=== PATIENT | female | born 1945 | race Caucasian/White ===

== ENCOUNTER → 2017-01-29 | Day surgery (SDC) | payer OTHER ==
[~2017-01-29] MED LIST: ANCEF VIAL 1 GM ONE; FENTANYL INJ 100 mcg ONE; LR 1000 ML IV 1,000 ML IV ONE; NAROPIN 0.75% ONE; NS 50 ML IV + SPIKE MINIBAG* 50 ML IV ONE; XYLOCAINE-MPF 1% ONE
[2017-01-29 07:57] VITALS: BP 120/75
== END ==
LOC: SURG1 07:35
PROVIDERS: ATTEND Student in an Organized Health Care Education/Training Program
DX: I87.2 Venous insufficiency (chronic) (peripheral) (principal); Z53.8 Procedure and treatment not carried out for other reasons
CPT/HCPCS: A4222; J0690; J3010; J7120

== ENCOUNTER → 2017-02-02 | Day surgery (SDC) | payer OTHER ==
[~2017-02-02] MED LIST changes: +DIPRIVAN VIAL ONE; -FENTANYL INJ 100 mcg ONE; -LR 1000 ML IV 1,000 ML IV ONE; -NAROPIN 0.75% ONE; +NS 1000 ML 1,000 ML ONE; +NS IRRIGATION 1000 ML 500 ML IR ONE; +VERSED ONE
--- NOTE | 2017-02-02 13:53 | RAD ---
Chest, one view Indication: For placement Comparison: 01/23/2017 Findings: There has been interval placement of a right jugular Port-A-Cath, the tip of which overlie s the SVC. Cardiac silhouette enlargement is unchanged. There is hyperinflation of the lungs with ch ronic interstitial changes. No dense infiltrate, large effusion, or pneumothorax identified. Chronic right hemidiaphragm elevation is stable. Impression: Satisfactory Port-A-Cath placement without acute chest process. Reported By:
[2017-02-02 14:31] VITALS: BP 130/65
== END | disposition home or self-care (01) | DRG 301 ==
LOC: SURG1 11:42
PROVIDERS: ATTEND Student in an Organized Health Care Education/Training Program
PROC: 02HV33Z Insertion of Infusion Device into Superior Vena Cava, Percutaneous Approach (ICD-10-PCS; principal; 2017-02-02 08:30)
PROC: 0JH63XZ Insertion of Tunneled Vascular Access Device into Chest Subcutaneous Tissue and Fascia, Percutaneous Approach (ICD-10-PCS; principal; 2017-02-02 08:30)
PROC: B548ZZA Ultrasonography of Superior Vena Cava, Guidance (ICD-10-PCS; principal; 2017-02-02 08:30)
DX: I87.2 Venous insufficiency (chronic) (peripheral) (principal)
CPT/HCPCS: 71010; 76000; 99100; A4222; J0690; J2250; J3490

== ENCOUNTER 2017-03-19 12:43 | Emergency (ER) | payer OTHER ==
[2017-03-19 12:57] VITALS: BP 111/62; BMI 34.3
[2017-03-19] MEDS ORDERED: ADACEL TDaP IM ONE ×2 (13:06→13:37)
--- NOTE | 2017-03-19 14:07 | RAD ---
HISTORY: Injury, fall, back pain Study: Lumbar spine five view Comparison: None Findings: The alignment is normal. The vertebral bodies are of average height. Disc space narrowing is present at L1-2 and L2-3. The remainder the disc spaces are preserved. No spondylolysis or spondylolisthesi s is identified. The SI joints are normal. The pedicles are intact. IMPRESSION: Mild disc space narrowing L1-2 Reported By:
--- NOTE | 2017-03-19 14:25 | DR.GENAD ---
HPI - PCP Primary Care Physician: cecilio - HPI Comment HPI Comment: HISTORY BELOW. - Complaint/Symptoms Chief Complaint Doctors Comments: PATIENT FELL IN HER KITCHEN BEFORE COMING TO ED. SKIN TEAR LEFT ARM. HAVING LOWER BACK PAIN. TD NOT UTD. Chief Complaint:: fell in kitchen while cleaning fridge, skin tear to left upper arm - Nurses notes reviewed Nurses Notes Review: Yes - Source History Provided: Patient - Mode of Arrival Mode of Arrival: Ambulatory - Timing Onset of Chief Complaint: 03/19/17 Came on: Suddenly - Duration Duration: Constant Duration: Minutes - Severity Severity: Moderate PMH - PMH Past Medical History: Yes Past Medical History: Anemia, Arthritis, Asthma, CHF, COPD, Coronary Artery Disease, Depression, Dyslipidemia, Hypertension, Hypothyroidism, [place], Renal Disease Past Surgical History: Yes Surgical History: Abdominal Surgery, Angioplasty/Stents, CABG/Valve Surgery, Cholecystectomy, [employer] Surgery - Family History History of Family Medical Conditions: Yes Family Medical History: Diabetes Mellitus, Cancer, [place], Coronary Artery Disease, Heart Failure, Sudden Cardiac , Hypertension - Social History Does patient currently use any type of tobacco product: No Have you used tobacco products in the last 12 months: No Type of Tobacco Use: None Does any household member use tobacco: No Alcohol Use: None Do you use any recreational Drugs:: No Lives With: Family Lives Where: Home - infectious screening In the last 2 months have you had wt loss of >10#?: NO Have you had fever, night sweats or hemotysis?: No Have you traveled outside the country in the last 6 months?: No Isolation: Standard ROS - Review of Systems Constitutional: No Symptoms Reported Eyes: No Symptoms Reported. negative: Eye Pain, Discharge ENTM: No Symptoms Reported. negative: Ear Pain, Nose Discharge, Nose Congestion , Throat Pain Respiratoy: No Symptoms Reported Cardiovascular: No Symptoms Reported Gastrointestinal/Abdominal: No Symptoms Reported Genitourinary: No Symptoms Reported Neurological: No Symptoms Reported Musculoskeletal: Back Pain, Joint Pain, Joint Swelling Integumentary: Wound (SKIN TEAR) Hematologic/Lymphatic: No Symptoms Reported Endocrine: No Symptoms Reported All Other Systems: Reviewed and Negative PE - Vital Signs Vitals: Temperature 98.1 F Pulse Rate 80 Respiratory Rate 16 Blood Pressure [Left Arm] 123/58 Blood Pressure [Right Arm] 131/58 Blood Pressure 111/62 O2 Sat by Pulse Oximetry 94 - General Limitations: No Limitations General Appearance: Alert - Head Head Exam: Normal Inspection - Eyes Eye exam: Normal Appearance - ENT ENT Exam: Normal External Ear Exam External Ear Exam: Normal External Inspection TM/Canal Exam: Bilateral Normal Nose Exam: Laceration (SKIN TEAR LEFT ARM, LARGE SURFACE AREA.) Mouth Exam: Normal Inspection Throat Exam: Normal Inspection - Neck Neck Exam: Trachea Midline - Chest Chest Inspection: Symmetric Chest Wall Rise - Respiratory Respiratory Exam: negative: Respiratory Distress Respiratory Exam: Bilateral Rhonchi, Lower Rhonchi - Cardiovascular Cardiovascular Exam: Regular Rate, Normal Rhythm, Normal Heart Sounds - Abdominal Exam Abdominal Exam: Normal Bowel Sounds, Soft, Dimnished Bowel Sounds - Extremities Extremities Exam: Tenderness (LEFT ARM. SKIN TEAR LARGE SURFACE AREA. SOME SKIN MISSING.) - Back Back Exam: Vertebral Tenderness (LOWER BACK) - Neurologic Neurological Exam: Alert, Oriented X3 - Psychiatric Psychiatric Exam: Normal Affect, Normal Mood - Skin Skin Exam: Erythema MDM - Additional Information Additional Information Obtained From: Family - Differential Diagnosis Differential Diagnosis: SKIN TEAR LT ARM, LOWER BACK PAIN, FALL Course - Treatment Treatment: SKIN TEAR CLEAN AND DRESSING APPLIED IN ED BY NURSE. - Education/Counseling Education/Counseling: Patient, Family, Education Educated On: Diagnosis, Needs for Follow Up ROR - XRAY XRAY Interpreted by: Radiologist XRAY Findings: REPORT DISCUSS WITH PATIENT AND HER FAAAAMILY. - Diagnosis Discharge Problem: Skin tear of left upper extremity, Lumbosacral strain, Low back pain - Discharge Plan Disposition: 01 HOME, SELF-CARE Condition: Stable - Follow ups/Referrals Follow ups/Referrals: NFD,None [Primary Care Provider] - 3 days - Instructions Instructions: Skin Tear Care, Lumbosacral Strain Additional Instructions: RETURN TO ED IF WORSE. CONTINUE WITH MED AT HOME FOR PAIN
[2017-03-19] MEDS ORDERED: NEOSPORIN OINT ONE (14:44)
== END 2017-03-19 14:55 | disposition home or self-care (01) ==
LOC: ER 12:51
DX: S83.289A Other tear of lateral meniscus, current injury, unspecified knee, initial encounter (principal); S39.012A Strain of muscle, fascia and tendon of lower back, initial encounter; M54.5 Low back pain; W19.XXXA Unspecified fall, initial encounter; Y92.89 Other specified places as the place of occurrence of the external cause
CPT/HCPCS: 72110; 90471; 99282

== ENCOUNTER 2017-10-14 01:11 | Emergency (ER) | payer OTHER ==
[2017-10-14 01:27] VITALS: BMI 27.4
[2017-10-14 01:30] VITALS: BP 120/66
[2017-10-14] MEDS ORDERED: TORADOL 60 MG VIAL IM ONE (01:44)
[2017-10-14] MEDS ORDERED: TORADOL 60 MG VIAL ONE (01:45)
--- NOTE | 2017-10-14 03:14 | RAD ---
Three views of the left ankle Indication: Left ankle pain without injury Findings: No acute fracture dislocation of the left ankle. Ankle mortise is symmetric. No osteochondr al abnormality within talar dome. No localizing soft tissue swelling. The tibiotalar joint effusion. Calcified atherosclerotic disease of the dorsalis pedis and posterior tibial arteries is noted. Mild dependent change of the plantar fascia. Impression: No acute radiographic abnormality within the left ankle. Reported By:
--- NOTE | 2017-10-14 03:20 | DR.GENAD ---
HPI - PCP Primary Care Physician: SERGIO - Complaint/Symptoms Chief Complaint Doctors Comments: Patient reports that her left ankle started to hurt today. Denies injury. Chief Complaint:: LEFT LATERAL ANKLE HURTING; NO KNOWN INJURY Self Treatment fo Chief Complaint: NO TREATMENT - Source History Provided: Patient - Mode of Arrival Mode of Arrival: Wheelchair - Timing Onset of Chief Complaint: 10/13/17 PMH - PMH Past Medical History: Yes Past Medical History: COPD Past Medical History Comment: CABG X 5; STENTS X 18; HOME O2; SLIM-CATH Past Surgical History: No Surgical History: Hysterectomy Past Surgical History Comment: HERNIA REPAIR - Family History History of Family Medical Conditions: No Family Medical History: Diabetes Mellitus, Cancer, [place], Coronary Artery Disease, Heart Failure, Sudden Cardiac , Hypertension - Social History Type of Tobacco Use: None Alcohol Use: None Do you use any recreational Drugs:: No Lives With: Family Lives Where: Home - infectious screening In the last 2 months have you had wt loss of >10#?: NO Have you had fever, night sweats or hemotysis?: No Have you traveled outside the country in the last 6 months?: No Isolation: Standard ROS - Review of Systems Eyes: No Symptoms Reported ENTM: No Symptoms Reported Respiratoy: No Symptoms Reported Cardiovascular: No Symptoms Reported Gastrointestinal/Abdominal: No Symptoms Reported Genitourinary: No Symptoms Reported Neurological: No Symptoms Reported Musculoskeletal: No Symptoms Reported Integumentary: No Symptoms Reported Hematologic/Lymphatic: No Symptoms Reported Endocrine: No Symptoms Reported Psychiatric: No Symptoms Reported All Other Systems: Reviewed and Negative PE - Vital Signs Vitals: Temperature 97.4 F Pulse Rate 112 Respiratory Rate 18 Blood Pressure [Left Arm] 123/58 Blood Pressure [Right Arm] 131/58 Blood Pressure 120/66 O2 Sat by Pulse Oximetry 99 - General Limitations: No Limitations General Appearance: Alert, In No Apparent Distress - Head Head Exam: Normal Inspection, Atraumatic - Eyes Eye exam: Normal Appearance, PERRL, EOMI - ENT ENT Exam: Normal Exam External Ear Exam: Normal External Inspection TM/Canal Exam: Bilateral Normal Nose Exam: Normal Nose Exam Mouth Exam: Normal Inspection Throat Exam: Normal Inspection - Neck Neck Exam: Normal Inspection - Chest Chest Inspection: Normal Inspection, Symmetric Chest Wall Rise - Respiratory Respiratory Exam: Normal Lung Sounds Bilat Respiratory Exam: Bilateral Clear to Auscultation - Cardiovascular Cardiovascular Exam: Regular Rate - Abdominal Exam Abdominal Exam: Normal Inspection, Normal Bowel Sounds Abdominal Tenderness: negative: RUQ, RLQ, LUQ, LLQ, Epigastrium, Suprapubic, Diffuse, Mild, Moderate, Severe, Other - Extremities Extremities Exam: Joint Swelling (left ankle) - Back Back Exam: Normal Inspection - Neurologic Neurological Exam: Alert, Oriented X3, CN II-XII Intact - Psychiatric Psychiatric Exam: Normal Affect - Skin Skin Exam: Warm, Dry, Intact ROR - Labs Reviewed Laboratory Results Reviewed?: Yes (Uric Acid 6.9) Laboratory: Uric Acid 6.9 mg/dL (2.6-6.0) H 10/14/17 01:55 - XRAY XRAY Interpreted by: Radiologist (ankle: No acute radiographiac abnormality within the left ankle) - Diagnosis Discharge Problem: Gout attack Qualifiers: Gout site: ankle Gout etiology: other secondary cause Laterality: left Qualified Code(s): 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
== END 2017-10-14 03:38 | disposition home or self-care (01) ==
LOC: ER 01:11
DX: M10.472 Other secondary gout, left ankle and foot (principal)
CPT/HCPCS: 36415; 73610; 84550; 96372; 99282; 99283; J1885

== ENCOUNTER 2017-11-01 23:01 | Emergency (ER) | payer OTHER ==
[2017-11-01 23:15] VITALS: BP 111/61; BMI 28.1
[2017-11-02] MEDS ORDERED: DECADRON INJ IM ONE (00:33)
[2017-11-02] MEDS ORDERED: DECADRON INJ ONE (00:35)
--- NOTE | 2017-11-02 00:38 | DR.GENAD ---
HPI - Complaint/Symptoms Chief Complaint Doctors Comments: Patient admits to being out of her nerve medication and has been scratching most of the day. She moved into a new appartment and the place has been treated for bed bugs. Chief Complaint:: scratching all over, itching, depression, nerve problems for about 2 to 3 weeks. scratch moya over arms and legs - Source History Provided: Patient - Mode of Arrival Mode of Arrival: Ambulatory - Timing Onset of Chief Complaint: 10/11/17 PMH - PMH Past Medical History: Yes Past Medical History: Angina, Anxiety, Arthritis, CHF, COPD, Depression, Dyslipidemia, Hypertension Past Surgical History: Yes Surgical History: Angioplasty/Stents, CABG/Valve Surgery, Cholecystectomy, Hysterectomy Past Surgical History Comment: nodules removed from lungs - Family History History of Family Medical Conditions: Yes Family Medical History: Diabetes Mellitus, Cancer, [place], Coronary Artery Disease, Heart Failure, Sudden Cardiac , Hypertension - Social History Does patient currently use any type of tobacco product: No Have you used tobacco products in the last 12 months: No Type of Tobacco Use: None Does any household member use tobacco: No Alcohol Use: None Do you use any recreational Drugs:: No Lives With: Family Lives Where: Home - infectious screening In the last 2 months have you had wt loss of >10#?: NO Have you had fever, night sweats or hemotysis?: No Have you traveled outside the country in the last 6 months?: No Isolation: Standard ROS - Review of Systems Eyes: No Symptoms Reported ENTM: No Symptoms Reported Respiratoy: No Symptoms Reported Cardiovascular: No Symptoms Reported Gastrointestinal/Abdominal: No Symptoms Reported Genitourinary: No Symptoms Reported Neurological: No Symptoms Reported Musculoskeletal: No Symptoms Reported Integumentary: Lesions (multiple areas of bruising/scratching on lower and upper extremities) Hematologic/Lymphatic: No Symptoms Reported Endocrine: No Symptoms Reported Psychiatric: No Symptoms Reported All Other Systems: Reviewed and Negative PE - Vital Signs Vitals: Temperature 98.6 F Pulse Rate 74 Respiratory Rate 20 Blood Pressure [Left Arm] 123/58 Blood Pressure [Right Arm] 131/58 Blood Pressure 111/61 O2 Sat by Pulse Oximetry 95 - General Limitations: No Limitations General Appearance: Alert - Head Head Exam: Normal Inspection - Eyes Eye exam: Normal Appearance, PERRL, EOMI - ENT ENT Exam: Normal Exam External Ear Exam: Normal External Inspection TM/Canal Exam: Bilateral Normal Nose Exam: Normal Nose Exam Mouth Exam: Normal Inspection Throat Exam: Normal Inspection - Neck Neck Exam: Normal Inspection - Chest Chest Inspection: Normal Inspection - Respiratory Respiratory Exam: Normal Lung Sounds Bilat Respiratory Exam: Bilateral Clear to Auscultation - Cardiovascular Cardiovascular Exam: Regular Rate, Normal Rhythm - Abdominal Exam Abdominal Exam: Normal Inspection Abdominal Tenderness: negative: RUQ, RLQ, LUQ, LLQ, Epigastrium, Suprapubic, Diffuse, Mild, Moderate, Severe, Other - Extremities Extremities Exam: Other (scratches on lower and upper extremities, ecchymosis) - Back Back Exam: Normal Inspection - Neurologic Neurological Exam: Alert, Oriented X3, CN II-XII Intact - Psychiatric Psychiatric Exam: Normal Affect, Normal Mood - Skin Skin Exam: Warm, Dry, Intact - Diagnosis Discharge Problem: Dermatitis - Discharge Plan Condition: Stable - Follow ups/Referrals Follow ups/Referrals: Alfredo Booth [Primary Care Provider] - 3 days - Instructions
== END 2017-11-02 00:43 | disposition home or self-care (01) ==
LOC: ER 23:20
DX: L30.8 Other specified dermatitis (principal)
CPT/HCPCS: 90472; 96372; 99282; J1100

== ENCOUNTER 2017-11-15 16:55 | Emergency (ER) | payer OTHER ==
[2017-11-15 17:05] VITALS: BMI 27.4
--- NOTE | 2017-11-15 17:32 | DR.GENAD ---
HPI - PCP Primary Care Physician: SERGIO - HPI Comment HPI Comment: SORES GETTING WORSE AND REDNESS AROUND SORES INCREASING AND SWELLING IS INCEASING ALSO. NO FEVER. - Complaint/Symptoms Chief Complaint Doctors Comments: GENERALIZE BODY SORE AND REDNESS FOR SEVERAL WEEKS. Chief Complaint:: PT C/O RASH, ITCHING, AND SORES ALL OVER BODY. PT STATES THESE PLACES HAS BEEN THERE FOR A WHILE - Nurses notes reviewed Nurses Notes Review: Yes - Source History Provided: Patient - Mode of Arrival Mode of Arrival: Ambulatory - Timing Onset of Chief Complaint: 11/08/17 Came on: Suddenly - Duration Duration: Constant Duration: Days PMH - PMH Past Medical History: Yes Past Medical History: Angina, Anxiety, Arthritis, CHF, COPD, Depression, Dyslipidemia, Hypertension Past Surgical History: Yes Surgical History: Angioplasty/Stents, CABG/Valve Surgery, Cholecystectomy, Hysterectomy - Family History History of Family Medical Conditions: Yes Family Medical History: Diabetes Mellitus, Cancer, [place], Coronary Artery Disease, Heart Failure, Sudden Cardiac , Hypertension - Social History Does any household member use tobacco: No Alcohol Use: None Do you use any recreational Drugs:: No Lives With: Family Lives Where: Assisted Care - infectious screening In the last 2 months have you had wt loss of >10#?: NO Have you had fever, night sweats or hemotysis?: No Have you traveled outside the country in the last 6 months?: No Isolation: Standard ROS - Review of Systems Constitutional: Weakness, Fatigue. negative: Chills, Fever Eyes: No Symptoms Reported ENTM: Nose Congestion. negative: Ear Pain, Nose Discharge, Throat Pain Respiratoy: Non-Productive Cough, Short of Breath, Wheezing. negative: Hemoptysis Cardiovascular: Edema Gastrointestinal/Abdominal: No Symptoms Reported. negative: Abdominal Pain, Diarrhea, Nausea, Vomiting Genitourinary: No Symptoms Reported Neurological: Weakness Musculoskeletal: Muscle Pain Integumentary: Change in Color, Rash, Itching Hematologic/Lymphatic: No Symptoms Reported Endocrine: No Symptoms Reported All Other Systems: Reviewed and Negative PE - Vital Signs Vitals: Temperature 98.8 F Pulse Rate [Left Radial] 80 Pulse Rate 86 Respiratory Rate 18 Blood Pressure [Left Arm] 128/72 Blood Pressure [Right Arm] 131/58 Blood Pressure 130/73 O2 Sat by Pulse Oximetry 99 - General Limitations: No Limitations General Appearance: Alert - Head Head Exam: Normal Inspection - Eyes Eye exam: Normal Appearance - ENT ENT Exam: Normal External Ear Exam External Ear Exam: Normal External Inspection TM/Canal Exam: Bilateral Normal Nose Exam: Normal Nose Exam Mouth Exam: Normal Inspection Throat Exam: Normal Inspection - Neck Neck Exam: Normal Inspection - Chest Chest Inspection: Symmetric Chest Wall Rise - Respiratory Respiratory Exam: Chest Wall Tenderness Respiratory Exam: Bilateral Clear to Auscultation - Cardiovascular Cardiovascular Exam: Regular Rate, Normal Rhythm, Normal Heart Sounds - Abdominal Exam Abdominal Exam: Normal Bowel Sounds, Soft. negative: Tenderness - Extremities Extremities Exam: Edema - Back Back Exam: Paraspinal Tenderness, Vertebral Tenderness - Neurologic Neurological Exam: Alert, Oriented X3 - Psychiatric Psychiatric Exam: Anxious - Skin Skin Exam: Rash, Erythema MDM - Additional Information Additional Information Obtained From: Family - Differential Diagnosis Differential Diagnosis: CELLULITIS, RASH, PRURITUS Course - Treatment Treatment: SEE ORSERS. - Education/Counseling Education/Counseling: Patient, Family, Education Educated On: Treatment, Diagnosis, Needs for Follow Up ROR - Labs Reviewed Laboratory Results Reviewed?: Yes Result Diagrams: 11/15/17 18:11 11/15/17 18:11 Laboratory: WBC 7.6 X10^3/uL (3.6-10.0) 11/15/17 18:11 RBC 3.65 X10^6/uL (3.5-5.4) 11/15/17 18:11 Hgb 12.2 g/dL (12.0-16.0) 11/15/17 18:11 Hct 35.8 % (36.0-47.0) L 11/15/17 18:11 MCV 98.0 fL (80.0-100.0) 11/15/17 18:11 MCH 33.4 pg (27.0-34.0) 11/15/17 18:11 MCHC 34.0 g/dL (33.0-35.0) 11/15/17 18:11 RDW 13.3 % (11.6-16.5) 11/15/17 18:11 Plt Count 217 X10^3/uL (150.0-450.0) 11/15/17 18:11 MPV 7.3 fL (7.4-11.0) L 11/15/17 18:11 Neut % 64.9 % (42.0-75.0) 11/15/17 18:11 Lymph % 18.2 % (21.0-51.0) L 11/15/17 18:11 [place] % 7.5 % (0.0-13.0) 11/15/17 18:11 Eos % 6.3 % (0.9-2.9) H 11/15/17 18:11 Baso % 3.1 % (0.2-1.0) H 11/15/17 18:11 Neut # 4.9 x10^3/uL (2.2-4.8) H 11/15/17 18:11 Lymph # 1.4 X10^3/uL (1.3-2.9) 11/15/17 18:11 [place] # 0.6 x10^3/uL (0.3-0.8) 11/15/17 18:11 Eos # 0.5 x10^3/uL (0.0-0.2) H 11/15/17 18:11 Baso # 0.2 X10^3/uL (0.0-0.1) H 11/15/17 18:11 Absolute Nucleated RBC 0.0 /100WBC 11/15/17 18:11 Sodium 140 mmol/L (136-145) 11/15/17 18:11 Corrected Sodium TNP 11/15/17 18:11 Potassium 4.7 mmol/L (3.5-5.1) 11/15/17 18:11 Chloride 106 mmol/L (98-107) 11/15/17 18:11 Carbon Dioxide 26.3 mmol/L (21-32) 11/15/17 18:11 BUN 29 mg/dL (7-18) H 11/15/17 18:11 Creatinine 1.56 mg/dL (0.55-1.02) H 11/15/17 18:11 Est GFR (MDRD) Af Amer 42 (>60) L 11/15/17 18:11 Est GFR (MDRD) Non-Af 34 (>60) L 11/15/17 18:11 Glucose 95 mg/dL (65-99) 11/15/17 18:11 Calcium 8.5 mg/dL (8.5-10.1) 11/15/17 18:11 Corrected Calcium 9.1 mg/dL (8.5-10.1) 11/15/17 18:11 Total Bilirubin 0.30 mg/dL (0.2-1.0) 11/15/17 18:11 AST 34 Units/L (15-37) 11/15/17 18:11 ALT 35 Units/L (12-78) 11/15/17 18:11 Alkaline Phosphatase 124 Units/L (46-116) H 11/15/17 18:11 C-Reactive Protein 8.00 mg/L (0-3.0) H 11/15/17 18:11 Total Protein 7.1 g/dL (6.4-8.2) 11/15/17 18:11 Albumin 3.2 g/dL (3.4-5.0) L 11/15/17 18:11 Globulin 3.9 g/dL (2.5-4.5) 11/15/17 18:11 Albumin/Globulin Ratio 0.8 Ratio (1.1-2.1) L 11/15/17 18:11 - Diagnosis Discharge Problem: Rash Cellulitis Qualifiers: Site of cellulitis: other site Qualified Code(s): L03.818 - Cellulitis of other sites - Discharge Plan Disposition: 01 HOME, SELF-CARE Condition: Stable Prescriptions: Hydroxyzine Pamoate [Vistaril] 25 mg PO BID PRN #14 cap PRN Reason: Prednisone [PREDNISONE TAB 10 MG *] 10 mg PO QAM #7 tab Sulfamethoxazole-Trimethoprim [BACTRIM DS TAB 800/160 MG *] 1 tab PO BID #20 tab - Follow ups/Referrals Follow ups/Referrals: Alfredo Booth [Primary Care Provider] - 3 days - Instructions Instructions: Pruritus, Cellulitis, Adult, [id number], Rash, [id number] Additional Instructions: RETURN TO ED IF WORSE.
[2017-11-15 18:30] LABS: BASOPHILS # (AUTO) 0.2 X10^3/uL (0.0-0.1); BASOPHILS % (AUTO) 3.1 % (0.2-1.0); EOSINOPHILS # (AUTO) 0.5 x10^3/uL (0.0-0.2); EOSINOPHILS % (AUTO) 6.3 % (0.9-2.9); HEMATOCRIT 35.8 % (36.0-47.0); HEMOGLOBIN 12.2 g/dL (12.0-16.0); LYMPHOCYTES # (AUTO) 1.4 X10^3/uL (1.3-2.9); LYMPHOCYTES % (AUTO) 18.2 % (21.0-51.0); MEAN CORPUSCULAR HEMOGLOBIN 33.4 pg (27.0-34.0); MEAN PLATELET VOLUME 7.3 fL (7.4-11.0); MONOCYTES # (AUTO) 0.6 x10^3/uL (0.3-0.8); MONOCYTES % (AUTO) 7.5 % (0.0-13.0); NEUTROPHILS # (AUTO) 4.9 x10^3/uL (2.2-4.8); NEUTROPHILS % (AUTO) 64.9 % (42.0-75.0); PLATELET COUNT 217 X10^3/uL (150.0-450.0); RED BLOOD COUNT 3.65 X10^6/uL (3.5-5.4); RED CELL DISTRIBUTION WIDTH 13.3 % (11.6-16.5); WHITE BLOOD COUNT 7.6 X10^3/uL (3.6-10.0)
[2017-11-15] MEDS ORDERED: ZOSYN VIAL 3.375 GM 3.375 GM in NS 100 ML IV + SPIKE MINIBAG* 100 ML IV ONE (18:30)
[2017-11-15] MEDS ORDERED: MORPHINE SULFATE INJ 4 MG IVP ONE (18:32)
[2017-11-15] MEDS ORDERED: ZOFRAN INJ 4 MG VIAL IVP ONE (18:32)
[2017-11-15] MEDS ORDERED: ZOSYN VIAL 3.375 GM IV ONE (18:35)
[2017-11-15] MEDS ORDERED: NS 100 ML IV 100 ML IV ONE (18:35)
[2017-11-15] MEDS ORDERED: MORPHINE SULFATE INJ 2 MG INJ ONE (18:35)
[2017-11-15 18:38] LABS: ALANINE AMINOTRANSFERASE 35 Units/L (12-78); ALBUMIN 3.2 g/dL (3.4-5.0); ALKALINE PHOSPHATASE 124 Units/L (46-116); ASPARTATE AMINO TRANSFERASE 34 Units/L (15-37); BLOOD UREA NITROGEN 29 mg/dL (7-18); CALCIUM 8.5 mg/dL (8.5-10.1); CARBON DIOXIDE 26.3 mmol/L (21-32); CHLORIDE 106 mmol/L (98-107); COR CA(FOR HYPOALB) 9.1 mg/dL (8.5-10.1); CREATININE 1.56 mg/dL (0.55-1.02); SODIUM 140 mmol/L (136-145); TOTAL PROTEIN 7.1 g/dL (6.4-8.2); eGFR BLACK RACES 42 (>60); eGFR NON BLACK RACES 34 (>60)
[2017-11-15] MEDS ORDERED: VISTARIL PO ONE ×2 (20:15→20:18)
[2017-11-15] MEDS ORDERED: ZANTAC INJ 50 MG in NS 50 ML IV 50 ML IV ONE (20:15)
[2017-11-15] MEDS ORDERED: NS 25 ML IV 25 ML IV ONE (20:24)
[2017-11-15 21:29] VITALS: BP 128/72
== END 2017-11-15 21:30 | disposition home or self-care (01) ==
LOC: ER 16:59
DX: L03.818 Cellulitis of other sites (principal); R21 Rash and other nonspecific skin eruption
CPT/HCPCS: 36415; 36591; 80053; 85025; 86140; 87040; 96365; 96367; 96374; 96375; 99283; Q0177; J2270; J2543; J2780

== ENCOUNTER 2017-12-20 07:36 | Emergency (ER) | payer OTHER ==
[2017-12-20 07:59] VITALS: BP 193/86; BMI 28.3
--- NOTE | 2017-12-20 08:21 | DR.SOBA ---
HPI - Primary Care Physician Primary Care Physician: ang - HPI Comment HPI Comment: No c/o SOB to me, 96% RA sats, no resp distress. Mentions itching to me, has tried a number of different things from PCP and derm for this without improvement. Concerned re:staph infection - Complaints Chief Complaint:: pt stated her legs are draining and her neighbor said it was staff, left eye pain that she was told it was shingles and has been feeling sick on her stomack. and she stated she feels short of breath. - Reviewed Nurses Notes Reviewed: Yes - Source History Provided: Patient, Family Member - Mode of Arrival Mode of Arrival: Ambulatory - Timing Onset of Chief Complaint: 12/17/17 - Duration Duration: Months (chronic condition, has seen PCP a number of times for this and 2 different dermatologists) - Modifying Factors Worsens:: Nothing Improves:: Nothing - Associated Signs and Symptoms Associated Signs and Symptoms: denies: Fever - If Chest Pain Quality: Sharp - If Cough Cough: None PMH - PMH Past Medical History: Yes Past Medical History: Angina, Anxiety, Arthritis, CHF, COPD, Depression, Dyslipidemia, Hypertension Past Surgical History: Yes Surgical History: Angioplasty/Stents, CABG/Valve Surgery, Cholecystectomy, Hysterectomy - Family History History of Family Medical Conditions: Yes Family Medical History: Diabetes Mellitus, Cancer, [place], Coronary Artery Disease, Heart Failure, Sudden Cardiac , Hypertension - Social History Does patient currently use any type of tobacco product: No Have you used tobacco products in the last 12 months: No Type of Tobacco Use: None Does any household member use tobacco: No Alcohol Use: None Do you use any recreational Drugs:: No Lives With: Family Lives Where: Home - infectious screening In the last 2 months have you had wt loss of >10#?: NO Have you had fever, night sweats or hemotysis?: No Have you traveled outside the country in the last 6 months?: No Isolation: Standard ROS - Review of Systems Constitutional: See HPI. 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, has tried lyrica and neurontin without relief) ENTM: No Symptoms Reported Respiratoy: No Symptoms Reported Cardiovascular: No Symptoms Reported Gastrointestinal/Abdominal: No Symptoms Reported Genitourinary: No Symptoms Reported Neurological: Paresthesia Musculoskeletal: Back Pain Integumentary: Rash, Itching Hematologic/Lymphatic: No Symptoms Reported Endocrine: No Symptoms Reported Psychiatric: No Symptoms Reported All Other Systems: Reviewed and Negative PE - Vital Signs Vitals: Temperature 98.7 F Pulse Rate 64 Respiratory Rate 16 Blood Pressure [Left Arm] 128/72 Blood Pressure [Right Arm] 131/58 Blood Pressure 193/86 O2 Sat by Pulse Oximetry 97 - General Limitations: No Limitations General Appearance: Alert, In No Apparent Distress. negative: Anxious, Lethargic, Obtunded, In Distress - Head Head Exam: Normal Inspection, Normocephalic - Eyes Eye exam: Normal Appearance - ENT ENT Exam: Normal Exam - Neck Neck Exam: Normal Inspection - Chest Chest Inspection: Normal Inspection - Respiratory Respiratory Exam: Normal Lung Sounds Bilat. negative: Accessory Muscle Use, Chest Wall Tenderness, Prolonged Expiratory Phase, Respiratory Distress, Stridor Respiratory Exam: Bilateral Clear to Auscultation - Cardiovascular Cardiovascular Exam: Regular Rate, Normal Rhythm - Abdominal Exam Abdominal Exam: Normal Bowel Sounds, Soft - Extremities Extremities Exam: Other (excoriated lesions both arms and both legs from pt scratching. These do not appear infected. Similar lesions are on her back as well) - Neurologic Neurological Exam: Alert - Psychiatric Psychiatric Exam: Normal Affect, Normal Mood - Skin Skin Exam: Rash (see above, multiple areas of excoriation) MDM - Additional Information Obtained Additional Information Obtained From: Family Course - Treatment Treatment: Asked pt if she had tried Atarax, she said this was the only thing that had helped previously. I told her I'd write a Rx for her to have some. 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
[2017-12-20] MEDS ORDERED: ATARAX TAB 10 MG PO PRN (08:27)
[2017-12-20] MEDS ORDERED: ATARAX TAB 10 MG PO ONE (08:30)
== END 2017-12-20 09:13 | disposition home or self-care (01) ==
LOC: ER 07:49
DX: L29.8 Other pruritus (principal)
CPT/HCPCS: 99282

== ENCOUNTER 2017-12-23 03:19 | Emergency (ER) | payer OTHER ==
[2017-12-23 03:28] VITALS: BP 120/70; BMI 28.3
[2017-12-23] MEDS ORDERED: BENADRYL INJ 50 MG VIAL IM ONE (04:01)
[2017-12-23] MEDS ORDERED: ROCEPHIN VIAL 1 GM IM ONE (04:01)
[2017-12-23] MEDS ORDERED: BACTRIM DS TAB PO ONE ×2 (04:02→04:06)
[2017-12-23] MEDS ORDERED: PREDNISONE TAB 20 MG PO ONE ×2 (04:02→04:05)
[2017-12-23] MEDS ORDERED: XYLOCAINE 1 % (PLAIN) ONE (04:05)
[2017-12-23] MEDS ORDERED: BENADRYL INJ 50 MG VIAL ONE (04:05)
[2017-12-23] MEDS ORDERED: ROCEPHIN VIAL 1 GM ONE (04:06)
--- NOTE | 2017-12-23 04:07 | DR.GENAD ---
HPI - PCP Primary Care Physician: ang - Complaint/Symptoms Chief Complaint Doctors Comments: Patient states she has had a rash for a long time on her back arms and legs that is getting worst. States she went to a family practice medical doctor and she told her she had a staph infection and gave her some cream and medicines but it did not help. States she has not been able to sleep due to the itching. she came to the emergency room and states they told her she had "old people's rash". State she is a patient of Dr. Booth and when the rash starts itching feels like she can scratch down to the bones. She denies fever, chills, nausea or vomiting. States her tetanus is up to date. Chief Complaint:: c/o staph infection to back, arms, legs. Patient reports symptoms started 3 weeks [address] Patient [address] Dr[address] Booth and he sent her to a dermalogist, who gave her antibiotics. Patient reports was compliant with medication and saw no improvement with rash. Patient reports areas are itching severly. - Nurses notes reviewed Nurses Notes Review: Yes - Source History Provided: Patient - Mode of Arrival Mode of Arrival: Ambulatory - Timing Onset of Chief Complaint: 12/02/17 Came on: Gradually - Duration Duration: Constant How lon Duration: Weeks - Location Location: back, arms, buttock and legs - Severity Severity: Moderate - Modifying Factors Worsens:: nothing Improves:: nothing PMH - PMH Past Medical History: Yes Past Medical History: Angina, Anxiety, Arthritis, CHF, COPD, Depression, Dyslipidemia, Hypertension Past Surgical History: Yes Surgical History: Angioplasty/Stents, CABG/Valve Surgery, Cholecystectomy, Hysterectomy - Family History History of Family Medical Conditions: Yes Family Medical History: Diabetes Mellitus, Cancer, [place], Coronary Artery Disease, Heart Failure, Sudden Cardiac , Hypertension - Social History Type of Tobacco Use: None Alcohol Use: None Do you use any recreational Drugs:: No Lives With: Family Lives Where: Home - infectious screening In the last 2 months have you had wt loss of >10#?: NO Have you had fever, night sweats or hemotysis?: No Have you traveled outside the country in the last 6 months?: No Isolation: Standard ROS - Review of Systems Constitutional: No Symptoms Reported. negative: See HPI, Chills, Diaphoresis, Fever, Malaise, Weakness, Irritable, Fatigue, Loss of Appetite, Other Eyes: No Symptoms Reported. negative: See HPI, Eye Pain, Blurred Vision, Tearing, Discharge, Photophobia, Diplopia, Other ENTM: No Symptoms Reported Respiratoy: No Symptoms Reported. negative: See HPI, Productive Cough, Non- Productive Cough, Moist Cough, Dry Cough, Hacking Cough, Barking Cough, Brassy Cough, Orthopnea, Short of Breath, Stridor, Wheezing, Hemoptysis, Other Cardiovascular: No Symptoms Reported Gastrointestinal/Abdominal: No Symptoms Reported. negative: See HPI, Abdominal Pain, Constipation, Diarrhea, Nausea, Vomiting, Food Intolerance, Other Genitourinary: No Symptoms Reported. negative: See HPI, Discharge, Dysuria, Frequency, Hematuria, Pain, Bleeding, Other Neurological: No Symptoms Reported, Anxiety, Emotional Problems Musculoskeletal: No Symptoms Reported, Back, Arm, Leg Integumentary: No Symptoms Reported, Lesions (macular lesions on arm and back with honey cone crusting), Rash, Itching, Wound Hematologic/Lymphatic: No Symptoms Reported. negative: See HPI, Anemia, Blood Clots, Easy Bleeding, Easy Bruising, Swollen Glands, Lymphadenopathy, Other Endocrine: No Symptoms Reported Psychiatric: No Symptoms Reported, Anxiety, Depression. negative: See HPI, Hallucinations, Excessive crying, Suicidal, Other PE - Vital Signs Vitals: Temperature 97.9 F Pulse Rate 104 Respiratory Rate 26 Blood Pressure [Left Arm] 128/72 Blood Pressure [Right Arm] 131/58 Blood Pressure 120/70 O2 Sat by Pulse Oximetry 96 - General Limitations: No Limitations General Appearance: Alert, In No Apparent Distress, Obese. negative: Appears Intoxicated, Anxious, Lethargic, Obtunded, In Distress, Cachectic, Other - Head Head Exam: Normal Inspection, Atraumatic, Normocephalic - Eyes Eye exam: Normal Appearance, PERRL, EOMI. negative: Scleral Icterus, Conjunctival Injection, Nystagmus, Miosis, Mydrasis, Periorbital Swelling, Periorbital Tenderness, Other - ENT ENT Exam: Normal Exam, Normal Oropharynx, Normal External Ear Exam, Mucous Membranes Moist, TM's Normal Bilaterally External Ear Exam: Normal External Inspection TM/Canal Exam: Bilateral Normal Nose Exam: Normal Nose Exam Mouth Exam: Normal Inspection. negative: Drooling, Trismus, Lip Swelling, Tongue Elevation, Tongue Swelling, Laceration, Other Throat Exam: Normal Inspection. negative: Tonsillar Erythema, Tonsillomegaly, Tonsillar Exudate, R Peritonsillar Mass, L Peritonsillar Mass, Muffled Voice, Other - Neck Neck Exam: Normal Inspection, Full ROM, Trachea Midline - Chest Chest Inspection: Normal Inspection, Symmetric Chest Wall Rise. negative: Tenderness, Rash, Abscess, Other - Respiratory Respiratory Exam: Normal Lung Sounds Bilat. negative: Accessory Muscle Use, Chest Wall Tenderness, Prolonged Expiratory Phase, Respiratory Distress, Stridor , Other Respiratory Exam: Bilateral Clear to Auscultation - Cardiovascular Cardiovascular Exam: Regular Rate, Normal Rhythm, Normal Heart Sounds - Abdominal Exam Abdominal Exam: Normal Inspection, Normal Bowel Sounds, Soft. negative: Distention, Tenderness, Guarding, Rebound, Rigidity, Dimnished Bowel Sounds, Hyperactive Bowel Sounds, Hypoactive Bowel Sounds, Organomegaly, Trauma, Incision, Ascites, Mass, Bruit, Pulsatile Mass, Hernia, Other Abdominal Tenderness: negative: RUQ, RLQ, LUQ, LLQ, Epigastrium, Suprapubic, Diffuse, Mild, Moderate, Severe, Other - Extremities Extremities Exam: Normal Inspection, Full ROM, Normal Capillary Refill (rash on arms with honey cone crusting). negative: Tenderness - Back Back Exam: Normal Inspection, Full ROM, Rashes (large patches of erythemaous macular rash with crusting; papules, excoriatio). negative: Tenderness, Muscle Spasm, Paraspinal Tenderness - Neurologic Neurological Exam: Alert, Oriented X3, CN II-XII Intact, Normal Gait, Reflexes Normal - Psychiatric Psychiatric Exam: Normal Affect, Normal Mood, Depressed, Anxious. negative: Agitated, Flat Affect, Manic, Homicidal Ideation, Suicidal Ideation, Other - Skin Skin Exam: Warm, Dry, Intact, Normal Color, Rash (back with multiple macular lesions with erythema, denuded skin with honeycone crusting.) - Diagnosis Discharge Problem: Impetigo follicularis, Cellulitis, Xerosis of skin, Folliculitis - Discharge Plan Disposition: 01 HOME, SELF-CARE Condition: Stable Prescriptions: Cephalexin [KEFLEX CAP 500 MG *] 500 mg PO TID #30 cap Hydroxyzine HCl 25 mg Tab [ATARAX *] 25 mg PO Q8H PRN #60 tab PRN Reason: Allergy/Itching Mupirocin Oint [BACTROBAN OINT 2%] 1 applic EXT BID #44 gm Sulfamethoxazole-Trimethoprim [BACTRIM DS TAB 800/160 MG *] 1 tab PO BID #20 tab - Follow ups/Referrals Follow ups/Referrals: Alfredo Booth [Primary Care Provider] - 3 days - Instructions Instructions: Impetigo, Adult, Contact Precautions, [id number], Cellulitis, Adult, [id number], Eczema
== END 2017-12-23 04:36 | disposition home or self-care (01) ==
LOC: ER 03:19
DX: L01.02 Bockhart's impetigo (principal); L03.90 Cellulitis, unspecified; L85.3 Xerosis cutis; L73.9 Follicular disorder, unspecified
CPT/HCPCS: 96372; 99282; J0696; J1200; J2001; J7506

== ENCOUNTER 2018-01-06 15:21 | Emergency (ER) | payer OTHER ==
[2018-01-06 15:30] VITALS: BP 169/117; BMI 27.6
--- NOTE | 2018-01-06 16:55 | DR.GENAD ---
HPI - PCP Primary Care Physician: Leobardo - Complaint/Symptoms Chief Complaint Doctors Comments: Patient has been followed by two different case picker for the treatment of the dry skin. She states that she has to itch frequently for comfort. She has been followed for years by different case picker. Chief Complaint:: "For about 2 months now I have been having a rash come up and I can't stop itching. It's all over my body." - Source History Provided: Patient - Mode of Arrival Mode of Arrival: Ambulatory - Timing Onset of Chief Complaint: 11/04/17 PMH - PMH Past Medical History: Yes Past Medical History: Angina, Anxiety, Arthritis, CHF, COPD, Depression, Dyslipidemia, Hypertension Past Surgical History: Yes Surgical History: Angioplasty/Stents, CABG/Valve Surgery, Cholecystectomy, Hysterectomy - Family History History of Family Medical Conditions: Yes Family Medical History: Diabetes Mellitus, Cancer, [place], Coronary Artery Disease, Heart Failure, Sudden Cardiac , Hypertension - Social History Does patient currently use any type of tobacco product: No Have you used tobacco products in the last 12 months: No Type of Tobacco Use: None Does any household member use tobacco: No Alcohol Use: None Do you use any recreational Drugs:: No Lives With: Family Lives Where: Home - infectious screening In the last 2 months have you had wt loss of >10#?: NO Have you had fever, night sweats or hemotysis?: No Have you traveled outside the country in the last 6 months?: No Isolation: Standard ROS - Review of Systems Eyes: No Symptoms Reported ENTM: No Symptoms Reported Respiratoy: No Symptoms Reported Cardiovascular: No Symptoms Reported Genitourinary: No Symptoms Reported Neurological: No Symptoms Reported Musculoskeletal: No Symptoms Reported Integumentary: No Symptoms Reported Hematologic/Lymphatic: See HPI Endocrine: No Symptoms Reported Psychiatric: No Symptoms Reported All Other Systems: Reviewed and Negative PE - Vital Signs Vitals: Temperature 98.4 F Pulse Rate 70 Respiratory Rate 20 Blood Pressure [Left Arm] 128/72 Blood Pressure [Right Arm] 131/58 Blood Pressure 169/117 O2 Sat by Pulse Oximetry 98 - General General Appearance: Alert, In No Apparent Distress - Head Head Exam: Normal Inspection, Atraumatic - Eyes Eye exam: Normal Appearance, PERRL, EOMI - ENT ENT Exam: Normal Exam External Ear Exam: Normal External Inspection TM/Canal Exam: Bilateral Normal Nose Exam: Normal Nose Exam Mouth Exam: Normal Inspection Throat Exam: Normal Inspection - Neck Neck Exam: Normal Inspection - Chest Chest Inspection: Normal Inspection - Respiratory Respiratory Exam: Normal Lung Sounds Bilat Respiratory Exam: Bilateral Clear to Auscultation - Cardiovascular Cardiovascular Exam: Regular Rate, Normal Rhythm - Abdominal Exam Abdominal Exam: Normal Inspection, Normal Bowel Sounds Abdominal Tenderness: negative: RUQ, RLQ, LUQ, LLQ, Epigastrium, Suprapubic, Diffuse, Mild, Moderate, Severe, Other - Extremities Extremities Exam: Normal Inspection, Full ROM - Back Back Exam: Normal Inspection, Full ROM - Neurologic Neurological Exam: Alert, Oriented X3, CN II-XII Intact - Psychiatric Psychiatric Exam: Normal Affect, Normal Mood - Skin Skin Exam: Warm, Dry (cracked, excoriated) - Diagnosis Discharge Problem: Chronic pruritic rash in adult - Discharge Plan Condition: Stable - Follow ups/Referrals Follow ups/Referrals: Alfredo Booth [Primary Care Provider] - 3 days - Instructions
[2018-01-06] MEDS ORDERED: DECADRON INJ IM ONE (17:25)
[2018-01-06] MEDS ORDERED: DECADRON INJ ONE (17:26)
== END 2018-01-06 17:41 | disposition home or self-care (01) ==
LOC: ER 15:34
DX: L29.8 Other pruritus (principal)
CPT/HCPCS: 96372; 99282; J1100

== ENCOUNTER → 2018-01-11 | Outpatient (CLI) | payer OTHER ==
[2018-01-06 15:30] VITALS: BP 169/117
[2018-01-11 09:19] LABS: BILIRUBIN,URINE NEGATIVE (NEGATIVE); BLOOD/HEMOGLOBIN,URINE NEGATIVE (NEGATIVE); GLUCOSE, URINE NEGATIVE (NEGATIVE); KETONES,URINE NEGATIVE (NEGATIVE); LEUKOCYTE ESTERASE ,URINE 2+ (NEGATIVE); NITRITES,URINE NEGATIVE (NEGATIVE); PROTEIN,URINE 2+ (NEGATIVE); UROBILINOGEN,URINE NORMAL (NORMAL)
[2018-01-11 09:20] LABS: BASOPHILS # (AUTO) 0.1 X10^3/uL (0.0-0.1); BASOPHILS % (AUTO) 0.7 % (0.2-1.0); HEMATOCRIT 40.5 % (36.0-47.0); HEMOGLOBIN 14.1 g/dL (12.0-16.0); LYMPHOCYTES % (AUTO) 10.1 % (21.0-51.0); MEAN CORPUSCULAR HEMOGLOBIN 32.5 pg (27.0-34.0); MEAN CORPUSCULAR HGB CONC 34.8 g/dL (33.0-35.0); MEAN CORPUSCULAR VOLUME 93.6 fL (80.0-100.0); MEAN PLATELET VOLUME 7.4 fL (7.4-11.0); MONOCYTES # (AUTO) 0.1 x10^3/uL (0.3-0.8); MONOCYTES % (AUTO) 1.2 % (0.0-13.0); NEUTROPHILS # (AUTO) 8.7 x10^3/uL (2.2-4.8); PLATELET COUNT 271 X10^3/uL (150.0-450.0); RED BLOOD COUNT 4.33 X10^6/uL (3.5-5.4); WHITE BLOOD COUNT 9.9 X10^3/uL (3.6-10.0)
[2018-01-11 09:30] LABS: APPEARANCE,URINE CLEAR (CLEAR); BACTERIA,URINE TRACE /HPF (NEGATIVE); COLOR,URINE YELLOW (YELLOW); MUCUS,URINE FEW /HPF (NEGATIVE); RBC,URINE 0-5 /HPF (NONE SEEN); SQUAMOUS EPITHELIAL CELL,UR MODERATE /HPF (NEGATIVE)
[2018-01-11 09:40] LABS: ALANINE AMINOTRANSFERASE 25 Units/L (12-78); ALBUMIN 3.6 g/dL (3.4-5.0); ALKALINE PHOSPHATASE 127 Units/L (46-116); ASPARTATE AMINO TRANSFERASE 22 Units/L (15-37); BLOOD UREA NITROGEN 34 mg/dL (7-18); CALCIUM 9.1 mg/dL (8.5-10.1); CARBON DIOXIDE 23.7 mmol/L (21-32); CHLORIDE 104 mmol/L (98-107); COR NA(FOR HYPERGLY) 141 mmol/L (136-145); CREATININE 1.71 mg/dL (0.55-1.02); FREE T4 (FREE THYROXINE) 0.69 ng/dL (0.76-1.46); SODIUM 140 mmol/L (136-145); TOTAL PROTEIN 7.7 g/dL (6.4-8.2); TSH (3RD GENERATION) 4.025 uIU/mL (0.358-3.74); eGFR BLACK RACES 38 (>60); eGFR NON BLACK RACES 31 (>60)
[2018-01-11 09:46] LABS: IRON 86 ug/dL (50-175); TOTAL IRON BINDING CAPACITY 290 ug/dL (250-450)
--- NOTE | 2018-01-11 10:53 | RAD ---
Examination: Chest, PA and lateral views History: Cough and chest pain Comparison 02/02/2017 Findings: Continued normal heart size with sternal wires. The right IJ catheter has been withdrawn sl ightly but the tip is probably still within the SVC. The lungs are clear of active appearing disease. There is no significant pleural fluid. Coronary artery calcification is observed. Impression: No acute process identified. Interval change in position of injection port. Post surgical findings and coronary ASHD. Reported By:
[2018-01-15 21:54] LABS: HEPATITIS A ANTIBODY IGM Negative (Negative)
[2018-01-16 05:58] LABS: ALBUMIN (SPEP) 4.52 g/dL (3.75-5.01); ALPHA-1 (SPEP) 0.37 g/dL (0.19-0.46); ALPHA-2 (SPEP) 0.83 g/dL (0.48-1.05); GAMMA (SPEP) 0.98 g/dL (0.62-1.51)
[2018-01-16 07:42] LABS: HEPATITIS B CORE IGM Negative (Negative); HEPATITIS B SURFACE ANTIGEN Negative (Negative)
[2018-01-16 07:44] LABS: ANTI-NUCLEAR ANTIBODY TEST None Detected (None Detected); IMMUNOGLOBULIN M 86 mg/dL (35-263); ZINC PLASMA 74 ug/dL (60-120)
== END | disposition home or self-care (01) ==
LOC: LAB 08:02
PROVIDERS: ATTEND Nurse Practitioner Family
DX: L28.0 Lichen simplex chronicus (principal); L29.8 Other pruritus; Z79.899 Other long term (current) drug therapy; I25.10 Atherosclerotic heart disease of native coronary artery without angina pectoris; Z95.828 Presence of other vascular implants and grafts; Z01.89 Encounter for other specified special examinations; K90.9 Intestinal malabsorption, unspecified
CPT/HCPCS: 36415; 71046; 80053; 80074; 81001; 82728; 82746; 82784; 83516; 83540; 83550; 84165; 84439; 84443; 84630; 85025; 86160; 86308; 86334; 86800

== ENCOUNTER → 2018-01-30 | Outpatient (CLI) | payer OTHER ==
[2018-01-06 15:30] VITALS: BP 169/117
--- NOTE | 2018-01-31 09:55 | CT ---
HISTORY: Generalized abdominal pain Study: Computed tomography of the abdomen: Multiple axial images were obtained throughout the abdom en. Oral contrast was not administered. Intravascular contrast was not administered. Radiation dos e reduction techniques utilized. Comparison: 04/12/2013 Findings: Visualized lung parenchyma shows a tiny nodule in the left upper lobe measuring 2-3 mm in maximum dim ension, unchanged. Minimal linear scarring is noted in the left upper lobe, unchanged. A few tiny p leural-based densities are present, unchanged. Severe coronary arterial calcification is present. P atient appears be status post median sternotomy. There may have been a prior graft from an KOFI that is densely calcified. Mitral valve and aortic valve calcification is noted. Moderately severe ather osclerotic changes present in the descending thoracic aorta as visualized. The liver as visualized demonstrates no focal lesions. The patient is status post cholecystectomy. There is no significant dilatation of the common bile duct. The pancreas is mildly fatty infiltrated . The spleen is normal in its appearance. Moderately severe atherosclerotic changes present in the abdominal aorta and its major branches including the celiac axis, SMA and both renal artery is. Ther e may be renal artery stents present. Clinical correlation is recommended. The adrenal glands are n ormal. Both kidneys show focal areas of cortical atrophy. There is a nonobstructing calculus in the midpole of the right kidney measuring approximately 4.5 mm in maximum dimension. There is a 1-2 mm calcification in the midpole of the left kidney, felt to be a nonobstructing calculus. There appears to be at least 2 in the upper pole of the left kidney. There is an exophytic mass extending from th e lower pole of the left kidney measuring 4.9 x 5.2 by 4.9 cm consistent with cysts, not felt to be s ignificantly changed from the prior examination. This has Hounsfield units of fluid. There is a par tially exophytic soft tissue density in the the upper pole of the right kidney, most likely prominent renal parenchyma due to adjacent scarring, unchanged. Moderately severe to severe atherosclerotic ch anges noted in the proximal iliac arteries. The stomach is nondistended. The duodenum is nondistended. The small bowel is nondistended. No daija dence of mesenteric adenopathy is identified. The visualized colon demonstrates a fatty ileocecal va lve. There is a right-sided lateral abdominal wall hernia, more pronounced on the current examinatio n. This contains colon and small bowel. This measures approximately 13.2 by at least 11 cm. The karen wel within is nondistended. I see no definite evidence of strangulation. There is a ventral hernia present containing fat, measuring approximately 4 cm in width with a thickness of approximately 2.3 c m and a cephalocaudal dimension of approximately 4.4 cm. This has an internal ostia measuring approx imately 1.6 cm in maximum dimension. Marked atrophy of the right rectus muscle is noted. Mild diast asis recti is noted. Examination of the bone windows demonstrates findings suggesting ankylosing spondylitis. Moderate sp ondylosis is noted. IMPRESSION: 1. Stable appearance of the nodule and scarring in the lung parenchyma. 2. Severe coronary arterial calcification with severe atherosclerotic change of the aorta in the visu alized chest and abdomen. 3. Focal areas of scarring in both kidneys with nonobstructing calculi in both kidneys. Stable appea kalie of the cyst extending from the lower pole of the left kidney. 4. Right lateral abdominal wall hernia and ventral hernia as described above. Reported By:
== END ==
LOC: RAD 13:21
PROVIDERS: ATTEND Internal Medicine
DX: R10.84 Generalized abdominal pain (principal); R91.8 Other nonspecific abnormal finding of lung field; K46.9 Unspecified abdominal hernia without obstruction or gangrene; K43.9 Ventral hernia without obstruction or gangrene
CPT/HCPCS: 74150

== ENCOUNTER → 2018-02-05 | Outpatient (CLI) | payer OTHER ==
[2018-01-06 15:30] VITALS: BP 169/117
--- NOTE | 2018-02-05 13:30 | MG ---
HISTORY: SCREENING Comparison: 12/28/2016 FINDINGS: Bilateral CC and MLO projections of the right and left breast were obtained. Scattered fibroglandula r tissue is seen to be present. There is a small developing asymmetry within the lower inner quadrant of the left breast anteriorly. Further evaluation with spot compression views and targeted sonograph y is recommended. No significant architectural distortion, mass or clustered microcalcifications can be observed to suggest malignancy. No skin thickening or nipple retraction is appreciated. No path ological lymphadenopathy can be identified. Benign-appearing calcifications scattered throughout the right and left breasts are observed. IMPRESSION: 1. Small developing asymmetry within the left breast as above for which spot compression views and ta rgeted sonography recommended. ACR CATEGORY 0 - assessment incomplete; additional imaging needed Spot compression views and targeted sonography of the left breast recommended Diagnostic CAD was utilized and reviewed. * 0 (ZERO) - ASSESSMENT INCOMPLETE; ADDITIONAL IMAGING IS NEEDED. * / (ONE) - NEGATIVE. * 2/II (TWO) - BENIGN FINDINGS. * 3/III (THREE) - PROBABLY BENIGN FINDING; SHORT INTERVAL FOLLOW-UP SUGGESTED. * 4/IV (FOUR) - SUSPICIOUS ABNORMALITY; BIOPSY SHOULD BE CONSIDERED. * 5/V - HIGHLY SUSPICIOUS OF MALIGNANCY; BIOPSY SHOULD BE PERFORMED. A NEGATIVE X-RAY REPORT SHOULD NOT DELAY BIOPSY IF A DOMINANT OR CLINICALLY SUSPICIOUS MASS IS PRESENT; 4 TO 8 PERCENT OF CANCERS ARE NOT IDENTIFIED BY X-RAY. A NEGA TIVE REPORT MAY REINFORCE THE CLINICAL IMPRESSION. ADENOSIS AND DENSE BREASTS MAY OBSCURE AN UNDERLY ING NEOPLASM. Reported By:
== END ==
LOC: RAD 09:46
PROVIDERS: ATTEND Specialist
DX: Z12.31 Encounter for screening mammogram for malignant neoplasm of breast (principal)
CPT/HCPCS: 77067

== ENCOUNTER → 2018-02-12 | Outpatient (CLI) | payer OTHER ==
--- NOTE | 2018-02-12 14:07 | MG ---
HISTORY: Abnormal screening mammogram, left breast asymmetry Comparison: 02/05/2018, 06/01/2016 FINDINGS: Spot compression CC and MLO views of the left breast are obtained. The previous asymmetry is no longe r visualized this exam. The technologist infectious disease notes that the patient has a hematoma in the are a of interest therefore the findings could be posttraumatic in nature. Stable benign calcifications a re present. No mass, architectural distortion or skin thickening is. No nipple retraction IMPRESSION: NO RADIOGRAPHIC EVIDENCE OF MALIGNANCY. ACR CATEGORY 2: Benign findings. FOLLOW-UP EXAM 1 YEAR. Diagnostic CAD was utilized and reviewed. * 0 (ZERO) - ASSESSMENT INCOMPLETE; ADDITIONAL IMAGING IS NEEDED. * 1/1 (ONE) - NEGATIVE. * 2/II (TWO) - BENIGN FINDINGS. * 3/III (THREE) - PROBABLY BENIGN FINDING; SHORT INTERVAL FOLLOW-UP SUGGESTED. * 4/IV (FOUR) - SUSPICIOUS ABNORMALITY; BIOPSY SHOULD BE CONSIDERED. * 5/V - HIGHLY SUSPICIOUS OF MALIGNANCY; BIOPSY SHOULD BE PERFORMED. A NEGATIVE X-RAY REPORT SHOULD NOT DELAY BIOPSY IF A DOMINANT OR CLINICALLY SUSPICIOUS MASS IS PRESENT; 4 TO 8 PERCENT OF CANCERS ARE NOT IDENTIFIED BY X-RAY. A NEGA TIVE REPORT MAY REINFORCE THE CLINICAL IMPRESSION. ADENOSIS AND DENSE BREASTS MAY OBSCURE AN UNDERLY ING NEOPLASM. Reported By:
== END ==
LOC: RAD 13:07
PROVIDERS: ATTEND Specialist
DX: R92.8 Other abnormal and inconclusive findings on diagnostic imaging of breast (principal)
CPT/HCPCS: 77065

== ENCOUNTER 2018-03-10 21:20 | Emergency (ER) | payer OTHER ==
[2018-03-10 21:28] VITALS: BP 113/60; BMI 29.7
--- NOTE | 2018-03-10 21:46 | DR.GENAD ---
HPI - PCP Primary Care Physician: ang - Complaint/Symptoms Chief Complaint Doctors Comments: generalised itching for past few months. She has been to a hall manager and whatever they are doing is not helping. She also states that she has sob. THis is knid of chronic. She justice a hx. of COPD and uses inhalers { home oxygen. She denies c/p. Chief Complaint:: short of breath, itching - Nurses notes reviewed Nurses Notes Review: Yes - Source History Provided: Patient - Mode of Arrival Mode of Arrival: Ambulatory - Timing Onset of Chief Complaint: 03/10/18 PMH - PMH Past Medical History: Yes Past Medical History: Angina, Anxiety, Arthritis, CHF, COPD, Depression, Dyslipidemia, Hypertension Past Surgical History: Yes Surgical History: Angioplasty/Stents, CABG/Valve Surgery, Cholecystectomy, Hysterectomy - Family History History of Family Medical Conditions: Yes Family Medical History: Diabetes Mellitus, Cancer, [place], Coronary Artery Disease, Heart Failure, Sudden Cardiac , Hypertension - Social History Does any household member use tobacco: No Alcohol Use: None Do you use any recreational Drugs:: No Lives With: Family Lives Where: Home - infectious screening In the last 2 months have you had wt loss of >10#?: NO Have you had fever, night sweats or hemotysis?: No Have you traveled outside the country in the last 6 months?: No Isolation: Standard ROS - Review of Systems Constitutional: No Symptoms Reported Eyes: No Symptoms Reported ENTM: No Symptoms Reported Respiratoy: Short of Breath Cardiovascular: No Symptoms Reported Gastrointestinal/Abdominal: No Symptoms Reported Genitourinary: No Symptoms Reported Neurological: No Symptoms Reported Musculoskeletal: No Symptoms Reported Integumentary: Itching Hematologic/Lymphatic: No Symptoms Reported Endocrine: No Symptoms Reported Psychiatric: No Symptoms Reported All Other Systems: Reviewed and Negative PE - Vital Signs Vitals: Temperature 97.5 F Pulse Rate 75 Respiratory Rate 16 Blood Pressure [Left Arm] 128/72 Blood Pressure [Right Arm] 131/58 Blood Pressure 113/60 O2 Sat by Pulse Oximetry 96 - General General Appearance: Alert, In No Apparent Distress - Head Head Exam: Normal Inspection - Eyes Eye exam: Normal Appearance, PERRL, EOMI - ENT ENT Exam: Normal Exam, Normal Oropharynx, Normal External Ear Exam, Mucous Membranes Moist, TM's Normal Bilaterally - Neck Neck Exam: Normal Inspection, Full ROM, Trachea Midline - Chest Chest Inspection: Normal Inspection, Symmetric Chest Wall Rise - Respiratory Respiratory Exam: Normal Lung Sounds Bilat - Cardiovascular Cardiovascular Exam: Regular Rate, Normal Rhythm, +S1, +S2 - Abdominal Exam Abdominal Exam: Normal Inspection, Normal Bowel Sounds, Soft - Extremities Extremities Exam: Normal Inspection - Back Back Exam: Normal Inspection - Neurologic Neurological Exam: Alert, Oriented X3 - Psychiatric Psychiatric Exam: Normal Affect, Normal Mood - Skin Skin Exam: Dry, Other (numerous linear scratch moya noted on her limbs, some with fresh blood streaks. blood noted underneath her finger nails from scratching. there are irregular shaped and rough surfaced rash on her feet and legs.) ROR - Labs Reviewed Result Diagrams: 03/10/18 22: Laboratory: Sodium 139 mmol/L (136-145) 03/10/18: Corrected Sodium 140 mmol/L (136-145) 03/10/18 22: Potassium 3.8 mmol/L (3.5-5.1) 03/10/18 22: Chloride 107 mmol/L (98-107) 03/10/18: Carbon Dioxide 21.6 mmol/L (21-32) 03/10/18 22: BUN 24 mg/dL (7-18) H 03/10/18 22: Creatinine 1.86 mg/dL (0.55-1.02) H 03/10/18 22:27 Est GFR (MDRD) Af Amer 34 (>60) L 03/10/18 22:27 Est GFR (MDRD) Non-Af 28 (>60) L 03/10/18: Glucose 152 mg/dL (65-99) H 03/10/18: Calcium 8.4 mg/dL (8.5-10.1) L 03/10/18 22: Corrected Calcium TNP 03/10/18: Total Bilirubin 0.60 mg/dL (0.2-1.0) 03/10/18 22: AST 36 Units/L (15-37) 03/10/18 22: ALT 20 Units/L (12-78) 03/10/18 22: Alkaline Phosphatase 106 Units/L (46-116) 03/10/18 22: Total Protein 6.9 g/dL (6.4-8.2) 03/10/18 22:27 Albumin 3.4 g/dL (3.4-5.0) 03/10/18 22:27 Globulin 3.5 g/dL (2.5-4.5) 03/10/18 22: Albumin/Globulin Ratio 1.0 Ratio (1.1-2.1) L 03/10/18 22:27 - Diagnosis Discharge Problem: Rash and nonspecific skin eruption, COPD (chronic obstructive pulmonary disease ), Generalized pruritus - Discharge Plan Disposition: HOME, SELF-CARE Condition: Stable - Follow ups/Referrals Follow ups/Referrals: Alfredo Booth [Primary Care Provider] - 3 days - Instructions Instructions: Rash, [id number]
[2018-03-10] MEDS ORDERED: SOLU-Medrol 40 MG VIAL IVP ONE (21:47)
[2018-03-10] MEDS ORDERED: ATARAX TAB 25 MG PO ONE ×2 (21:48→22:01)
[2018-03-10] MEDS ORDERED: ATIVAN INJ 2 MG VIAL IVP ONE (21:50)
[2018-03-10] MEDS ORDERED: SOLU-Medrol 125 MG VIAL ONE (22:01)
[2018-03-10] MEDS ORDERED: ATIVAN INJ 2 MG VIAL ONE (22:02)
--- NOTE | 2018-03-10 22:22 | RAD ---
HISTORY: 72-year-old female with shortness of breath. Study: Frontal view of the chest. Comparison: Chest radiographs 01/11/2018 Findings: Surgical and support devices are stable. The trachea is midline. The cardiac silhouette is stably enlarged with chronic elevation of the righ t hemidiaphragm. The lungs are clear without focal consolidation, effusion or pneumothorax. Soft tis sues are unremarkable. Osseous structures are unremarkable. IMPRESSION: 1. No acute cardiopulmonary disease. Reported By:
[2018-03-10] MEDS ORDERED: SOLU-Medrol 125 MG VIAL IVP ONE (22:47)
[2018-03-10 22:52] LABS: ALANINE AMINOTRANSFERASE 20 Units/L (12-78); ALBUMIN 3.4 g/dL (3.4-5.0); ALKALINE PHOSPHATASE 106 Units/L (46-116); ASPARTATE AMINO TRANSFERASE 36 Units/L (15-37); BLOOD UREA NITROGEN 24 mg/dL (7-18); CALCIUM 8.4 mg/dL (8.5-10.1); CARBON DIOXIDE 21.6 mmol/L (21-32); CHLORIDE 107 mmol/L (98-107); COR NA(FOR HYPERGLY) 140 mmol/L (136-145); CREATININE 1.86 mg/dL (0.55-1.02); SODIUM 139 mmol/L (136-145); TOTAL PROTEIN 6.9 g/dL (6.4-8.2); eGFR BLACK RACES 34 (>60); eGFR NON BLACK RACES 28 (>60)
== END 2018-03-10 23:28 | disposition home or self-care (01) ==
LOC: ER 21:20
DX: J44.9 Chronic obstructive pulmonary disease, unspecified (principal); R21 Rash and other nonspecific skin eruption; L29.9 Pruritus, unspecified
CPT/HCPCS: 36415; 71045; 80053; 96365; 96374; 96375; 99282; 99283; A4222; J2060; J2930

== ENCOUNTER 2018-04-16 13:18 | Inpatient (IN) ==
--- NOTE | 2018-04-16 14:00 | DR.FBACK ---
HPI - Time Seen Time seen: 14:35 - PCP Primary Care Physician: SERGIO ALVAREZ - HPI Comment HPI Comment: PATIENT HAVE GENERALIZE SKIN RASH THAT IS ITCHING AND IS INFECTED. PAST FEW DAYS HOME HEALTH NURSE WANTED HER TO COME TO ED FOR EVALUATION. SHE CONTNUE TO FEEL BAD AND TODAY SHE DECIDED TO COME. NO FEVER, BP SLIGHTLY LOW. NO DYSURIA, NO N/V. - Complaint Chief Complaint Doctor Comments: GENERALIZE WEAKNESS, LOWER BACK PAIN AND CHEST PAIN. Chief Complaint:: EMS OUT TO PT WITH C/O BACK PAIN , UPON ARRIVAL TO ER PT C/O THAT I HAVE BEEN SICK FOR MONTHS AND NO ONE KNOWS WHAT'S WRONG AND HOPEFULLY U CAN FIND OUT,,, PT DENIES ANY INJURY AND PT STATES " SERGIO ALVAREZ IS DOING A BONE DESITY AND I HAVE NOT GOT THE RESULTS" Self Treatment fo Chief Complaint: PT HAS BRUISES TO ARMS AND A LEFT UPPER ARM , HEMATOMA,,,BR - Reviewed Nurses Notes Review: Yes - Source History Provided: Patient, EMS - Mode of Arrival Mode of Arrival: EMS - Timing Onset of Chief Complaint: 04/16/18 - Duration Duration: Constant Duration: Weeks - Location Back Pain Location: Lower, BACK, Lumbar Radiation To: None - Severity Severity: Moderate - Quality Quality: Sharp - Context Onset: Spontaneous Circumstance: Spontaneous History of: Chronic Back Pain - Modifying Factors Worsened By: Twisting - Associated Signs and Symptoms Back Pain Symptoms: OTHER (GENERALIZE WEAKNESS.) Numbness: None Weakness: None PMH - PMH Past Medical History: Yes Past Medical History: Angina, Anxiety, Arthritis, CHF, COPD, Depression, Dyslipidemia, Hypertension Past Surgical History: Yes Surgical History: Angioplasty/Stents, CABG/Valve Surgery, Cholecystectomy, Hysterectomy - Family History History of Family Medical Conditions: Yes Family Medical History: Diabetes Mellitus, Cancer, [place], Coronary Artery Disease, Heart Failure, Sudden Cardiac , Hypertension - Social History Does patient currently use any type of tobacco product: No Have you used tobacco products in the last 12 months: No Type of Tobacco Use: None Does any household member use tobacco: No Alcohol Use: None Do you use any recreational Drugs:: No Lives With: Family Lives Where: Home - infectious screening In the last 2 months have you had wt loss of >10#?: NO Have you had fever, night sweats or hemotysis?: No Have you traveled outside the country in the last 6 months?: No Isolation: Standard ROS - Review of Systems Constitutional: Weakness, Fatigue, Loss of Appetite. negative: Chills, Fever Eyes: negative: Eye Pain, Discharge ENTM: Throat Pain. negative: Ear Pain, Nose Discharge, Nose Congestion Respiratoy: Short of Breath (ON EXERSION.). negative: Productive Cough, Non- Productive Cough, Wheezing, Hemoptysis Cardiovascular: Chest Pain Gastrointestinal/Abdominal: No Symptoms Reported. negative: Abdominal Pain, Nausea Genitourinary: negative: Dysuria, Hematuria Neurological: Headache, Weakness, Dizziness Musculoskeletal: Muscle Pain Integumentary: Change in Color, Rash (GENERALIZE RASH WITH INFECTED LESION LOWER EXTREMITIES.) Hematologic/Lymphatic: No Symptoms Reported Endocrine: No Symptoms Reported All Other Systems: Reviewed and Negative PE - Vitals Vital Signs: Temp Pulse Resp BP BP BP Pulse Ox 04/16/18 13:20 97.4 F L 72 18 100/57 94 L 03/10/18 21:24 113/60 11/15/17 21:28 128/72 01/23/17 16:00 131/58 - General Limitations: No Limitations General Appearance: Alert - Head Head Exam: Normal Inspection - ENT ENT Exam: negative: Normal External Ear Exam - Chest Chest Inspection: Symmetric Chest Wall Rise - Respiratory Respiratory Exam: Normal Lung Sounds Bilat Respiratory Exam: Bilateral Rhonchi, Lower Crackles - Cardiovascular Cardiovascular Exam: Regular Rate, Normal Rhythm, Normal Heart Sounds - Abdominal Exam Abdominal Exam: Normal Bowel Sounds, Soft. negative: Tenderness - Genitourinary External Exam: Female: Deferred : Speculum Exam (Female): Deferred : Bimanual Exam (female): Deferred - Extremities Extremities Exam: Other (GENERALIZE RASH.) - Back Back Exam: Normal Inspection - Neurological Neurological Exam: Alert, Oriented X3 - Psychiatric Psychiatric Exam: Anxious - Skin Skin Exam: Rash (GENERALIZE.) MDM - Additional Information Additional Information Obtained From: Family - Differential Diagnosis Differential Diagnosis: DJD, Musculoskeletal Pain, Pyelonephritis (DEHYDRATION) , Strain, Urolithiasis Course - Treatment Treatment: SEE ORDERS. - Education/Counseling Education/Counseling: Patient, Education Educated On: Treatment, Diagnosis, Needs for Follow Up ROR - Labs Reviewed Laboratory Results Reviewed?: Yes Result Diagrams: 04/17/18 05:33 04/17/18 05:33 Laboratory: WBC 6.9 X10^3/uL (3.6-10.0) 04/17/18 05:33 RBC 3.31 X10^6/uL (3.5-5.4) L 04/17/18 05:33 Hgb 10.8 g/dL (12.0-16.0) L 04/17/18 05:33 Hct 30.8 % (36.0-47.0) L 04/17/18 05:33 MCV 92.8 fL (80.0-100.0) 04/17/18 05:33 MCH 32.5 pg (27.0-34.0) 04/17/18 05:33 MCHC 35.0 g/dL (33.0-35.0) 04/17/18 05:33 RDW 12.7 % (11.6-16.5) 04/17/18 05:33 Plt Count 110 X10^3/uL (150.0-450.0) L 04/17/18 05:33 MPV 9.0 fL (7.4-11.0) 04/17/18 05:33 Neut % (Auto) 78.3 % (42.0-75.0) H 04/17/18 05:33 Lymph % (Auto) 9.6 % (21.0-51.0) L 04/17/18 05:33 [place] % (Auto) 6.2 % (0.0-13.0) 04/17/18 05:33 Eos % (Auto) 5.5 % (0.9-2.9) H 04/17/18 05:33 Baso % (Auto) 0.4 % (0.2-1.0) 04/17/18 05:33 Neut # (Auto) 5.4 x10^3/uL (2.2-4.8) H 04/17/18 05:33 Lymph # (Auto) 0.7 X10^3/uL (1.3-2.9) L 04/17/18 05:33 [place] # (Auto) 0.4 x10^3/uL (0.3-0.8) 04/17/18 05:33 Eos # (Auto) 0.4 x10^3/uL (0.0-0.2) H 04/17/18 05:33 Baso # (Auto) 0.0 X10^3/uL (0.0-0.1) 04/17/18 05:33 Absolute Nucleated RBC 0.0 /100WBC 04/17/18 05:33 Sodium 139 mmol/L (136-145) 04/17/18 05:33 Corrected Sodium TNP 04/17/18 05:33 Potassium 3.4 mmol/L (3.5-5.1) L 04/17/18 05:33 Chloride 105 mmol/L (98-107) 04/17/18 05:33 Carbon Dioxide 21.6 mmol/L (21-32) 04/17/18 05:33 BUN 45 mg/dL (7-18) H 04/17/18 05:33 Creatinine 2.49 mg/dL (0.55-1.02) H 04/17/18 05:33 Est GFR (MDRD) Af Amer 24 (>60) L 04/17/18 05:33 Est GFR (MDRD) Non-Af 20 (>60) L 04/17/18 05:33 Glucose 103 mg/dL (65-99) H 04/17/18 05:33 Calcium 7.5 mg/dL (8.5-10.1) L 04/17/18 05:33 Corrected Calcium 8.7 mg/dL (8.5-10.1) 04/17/18 05:33 Total Bilirubin 0.30 mg/dL (0.2-1.0) 04/17/18 05:33 AST 17 Units/L (15-37) 04/17/18 05:33 ALT 13 Units/L (12-78) 04/17/18 05:33 Alkaline Phosphatase 80 Units/L (46-116) 04/17/18 05:33 Creatine Kinase 54 Units/L (26-192) 04/17/18 05:33 CK-MB (CK-2) 2.0 ng/mL (0-4.0) 04/17/18 05:33 CK/CKMB % Calc 3.7 % (<4) 04/17/18 05:33 Troponin I < 0.02 ng/mL (0-1.5) 04/17/18 05:33 Total Protein 6.2 g/dL (6.4-8.2) L 04/17/18 05:33 Albumin 2.5 g/dL (3.4-5.0) L 04/17/18 05:33 Globulin 3.7 g/dL (2.5-4.5) 04/17/18 05:33 Albumin/Globulin Ratio 0.7 Ratio (1.1-2.1) L 04/17/18 05:33 Specimen Type Random urine 04/16/18 14:54 Urine Color Yellow (YELLOW) 04/16/18 14:54 Urine Appearance Hazy (CLEAR) 04/16/18 14:54 Urine pH 5.0 (5.0 - 8.0) 04/16/18 14:54 Ur Specific [place] 1.015 (1.000-1.030) 04/16/18 14:54 Urine Protein Negative (NEGATIVE) 04/16/18 14:54 Urine Glucose (UA) Negative (NEGATIVE) 04/16/18 14:54 Urine Ketones Negative (NEGATIVE) 04/16/18 14:54 Urine Occult Blood Negative (NEGATIVE) 04/16/18 14:54 Urine Nitrite Negative (NEGATIVE) 04/16/18 14:54 Urine Bilirubin Negative (NEGATIVE) 04/16/18 14:54 Urine Urobilinogen Normal (NORMAL) 04/16/18 14:54 Ur Leukocyte Esterase 2+ (NEGATIVE) 04/16/18 14:54 Urine RBC 0-2 /HPF (NONE SEEN) 04/16/18 14:54 Urine WBC 5-10 /HPF (NONE SEEN) 04/16/18 14:54 Ur Squamous Epith Cells Moderate /HPF (NEGATIVE) 04/16/18 14:54 Urine Bacteria 1+ /HPF (NEGATIVE) 04/16/18 14:54 Hyaline Casts Moderate /LPF (NEGATIVE) 04/16/18 14:54 Ur Culture Indicated? No/not indicated 04/16/18 14:54 - XRAY XRAY Interpreted by: Radiologist XRAY Findings: REPORT DISCUSS WITH PATIENT. - EKG Rhythm: NSR (EKG NOTED.) - Diagnosis Discharge Problem: Dehydration, Generalized weakness Infected ulcer of skin Qualifiers: Non-pressure ulcer stage: unspecified non-pressure ulcer stage Qualified Code(s ): L98.499 - Non-pressure chronic ulcer of skin of other sites with unspecified severity; L08.9 - Local infection of the skin and subcutaneous tissue, unspecified; L08.9 - Local infection of the skin and subcutaneous tissue, unspecified - Discharge Plan Disposition: ADMITTED INPATIENT Condition: Stable - Follow ups/Referrals - Instructions
--- NOTE | 2018-04-16 14:24 | RAD ---
Indication: Pain Exam: Portable chest Comparison: 03/10/2018 Findings: The left ventricle is mildly enlarged but unchanged. The pulmonary vessels are normal. Post op changes are seen along the mediastinum and sternum. There is a right Port-A-Cath in place which is unchanged. There are mild linear densities along the lung bases which are more prominent. Impression: Mild discoid atelectasis or scarring along the lung bases which is more prominent. Stable mild left ventricular enlargement and no change in the right Port-A-Cath. Reported By:
[2018-04-16 14:45] LABS: BASOPHILS % (AUTO) 0.4 % (0.2-1.0); EOSINOPHILS # (AUTO) 0.6 x10^3/uL (0.0-0.2); EOSINOPHILS % (AUTO) 7.5 % (0.9-2.9); HEMATOCRIT 36.4 % (36.0-47.0); HEMOGLOBIN 12.7 g/dL (12.0-16.0); LYMPHOCYTES % (AUTO) 12.6 % (21.0-51.0); MEAN CORPUSCULAR HEMOGLOBIN 32.4 pg (27.0-34.0); MEAN CORPUSCULAR HGB CONC 34.9 g/dL (33.0-35.0); MEAN CORPUSCULAR VOLUME 92.8 fL (80.0-100.0); MEAN PLATELET VOLUME 8.4 fL (7.4-11.0); MONOCYTES # (AUTO) 0.5 x10^3/uL (0.3-0.8); MONOCYTES % (AUTO) 6.8 % (0.0-13.0); NEUTROPHILS # (AUTO) 5.9 x10^3/uL (2.2-4.8); NEUTROPHILS % (AUTO) 72.7 % (42.0-75.0); PLATELET COUNT 133 X10^3/uL (150.0-450.0); RED BLOOD COUNT 3.92 X10^6/uL (3.5-5.4); RED CELL DISTRIBUTION WIDTH 12.8 % (11.6-16.5); WHITE BLOOD COUNT 8.1 X10^3/uL (3.6-10.0)
[2018-04-16 15:11] LABS: BILIRUBIN,URINE NEGATIVE (NEGATIVE); BLOOD/HEMOGLOBIN,URINE NEGATIVE (NEGATIVE); GLUCOSE, URINE NEGATIVE (NEGATIVE); KETONES,URINE NEGATIVE (NEGATIVE); LEUKOCYTE ESTERASE ,URINE 2+ (NEGATIVE); NITRITES,URINE NEGATIVE (NEGATIVE); PROTEIN,URINE NEGATIVE (NEGATIVE); UROBILINOGEN,URINE NORMAL (NORMAL)
[2018-04-16 15:17] LABS: BLOOD UREA NITROGEN 45 mg/dL (7-18); CALCIUM 8.5 mg/dL (8.5-10.1); CARBON DIOXIDE 24.8 mmol/L (21-32); CHLORIDE 102 mmol/L (98-107); CREATININE 2.71 mg/dL (0.55-1.02); SODIUM 139 mmol/L (136-145); TROPONIN I < 0.02 ng/mL (0-1.5); eGFR NON BLACK RACES 18 (>60)
[2018-04-16 15:21] LABS: APPEARANCE,URINE HAZY (CLEAR); COLOR,URINE YELLOW (YELLOW); RBC,URINE 0-2 /HPF (NONE SEEN); SQUAMOUS EPITHELIAL CELL,UR MODERATE /HPF (NEGATIVE)
[2018-04-16 15:22] LABS: BACTERIA,URINE 1+ /HPF (NEGATIVE); HYALINE CASTS, URINE MODERATE /LPF (NEGATIVE)
[2018-04-16 15:23] LABS: ALANINE AMINOTRANSFERASE 16 Units/L (12-78); ALBUMIN 3.1 g/dL (3.4-5.0); ALKALINE PHOSPHATASE 94 Units/L (46-116); ASPARTATE AMINO TRANSFERASE 22 Units/L (15-37); CKMB % 3.4 % (<4); COR CA(FOR HYPOALB) 9.2 mg/dL (8.5-10.1); CREATINE KINASE 59 Units/L (26-192); TOTAL PROTEIN 7.4 g/dL (6.4-8.2)
[2018-04-16] MEDS ORDERED: TORADOL 60 MG VIAL IM ONE (15:23)
[2018-04-16] MEDS ORDERED: TORADOL 60 MG VIAL ONE (15:26)
[2018-04-16] MEDS ORDERED: NS 1000 ML 1,000 ML ONE (15:49)
[2018-04-16] MEDS: NS 1000 ML 1,000 ML IV SCH (16:20)
[2018-04-16] MEDS ORDERED: LEVAQUIN PREMIX IV 500 MG 500 MG/100 ML BAG IV SCH ×2 (17:00)
[2018-04-16] MEDS ORDERED: CONSULT PHARMACY - ANTIBIOTIC XX SCH (17:00)
[2018-04-16 17:28] VITALS: BMI 25.0
[2018-04-16 23:44] LABS: CKMB % 4.1 % (<4); CREATINE KINASE 54 Units/L (26-192); CREATINE KINASE MB 2.2 ng/mL (0-4.0); TROPONIN I < 0.02 ng/mL (0-1.5)
[2018-04-17] MEDS: NS 1000 ML 1,000 ML IV SCH ×4 (03:08→20:07)
[2018-04-17 05:48] LABS: BASOPHILS % (AUTO) 0.4 % (0.2-1.0); EOSINOPHILS # (AUTO) 0.4 x10^3/uL (0.0-0.2); EOSINOPHILS % (AUTO) 5.5 % (0.9-2.9); HEMATOCRIT 30.8 % (36.0-47.0); HEMOGLOBIN 10.8 g/dL (12.0-16.0); LYMPHOCYTES # (AUTO) 0.7 X10^3/uL (1.3-2.9); LYMPHOCYTES % (AUTO) 9.6 % (21.0-51.0); MEAN CORPUSCULAR HEMOGLOBIN 32.5 pg (27.0-34.0); MEAN CORPUSCULAR VOLUME 92.8 fL (80.0-100.0); MONOCYTES # (AUTO) 0.4 x10^3/uL (0.3-0.8); MONOCYTES % (AUTO) 6.2 % (0.0-13.0); NEUTROPHILS # (AUTO) 5.4 x10^3/uL (2.2-4.8); NEUTROPHILS % (AUTO) 78.3 % (42.0-75.0); PLATELET COUNT 110 X10^3/uL (150.0-450.0); RED BLOOD COUNT 3.31 X10^6/uL (3.5-5.4); RED CELL DISTRIBUTION WIDTH 12.7 % (11.6-16.5); WHITE BLOOD COUNT 6.9 X10^3/uL (3.6-10.0)
[2018-04-17 06:20] LABS: ALANINE AMINOTRANSFERASE 13 Units/L (12-78); ALBUMIN 2.5 g/dL (3.4-5.0); ALKALINE PHOSPHATASE 80 Units/L (46-116); ASPARTATE AMINO TRANSFERASE 17 Units/L (15-37); BLOOD UREA NITROGEN 45 mg/dL (7-18); CALCIUM 7.5 mg/dL (8.5-10.1); CARBON DIOXIDE 21.6 mmol/L (21-32); CHLORIDE 105 mmol/L (98-107); COR CA(FOR HYPOALB) 8.7 mg/dL (8.5-10.1); CREATININE 2.49 mg/dL (0.55-1.02); SODIUM 139 mmol/L (136-145); TOTAL PROTEIN 6.2 g/dL (6.4-8.2); eGFR NON BLACK RACES 20 (>60)
[2018-04-17 06:31] LABS: CKMB % 3.7 % (<4); CREATINE KINASE 54 Units/L (26-192); TROPONIN I < 0.02 ng/mL (0-1.5)
[2018-04-17] MEDS ORDERED: POTASSIUM CHL 60 MEQ/NS 0.45% 500 ML IV PRN (08:12)
[2018-04-17] MEDS ORDERED: POTASSIUM CHL 40 MEQ/NS 0.45% 500 ML IV PRN (08:12)
[2018-04-17] MEDS ORDERED: POTASSIUM CHLORIDE LIQ 20 MEQ UDC PO PRN ×2 (08:12→17:49)
--- NOTE | 2018-04-17 08:18 | DR.H&P ---
H&P - History & Physical for Day of: H&P Date: 04/16/18 - Chief Complaint Chief Complaint: generalized weakness, lower back pain, chest pain, rash - Allergies Allergies/Adverse Reactions: Allergies Allergy/AdvReac Type Severity Reaction Status Date / Time No Known Drug Allergies Allergy Verified 04/16/18 13:29 - History of Present Illness History of Present Illness: is a 72 year old patient of ours who presented to the emergency room via EMS with complaints of generalized weakness , lower back pain, and chest pain. Patient reports that symptoms have been present for months, but has progressively gotten worse. Patient reports today she began feeling worse and reports a decreased blood pressure. Reported symptoms include weakness, fatigue, loss of appetite, throat pain, shortness of breath, chest pain and headache. Upon arrival to the ER, patient was noted with a generalized skin rash to arms. Patient reports that rash itches. Site appears to be infected. On auscultation of lung zhang patient noted with rhonchi throughout with crackles to bilateral lower lobes. On arrival, vitals were 97.4 , 72, 18, 94% RA, 100/57. Labs were obtained. Abnormal lab values include the following: Plt Count 133, BUN 45, Creatinine 2.71, GFR af 22, GFR non 18, Glucose 109, Albumin 3.1, A/G Ratio 0.7. Urinalysis revealed: Hazy, Leuk Est 2+ , RBC 0-2, WBC 5-10, Bacteria 1+, Hyaline Casts Moderate. EKG revealed: Sinus Rhythm. Rate=64. Chest X-Ray revealed: Mild discoid atelectasis or scarring along the lung bases which is more prominent. Stable mild left ventricular enlargement and no change in the right Port-A-Cath. She was given Levaquin 500mg IV x1 and Toradol 60mg IM x1 in the ER. Patient admitted to the hospital as observation for further evaluation and treatment. We plan to follow up with AM labs and continue to monitor patient. - Past Medical History Past Medical History: Angina, Anxiety, Arthritis, CHF, COPD, Depression, Dyslipidemia, Hypertension Additional Medical History: Cataracts, Bronchitis, Pneumonia, Hiatal Hernia, Urinary Tract Infections, Back Pain, Previous Blood Transfusion, Skin Cancer, Vaginal Cancer - Past Surgical History Surgical History: Angioplasty/Stents, CABG/Valve Surgery, Cholecystectomy, Hysterectomy Additional Surgical History: Renal Stents, Lung Surgery, Vaginal Cancer Removed - Family History Family Medical History: Diabetes Mellitus, Cancer, [place], Coronary Artery Disease, Heart Failure, Sudden Cardiac , Hypertension - Social History Does patient currently use any type of tobacco product: No Have you used tobacco products in the last 12 months: No Type of Tobacco Use: None Does any household member use tobacco: No Alcohol Use: None Drug Use: None - Medications Home Medications: Cetirizine HCl [Zyrtec] 10 mg PO HS 04/16/18 [History Confirmed 04/16/18] Ferrous Sulfate [Ferosul] 325 mg PO BID 04/16/18 [History Confirmed 04/16/18] Fluoxetine HCl [FLUOXETINE 20 MG *] 20 mg PO DAILY 04/16/18 [History Confirmed 04/16/18] Furosemide [LASIX TAB 20 MG *] 20 mg PO DAILY 04/16/18 [History Confirmed ] Hydroxyzine HCl 25 mg Tab [ATARAX *] 25 mg PO QID PRN 04/16/18 [History Confirmed 04/16/18] Losartan Potassium 25 mg PO DAILY 04/16/18 [History Confirmed 04/16/18] Ticagrelor [Brilinta] 90 mg PO BID 04/16/18 [History Confirmed 04/16/18] - Review of Systems Constitutional: Weakness, Malaise, Other (decreased appetitie). denies: Fever, Chills Eyes: No Symptoms Reported ENT: Throat Pain Respiratory: Shortness of Breath Cardiovascular: Chest Pain Gastrointestinal: No Symptoms Reported Genitourinary: No Symptoms Reported Musculoskeletal: No Symptoms Reported Skin: Rash (bilateral arms), Wound Neurological: Weakness - Physical Exam Vital Signs: Temperature 98.2 F Pulse Rate [Apical] 73 Pulse Rate [Right Brachial] 69 Pulse Rate 72 Respiratory Rate 28 Blood Pressure [Left Arm] 128/72 Blood Pressure [Right Arm] 103/59 Blood Pressure 100/57 O2 Sat by Pulse Oximetry 100 Oriented: Normal Eyes: Normal Ear: Normal Nose: Normal Throat: Normal Respiratory: Rhonchi Throughout Cardiovascular: Normal. negative: S3, S4, Murmur : Normal Auscultation: Bowel Sounds: Normal Palpation: Normal Tenderness: Normal Skin: Rash (bilateral arms ), Red, Wound Musculoskeletal: Back:Lumbar Psychiatric: Normal Mood Description: Calm Affect: Normal Speech Pattern: Clear - Assessment/Plan (1) Dehydration Status: Acute Plan: normal saline at 80ml/hr, potassium replacement, magnesium replacement (2) Generalized weakness Status: Acute (3) Infected ulcer of skin Qualifiers: Non-pressure ulcer stage: unspecified non-pressure ulcer stage Qualified Code(s): L98.499 - Non-pressure chronic ulcer of skin of other sites with unspecified severity; L08.9 - Local infection of the skin and subcutaneous tissue, unspecified; L08.9 - Local infection of the skin and subcutaneous tissue , unspecified Status: Acute Plan: levaquin 250mg iv q48h, continue to monitor
[2018-04-17] MEDS: ULTRAM PO PRN ×2 (08:59→13:37)
[2018-04-17] MEDS ORDERED: FERROUS SULFATE 325 MG PO SCH (09:45)
[2018-04-17] MEDS ORDERED: PHARMACY CONSULT - DOSE _____ XX SCH (10:00)
[2018-04-17] MEDS ORDERED: NS 250 ML IV 250 ML IV ONE (10:19)
[2018-04-17] MEDS: MAGIC MOUTHWASH MT SCH ×4 (10:25→20:09)
[2018-04-17] MEDS: PROzac PO SCH (10:26)
[2018-04-17] MEDS: ZOSYN VIAL 2.25 GRAMS 2.25 G in NS 100 ML IV + SPIKE MINIBAG* 100 ML IV SCH ×3 (10:27→23:00)
[2018-04-17] MEDS: BRILINTA PO SCH ×2 (11:13→20:07)
--- NOTE | 2018-04-17 15:26 | PCM.PROG ---
Progress Note - Progress Note for Day of Date: 04/17/18 - Subjective Subjective: WAS ADMITTED FOR DEHYDRATION, GENERALIZED WEAKNESS, UTI , AND A RASH TO BILATERAL ARMS. TODAY, SHE IS ALERT AND ORIENTED, LYING IN BED ON MORNING ROUNDS. SHE CONTINUES WITH GENERALIZED WEAKNESS. SHE ALSO REPORTS CONTINUED ITCHING TO BILATERAL ARMS. HER VITALS THIS MORNING ARE 98.2-73-28-100% -103/59. LABS WERE OBTAINED. ABNORMAL LAB VALUES INCLUDE THE FOLLOWING: RBC 3.31 , HGB 10.8, HCT 30.8, PLT COUNT 110, POTASSIUM 3.4, BUN 45, CREATININE 2.49, GLUCOSE 103, CALCIUM 7.5, TOTAL PROTEIN 6.2, ALBUMIN 2.5. CARDIAC ENZYMES AND EKGS HAVE BEEN WITHIN NORMAL LIMITS. TODAYL, WE WILL OBTAIN A FUNGAL CULTURE WELL WOUND CULTURES TO AREAS ON THE ARMS. WE WILL ALSO DISCONTINUE THE LEVAQUIN AND START ZOSYN. OTHERWISE, WE PLAN TO FOLLOW UP WITH AM LABS AND CONTINUE TO MONITOR PATIENT. - Past Medical Family Social History Past Med/Fam/Surg Hx: No changes since H&P Allergies: Allergies No Known Drug Allergies Allergy (Verified 04/16/18 13:29) - Review of Systems ROS: No change since H&P - Vital Signs and I&O's Vital Signs: Temperature 99.2 F Pulse Rate [Apical] 102 Pulse Rate [Right Brachial] 69 Pulse Rate 72 Respiratory Rate 19 Blood Pressure [Left Arm] 128/72 Blood Pressure [Right Arm] 111/55 Blood Pressure 100/57 O2 Sat by Pulse Oximetry 97 Intake and Output: Intake & Output 04/15/18 04/16/18 04/17/18 04/18/18 11:59 11:59 11:59 11:59 Intake Total 1634 Balance 1634 - Physical Exam Oriented: Normal Eyes: Normal Ear: Normal Nose: Normal Throat: Normal Respiratory: Generalized, Diminished Cardiovascular: Normal. negative: S3, S4, Murmur : Normal Auscultation: Bowel Sounds: Normal Palpation: Normal Tenderness: Normal Skin: Rash (bilateral arms ), Red, Wound Musculoskeletal: Back:Lumbar Psychiatric: Normal Mood Description: Calm Affect: Normal Speech Pattern: Clear - Laboratory and Diagnostics Result Diagrams: 04/17/18 05:33 04/17/18 05:33 Labs: Laboratory WBC 6.9 X10^3/uL (3.6-10.0) 04/17/18 05:33 RBC 3.31 X10^6/uL (3.5-5.4) L 04/17/18 05:33 Hgb 10.8 g/dL (12.0-16.0) L 04/17/18 05:33 Hct 30.8 % (36.0-47.0) L 04/17/18 05:33 MCV 92.8 fL (80.0-100.0) 04/17/18 05:33 MCH 32.5 pg (27.0-34.0) 04/17/18 05:33 MCHC 35.0 g/dL (33.0-35.0) 04/17/18 05:33 RDW 12.7 % (11.6-16.5) 04/17/18 05:33 Plt Count 110 X10^3/uL (150.0-450.0) L 04/17/18 05:33 MPV 9.0 fL (7.4-11.0) 04/17/18 05:33 Neut % (Auto) 78.3 % (42.0-75.0) H 04/17/18 05:33 Lymph % (Auto) 9.6 % (21.0-51.0) L 04/17/18 05:33 [place] % (Auto) 6.2 % (0.0-13.0) 04/17/18 05:33 Eos % (Auto) 5.5 % (0.9-2.9) H 04/17/18 05:33 Baso % (Auto) 0.4 % (0.2-1.0) 04/17/18 05:33 Neut # (Auto) 5.4 x10^3/uL (2.2-4.8) H 04/17/18 05:33 Lymph # (Auto) 0.7 X10^3/uL (1.3-2.9) L 04/17/18 05:33 [place] # (Auto) 0.4 x10^3/uL (0.3-0.8) 04/17/18 05:33 Eos # (Auto) 0.4 x10^3/uL (0.0-0.2) H 04/17/18 05:33 Baso # (Auto) 0.0 X10^3/uL (0.0-0.1) 04/17/18 05:33 Absolute Nucleated RBC 0.0 /100WBC 04/17/18 05:33 Sodium 139 mmol/L (136-145) 04/17/18 05:33 Corrected Sodium TNP 04/17/18 05:33 Potassium 3.4 mmol/L (3.5-5.1) L 04/17/18 05:33 Chloride 105 mmol/L (98-107) 04/17/18 05:33 Carbon Dioxide 21.6 mmol/L (21-32) 04/17/18 05:33 BUN 45 mg/dL (7-18) H 04/17/18 05:33 Creatinine 2.49 mg/dL (0.55-1.02) H 04/17/18 05:33 Est GFR (MDRD) Af Amer 24 (>60) L 04/17/18 05:33 Est GFR (MDRD) Non-Af 20 (>60) L 04/17/18 05:33 Glucose 103 mg/dL (65-99) H 04/17/18 05:33 Calcium 7.5 mg/dL (8.5-10.1) L 04/17/18 05:33 Corrected Calcium 8.7 mg/dL (8.5-10.1) 04/17/18 05:33 Magnesium 1.8 mg/dL (1.7-2.9) 04/17/18 05:33 Total Bilirubin 0.30 mg/dL (0.2-1.0) 04/17/18 05:33 AST 17 Units/L (15-37) 04/17/18 05:33 ALT 13 Units/L (12-78) 04/17/18 05:33 Alkaline Phosphatase 80 Units/L (46-116) 04/17/18 05:33 Creatine Kinase 54 Units/L (26-192) 04/17/18 05:33 CK-MB (CK-2) 2.0 ng/mL (0-4.0) 04/17/18 05:33 CK/CKMB % Calc 3.7 % (<4) 04/17/18 05:33 Troponin I < 0.02 ng/mL (0-1.5) 04/17/18 05:33 Total Protein 6.2 g/dL (6.4-8.2) L 04/17/18 05:33 Albumin 2.5 g/dL (3.4-5.0) L 04/17/18 05:33 Globulin 3.7 g/dL (2.5-4.5) 04/17/18 05:33 Albumin/Globulin Ratio 0.7 Ratio (1.1-2.1) L 04/17/18 05:33 Specimen Type Random urine 04/16/18 14:54 Urine Color Yellow (YELLOW) 04/16/18 14:54 Urine Appearance Hazy (CLEAR) 04/16/18 14:54 Urine pH 5.0 (5.0 - 8.0) 04/16/18 14:54 Ur Specific [place] 1.015 (1.000-1.030) 04/16/18 14:54 Urine Protein Negative (NEGATIVE) 04/16/18 14:54 Urine Glucose (UA) Negative (NEGATIVE) 04/16/18 14:54 Urine Ketones Negative (NEGATIVE) 04/16/18 14:54 Urine Occult Blood Negative (NEGATIVE) 04/16/18 14:54 Urine Nitrite Negative (NEGATIVE) 04/16/18 14:54 Urine Bilirubin Negative (NEGATIVE) 04/16/18 14:54 Urine Urobilinogen Normal (NORMAL) 04/16/18 14:54 Ur Leukocyte Esterase 2+ (NEGATIVE) 04/16/18 14:54 Urine RBC 0-2 /HPF (NONE SEEN) 04/16/18 14:54 Urine WBC 5-10 /HPF (NONE SEEN) 04/16/18 14:54 Ur Squamous Epith Cells Moderate /HPF (NEGATIVE) 04/16/18 14:54 Urine Bacteria 1+ /HPF (NEGATIVE) 04/16/18 14:54 Hyaline Casts Moderate /LPF (NEGATIVE) 04/16/18 14:54 Ur Culture Indicated? No/not indicated 04/16/18 14:54 - Plan (1) Dehydration Status: Acute Plan: normal saline at 80ml/hr, potassium replacement, magnesium replacement (2) Generalized weakness Status: Acute (3) Infected ulcer of skin Status: Acute Qualifiers: Non-pressure ulcer stage: unspecified non-pressure ulcer stage Qualified Code(s): L98.499 - Non-pressure chronic ulcer of skin of other sites with unspecified severity; L08.9 - Local infection of the skin and subcutaneous tissue, unspecified; L08.9 - Local infection of the skin and subcutaneous tissue , unspecified Plan: DISCONTINU LEVAQUIN, START ZOSYN, OBTAIN FUNGAL AND WOUND CULTURES, continue to monitor
[2018-04-17] MEDS: ATARAX TAB 25 MG PO PRN (15:46)
[2018-04-17] MEDS: K-LYTE EFFERVESCENT PO PRN (18:02)
[2018-04-17] MEDS: TYLENOL 325 MG TAB PO PRN (18:22)
[2018-04-17] MEDS: ZyrTEC SYRUP 1 MG/ML 5ml unit dose PO SCH (20:07)
[2018-04-17] MEDS: HEMOCYTE-PLUS PO SCH (20:07)
[2018-04-17] MEDS ORDERED: PATIENT'S HOME MEDICATION (Cetirizine Hcl [Zyrtec] 10 MG) PO SCH (21:00)
[2018-04-17] MEDS: K-RIDER 10 MEQ/NS 100 ML 10 MEQ/100 ML BAG IV PRN ×3 (21:53→23:28)
[2018-04-18] MEDS: K-RIDER 10 MEQ/NS 100 ML 10 MEQ/100 ML BAG IV PRN (00:26)
[2018-04-18] MEDS: NS 1000 ML 1,000 ML IV SCH ×5 (04:06→23:47)
[2018-04-18] MEDS: ZOSYN VIAL 2.25 GRAMS 2.25 G in NS 100 ML IV + SPIKE MINIBAG* 100 ML IV SCH ×3 (05:34→21:51)
[2018-04-18 05:42] LABS: BASOPHILS % (AUTO) 0.6 % (0.2-1.0); EOSINOPHILS # (AUTO) 0.3 x10^3/uL (0.0-0.2); HEMATOCRIT 31.9 % (36.0-47.0); LYMPHOCYTES # (AUTO) 0.8 X10^3/uL (1.3-2.9); LYMPHOCYTES % (AUTO) 16.4 % (21.0-51.0); MEAN CORPUSCULAR HEMOGLOBIN 32.5 pg (27.0-34.0); MEAN CORPUSCULAR HGB CONC 34.6 g/dL (33.0-35.0); MEAN CORPUSCULAR VOLUME 93.9 fL (80.0-100.0); MEAN PLATELET VOLUME 8.7 fL (7.4-11.0); MONOCYTES # (AUTO) 0.4 x10^3/uL (0.3-0.8); MONOCYTES % (AUTO) 8.1 % (0.0-13.0); NEUTROPHILS # (AUTO) 3.3 x10^3/uL (2.2-4.8); NEUTROPHILS % (AUTO) 68.9 % (42.0-75.0); PLATELET COUNT 117 X10^3/uL (150.0-450.0); RED BLOOD COUNT 3.39 X10^6/uL (3.5-5.4); RED CELL DISTRIBUTION WIDTH 12.9 % (11.6-16.5); WHITE BLOOD COUNT 4.7 X10^3/uL (3.6-10.0)
[2018-04-18 05:51] LABS: ALBUMIN 2.3 g/dL (3.4-5.0); CALCIUM 7.7 mg/dL (8.5-10.1); CARBON DIOXIDE 21.7 mmol/L (21-32); COR CA(FOR HYPOALB) 9.1 mg/dL (8.5-10.1); CREATININE 1.8 mg/dL (0.55-1.02); TOTAL PROTEIN 5.9 g/dL (6.4-8.2)
[2018-04-18] MEDS: MAGIC MOUTHWASH MT SCH ×4 (08:59→21:51)
[2018-04-18] MEDS: PROzac PO SCH (08:59)
[2018-04-18] MEDS: HEMOCYTE-PLUS PO SCH ×2 (08:59→21:51)
[2018-04-18] MEDS: BRILINTA PO SCH ×2 (08:59→21:50)
[2018-04-18] MEDS ORDERED: NALOXONE PO PRN (09:50)
[2018-04-18] MEDS ORDERED: PENTAZOCINE PO PRN (09:50)
[2018-04-18] MEDS ORDERED: ELIMITE TOPICAL CREAM TOP NR (10:00)
[2018-04-18] MEDS ORDERED: NIZORAL SHAMPOO EXT SCH (10:00)
[2018-04-18] MEDS: ASPIRIN EC 81 MG PO SCH (10:13)
[2018-04-18] MEDS: TYLENOL 325 MG TAB PO PRN ×2 (13:51→23:48)
[2018-04-18] MEDS ORDERED: LEVAQUIN PREMIX IV 250 MG 250 MG/50 ML BAG IV SCH (17:00)
--- NOTE | 2018-04-18 20:27 | PCM.PROG ---
Progress Note - Progress Note for Day of Date: 04/18/18 - Subjective Subjective: WAS ADMITTED FOR DEHYDRATION, GENERALIZED WEAKNESS, UTI , AND A RASH TO BILATERAL ARMS. TODAY, SHE IS ALERT AND ORIENTED, LYING IN BED ON MORNING ROUNDS. SHE CONTINUES WITH GENERALIZED WEAKNESS. RASH/LESIONS CONTINUE TO BILATERAL ARMS. HER VITALS THIS MORNING ARE 98.2-62-17-100%-110/57. LABS WERE OBTAINED. ABNORMAL LAB VALUES INCLUDE THE FOLLOWING: RBC 3.39, HGB 11.0, HCT 31.9, PLT COUNT 117, CHLORIDE 108, BUN 27, CREATININE 1.80, GLUCOSE 112, CALCIUM 7.7, TOTAL PROTEIN 5.9, ALBUMIN 2.3. WE OBTAINED FUNGAL CULTURES YESTERDAY OF THE LESIONS ON ARM. CULTURE IS PENDING. TODAY, WE WILL OBTAIN SKIN SCRAPING FOR MICROSCOPIC REVIEW AND ORDER FOR PERMETHRIN CREAM TO BE APPLIED. OTHERWISE, WE PLAN TO FOLLOW UP WITH AM LABS AND CONTINUE TO MONITOR PATIENT. - Past Medical Family Social History Past Med/Fam/Surg Hx: No changes since H&P Allergies: Allergies No Known Drug Allergies Allergy (Verified 04/16/18 13:29) - Review of Systems ROS: No change since H&P - Vital Signs and I&O's Vital Signs: Temperature 98.1 F Pulse Rate [Apical] 100 Pulse Rate [Right Brachial] 69 Pulse Rate 72 Respiratory Rate 18 Blood Pressure [Left Arm] 112/56 Blood Pressure [Right Arm] 124/64 Blood Pressure 100/57 O2 Sat by Pulse Oximetry 98 Intake and Output: Intake & Output 04/16/18 04/17/18 04/18/18 04/19/18 11:59 11:59 11:59 11:59 Intake Total 1634 3836 1001 Balance 1634 3836 1001 - Physical Exam Oriented: Normal Eyes: Normal Ear: Normal Nose: Normal Throat: Normal Respiratory: Generalized, Diminished Cardiovascular: Normal. negative: S3, S4, Murmur : Normal Auscultation: Bowel Sounds: Normal Palpation: Normal Tenderness: Normal Skin: Rash (bilateral arms ), Red, Wound Musculoskeletal: Back:Lumbar Psychiatric: Normal Mood Description: Calm Affect: Normal Speech Pattern: Clear - Laboratory and Diagnostics Result Diagrams: 04/18/18 05:15 04/18/18 05:15 Labs: Laboratory WBC 4.7 X10^3/uL (3.6-10.0) 04/18/18 05:15 RBC 3.39 X10^6/uL (3.5-5.4) L 04/18/18 05:15 Hgb 11.0 g/dL (12.0-16.0) L 04/18/18 05:15 Hct 31.9 % (36.0-47.0) L 04/18/18 05:15 MCV 93.9 fL (80.0-100.0) 04/18/18 05:15 MCH 32.5 pg (27.0-34.0) 04/18/18 05:15 MCHC 34.6 g/dL (33.0-35.0) 04/18/18 05:15 RDW 12.9 % (11.6-16.5) 04/18/18 05:15 Plt Count 117 X10^3/uL (150.0-450.0) L 04/18/18 05:15 MPV 8.7 fL (7.4-11.0) 04/18/18 05:15 Neut % (Auto) 68.9 % (42.0-75.0) 04/18/18 05:15 Lymph % (Auto) 16.4 % (21.0-51.0) L 04/18/18 05:15 [place] % (Auto) 8.1 % (0.0-13.0) 04/18/18 05:15 Eos % (Auto) 6.0 % (0.9-2.9) H 04/18/18 05:15 Baso % (Auto) 0.6 % (0.2-1.0) 04/18/18 05:15 Neut # (Auto) 3.3 x10^3/uL (2.2-4.8) 04/18/18 05:15 Lymph # (Auto) 0.8 X10^3/uL (1.3-2.9) L 04/18/18 05:15 [place] # (Auto) 0.4 x10^3/uL (0.3-0.8) 04/18/18 05:15 Eos # (Auto) 0.3 x10^3/uL (0.0-0.2) H 04/18/18 05:15 Baso # (Auto) 0.0 X10^3/uL (0.0-0.1) 04/18/18 05:15 Absolute Nucleated RBC 0.1 /100WBC 04/18/18 05:15 Sodium 140 mmol/L (136-145) 04/18/18 05:15 Corrected Sodium 140 mmol/L (136-145) 04/18/18 05:15 Potassium 4.1 mmol/L (3.5-5.1) 04/18/18 05:15 Chloride 108 mmol/L (98-107) H 04/18/18 05:15 Carbon Dioxide 21.7 mmol/L (21-32) 04/18/18 05:15 BUN 27 mg/dL (7-18) H 04/18/18 05:15 Creatinine 1.80 mg/dL (0.55-1.02) H 04/18/18 05:15 Est GFR (MDRD) Af Amer 35 (>60) L 04/18/18 05:15 Est GFR (MDRD) Non-Af 29 (>60) L 04/18/18 05:15 Glucose 112 mg/dL (65-99) H 04/18/18 05:15 Calcium 7.7 mg/dL (8.5-10.1) L 04/18/18 05:15 Corrected Calcium 9.1 mg/dL (8.5-10.1) 04/18/18 05:15 Magnesium 1.8 mg/dL (1.7-2.9) 04/17/18 05:33 Total Bilirubin 0.40 mg/dL (0.2-1.0) 04/18/18 05:15 AST 16 Units/L (15-37) 04/18/18 05:15 ALT 12 Units/L (12-78) 04/18/18 05:15 Alkaline Phosphatase 77 Units/L (46-116) 04/18/18 05:15 Creatine Kinase 54 Units/L (26-192) 04/17/18 05:33 CK-MB (CK-2) 2.0 ng/mL (0-4.0) 04/17/18 05:33 CK/CKMB % Calc 3.7 % (<4) 04/17/18 05:33 Troponin I < 0.02 ng/mL (0-1.5) 04/17/18 05:33 Total Protein 5.9 g/dL (6.4-8.2) L 04/18/18 05:15 Albumin 2.3 g/dL (3.4-5.0) L 04/18/18 05:15 Globulin 3.6 g/dL (2.5-4.5) 04/18/18 05:15 Albumin/Globulin Ratio 0.6 Ratio (1.1-2.1) L 04/18/18 05:15 Specimen Type Random urine 04/16/18 14:54 Urine Color Yellow (YELLOW) 04/16/18 14:54 Urine Appearance Hazy (CLEAR) 04/16/18 14:54 Urine pH 5.0 (5.0 - 8.0) 04/16/18 14:54 Ur Specific [place] 1.015 (1.000-1.030) 04/16/18 14:54 Urine Protein Negative (NEGATIVE) 04/16/18 14:54 Urine Glucose (UA) Negative (NEGATIVE) 04/16/18 14:54 Urine Ketones Negative (NEGATIVE) 04/16/18 14:54 Urine Occult Blood Negative (NEGATIVE) 04/16/18 14:54 Urine Nitrite Negative (NEGATIVE) 04/16/18 14:54 Urine Bilirubin Negative (NEGATIVE) 04/16/18 14:54 Urine Urobilinogen Normal (NORMAL) 04/16/18 14:54 Ur Leukocyte Esterase 2+ (NEGATIVE) 04/16/18 14:54 Urine RBC 0-2 /HPF (NONE SEEN) 04/16/18 14:54 Urine WBC 5-10 /HPF (NONE SEEN) 04/16/18 14:54 Ur Squamous Epith Cells Moderate /HPF (NEGATIVE) 04/16/18 14:54 Urine Bacteria 1+ /HPF (NEGATIVE) 04/16/18 14:54 Hyaline Casts Moderate /LPF (NEGATIVE) 04/16/18 14:54 Ur Culture Indicated? No/not indicated 04/16/18 14:54 Miscellaneous Test No scabies seen 04/18/18 09:46 - Plan (1) Dehydration Status: Acute Plan: normal saline at 80ml/hr, potassium replacement, magnesium replacement (2) Generalized weakness Status: Acute (3) Infected ulcer of skin Status: Acute Qualifiers: Non-pressure ulcer stage: unspecified non-pressure ulcer stage Qualified Code(s): L98.499 - Non-pressure chronic ulcer of skin of other sites with unspecified severity; L08.9 - Local infection of the skin and subcutaneous tissue, unspecified; L08.9 - Local infection of the skin and subcutaneous tissue , unspecified Plan: ZOSYN, OBTAIN SCRAPING FOR MICROSCOPIC REVIEW, PERMETHRIN CREAM X 1 APPLICATION, continue to monitor
[2018-04-18] MEDS: ZyrTEC SYRUP 1 MG/ML 5ml unit dose PO SCH (21:51)
[2018-04-19] MEDS ORDERED: PHARMACY CONSULT - TPN XX SCH (09:45)
[2018-04-19] MEDS ORDERED: ALBUMIN HUMAN 25%- 100 ML 100 ML IV ONE (10:05)
[2018-04-19] MEDS: ZOSYN VIAL 2.25 GRAMS 2.25 G in NS 100 ML IV + SPIKE MINIBAG* 100 ML IV SCH ×2 (14:00→22:35)
[2018-04-19 14:09] LABS: ALANINE AMINOTRANSFERASE 9 Units/L (12-78); ALKALINE PHOSPHATASE 66 Units/L (46-116); ASPARTATE AMINO TRANSFERASE 13 Units/L (15-37); BLOOD UREA NITROGEN 14 mg/dL (7-18); CALCIUM 7.5 mg/dL (8.5-10.1); CARBON DIOXIDE 21.1 mmol/L (21-32); CHLORIDE 110 mmol/L (98-107); COR CA(FOR HYPOALB) 9.1 mg/dL (8.5-10.1); CREATININE 1.48 mg/dL (0.55-1.02); SODIUM 141 mmol/L (136-145); TOTAL PROTEIN 5.3 g/dL (6.4-8.2); eGFR NON BLACK RACES 37 (>60)
[2018-04-19 14:10] LABS: BASOPHILS % (AUTO) 0.7 % (0.2-1.0); EOSINOPHILS # (AUTO) 0.3 x10^3/uL (0.0-0.2); HEMATOCRIT 27.7 % (36.0-47.0); HEMOGLOBIN 9.5 g/dL (12.0-16.0); LYMPHOCYTES # (AUTO) 0.6 X10^3/uL (1.3-2.9); LYMPHOCYTES % (AUTO) 14.9 % (21.0-51.0); MEAN CORPUSCULAR HEMOGLOBIN 32.4 pg (27.0-34.0); MEAN CORPUSCULAR HGB CONC 34.3 g/dL (33.0-35.0); MEAN CORPUSCULAR VOLUME 94.6 fL (80.0-100.0); MEAN PLATELET VOLUME 8.4 fL (7.4-11.0); MONOCYTES # (AUTO) 0.5 x10^3/uL (0.3-0.8); NEUTROPHILS # (AUTO) 2.7 x10^3/uL (2.2-4.8); NEUTROPHILS % (AUTO) 66.4 % (42.0-75.0); PLATELET COUNT 149 X10^3/uL (150.0-450.0); RED BLOOD COUNT 2.93 X10^6/uL (3.5-5.4); RED CELL DISTRIBUTION WIDTH 12.8 % (11.6-16.5); WHITE BLOOD COUNT 4.1 X10^3/uL (3.6-10.0)
[2018-04-19] MEDS: PROCALAMINE 3 % 1,000 ML with MVI INJ (ADULT) 10 ML IV SCH ×2 (16:29)
[2018-04-19] MEDS: MAGIC MOUTHWASH MT SCH ×2 (16:32→22:35)
[2018-04-19] MEDS ORDERED: PROCALAMINE 3 % 1,000 ML IV ONE (16:34)
[2018-04-19] MEDS ORDERED: MVI INJ (ADULT) IV ONE (16:35)
[2018-04-19] MEDS: MORPHINE SULFATE INJ 2 MG INJ IVP PRN (17:09)
[2018-04-19] MEDS ORDERED: LASIX IVP ONE (17:45)
[2018-04-19 17:47] LABS: CREATINE KINASE 61 Units/L (26-192); CREATINE KINASE MB 1.8 ng/mL (0-4.0); TROPONIN I < 0.02 ng/mL (0-1.5)
[2018-04-19 18:26] LABS: BILIRUBIN,URINE NEGATIVE (NEGATIVE); BLOOD/HEMOGLOBIN,URINE NEGATIVE (NEGATIVE); GLUCOSE, URINE NEGATIVE (NEGATIVE); KETONES,URINE NEGATIVE (NEGATIVE); LEUKOCYTE ESTERASE ,URINE NEGATIVE (NEGATIVE); NITRITES,URINE NEGATIVE (NEGATIVE); PROTEIN,URINE 2+ (NEGATIVE); UROBILINOGEN,URINE NORMAL (NORMAL)
[2018-04-19 18:53] LABS: APPEARANCE,URINE CLEAR (CLEAR); COLOR,URINE YELLOW (YELLOW)
[2018-04-19 18:54] LABS: BACTERIA,URINE NEGATIVE /HPF (NEGATIVE); RBC,URINE NONE SEEN /HPF (NONE SEEN); SQUAMOUS EPITHELIAL CELL,UR RARE /HPF (NEGATIVE)
[2018-04-19 18:55] LABS: AMORPHOUS SEDIMENT,UR TRACE /HPF (NEGATIVE); HYALINE CASTS, URINE RARE /LPF (NEGATIVE)
[2018-04-19 22:09] LABS: CKMB % 2.4 % (<4); CREATINE KINASE MB 1.5 ng/mL (0-4.0); TROPONIN I 0.14 ng/mL (0-1.5)
[2018-04-19] MEDS: TYLENOL 325 MG TAB PO PRN (22:36)
[2018-04-19] MEDS: HEMOCYTE-PLUS PO SCH (22:37)
[2018-04-19] MEDS: ATARAX TAB 25 MG PO PRN (22:37)
[2018-04-19] MEDS: BRILINTA PO SCH (22:38)
[2018-04-19] MEDS: ZyrTEC SYRUP 1 MG/ML 5ml unit dose PO SCH (22:39)
[2018-04-20 02:42] LABS: CKMB % 2.7 % (<4); CREATINE KINASE MB 1.5 ng/mL (0-4.0); TROPONIN I 0.46 ng/mL (0-1.5)
[2018-04-20] MEDS: ZOSYN VIAL 2.25 GRAMS 2.25 G in NS 100 ML IV + SPIKE MINIBAG* 100 ML IV SCH ×3 (06:12→22:37)
[2018-04-20 06:13] LABS: ALANINE AMINOTRANSFERASE 11 Units/L (12-78); ALBUMIN 2.9 g/dL (3.4-5.0); ALKALINE PHOSPHATASE 81 Units/L (46-116); ASPARTATE AMINO TRANSFERASE 16 Units/L (15-37); BLOOD UREA NITROGEN 12 mg/dL (7-18); CALCIUM 7.7 mg/dL (8.5-10.1); CARBON DIOXIDE 28.7 mmol/L (21-32); CHLORIDE 104 mmol/L (98-107); COR CA(FOR HYPOALB) 8.6 mg/dL (8.5-10.1); CREATININE 1.57 mg/dL (0.55-1.02); SODIUM 140 mmol/L (136-145); TOTAL PROTEIN 6.8 g/dL (6.4-8.2); eGFR NON BLACK RACES 34 (>60)
[2018-04-20 06:21] LABS: TROPONIN I 0.35 ng/mL (0-1.5)
[2018-04-20 06:46] LABS: CKMB % 2.7 % (<4)
[2018-04-20 07:38] LABS: BASOPHILS # (AUTO) 0.1 X10^3/uL (0.0-0.1); BASOPHILS % (AUTO) 1.2 % (0.2-1.0); EOSINOPHILS # (AUTO) 0.3 x10^3/uL (0.0-0.2); LYMPHOCYTES # (AUTO) 0.9 X10^3/uL (1.3-2.9); LYMPHOCYTES % (AUTO) 17.9 % (21.0-51.0); MEAN CORPUSCULAR HEMOGLOBIN 32.4 pg (27.0-34.0); MEAN CORPUSCULAR HGB CONC 34.6 g/dL (33.0-35.0); MEAN CORPUSCULAR VOLUME 93.4 fL (80.0-100.0); MEAN PLATELET VOLUME 8.4 fL (7.4-11.0); MONOCYTES # (AUTO) 0.6 x10^3/uL (0.3-0.8); MONOCYTES % (AUTO) 11.9 % (0.0-13.0); NEUTROPHILS # (AUTO) 3.4 x10^3/uL (2.2-4.8); PLATELET COUNT 217 X10^3/uL (150.0-450.0); RED BLOOD COUNT 3.64 X10^6/uL (3.5-5.4); RED CELL DISTRIBUTION WIDTH 13.2 % (11.6-16.5); WHITE BLOOD COUNT 5.3 X10^3/uL (3.6-10.0)
[2018-04-20] MEDS: ALBUMIN HUMAN 25%- 100 ML 100 ML IV SCH (08:38)
[2018-04-20] MEDS: PROzac PO SCH (08:39)
[2018-04-20] MEDS: BRILINTA PO SCH ×2 (08:39→20:44)
[2018-04-20] MEDS: HEMOCYTE-PLUS PO SCH ×2 (08:39→20:45)
[2018-04-20] MEDS: ASPIRIN EC 81 MG PO SCH (08:39)
[2018-04-20 08:40] LABS: HEMOGLOBIN 11.8 g/dL (12.0-16.0)
[2018-04-20] MEDS: MAGIC MOUTHWASH MT SCH ×4 (08:41→20:45)
--- NOTE | 2018-04-20 08:46 | RAD ---
HISTORY: 72-year-old female with shortness of breath. History of CHF and COPD. Study: Frontal view of the chest. Comparison: Chest radiograph 04/16/2018 Findings: Surgical and support devices are stable. The trachea is midline. The cardiac silhouette is stably enlarged with low lung volumes and chronic elevation the right hemidiaphragm. Chronic prominence of the perihilar lung markings and interstitium . Bibasilar atelectasis without pneumothorax. Likely trace left effusion. Soft tissues are unremarka ble. Osseous structures are unremarkable. IMPRESSION: 1. Bibasilar atelectasis with likely trace left effusion, correlate clinically for underlying infecti on and with serology for fluid overload. Reported By:
[2018-04-20] MEDS ORDERED: LEVAQUIN PREMIX IV 500 MG 500 MG/100 ML BAG IV ONE (10:06)
[2018-04-20] MEDS ORDERED: LASIX IVP ONE ×2 (10:06→20:09)
[2018-04-20] MEDS ORDERED: LOVENOX INJ 30 MG SYR SC ONE (10:06)
[2018-04-20] MEDS ORDERED: DUONEB 0.5 MG/3 MG ONE ×3 (10:17→15:48)
[2018-04-20] MEDS: DUONEB 0.5 MG/3 MG NEB SCH ×4 (10:19→21:03)
[2018-04-20] MEDS: LOVENOX INJ 30 MG SYR SC SCH (10:19)
[2018-04-20] MEDS: LASIX IVP SCH ×2 (10:20→20:34)
[2018-04-20] MEDS: LEVAQUIN PREMIX IV 500 MG 500 MG/100 ML BAG IV SCH (10:21)
[2018-04-20] MEDS: TYLENOL 325 MG TAB PO PRN ×2 (13:48→21:06)
[2018-04-20] MEDS ORDERED: TYLENOL 325 MG TAB PO ONE (13:49)
--- NOTE | 2018-04-20 17:15 | PCM.PROG ---
Progress Note - Progress Note for Day of Date: 04/19/18 - Subjective Subjective: WAS ADMITTED FOR DEHYDRATION, GENERALIZED WEAKNESS, UTI , AND A RASH TO BILATERAL ARMS. TODAY, SHE IS ALERT AND ORIENTED, LYING IN BED ON MORNING ROUNDS. SHE CONTINUES WITH GENERALIZED WEAKNESS. RASH/LESIONS CONTINUE TO BILATERAL ARMS WELL TO HER LEGS. HER VITALS THIS MORNING ARE 98.1-100-16-99%-120/69. LABS WERE OBTAINED. ABNORMAL LAB VALUES INCLUDE THE FOLLOWING: RBC 2.93, HGB 9.5, HCT 27.7, PLT COUNT 149, CHLORIDE 110, CREATININE 1.48, GLUCOSE 101, CALCIUM 7.5 AST 13, ALT 9, TOTAL PROTEIN 5.3, ALBUMIN 2.0. FUNGAL CULTURES OF THE LESIONS ON ARM ARE PENDING. SCRAPINGS WERE ALSO OBTAINED TO RULE OUT SCABIES. NO SCABIES WERE SEEN. TODAY, WE WILL START TPN AND ALBUMIN. OTHERWISE, WE PLAN TO FOLLOW UP WITH AM LABS AND CONTINUE TO MONITOR PATIENT. - Past Medical Family Social History Past Med/Fam/Surg Hx: No changes since H&P Allergies: Allergies No Known Drug Allergies Allergy (Verified 04/16/18 13:29) - Review of Systems ROS: No change since H&P - Vital Signs and I&O's Vital Signs: Temperature 99.6 F Pulse Rate [Apical] 96 Pulse Rate [Right Brachial] 69 Pulse Rate 84 Respiratory Rate 16 Blood Pressure [Left Arm] 97/53 Blood Pressure [Right Arm] 124/64 Blood Pressure 100/57 O2 Sat by Pulse Oximetry 98 Intake and Output: Intake & Output 04/18/18 04/19/18 04/20/18 04/21/18 11:59 11:59 11:59 11:59 Intake Total 3836 / 3836 1721 / 1721 1851 / 1851 932 / 932 Output Total 3400 / 3400 1925 / 1925 Balance 3836 / 3836 1721 / 1721 -1549 / -1549 -993 / -993 - Physical Exam Oriented: Normal Eyes: Normal Ear: Normal Nose: Normal Throat: Normal Respiratory: Generalized, Diminished Cardiovascular: Normal. negative: S3, S4, Murmur : Normal Auscultation: Bowel Sounds: Normal Palpation: Normal Tenderness: Normal Skin: Rash (bilateral arms ), Red, Wound Musculoskeletal: Back:Lumbar Psychiatric: Normal Mood Description: Calm Affect: Normal Speech Pattern: Clear - Laboratory and Diagnostics Result Diagrams: 04/20/18 05:35 04/20/18 05:35 Labs: 04/17/18 17:08 Blood Blood Culture - Preliminary 04/17/18 17:00 Blood Blood Culture - Preliminary Laboratory WBC 5.3 X10^3/uL (3.6-10.0) 04/20/18 05:35 RBC 3.64 X10^6/uL (3.5-5.4) 04/20/18 05:35 Hgb 11.8 g/dL (12.0-16.0) L D 04/20/18 05:35 Hct 34.0 % (36.0-47.0) L 04/20/18 05:35 MCV 93.4 fL (80.0-100.0) 04/20/18 05:35 MCH 32.4 pg (27.0-34.0) 04/20/18 05:35 MCHC 34.6 g/dL (33.0-35.0) 04/20/18 05:35 RDW 13.2 % (11.6-16.5) 04/20/18 05:35 Plt Count 217 X10^3/uL (150.0-450.0) 04/20/18 05:35 MPV 8.4 fL (7.4-11.0) 04/20/18 05:35 Neut % (Auto) 64.0 % (42.0-75.0) 04/20/18 05:35 Lymph % (Auto) 17.9 % (21.0-51.0) L 04/20/18 05:35 [place] % (Auto) 11.9 % (0.0-13.0) 04/20/18 05:35 Eos % (Auto) 5.0 % (0.9-2.9) H 04/20/18 05:35 Baso % (Auto) 1.2 % (0.2-1.0) H 04/20/18 05:35 Neut # (Auto) 3.4 x10^3/uL (2.2-4.8) 04/20/18 05:35 Lymph # (Auto) 0.9 X10^3/uL (1.3-2.9) L 04/20/18 05:35 [place] # (Auto) 0.6 x10^3/uL (0.3-0.8) 04/20/18 05:35 Eos # (Auto) 0.3 x10^3/uL (0.0-0.2) H 04/20/18 05:35 Baso # (Auto) 0.1 X10^3/uL (0.0-0.1) 04/20/18 05:35 Absolute Nucleated RBC 0.2 /100WBC 04/20/18 05:35 Sodium 140 mmol/L (136-145) 04/20/18 05:35 Corrected Sodium TNP 04/20/18 05:35 Potassium 3.7 mmol/L (3.5-5.1) 04/20/18 05:35 Chloride 104 mmol/L (98-107) 04/20/18 05:35 Carbon Dioxide 28.7 mmol/L (21-32) 04/20/18 05:35 BUN 12 mg/dL (7-18) 04/20/18 05:35 Creatinine 1.57 mg/dL (0.55-1.02) H 04/20/18 05:35 Est GFR (MDRD) Af Amer 41 (>60) L 04/20/18 05:35 Est GFR (MDRD) Non-Af 34 (>60) L 04/20/18 05:35 Glucose 104 mg/dL (65-99) H 04/20/18 05:35 Calcium 7.7 mg/dL (8.5-10.1) L 04/20/18 05:35 Corrected Calcium 8.6 mg/dL (8.5-10.1) 04/20/18 05:35 Magnesium 1.8 mg/dL (1.7-2.9) 04/17/18 05:33 Total Bilirubin 0.60 mg/dL (0.2-1.0) 04/20/18 05:35 AST 16 Units/L (15-37) 04/20/18 05:35 ALT 11 Units/L (12-78) L 04/20/18 05:35 Alkaline Phosphatase 81 Units/L (46-116) 04/20/18 05:35 Creatine Kinase 74 Units/L (26-192) 04/20/18 05:35 CK-MB (CK-2) 2.0 ng/mL (0-4.0) 04/20/18 05:35 CK/CKMB % Calc 2.7 % (<4) 04/20/18 05:35 Troponin I 0.35 ng/mL (0-1.5) 04/20/18 05:35 Total Protein 6.8 g/dL (6.4-8.2) 04/20/18 05:35 Albumin 2.9 g/dL (3.4-5.0) L 04/20/18 05:35 Globulin 3.9 g/dL (2.5-4.5) 04/20/18 05:35 Albumin/Globulin Ratio 0.7 Ratio (1.1-2.1) L 04/20/18 05:35 Specimen Type Catherized urine 04/19/18 18:00 Urine Color Yellow (YELLOW) 04/19/18 18:00 Urine Appearance Clear (CLEAR) 04/19/18 18:00 Urine pH 5.0 (5.0 - 8.0) 04/19/18 18:00 Ur Specific [place] 1.010 (1.000-1.030) 04/19/18 18:00 Urine Protein 2+ (NEGATIVE) 04/19/18 18:00 Urine Glucose (UA) Negative (NEGATIVE) 04/19/18 18:00 Urine Ketones Negative (NEGATIVE) 04/19/18 18:00 Urine Occult Blood Negative (NEGATIVE) 04/19/18 18:00 Urine Nitrite Negative (NEGATIVE) 04/19/18 18:00 Urine Bilirubin Negative (NEGATIVE) 04/19/18 18:00 Urine Urobilinogen Normal (NORMAL) 04/19/18 18:00 Ur Leukocyte Esterase Negative (NEGATIVE) 04/19/18 18:00 Urine RBC None seen /HPF (NONE SEEN) 04/19/18 18:00 Urine WBC 0-2 /HPF (NONE SEEN) 04/19/18 18:00 Ur Squamous Epith Cells Rare /HPF (NEGATIVE) 04/19/18 18:00 Amorphous Sediment Trace /HPF (NEGATIVE) 04/19/18 18:00 Urine Bacteria Negative /HPF (NEGATIVE) 04/19/18 18:00 Hyaline Casts Rare /LPF (NEGATIVE) 04/19/18 18:00 Ur Culture Indicated? No/not indicated 04/19/18 18:00 Miscellaneous Test No scabies seen 04/18/18 09:46 - Plan (1) Dehydration Status: Acute Plan: normal saline at 80ml/hr, potassium replacement, magnesium replacement (2) Generalized weakness Status: Acute (3) Infected ulcer of skin Status: Acute Qualifiers: Non-pressure ulcer stage: unspecified non-pressure ulcer stage Qualified Code(s): L98.499 - Non-pressure chronic ulcer of skin of other sites with unspecified severity; L08.9 - Local infection of the skin and subcutaneous tissue, unspecified; L08.9 - Local infection of the skin and subcutaneous tissue , unspecified Plan: ZOSYN, OBTAIN SCRAPING FOR MICROSCOPIC REVIEW, PERMETHRIN CREAM X 1 APPLICATION, continue to monitor (4) Hypoproteinemia Status: Acute Plan: TPN, ALBUMIN 25% IV DAILY, CONTINUE TO MONITOR
--- NOTE | 2018-04-20 17:18 | PCM.PROG ---
Progress Note - Progress Note for Day of Date: 04/20/18 - Subjective Subjective: WAS ADMITTED FOR DEHYDRATION, GENERALIZED WEAKNESS, UTI , AND A RASH TO BILATERAL ARMS AND LEGS. TODAY, SHE IS ALERT AND ORIENTED, LYING IN BED ON MORNING ROUNDS. SHE CONTINUES WITH GENERALIZED WEAKNESS WELL ITCHING TO ARMS AND LEGS. YESTERDAY AFTERNOON, PATIENT BEGAN WITH CHEST DISCOMFORT AND SHORTNESS OF BREATH. SHE CONTINUES WITH SHORTNESS OF BREATH TODAY. SHE WAS NOTED WITH AN ELEVATED TEMPERATURE OF 102.7 LAST NIGHT. BLOOD CULTURES WERE OBTAINED AT THAT TIME. HER VITALS THIS MORNING ARE 98.3-89-20-97%- 103/65. LABS WERE OBTAINED. ABNORMAL LAB VALUES INCLUDE THE FOLLOWING: HGB 11.8 , HCT 34.0, CREATININE 1.57, GLUCOSE 104, CALCIUM 7.7, ALT 11, ALUBMIN 2.9. CARDIAC ENZYMES AND EKGS NEGATIVE. A CHEST XRAY WAS OBTAINED TODAY AND REVEALED BIBASILAR ATELECTASIS WITH LIKELY TRACE LEFT EFFUSION. CORRELATE CLINICALLY FOR UNDERLYING INFECTION AND WITH SEROLOGY FOR FLUID OVERLOAD. FUNGAL CULTURES OF THE LESIONS ON ARM ARE PENDING. TODAY, WE WILL OBTAIN URINE CULTURES AND ADD LEVAQUIN 500MG IV DAILY WELL LASIX 40MG IV BID X 2 DOSES. WE WILL ALSO START HER ON LOVENOX 30MG SC DAILY FOR DVT PROPHYLAXIS. OTHERWISE, WE PLAN TO FOLLOW UP WITH AM LABS AND CONTINUE TO MONITOR PATIENT. - Past Medical Family Social History Past Med/Fam/Surg Hx: No changes since H&P Allergies: Allergies No Known Drug Allergies Allergy (Verified 04/16/18 13:29) - Review of Systems ROS: No change since H&P - Vital Signs and I&O's Vital Signs: Temperature 99.6 F Pulse Rate [Apical] 96 Pulse Rate [Right Brachial] 69 Pulse Rate 84 Respiratory Rate 16 Blood Pressure [Left Arm] 97/53 Blood Pressure [Right Arm] 124/64 Blood Pressure 100/57 O2 Sat by Pulse Oximetry 98 Intake and Output: Intake & Output 04/18/18 04/19/18 04/20/18 04/21/18 11:59 11:59 11:59 11:59 Intake Total 3836 / 3836 1721 / 1721 1851 / 1851 932 / 932 Output Total 3400 / 3400 1925 / 1925 Balance 3836 / 3836 1721 / 1721 -1549 / -1549 -993 / -993 - Physical Exam Oriented: Normal Eyes: Normal Ear: Normal Nose: Normal Throat: Normal Respiratory: Generalized, Diminished Cardiovascular: Normal. negative: S3, S4, Murmur : Normal Auscultation: Bowel Sounds: Normal Palpation: Normal Tenderness: Normal Skin: Rash (bilateral arms ), Red, Wound Musculoskeletal: Back:Lumbar Psychiatric: Normal Mood Description: Calm Affect: Normal Speech Pattern: Clear - Laboratory and Diagnostics Result Diagrams: 04/20/18 05:35 04/20/18 05:35 Labs: 04/17/18 17:08 Blood Blood Culture - Preliminary 04/17/18 17:00 Blood Blood Culture - Preliminary Laboratory WBC 5.3 X10^3/uL (3.6-10.0) 04/20/18 05:35 RBC 3.64 X10^6/uL (3.5-5.4) 04/20/18 05:35 Hgb 11.8 g/dL (12.0-16.0) L D 04/20/18 05:35 Hct 34.0 % (36.0-47.0) L 04/20/18 05:35 MCV 93.4 fL (80.0-100.0) 04/20/18 05:35 MCH 32.4 pg (27.0-34.0) 04/20/18 05:35 MCHC 34.6 g/dL (33.0-35.0) 04/20/18 05:35 RDW 13.2 % (11.6-16.5) 04/20/18 05:35 Plt Count 217 X10^3/uL (150.0-450.0) 04/20/18 05:35 MPV 8.4 fL (7.4-11.0) 04/20/18 05:35 Neut % (Auto) 64.0 % (42.0-75.0) 04/20/18 05:35 Lymph % (Auto) 17.9 % (21.0-51.0) L 04/20/18 05:35 [place] % (Auto) 11.9 % (0.0-13.0) 04/20/18 05:35 Eos % (Auto) 5.0 % (0.9-2.9) H 04/20/18 05:35 Baso % (Auto) 1.2 % (0.2-1.0) H 04/20/18 05:35 Neut # (Auto) 3.4 x10^3/uL (2.2-4.8) 04/20/18 05:35 Lymph # (Auto) 0.9 X10^3/uL (1.3-2.9) L 04/20/18 05:35 [place] # (Auto) 0.6 x10^3/uL (0.3-0.8) 04/20/18 05:35 Eos # (Auto) 0.3 x10^3/uL (0.0-0.2) H 04/20/18 05:35 Baso # (Auto) 0.1 X10^3/uL (0.0-0.1) 04/20/18 05:35 Absolute Nucleated RBC 0.2 /100WBC 04/20/18 05:35 Sodium 140 mmol/L (136-145) 04/20/18 05:35 Corrected Sodium TNP 04/20/18 05:35 Potassium 3.7 mmol/L (3.5-5.1) 04/20/18 05:35 Chloride 104 mmol/L (98-107) 04/20/18 05:35 Carbon Dioxide 28.7 mmol/L (21-32) 04/20/18 05:35 BUN 12 mg/dL (7-18) 04/20/18 05:35 Creatinine 1.57 mg/dL (0.55-1.02) H 04/20/18 05:35 Est GFR (MDRD) Af Amer 41 (>60) L 04/20/18 05:35 Est GFR (MDRD) Non-Af 34 (>60) L 04/20/18 05:35 Glucose 104 mg/dL (65-99) H 04/20/18 05:35 Calcium 7.7 mg/dL (8.5-10.1) L 04/20/18 05:35 Corrected Calcium 8.6 mg/dL (8.5-10.1) 04/20/18 05:35 Magnesium 1.8 mg/dL (1.7-2.9) 04/17/18 05:33 Total Bilirubin 0.60 mg/dL (0.2-1.0) 04/20/18 05:35 AST 16 Units/L (15-37) 04/20/18 05:35 ALT 11 Units/L (12-78) L 04/20/18 05:35 Alkaline Phosphatase 81 Units/L (46-116) 04/20/18 05:35 Creatine Kinase 74 Units/L (26-192) 04/20/18 05:35 CK-MB (CK-2) 2.0 ng/mL (0-4.0) 04/20/18 05:35 CK/CKMB % Calc 2.7 % (<4) 04/20/18 05:35 Troponin I 0.35 ng/mL (0-1.5) 04/20/18 05:35 Total Protein 6.8 g/dL (6.4-8.2) 04/20/18 05:35 Albumin 2.9 g/dL (3.4-5.0) L 04/20/18 05:35 Globulin 3.9 g/dL (2.5-4.5) 04/20/18 05:35 Albumin/Globulin Ratio 0.7 Ratio (1.1-2.1) L 04/20/18 05:35 Specimen Type Catherized urine 04/19/18 18:00 Urine Color Yellow (YELLOW) 04/19/18 18:00 Urine Appearance Clear (CLEAR) 04/19/18 18:00 Urine pH 5.0 (5.0 - 8.0) 04/19/18 18:00 Ur Specific [place] 1.010 (1.000-1.030) 04/19/18 18:00 Urine Protein 2+ (NEGATIVE) 04/19/18 18:00 Urine Glucose (UA) Negative (NEGATIVE) 04/19/18 18:00 Urine Ketones Negative (NEGATIVE) 04/19/18 18:00 Urine Occult Blood Negative (NEGATIVE) 04/19/18 18:00 Urine Nitrite Negative (NEGATIVE) 04/19/18 18:00 Urine Bilirubin Negative (NEGATIVE) 04/19/18 18:00 Urine Urobilinogen Normal (NORMAL) 04/19/18 18:00 Ur Leukocyte Esterase Negative (NEGATIVE) 04/19/18 18:00 Urine RBC None seen /HPF (NONE SEEN) 04/19/18 18:00 Urine WBC 0-2 /HPF (NONE SEEN) 04/19/18 18:00 Ur Squamous Epith Cells Rare /HPF (NEGATIVE) 04/19/18 18:00 Amorphous Sediment Trace /HPF (NEGATIVE) 04/19/18 18:00 Urine Bacteria Negative /HPF (NEGATIVE) 04/19/18 18:00 Hyaline Casts Rare /LPF (NEGATIVE) 04/19/18 18:00 Ur Culture Indicated? No/not indicated 04/19/18 18:00 Miscellaneous Test No scabies seen 04/18/18 09:46 - Plan (1) Urinary tract infection Status: Acute Qualifiers: Urinary tract infection type: acute cystitis Hematuria presence: without hematuria Qualified Code(s): N30.00 - Acute cystitis without hematuria (2) Generalized weakness Status: Acute (3) CHF (congestive heart failure) Status: Chronic Qualifiers: Qualified Code(s): I50.42 - Chronic combined systolic (congestive) and diastolic (congestive) heart failure Plan: LASIX 40MG IV BID, CONTINUE TO MONITOR (4) Pneumonia Status: Acute Qualifiers: Pneumonia type: due to unspecified organism Laterality: bilateral Lung location: lower lobe of lung Qualified Code(s): J18.1 - Lobar pneumonia, unspecified organism Plan: LEVAQUIN 500MG IV DAILY, ZOSYN 2.25GM IV TID, RESPIRATORY TREATMENTS, SUPPLEMENTAL OXYGEN, CONTINUE TO MONITOR (5) Infected ulcer of skin Status: Acute Qualifiers: Non-pressure ulcer stage: unspecified non-pressure ulcer stage Qualified Code(s): L98.499 - Non-pressure chronic ulcer of skin of other sites with unspecified severity; L08.9 - Local infection of the skin and subcutaneous tissue, unspecified; L08.9 - Local infection of the skin and subcutaneous tissue , unspecified Plan: ZOSYN, OBTAIN SCRAPING FOR MICROSCOPIC REVIEW, PERMETHRIN CREAM X 1 APPLICATION, continue to monitor (6) Hypoproteinemia Status: Acute Plan: TPN, ALBUMIN 25% IV DAILY, CONTINUE TO MONITOR (7) COPD (chronic obstructive pulmonary disease) Status: Chronic Qualifiers: COPD type: chronic bronchitis Chronic bronchitis type: unspecified Qualified Code(s): J42 - Unspecified chronic bronchitis
[2018-04-20] MEDS ORDERED: MORPHINE SULFATE INJ 2 MG INJ ONE (20:10)
[2018-04-20] MEDS ORDERED: HEMOCYTE-PLUS PO ONE (20:10)
[2018-04-20] MEDS ORDERED: PROCALAMINE 3 % 1,000 ML IV ONE (20:11)
[2018-04-20] MEDS ORDERED: MVI INJ (ADULT) IV ONE (20:12)
[2018-04-20] MEDS: MORPHINE SULFATE INJ 2 MG INJ IVP PRN (20:30)
[2018-04-20] MEDS: PROCALAMINE 3 % 1,000 ML with MVI INJ (ADULT) 10 ML IV SCH ×2 (20:37)
[2018-04-20] MEDS: ATARAX TAB 25 MG PO PRN (20:44)
[2018-04-20] MEDS: ZyrTEC SYRUP 1 MG/ML 5ml unit dose PO SCH (20:45)
[2018-04-21] MEDS: MORPHINE SULFATE INJ 2 MG INJ IVP PRN ×3 (03:51→21:40)
[2018-04-21] MEDS: ZOSYN VIAL 2.25 GRAMS 2.25 G in NS 100 ML IV + SPIKE MINIBAG* 100 ML IV SCH ×3 (05:41→21:38)
[2018-04-21 06:12] LABS: BASOPHILS % (AUTO) 0.5 % (0.2-1.0); EOSINOPHILS # (AUTO) 0.2 x10^3/uL (0.0-0.2); EOSINOPHILS % (AUTO) 4.5 % (0.9-2.9); HEMATOCRIT 29.7 % (36.0-47.0); HEMOGLOBIN 10.3 g/dL (12.0-16.0); LYMPHOCYTES # (AUTO) 0.5 X10^3/uL (1.3-2.9); LYMPHOCYTES % (AUTO) 10.4 % (21.0-51.0); MEAN CORPUSCULAR HEMOGLOBIN 32.1 pg (27.0-34.0); MEAN CORPUSCULAR HGB CONC 34.7 g/dL (33.0-35.0); MEAN CORPUSCULAR VOLUME 92.6 fL (80.0-100.0); MEAN PLATELET VOLUME 8.4 fL (7.4-11.0); MONOCYTES # (AUTO) 0.5 x10^3/uL (0.3-0.8); MONOCYTES % (AUTO) 10.4 % (0.0-13.0); NEUTROPHILS # (AUTO) 3.4 x10^3/uL (2.2-4.8); NEUTROPHILS % (AUTO) 74.2 % (42.0-75.0); PLATELET COUNT 265 X10^3/uL (150.0-450.0); RED BLOOD COUNT 3.21 X10^6/uL (3.5-5.4); RED CELL DISTRIBUTION WIDTH 12.5 % (11.6-16.5); WHITE BLOOD COUNT 4.6 X10^3/uL (3.6-10.0)
--- NOTE | 2018-04-21 06:25 | RAD ---
Examination: Portable AP chest History: SOB Comparison 04/20/2018 Findings: Stable heart size with sternal wires; several of the wires are fractured. The right lung re abbie grossly clear although underinflated. There is a diffuse area of infiltrate or atelectasis in t he left lower lung. Stable position of right IJ injection port. Impression: No significant change in appearance of the chest since 1 day prior. Reported By:
[2018-04-21 06:33] LABS: ALBUMIN 2.9 g/dL (3.4-5.0); TOTAL PROTEIN 6.6 g/dL (6.4-8.2)
[2018-04-21 06:46] LABS: CALCIUM 7.8 mg/dL (8.5-10.1); CARBON DIOXIDE 29.6 mmol/L (21-32); COR CA(FOR HYPOALB) 8.7 mg/dL (8.5-10.1); CREATININE 1.52 mg/dL (0.55-1.02)
[2018-04-21] MEDS: ALBUMIN HUMAN 25%- 100 ML 100 ML IV SCH (08:45)
[2018-04-21] MEDS: HEMOCYTE-PLUS PO SCH ×2 (08:47→21:39)
[2018-04-21] MEDS ORDERED: DUONEB 0.5 MG/3 MG ONE ×3 (08:47→16:35)
[2018-04-21] MEDS: ASPIRIN EC 81 MG PO SCH (08:47)
[2018-04-21] MEDS: BRILINTA PO SCH ×2 (08:47→21:39)
[2018-04-21] MEDS: PROzac PO SCH (08:47)
[2018-04-21] MEDS: MAGIC MOUTHWASH MT SCH ×4 (08:48→21:41)
[2018-04-21] MEDS: LOVENOX INJ 30 MG SYR SC SCH (08:49)
[2018-04-21] MEDS: DUONEB 0.5 MG/3 MG NEB SCH ×4 (09:05→21:46)
[2018-04-21] MEDS: LEVAQUIN PREMIX IV 500 MG 500 MG/100 ML BAG IV SCH (09:17)
[2018-04-21] MEDS ORDERED: NS 500 ML IV 500 ML IV ONE (09:20)
[2018-04-21] MEDS: NS 500 ML IV 500 ML IV SCH (09:24)
[2018-04-21] MEDS: MAGNESIUM SULFATE 1 GRAM/100 mL PREMIX 1 GM/100 ML BAG IV PRN ×2 (09:24→10:25)
[2018-04-21] MEDS ORDERED: ZOSYN VIAL 2.25 GRAMS IV ONE (12:12)
[2018-04-21] MEDS ORDERED: TYLENOL 325 MG TAB PO ONE (12:12)
[2018-04-21] MEDS ORDERED: NS 100 ML IV + SPIKE MINIBAG* 100 ML IV ONE (12:12)
[2018-04-21] MEDS: TYLENOL 325 MG TAB PO PRN ×2 (12:14→21:45)
[2018-04-21] MEDS ORDERED: MVI INJ (ADULT) IV ONE (21:34)
[2018-04-21] MEDS: PROCALAMINE 3 % 1,000 ML with MVI INJ (ADULT) 10 ML IV SCH ×2 (21:41)
[2018-04-21] MEDS: ZyrTEC SYRUP 1 MG/ML 5ml unit dose PO SCH (22:28)
--- NOTE | 2018-04-21 23:12 | PCM.PROG ---
Progress Note - Progress Note for Day of Date: 04/21/18 - Subjective Subjective: IS BEING TREATED FOR DEHYDRATION, GENERALIZED WEAKNESS, UTI, INFECTED LESIONS TO BILATERAL ARMS AND LEGS. SHE WAS NEWLY DIAGNOSED WITH PNEUMONI AND EXACERBATION OF CHF. TODAY, SHE IS ALERT AND ORIENTED, LYING IN BED ON MORNING ROUNDS. SHE CONTINUES WITH GENERALIZED WEAKNESS AND SHORTNESS OF BREATH. HER VITALS THIS MORNING ARE 99.2-93-20-99%-117/55. LABS WERE OBTAINED. ABNORMAL LAB VALUES INCLUDE THE FOLLOWING: RBC 3.21, HGB 10.3, HCT 29.7, POTASSIUM 2.9, BUN 19, CREATININE 1.52, GLUCOSE 124, CALCIUM 7.8, MAGNESIUM 1.6 , ALT 11, ALBUMIN 2.9. SPUTUM, URINE, AND BLOOD CULTURES ARE PENDING. A CHEST XRAY WAS OBTAINED TODAY AND REVEALED NO SIGNIFICANT CHANGE SINCE YESTERDAY. FUNGAL CULTURES OF THE LESIONS ON ARM ARE PENDING. TODAY, WE WILL CONTINUE WITH IV ANTIBIOTICS AND CURRENT PLAN OF CARE. OTHERWISE, WE PLAN TO FOLLOW UP WITH AM LABS AND CONTINUE TO MONITOR PATIENT. - Past Medical Family Social History Past Med/Fam/Surg Hx: No changes since H&P Allergies: Allergies No Known Drug Allergies Allergy (Verified 04/16/18 13:29) - Review of Systems ROS: No change since H&P - Vital Signs and I&O's Vital Signs: Temperature 99.5 F Pulse Rate [Apical] 93 Pulse Rate [Right Brachial] 94 Pulse Rate 90 Respiratory Rate 24 Blood Pressure [Left Arm] 153/66 Blood Pressure [Right Arm] 124/64 Blood Pressure 100/57 O2 Sat by Pulse Oximetry 99 Intake and Output: Intake & Output 04/19/18 04/20/18 04/21/18 04/22/18 11:59 11:59 11:59 11:59 Intake Total 1721 / 1721 1851 / 1851 1690 / 1690 1394 / 1394 Output Total 3400 / 3400 2925 / 2925 275 / 275 Balance 1721 / 1721 -1549 / -1549 -1235 / -1235 1119 / 1119 - Physical Exam Oriented: Normal Eyes: Normal Ear: Normal Nose: Normal Throat: Normal Respiratory: Generalized, Diminished Cardiovascular: Normal. negative: S3, S4, Murmur : Normal Auscultation: Bowel Sounds: Normal Palpation: Normal Tenderness: Normal Skin: Rash (bilateral arms ), Red, Wound Musculoskeletal: Back:Lumbar Psychiatric: Normal Mood Description: Calm Affect: Normal Speech Pattern: Clear - Laboratory and Diagnostics Result Diagrams: 04/21/18 05:07 04/21/18 05:07 Labs: 04/19/18 21:21 Blood Blood Culture - Preliminary 04/19/18 20:40 Blood Blood Culture - Preliminary 04/20/18 10:33 Urine,[place] Urine Culture - Preliminary 04/21/18 07:54 Sputum - Expectorated Sputum Sputum Culture - Final 04/21/18 07:54 Sputum - Expectorated Sputum - Final 04/17/18 17:08 Blood Blood Culture - Preliminary 04/17/18 17:00 Blood Blood Culture - Preliminary Laboratory WBC 4.6 X10^3/uL (3.6-10.0) 04/21/18 05:07 RBC 3.21 X10^6/uL (3.5-5.4) L 04/21/18 05:07 Hgb 10.3 g/dL (12.0-16.0) L 04/21/18 05:07 Hct 29.7 % (36.0-47.0) L 04/21/18 05:07 MCV 92.6 fL (80.0-100.0) 04/21/18 05:07 MCH 32.1 pg (27.0-34.0) 04/21/18 05:07 MCHC 34.7 g/dL (33.0-35.0) 04/21/18 05:07 RDW 12.5 % (11.6-16.5) 04/21/18 05:07 Plt Count 265 X10^3/uL (150.0-450.0) 04/21/18 05:07 MPV 8.4 fL (7.4-11.0) 04/21/18 05:07 Neut % (Auto) 74.2 % (42.0-75.0) 04/21/18 05:07 Lymph % (Auto) 10.4 % (21.0-51.0) L 04/21/18 05:07 [place] % (Auto) 10.4 % (0.0-13.0) 04/21/18 05:07 Eos % (Auto) 4.5 % (0.9-2.9) H 04/21/18 05:07 Baso % (Auto) 0.5 % (0.2-1.0) 04/21/18 05:07 Neut # (Auto) 3.4 x10^3/uL (2.2-4.8) 04/21/18 05:07 Lymph # (Auto) 0.5 X10^3/uL (1.3-2.9) L 04/21/18 05:07 [place] # (Auto) 0.5 x10^3/uL (0.3-0.8) 04/21/18 05:07 Eos # (Auto) 0.2 x10^3/uL (0.0-0.2) 04/21/18 05:07 Baso # (Auto) 0.0 X10^3/uL (0.0-0.1) 04/21/18 05:07 Absolute Nucleated RBC 0.0 /100WBC 04/21/18 05:07 Sodium 139 mmol/L (136-145) 04/21/18 05:07 Corrected Sodium 140 mmol/L (136-145) 04/21/18 05:07 Potassium 2.9 mmol/L (3.5-5.1) L* 04/21/18 05:07 Chloride 100 mmol/L (98-107) 04/21/18 05:07 Carbon Dioxide 29.6 mmol/L (21-32) 04/21/18 05:07 BUN 19 mg/dL (7-18) H 04/21/18 05:07 Creatinine 1.52 mg/dL (0.55-1.02) H 04/21/18 05:07 Est GFR (MDRD) Af Amer 43 (>60) L 04/21/18 05:07 Est GFR (MDRD) Non-Af 36 (>60) L 04/21/18 05:07 Glucose 124 mg/dL (65-99) H 04/21/18 05:07 Calcium 7.8 mg/dL (8.5-10.1) L 04/21/18 05:07 Corrected Calcium 8.7 mg/dL (8.5-10.1) 04/21/18 05:07 Magnesium 1.6 mg/dL (1.7-2.9) L 04/21/18 05:07 Total Bilirubin 0.40 mg/dL (0.2-1.0) 04/21/18 05:07 AST 16 Units/L (15-37) 04/21/18 05:07 ALT 11 Units/L (12-78) L 04/21/18 05:07 Alkaline Phosphatase 72 Units/L (46-116) 04/21/18 05:07 Creatine Kinase 74 Units/L (26-192) 04/20/18 05:35 CK-MB (CK-2) 2.0 ng/mL (0-4.0) 04/20/18 05:35 CK/CKMB % Calc 2.7 % (<4) 04/20/18 05:35 Troponin I 0.35 ng/mL (0-1.5) 04/20/18 05:35 B-Natriuretic Peptide 665 pg/mL (0-79) H* 04/20/18 17:24 Total Protein 6.6 g/dL (6.4-8.2) 04/21/18 05:07 Albumin 2.9 g/dL (3.4-5.0) L 04/21/18 05:07 Globulin 3.7 g/dL (2.5-4.5) 04/21/18 05:07 Albumin/Globulin Ratio 0.8 Ratio (1.1-2.1) L 04/21/18 05:07 Specimen Type Catherized urine 04/19/18 18:00 Urine Color Yellow (YELLOW) 04/19/18 18:00 Urine Appearance Clear (CLEAR) 04/19/18 18:00 Urine pH 5.0 (5.0 - 8.0) 04/19/18 18:00 Ur Specific [place] 1.010 (1.000-1.030) 04/19/18 18:00 Urine Protein 2+ (NEGATIVE) 04/19/18 18:00 Urine Glucose (UA) Negative (NEGATIVE) 04/19/18 18:00 Urine Ketones Negative (NEGATIVE) 04/19/18 18:00 Urine Occult Blood Negative (NEGATIVE) 04/19/18 18:00 Urine Nitrite Negative (NEGATIVE) 04/19/18 18:00 Urine Bilirubin Negative (NEGATIVE) 04/19/18 18:00 Urine Urobilinogen Normal (NORMAL) 04/19/18 18:00 Ur Leukocyte Esterase Negative (NEGATIVE) 04/19/18 18:00 Urine RBC None seen /HPF (NONE SEEN) 04/19/18 18:00 Urine WBC 0-2 /HPF (NONE SEEN) 04/19/18 18:00 Ur Squamous Epith Cells Rare /HPF (NEGATIVE) 04/19/18 18:00 Amorphous Sediment Trace /HPF (NEGATIVE) 04/19/18 18:00 Urine Bacteria Negative /HPF (NEGATIVE) 04/19/18 18:00 Hyaline Casts Rare /LPF (NEGATIVE) 04/19/18 18:00 Ur Culture Indicated? No/not indicated 04/19/18 18:00 Miscellaneous Test No scabies seen 04/18/18 09:46 - Plan (1) Urinary tract infection Status: Acute Qualifiers: Urinary tract infection type: acute cystitis Hematuria presence: without hematuria Qualified Code(s): N30.00 - Acute cystitis without hematuria (2) Generalized weakness Status: Acute (3) CHF (congestive heart failure) Status: Chronic Qualifiers: Qualified Code(s): I50.42 - Chronic combined systolic (congestive) and diastolic (congestive) heart failure Plan: LASIX 40MG IV BID, CONTINUE TO MONITOR (4) Pneumonia Status: Acute Qualifiers: Pneumonia type: due to unspecified organism Laterality: bilateral Lung location: lower lobe of lung Qualified Code(s): J18.1 - Lobar pneumonia, unspecified organism Plan: LEVAQUIN 500MG IV DAILY, ZOSYN 2.25GM IV TID, RESPIRATORY TREATMENTS, SUPPLEMENTAL OXYGEN, CONTINUE TO MONITOR (5) Infected ulcer of skin Status: Acute Qualifiers: Non-pressure ulcer stage: unspecified non-pressure ulcer stage Qualified Code(s): L98.499 - Non-pressure chronic ulcer of skin of other sites with unspecified severity; L08.9 - Local infection of the skin and subcutaneous tissue, unspecified; L08.9 - Local infection of the skin and subcutaneous tissue , unspecified Plan: ZOSYN, OBTAIN SCRAPING FOR MICROSCOPIC REVIEW, PERMETHRIN CREAM X 1 APPLICATION, continue to monitor (6) Hypoproteinemia Status: Acute Plan: TPN, ALBUMIN 25% IV DAILY, CONTINUE TO MONITOR (7) COPD (chronic obstructive pulmonary disease) Status: Chronic Qualifiers: COPD type: chronic bronchitis Chronic bronchitis type: unspecified Qualified Code(s): J42 - Unspecified chronic bronchitis
[2018-04-21] MEDS: ATARAX TAB 25 MG PO PRN (23:13)
[2018-04-22] MEDS: ZOSYN VIAL 2.25 GRAMS 2.25 G in NS 100 ML IV + SPIKE MINIBAG* 100 ML IV SCH ×2 (05:04→16:07)
--- NOTE | 2018-04-22 06:07 | RAD ---
HISTORY: Shortness of breath Study: Chest AP portable Comparison: 04/21/2018, 04/20/2018 Findings: The patient is rotated to the right. The patient is status post median sternotomy and CABG. The heart is mildly enlarged. No congestive heart failure is noted. The lungs are hypo inflated but free of ac deering infiltrates. No pleural effusions are identified. The bony thorax is unremarkable. There is a rig ht-sided port present. IMPRESSION: Cardiomegaly without congestive heart failure Lungs hypo inflated but clear Reported By:
[2018-04-22 06:41] LABS: BASOPHILS # (AUTO) 0.1 X10^3/uL (0.0-0.1); BASOPHILS % (AUTO) 0.8 % (0.2-1.0); EOSINOPHILS # (AUTO) 0.3 x10^3/uL (0.0-0.2); EOSINOPHILS % (AUTO) 3.8 % (0.9-2.9); HEMATOCRIT 30.5 % (36.0-47.0); HEMOGLOBIN 10.5 g/dL (12.0-16.0); LYMPHOCYTES # (AUTO) 0.7 X10^3/uL (1.3-2.9); LYMPHOCYTES % (AUTO) 9.4 % (21.0-51.0); MEAN CORPUSCULAR HGB CONC 34.4 g/dL (33.0-35.0); MEAN PLATELET VOLUME 8.5 fL (7.4-11.0); MONOCYTES % (AUTO) 13.1 % (0.0-13.0); NEUTROPHILS # (AUTO) 5.7 x10^3/uL (2.2-4.8); NEUTROPHILS % (AUTO) 72.9 % (42.0-75.0); PLATELET COUNT 308 X10^3/uL (150.0-450.0); RED BLOOD COUNT 3.28 X10^6/uL (3.5-5.4); RED CELL DISTRIBUTION WIDTH 12.8 % (11.6-16.5); WHITE BLOOD COUNT 7.8 X10^3/uL (3.6-10.0)
[2018-04-22 06:49] LABS: CALCIUM 8.3 mg/dL (8.5-10.1); CARBON DIOXIDE 26.1 mmol/L (21-32); COR CA(FOR HYPOALB) 9.1 mg/dL (8.5-10.1); CREATININE 1.44 mg/dL (0.55-1.02); MAGNESIUM 2.4 mg/dL (1.7-2.9); TOTAL PROTEIN 6.6 g/dL (6.4-8.2)
[2018-04-22 07:23] LABS: PLATELET MORPHOLOGY COMMENT NORMAL (NORMAL)
[2018-04-22] MEDS: PROCALAMINE 3 % 1,000 ML with MVI INJ (ADULT) 10 ML IV SCH ×4 (07:41→16:07)
[2018-04-22] MEDS: LOVENOX INJ 30 MG SYR SC SCH (08:22)
[2018-04-22] MEDS: ALBUMIN HUMAN 25%- 100 ML 100 ML IV SCH (08:23)
[2018-04-22] MEDS: HEMOCYTE-PLUS PO SCH (08:24)
[2018-04-22] MEDS: LEVAQUIN PREMIX IV 500 MG 500 MG/100 ML BAG IV SCH (08:24)
[2018-04-22] MEDS: ASPIRIN EC 81 MG PO SCH (08:24)
[2018-04-22] MEDS: K-LYTE EFFERVESCENT PO PRN (08:24)
[2018-04-22] MEDS: BRILINTA PO SCH (08:24)
[2018-04-22] MEDS: PROzac PO SCH (08:24)
[2018-04-22] MEDS: MAGIC MOUTHWASH MT SCH ×3 (08:27→16:08)
[2018-04-22] MEDS ORDERED: DUONEB 0.5 MG/3 MG ONE (08:41)
[2018-04-22] MEDS: DUONEB 0.5 MG/3 MG NEB SCH ×2 (08:56→12:19)
[2018-04-22] MEDS: NS 500 ML IV 500 ML IV SCH (16:08)
[2018-04-22 16:37] VITALS: BP 91/56
--- NOTE | 2018-05-10 00:29 | DR.CARTERD ---
- Discharge Summary for: Discharge Summary for Date of:: 04/22/18 - Admission Date Date of Admission: 04/16/18 - Admission Diagnoses Admission Diagnosis: (1) Dehydration (2) Generalized weakness (3) Infected ulcer of skin - Discharge Date Discharge Date: 04/22/18 - Discharge Diagnoses Discharge Diagnosis: (1) Exacerbation of CHF (2) Pneumonia (3) Hypoproteinemia (4) Infected ulcer of skin (5) COPD (chronic obstructive pulmonary disease) (6) Urinary tract infection (7) Generalized weakness - Hospital Course Hospital Course: Ms. Wong is a 72 year old patient of ours who presented to the emergency room via EMS with complaints of generalized weakness, lower back pain, and chest pain. Patient reported that symptoms had been present for months, but had progressively worsened. Patient reported she began feeling worse and reported a decreased blood pressure. Reported symptoms included weakness, fatigue, loss of appetite, throat pain, shortness of breath, chest pain and headache. Upon arrival to the ER, patient was noted with a generalized skin rash to arms. Patient reported that rash itches. Site appeared to be infected. On auscultation of lung zhang patient noted with rhonchi throughout with crackles to bilateral lower lobes. On arrival, vitals were 97.4, 72, 18, 94% RA, 100/57. Labs were obtained. Abnormal lab values included the following: Plt Count 133, BUN 45, Creatinine 2.71, GFR af 22, GFR non 18, Glucose 109, Albumin 3.1, A/G Ratio 0.7. Urinalysis revealed: Hazy, Leuk Est 2+, RBC 0-2, WBC 5-10, Bacteria 1 +, Hyaline Casts Moderate. EKG revealed: Sinus Rhythm. Rate=64. Chest X-Ray revealed: Mild discoid atelectasis or scarring along the lung bases which is more prominent. Stable mild left ventricular enlargement and no change in the right Port-A-Cath. She was given Levaquin 500mg IV x1 and Toradol 60mg IM x1 in the ER. Patient admitted to the hospital as observation for further evaluation and treatment. We collected a wound culture of arms. We discontinued Levaquin and started Zosyn IV and Permethrin Cream to arms. We obtained skin scrapings to rule out scabies. No scabies were seen. On day four, patient began with chest discomfort and shortness of breath. She had elevated temperature of 102.7 and blood cultures were obtained. On day five, she continued with generalized weakness as well as itching to arms and legs. We added Levaquin 500mg IV daily and Lasix 40mg IV bid for two doses. We also started Lovenox 30mg sc daily for prophylaxis. We continued treatment and monitored. On day seven, patient reported she felt better. She reported significant improvement in symptoms. No acute distress was noted. She denied shortness of breath. She reported itching to arms and legs had improved. On auscultation, lungs were noted with scattered rhonchi. Non-productive cough was noted. Sputum, urine, blood, and arm cultures were all negative. We planned for discharge with oral antibiotics. Instructions for medications and follow up were discussed with patient and family, both voiced understanding. Patient discharged home in stable condition with family. - Discharge Medications Discharge Medications: Home Medication List cetirizine [Zyrtec] 10 mg PO HS 04/16/18 [History] ferrous sulfate [FeroSul] 325 mg PO BID 04/16/18 [History] fluoxetine 20 mg PO DAILY 04/16/18 [History] furosemide 20 mg PO DAILY 04/16/18 [History] hydroxyzine HCl 25 mg PO QID PRN 04/16/18 [History] losartan 25 mg PO DAILY 04/16/18 [History] ticagrelor [Brilinta] 90 mg PO BID 04/16/18 [History] amoxicillin-pot clavulanate [Augmentin] 1 tab PO BID #28 tab 04/22/18 [Rx] ipratropium-albuterol 3 ml INHALATION TID #90 ml 04/22/18 [Rx] Prescriptions: amoxicillin-pot clavulanate [Augmentin] Alfredo Booth ipratropium-albuterol Alrfedo Booth - Discharge Disposition Discharge Disposition: Patient is to follow up in our office in one week.
== END 2018-04-22 17:15 | disposition home health service (06) | DRG 194 ==
LOC: ER 13:22 → MED/SURG 16:09 → ICU 16:42
PROVIDERS: ADMIT Internal Medicine; ATTEND Internal Medicine
DX: J18.8 Other pneumonia, unspecified organism; L98.499 Non-pressure chronic ulcer of skin of other sites with unspecified severity; M54.5 Low back pain; R26.89 Other abnormalities of gait and mobility; L08.89 Other specified local infections of the skin and subcutaneous tissue; F41.8 Other specified anxiety disorders; R07.89 Other chest pain; N30.00 Acute cystitis without hematuria; R53.1 Weakness; R94.31 Abnormal electrocardiogram [ECG] [EKG]; E78.2 Mixed hyperlipidemia; R06.02 Shortness of breath; E86.0 Dehydration; I50.42 Chronic combined systolic (congestive) and diastolic (congestive) heart failure; J42 Unspecified chronic bronchitis; I10 Essential (primary) hypertension
CPT/HCPCS: 36415; 71010; 71045; 80053; 81001; 82550; 82553; 83735; 83880; 84132; 84484; 85025; 87040; 87086; 87101; 87205; 93005; 94640; 96365; 96372; 96374; 97110; 97112; 97163; 97167; 97530; 97535; 99284; A4222; B5200; G8978; G8979; G8987; G8988; P9047; G0378; J1650; J1885; J1940; J1956; J2270; J2543; J3475; J3480; J3490; J7030; J7040; J7050; J7620; J8499

== ENCOUNTER 2018-06-25 19:00 | Observation (INO) ==
[2018-06-25] MEDS ORDERED: NS 1000 ML 1,000 ML ONE (19:18)
[2018-06-25] MEDS: NS 1000 ML 1,000 ML IV SCH (19:19)
[2018-06-25 19:41] LABS: BASOPHILS # (AUTO) 0.1 X10^3/uL (0.0-0.1); BASOPHILS % (AUTO) 1.2 % (0.2-1.0); EOSINOPHILS # (AUTO) 0.5 x10^3/uL (0.0-0.2); EOSINOPHILS % (AUTO) 7.6 % (0.9-2.9); HEMATOCRIT 34.1 % (36.0-47.0); HEMOGLOBIN 11.5 g/dL (12.0-16.0); LYMPHOCYTES # (AUTO) 1.6 X10^3/uL (1.3-2.9); LYMPHOCYTES % (AUTO) 24.2 % (21.0-51.0); MEAN CORPUSCULAR HEMOGLOBIN 32.2 pg (27.0-34.0); MEAN CORPUSCULAR HGB CONC 33.8 g/dL (33.0-35.0); MEAN CORPUSCULAR VOLUME 95.2 fL (80.0-100.0); MEAN PLATELET VOLUME 8.1 fL (7.4-11.0); MONOCYTES # (AUTO) 0.5 x10^3/uL (0.3-0.8); MONOCYTES % (AUTO) 7.6 % (0.0-13.0); NEUTROPHILS % (AUTO) 59.4 % (42.0-75.0); PLATELET COUNT 195 X10^3/uL (150.0-450.0); RED BLOOD COUNT 3.58 X10^6/uL (3.5-5.4); RED CELL DISTRIBUTION WIDTH 14.6 % (11.6-16.5); WHITE BLOOD COUNT 6.8 X10^3/uL (3.6-10.0)
[2018-06-25 19:54] LABS: BLOOD UREA NITROGEN 21 mg/dL (7-18); CALCIUM 8.5 mg/dL (8.5-10.1); CARBON DIOXIDE 25.7 mmol/L (21-32); CHLORIDE 108 mmol/L (98-107); CREATININE 1.52 mg/dL (0.55-1.02); SODIUM 140 mmol/L (136-145); TROPONIN I < 0.02 ng/mL (0-1.5); eGFR NON BLACK RACES 35 (>60)
[2018-06-25 20:16] LABS: ALANINE AMINOTRANSFERASE 24 Units/L (12-78); ALBUMIN 2.7 g/dL (3.4-5.0); ALKALINE PHOSPHATASE 145 Units/L (46-116); ASPARTATE AMINO TRANSFERASE 31 Units/L (15-37); CKMB % 5.7 % (<4); COR CA(FOR HYPOALB) 9.5 mg/dL (8.5-10.1); CREATINE KINASE 110 Units/L (26-192)
[2018-06-25 20:18] LABS: CREATINE KINASE MB 6.3 ng/mL (0-4.0)
--- NOTE | 2018-06-25 20:25 | CT ---
CT HEAD WITHOUT CONTRAST CLINICAL HISTORY: 73-year-old female status post syncopal episode. COMPARISON: CT head 01/16/2017, MR brain 01/17/2017. TECHNIQUE: Multiple, non-contrasted axial CT images were obtained from the skull base to the cranial vertex. Coronal and sagittal reformats were performed. FINDINGS: There are no abnormal intra- or extra-axial fluid collections, midline shift, or mass effec t. Ramirez-white differentiation is normal. Partially empty sella. Global cortical involutional changes are present that are advanced for the patient's stated age. The ventricular system is enlarged but co mmensurate with the degree of sulcal prominence. Chronic ischemic insult with small volume encephalom alacia left cerebellar hemisphere. Severe periventricular and supraventricular white matter hypodensi ty is present that is nonspecific in appearance, but most likely to represent microvascular ischemic changes. Atherosclerotic vascular calcification is present within the carotid siphons and distal vert ebral arteries. The imaged paranasal sinuses, mastoid air cells, and tympanic spaces are clear. IMPRESSION: 1. No definite evidence of an acute intracranial process. If clinical concern persists for acute stro ke and it would alter patient management, consider MRI/MRA brain. 2. Moderate microvascular white matter ischemic changes, with associated volume loss. Reported By:
--- NOTE | 2018-06-25 21:46 | DR.DIZZY ---
HPI Time seen Time seen: 19:40 PCP Primary Care Physician: SERGIO Complaint Chief Complaint Doctor Comments: Patient states that [place] and when getting out of the car she had a syncopal episode. She does not know how long she was on the ground. She thinks that she just jot too hot. She has a history of cardiac disease with 18 stents and uses NTG frequently during the day. She denies dyspnea. She admits to frequent chest pain. Chief Complaint:: EMS STATES, "PATIENT WAS AT STATION, HAD A SYNCOPE EPISODE. BELEIVE SHE JUST GOT TOO HOT. ALL V/S , HOT KETTLE TENDER WNL." PATIENT STATES, "I WAS AT THE INTERMEDIATE VISITING MY GRANDSON. 2 LADIES PICKED ME UP , CARRIED ME ON THE INSIDE AND ASKED IF I WAS OKAY. I TOLD THEM YES. ONCE I GOT ON THE INSIDE, IT STARTED AGAIN. I PASSED OUT, JUST GOT HOT." Source History Provided: Patient and EMS Mode of Arrival Mode of Arrival: EMS Timing Onset of Chief Complaint: 06/25/18 Symptom Onset: Known Onset of Symptoms Start Date: 06/25/18 Onset of Symptoms Start Time: 18:30 Location of Weakness Weakness Location: Generalized Context Stroke Symptoms: None Associated signs and symptoms Associated Signs and Symptoms: Syncope and Weak PMH PMH Past Medical History: Yes Past Medical History: Angina, Anxiety, Arthritis, CHF, COPD, Depression, Dyslipidemia and Hypertension Past Surgical History: Yes Surgical History: Angioplasty/Stents, CABG/Valve Surgery, Cholecystectomy and Hysterectomy Family History History of Family Medical Conditions: Yes Family Medical History: Diabetes Mellitus, Cancer, [place], Coronary Artery Disease, Heart Failure, Sudden Cardiac and Hypertension Social History Does patient currently use any type of tobacco product: No Have you used tobacco products in the last 12 months: No Type of Tobacco Use: None Does any household member use tobacco: No Alcohol Use: None Do you use any recreational Drugs:: No Lives With: Family Lives Where: Home infectious screening Have you traveled outside the country in the last 6 months?: No Isolation: Standard PE Vital Signs Vitals: Temperature 98.7 F Pulse Rate [Apical] 54 Pulse Rate 78 Respiratory Rate 16 Blood Pressure [Left Arm] 169/78 Blood Pressure [Right Arm] 124/64 Blood Pressure 108/66 O2 Sat by Pulse Oximetry 98 General Limitations: negative No Limitations and Language Barrier General Appearance: Alert and In No Apparent Distress; negative In Distress Head Head Exam: Normal Inspection and Other (left jaw with an area of ecchymosis) Eyes Eye exam: Normal Appearance and EOMI; negative Scleral Icterus and Conjunctival Injection Pupils: Regular, Round: Bilateral Sclera/Conjunctival: Normal Inspection: Bilateral Anterior Chamber: Normal Inspection: Bilateral Posterior Chamber: Deferred: Bilateral ENT ENT Exam: Normal Exam Neck Neck Exam: Normal Inspection and Full ROM Chest Chest Inspection: negative Normal Inspection and Symmetric Chest Wall Rise Respiratory Respiratory Exam: Normal Lung Sounds Bilat; negative Accessory Muscle Use, Chest Wall Tenderness and Respiratory Distress Respiratory Exam: Bilateral: Clear to Auscultation Cardiovascular Cardiovascular Exam: Regular Rate and Systolic Murmur (GIII/) Abdominal Exam Abdominal Exam: Normal Inspection and Normal Bowel Sounds Abdominal Tenderness: negative RUQ, RLQ, LUQ, LLQ, Epigastrium and Suprapubic Rectal Rectal Exam: Deferred Extremeties Extremities Exam: Normal Inspection, Full ROM and Normal Capillary Refill; negative Tenderness Back Back Exam: Normal Inspection; negative Tenderness, (R) CVA Tenderness, (L) CVA Tenderness and Muscle Spasm Neurologic Neurological Exam: Alert, Oriented X3 and CN II-XII Intact; negative Motor Sensory Deficit Patient Oriented To: Person, Place and Time Speech: Fluid Speech Cranial Nerve Exam: EOM Function (II, III, IV, ): Normal and Facial Sensation (V): Normal Cerebellar Function: Finger to Nose: Normal and Left Abnormal Cerebellar Function: Normal Gait Sensory Exam Upper Extremity: Light Touch: Normal Sensory Exam Lower Extremity: Light Touch: Normal COURSE Reevaluation 3rd: Improved Consultation Called: 21:14 Consultation Comments: Dr. Booth agreed to admit patient for observation ROR Labs Reviewed Result Diagrams: 06/27/18 05:59 06/27/18 05:59 Laboratory: 06/25/18 23:33 Urine,Catheterized Urine Culture - Final Klebsiella Pneumoniae WBC 4.4 X10^3/uL (3.6-10.0) 06/27/18 05:59 RBC 3.29 X10^6/uL (3.5-5.4) L 06/27/18 05:59 Hgb 10.7 g/dL (12.0-16.0) L 06/27/18 05:59 Hct 31.2 % (36.0-47.0) L 06/27/18 05:59 MCV 95.0 fL (80.0-100.0) 06/27/18 05:59 MCH 32.6 pg (27.0-34.0) 06/27/18 05:59 MCHC 34.3 g/dL (33.0-35.0) 06/27/18 05:59 RDW 14.7 % (11.6-16.5) 06/27/18 05:59 Plt Count 139 X10^3/uL (150.0-450.0) L 06/27/18 05:59 MPV 8.0 fL (7.4-11.0) 06/27/18 05:59 Neut % (Auto) 58.2 % (42.0-75.0) 06/27/18 05:59 Lymph % (Auto) 26.3 % (21.0-51.0) 06/27/18 05:59 [place] % (Auto) 6.5 % (0.0-13.0) 06/27/18 05:59 Eos % (Auto) 7.8 % (0.9-2.9) H 06/27/18 05:59 Baso % (Auto) 1.2 % (0.2-1.0) H 06/27/18 05:59 Neut # (Auto) 2.5 x10^3/uL (2.2-4.8) 06/27/18 05:59 Lymph # (Auto) 1.1 X10^3/uL (1.3-2.9) L 06/27/18 05:59 [place] # (Auto) 0.3 x10^3/uL (0.3-0.8) 06/27/18 05:59 Eos # (Auto) 0.3 x10^3/uL (0.0-0.2) H 06/27/18 05:59 Baso # (Auto) 0.1 X10^3/uL (0.0-0.1) 06/27/18 05:59 Absolute Nucleated RBC 0.1 /100WBC 06/27/18 05:59 Sodium 142 mmol/L (136-145) 06/27/18 05:59 Corrected Sodium TNP 06/27/18 05:59 Potassium 3.7 mmol/L (3.5-5.1) 06/27/18 05:59 Chloride 111 mmol/L (98-107) H 06/27/18 05:59 Carbon Dioxide 23.0 mmol/L (21-32) 06/27/18 05:59 BUN 13 mg/dL (7-18) 06/27/18 05:59 Creatinine 1.13 mg/dL (0.55-1.02) H 06/27/18 05:59 Est GFR (MDRD) Af Amer > 60 (>60) 06/27/18 05:59 Est GFR (MDRD) Non-Af 50 (>60) L 06/27/18 05:59 Glucose 96 mg/dL (65-99) 06/27/18 05:59 Calcium 7.9 mg/dL (8.5-10.1) L 06/27/18 05:59 Corrected Calcium 9.3 mg/dL (8.5-10.1) 06/27/18 05:59 Magnesium 1.9 mg/dL (1.7-2.9) 06/25/18 00:56 Total Bilirubin 0.30 mg/dL (0.2-1.0) 06/27/18 05:59 AST 26 Units/L (15-37) 06/27/18 05:59 ALT 20 Units/L (12-78) 06/27/18 05:59 Alkaline Phosphatase 123 Units/L (46-116) H 06/27/18 05:59 Creatine Kinase 99 Units/L (26-192) 06/26/18 07:50 CK-MB (CK-2) 5.0 ng/mL (0-4.0) H* 06/26/18 07:50 CK/CKMB % Calc 5.1 % (<4) 06/26/18 07:50 Troponin I < 0.02 ng/mL (0-1.5) 06/26/18 07:50 Total Protein 5.1 g/dL (6.4-8.2) L 06/27/18 05:59 Albumin 2.2 g/dL (3.4-5.0) L 06/27/18 05:59 Globulin 2.9 g/dL (2.5-4.5) 06/27/18 05:59 Albumin/Globulin Ratio 0.8 Ratio (1.1-2.1) L 06/27/18 05:59 Specimen Type Catherized urine 06/25/18 23:33 Urine Color Yellow (YELLOW) 06/25/18 23:33 Urine Appearance Cloudy (CLEAR) 06/25/18 23:33 Urine pH 5.0 (5.0 - 8.0) 06/25/18 23:33 Ur Specific [place] 1.020 (1.000-1.030) 06/25/18 23:33 Urine Protein 2+ (NEGATIVE) 06/25/18 23:33 Urine Glucose (UA) Negative (NEGATIVE) 06/25/18 23:33 Urine Ketones Negative (NEGATIVE) 06/25/18 23:33 Urine Occult Blood 1+ (NEGATIVE) 06/25/18 23:33 Urine Nitrite Negative (NEGATIVE) 06/25/18 23:33 Urine Bilirubin 1+ (NEGATIVE) 06/25/18 23:33 Urine Urobilinogen Normal (NORMAL) 06/25/18 23:33 Ur Leukocyte Esterase 3+ (NEGATIVE) 06/25/18 23:33 Urine RBC 3-5 /HPF (NONE SEEN) 06/25/18 23:33 Urine WBC 5-10 /HPF (NONE SEEN) 06/25/18 23:33 Ur Squamous Epith Cells Numerous /HPF (NEGATIVE) 06/25/18 23:33 Urine Bacteria 1+ /HPF (NEGATIVE) 06/25/18 23:33 Ur Culture Indicated? Yes/culture set up 06/25/18 23:33 Diagnosis Discharge Problem: Chest pain due to CAD, Chest pain, rule out acute myocardial infarction Instructions Instructions: Fall Prevention in the Home, [id number] Chronic Obstructive Pulmonary Disease, Bkal-[id number] Near-Syncope, [id number]-[id number] Hypertension, Owct-[id number] Heart Failure, Iilc-kp-[id number] Syncope, [id number] Forms: Patient Portal
[2018-06-25] MEDS ORDERED: ZOLOFT PO ONE (23:13)
[2018-06-25] MEDS: ZOLOFT PO SCH (23:30)
[2018-06-25] MEDS: BRILINTA PO SCH (23:30)
[2018-06-25] MEDS: KLONOPIN TAB 0.5 MG PO SCH (23:30)
[2018-06-25 23:45] LABS: BILIRUBIN,URINE 1+ (NEGATIVE); BLOOD/HEMOGLOBIN,URINE 1+ (NEGATIVE); GLUCOSE, URINE NEGATIVE (NEGATIVE); KETONES,URINE NEGATIVE (NEGATIVE); LEUKOCYTE ESTERASE ,URINE 3+ (NEGATIVE); NITRITES,URINE NEGATIVE (NEGATIVE); PROTEIN,URINE 2+ (NEGATIVE); UROBILINOGEN,URINE NORMAL (NORMAL)
[2018-06-25 23:50] LABS: APPEARANCE,URINE CLOUDY (CLEAR); COLOR,URINE YELLOW (YELLOW); SQUAMOUS EPITHELIAL CELL,UR NUMEROUS /HPF (NEGATIVE)
[2018-06-25 23:51] LABS: BACTERIA,URINE 1+ /HPF (NEGATIVE)
[2018-06-26 00:01] VITALS: BMI 25.8
[2018-06-26] MEDS: ATARAX TAB 25 MG PO PRN ×2 (00:18→20:22)
[2018-06-26] MEDS ORDERED: POTASSIUM CHL 40 MEQ/NS 0.45% 500 ML IV PRN (00:32)
[2018-06-26] MEDS ORDERED: POTASSIUM CHL 60 MEQ/NS 0.45% 500 ML IV PRN (00:32)
[2018-06-26] MEDS ORDERED: MAGNESIUM SULFATE 1 GRAM/100 mL PREMIX 1 GM/100 ML BAG IV PRN (00:32)
[2018-06-26] MEDS ORDERED: K-RIDER 10 MEQ/NS 100 ML 10 MEQ/100 ML BAG IV PRN (00:32)
[2018-06-26] MEDS ORDERED: POTASSIUM CHLORIDE LIQ 20 MEQ UDC PO PRN (00:32)
[2018-06-26] MEDS ORDERED: K-LYTE EFFERVESCENT PO PRN (00:32)
[2018-06-26 02:25] LABS: CKMB % 6.1 % (<4); CREATINE KINASE 97 Units/L (26-192); TROPONIN I < 0.02 ng/mL (0-1.5)
[2018-06-26 02:36] LABS: CREATINE KINASE MB 5.9 ng/mL (0-4.0)
[2018-06-26] MEDS: NS 1000 ML 1,000 ML IV SCH ×3 (03:00→19:49)
[2018-06-26] MEDS ORDERED: ROCEPHIN VIAL 1 GRAM 1 G in NS 100 ML IV + SPIKE MINIBAG* 100 ML IV SCH (03:00)
[2018-06-26] MEDS ORDERED: ROCEPHIN VIAL 1 GRAM ONE (03:07)
[2018-06-26] MEDS ORDERED: NS 100 ML IV + SPIKE MINIBAG* 100 ML IV ONE (03:07)
[2018-06-26] MEDS: INDOCIN CAP 25 MG PO SCH ×3 (05:20→21:09)
[2018-06-26 06:07] LABS: BASOPHILS # (AUTO) 0.1 X10^3/uL (0.0-0.1); BASOPHILS % (AUTO) 1.2 % (0.2-1.0); EOSINOPHILS # (AUTO) 0.4 x10^3/uL (0.0-0.2); EOSINOPHILS % (AUTO) 8.4 % (0.9-2.9); HEMATOCRIT 31.3 % (36.0-47.0); HEMOGLOBIN 10.8 g/dL (12.0-16.0); LYMPHOCYTES # (AUTO) 1.3 X10^3/uL (1.3-2.9); LYMPHOCYTES % (AUTO) 27.8 % (21.0-51.0); MEAN CORPUSCULAR HEMOGLOBIN 32.7 pg (27.0-34.0); MEAN CORPUSCULAR HGB CONC 34.4 g/dL (33.0-35.0); MEAN CORPUSCULAR VOLUME 95.1 fL (80.0-100.0); MEAN PLATELET VOLUME 7.9 fL (7.4-11.0); MONOCYTES # (AUTO) 0.3 x10^3/uL (0.3-0.8); MONOCYTES % (AUTO) 6.7 % (0.0-13.0); NEUTROPHILS # (AUTO) 2.7 x10^3/uL (2.2-4.8); NEUTROPHILS % (AUTO) 55.9 % (42.0-75.0); PLATELET COUNT 148 X10^3/uL (150.0-450.0); RED BLOOD COUNT 3.29 X10^6/uL (3.5-5.4); RED CELL DISTRIBUTION WIDTH 14.5 % (11.6-16.5); WHITE BLOOD COUNT 4.8 X10^3/uL (3.6-10.0)
[2018-06-26 06:28] LABS: ALANINE AMINOTRANSFERASE 20 Units/L (12-78); ALBUMIN 2.3 g/dL (3.4-5.0); ALKALINE PHOSPHATASE 126 Units/L (46-116); ASPARTATE AMINO TRANSFERASE 27 Units/L (15-37); BLOOD UREA NITROGEN 18 mg/dL (7-18); CALCIUM 7.9 mg/dL (8.5-10.1); CHLORIDE 112 mmol/L (98-107); COR CA(FOR HYPOALB) 9.3 mg/dL (8.5-10.1); CREATININE 1.25 mg/dL (0.55-1.02); SODIUM 143 mmol/L (136-145); TOTAL PROTEIN 5.2 g/dL (6.4-8.2); eGFR NON BLACK RACES 44 (>60)
[2018-06-26] MEDS: EXELON PO SCH ×2 (08:30→20:23)
[2018-06-26] MEDS: FERROUS GLUCONATE PO SCH (08:30)
[2018-06-26] MEDS: PROzac PO SCH (08:30)
[2018-06-26] MEDS: LASIX PO SCH (08:30)
[2018-06-26] MEDS: COLCRYS TAB 0.6 MG PO SCH (08:30)
[2018-06-26] MEDS: BRILINTA PO SCH ×2 (08:30→20:22)
[2018-06-26 08:42] LABS: CKMB % 5.1 % (<4); CREATINE KINASE 99 Units/L (26-192); TROPONIN I < 0.02 ng/mL (0-1.5)
[2018-06-26] MEDS ORDERED: FERROUS SULFATE 325 MG PO SCH (09:00)
[2018-06-26] MEDS ORDERED: PROzac PO SCH (09:00)
[2018-06-26] MEDS ORDERED: ZOLOFT PO ONE (20:01)
--- NOTE | 2018-06-26 20:14 | DR.H&P ---
H&P - History & Physical for Day of: H&P Date: 06/25/18 - Chief Complaint Chief Complaint: syncopal episode, weakness - History of Present Illness History of Present Illness: is a 73 year old patient of ours who presented to the emergency room via EMS with reports of a syncopal episode. Patient reports she was getting out of the car and next thing she knew she woke up on the ground. Patient reports she doesnt know how long she was there. Patient states she thinks she got too hot. Patient noted with weakness on arrival to the hospital. She denied shortness of breath or chest pain. On arrival, vitals were 97.8, 78, 21, 98% 2L NC, 108/66. Labs were obtained. Abnormal lab values include the following: Hgb 11.5, Hct 34.1, Eos% 7.6, Baso% 1.2, Eos# 0.5, Potassium 3.4, Chloride 108, BUN 21, Creatinine 1.52, GFR af 43, GFR non 35, Glucose 104, Alk Phos 145, CKMB 6.3, Total Protein 6.0, Albumin 2.7 , A/G Ratio 0.8. Urinalysis revealed: Cloudy, Protein 2+, Occult Blood 1+, Leuk Est 3+, RBC 3-5, WBC 5-10, Bacteria 1+, Culture Pending. EKG revealed: Sinus Rhythm. Rate=78. Brain CT obtained and revealed: No definite evidence of an acute intracranial process. If clinical concern persists for acute stroke and it would alter patient management, consider MRI/MRA brain. Moderate microvascular white matter ischemic changes, with associated volume loss. Patient admitted to the hospital as observation for further evaluation and treatment. Patient placed on continuous teletypesetter monitor and NIBP. She was started on normal saline at 125ml/hr. Will follow up with am labs and continue to monitor. - Past Medical History Past Medical History: Angina, Hypertension, Dyslipidemia, Depression, Anxiety, COPD, Arthritis, CHF Additional Medical History: Cataracts, Bronchitis, Pneumonia, Hiatal Hernia, Urinary Tract Infections, Back Pain, Previous Blood Transfusion, Skin Cancer, Vaginal Cancer - Past Surgical History Surgical History: Angioplasty/Stents, CABG/Valve Surgery, Cholecystectomy, Hysterectomy Additional Surgical History: Renal Stents, Lung Surgery, Vaginal Cancer Removed - Family History Family Medical History: Diabetes Mellitus, Cancer, [place], Coronary Artery Disease, Heart Failure, Sudden Cardiac , Hypertension - Social History Does patient currently use any type of tobacco product: No Have you used tobacco products in the last 12 months: No Type of Tobacco Use: None Does any household member use tobacco: No Alcohol Use: None Drug Use: None - Medications Home Medications: No Known Drug Allergies Allergy (Verified 06/25/18 19:16) CONTINUE taking the following medications clonazepam 1 tab PO HS 06/25/18 [History] colchicine 1 tab PO DAILY 06/25/18 [History] fluoxetine 1 cap PO DAILY 06/25/18 [History] indomethacin 1 cap PO TID 06/25/18 [History] oxycodone-acetaminophen 1 cap PO QID PRN 06/25/18 [History] rivastigmine tartrate 3 cap PO BID 06/25/18 [History] sertraline 1 tab PO HS 06/25/18 [History] - Review of Systems Constitutional: Weakness Eyes: No Symptoms Reported ENT: No Symptoms Reported Respiratory: No Symptoms Reported Cardiovascular: Light Headedness Gastrointestinal: No Symptoms Reported Genitourinary: No Symptoms Reported Musculoskeletal: No Symptoms Reported Skin: No Symptoms Reported Neurological: Weakness - Physical Exam Vital Signs: Temperature 98.6 F Pulse Rate [Apical] 55 Pulse Rate 78 Respiratory Rate 20 Blood Pressure [Left Arm] 157/89 Blood Pressure [Right Arm] 124/64 Blood Pressure 108/66 O2 Sat by Pulse Oximetry 98 Oriented: Normal Eyes: Normal Ear: Normal Nose: Normal Throat: Normal Respiratory: Diminished Throughout Cardiovascular: Normal. negative: S3, S4, Murmur : Normal Auscultation: Bowel Sounds: Normal Palpation: Normal Tenderness: Suprapubic, Mild. 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
[2018-06-26] MEDS: KLONOPIN TAB 0.5 MG PO SCH (20:22)
[2018-06-26] MEDS: ZOLOFT PO SCH (20:24)
[2018-06-26] MEDS ORDERED: ZyrTEC TAB 10 MG PO SCH (21:00)
--- NOTE | 2018-06-26 22:34 | PCM.PROG ---
Progress Note - Progress Note for Day of Date of Exam: 06/26/18 - Subjective Subjective: WAS ADMITTED FOR A SYNCOPAL EPISODE, MILD DEHYDRATION, AND A URINARY TRACT INFECTION. TODAY, SHE IS ALERT AND ORIENTED, LYING IN BED ON MORNING ROUNDS. SHE IS NOTED WITH COMPLAINTS OF GENERALIZED WEAKNESS AND MILD SUPRAPUBIC PAIN. ON EXAMINATION, HEART IS REGULAR IN RATE AND RHYTHM. BILATERAL LUNGS ARE NOTED WITH DIMINISHED LUNG SOUNDS THROUGHOUT. ABDOMEN IS ROUND, SOFT, AND NOTED WITH MILD, SUPRAPUBIC TENDERNESS ON PALPATION. HER VITALS TODAY ARE 97.5-69-18-98%-157/70. LABS WERE OBTAINED. ABNORMAL LAB VALUES INCLUDE THE FOLLOWING: RBC 3.29, HGB 10.8, HCT 31.3, CHLORIDE 112, CREATININE 1.25, CALCIUM 7.9, ALK PHOS 126, TOTAL PROTEIN 5.2, ALBUMIN 2.3, CK-MB 5.9, 5.0. EKGs HAVE BEEN WITHIN NORMAL LIMITS. SHE IS CURRENTLY RECEIVING IV FLUIDS AND IV ANTIBIOTICS. WE WILL CONTINUE WITH CURRENT PLAN OF CARE TODAY. OTHERWISE , WE WILL FOLLOW UP WITH AM LABS AND CONTINUE TO MONITOR. - Past Medical Family Social History Past Med/Fam/Surg Hx: No changes since H&P Allergies: Allergies No Known Drug Allergies Allergy (Verified 06/25/18 19:16) - Review of Systems ROS: No change since H&P - Vital Signs and I&O's Vital Signs: Temperature 97.5 F Pulse Rate [Apical] 60 Pulse Rate 78 Respiratory Rate 18 Blood Pressure [Left Arm] 143/65 Blood Pressure [Right Arm] 124/64 Blood Pressure 108/66 O2 Sat by Pulse Oximetry 97 Intake and Output: Intake & Output 06/24/18 06/25/18 06/26/18 06/27/18 11:59 11:59 11:59 11:59 Intake Total 676 / 676 680 / 680 Output Total 940 / 940 Balance 676 / 676 -260 / -260 - Physical Exam Oriented: Normal Eyes: Normal Ear: Normal Nose: Normal Throat: Normal Respiratory: Generalized, Diminished Cardiovascular: Normal. negative: S3, S4, Murmur : Normal Auscultation: Bowel Sounds: Normal Palpation: Normal Tenderness: Suprapubic, Mild. negative: Rebound, Guarding, Rigidity Skin: Decreased [place]ur Musculoskeletal: Normal Psychiatric: Normal Mood Description: Calm Affect: Normal Speech Pattern: Clear - Laboratory and Diagnostics Result Diagrams: 06/26/18 05:33 06/26/18 05:33 Labs: Laboratory WBC 4.8 X10^3/uL (3.6-10.0) 06/26/18 05:33 RBC 3.29 X10^6/uL (3.5-5.4) L 06/26/18 05:33 Hgb 10.8 g/dL (12.0-16.0) L 06/26/18 05:33 Hct 31.3 % (36.0-47.0) L 06/26/18 05:33 MCV 95.1 fL (80.0-100.0) 06/26/18 05:33 MCH 32.7 pg (27.0-34.0) 06/26/18 05:33 MCHC 34.4 g/dL (33.0-35.0) 06/26/18 05:33 RDW 14.5 % (11.6-16.5) 06/26/18 05:33 Plt Count 148 X10^3/uL (150.0-450.0) L 06/26/18 05:33 MPV 7.9 fL (7.4-11.0) 06/26/18 05:33 Neut % (Auto) 55.9 % (42.0-75.0) 06/26/18 05:33 Lymph % (Auto) 27.8 % (21.0-51.0) 06/26/18 05:33 [place] % (Auto) 6.7 % (0.0-13.0) 06/26/18 05:33 Eos % (Auto) 8.4 % (0.9-2.9) H 06/26/18 05:33 Baso % (Auto) 1.2 % (0.2-1.0) H 06/26/18 05:33 Neut # (Auto) 2.7 x10^3/uL (2.2-4.8) 06/26/18 05:33 Lymph # (Auto) 1.3 X10^3/uL (1.3-2.9) 06/26/18 05:33 [place] # (Auto) 0.3 x10^3/uL (0.3-0.8) 06/26/18 05:33 Eos # (Auto) 0.4 x10^3/uL (0.0-0.2) H 06/26/18 05:33 Baso # (Auto) 0.1 X10^3/uL (0.0-0.1) 06/26/18 05:33 Absolute Nucleated RBC 0.0 /100WBC 06/26/18 05:33 Sodium 143 mmol/L (136-145) 06/26/18 05:33 Corrected Sodium TNP 06/26/18 05:33 Potassium 3.6 mmol/L (3.5-5.1) 06/26/18 05:33 Chloride 112 mmol/L (98-107) H 06/26/18 05:33 Carbon Dioxide 22.0 mmol/L (21-32) 06/26/18 05:33 BUN 18 mg/dL (7-18) 06/26/18 05:33 Creatinine 1.25 mg/dL (0.55-1.02) H 06/26/18 05:33 Est GFR (MDRD) Af Amer 54 (>60) L 06/26/18 05:33 Est GFR (MDRD) Non-Af 44 (>60) L 06/26/18 05:33 Glucose 82 mg/dL (65-99) 06/26/18 05:33 Calcium 7.9 mg/dL (8.5-10.1) L 06/26/18 05:33 Corrected Calcium 9.3 mg/dL (8.5-10.1) 06/26/18 05:33 Magnesium 1.9 mg/dL (1.7-2.9) 06/25/18 00:56 Total Bilirubin 0.30 mg/dL (0.2-1.0) 06/26/18 05:33 AST 27 Units/L (15-37) 06/26/18 05:33 ALT 20 Units/L (12-78) 06/26/18 05:33 Alkaline Phosphatase 126 Units/L (46-116) H 06/26/18 05:33 Creatine Kinase 99 Units/L (26-192) 06/26/18 07:50 CK-MB (CK-2) 5.0 ng/mL (0-4.0) H* 06/26/18 07:50 CK/CKMB % Calc 5.1 % (<4) 06/26/18 07:50 Troponin I < 0.02 ng/mL (0-1.5) 06/26/18 07:50 Total Protein 5.2 g/dL (6.4-8.2) L 06/26/18 05:33 Albumin 2.3 g/dL (3.4-5.0) L 06/26/18 05:33 Globulin 2.9 g/dL (2.5-4.5) 06/26/18 05:33 Albumin/Globulin Ratio 0.8 Ratio (1.1-2.1) L 06/26/18 05:33 Specimen Type Catherized urine 06/25/18 23:33 Urine Color Yellow (YELLOW) 06/25/18 23:33 Urine Appearance Cloudy (CLEAR) 06/25/18 23:33 Urine pH 5.0 (5.0 - 8.0) 06/25/18 23:33 Ur Specific [place] 1.020 (1.000-1.030) 06/25/18 23:33 Urine Protein 2+ (NEGATIVE) 06/25/18 23:33 Urine Glucose (UA) Negative (NEGATIVE) 06/25/18 23:33 Urine Ketones Negative (NEGATIVE) 06/25/18 23:33 Urine Occult Blood 1+ (NEGATIVE) 06/25/18 23:33 Urine Nitrite Negative (NEGATIVE) 06/25/18 23:33 Urine Bilirubin 1+ (NEGATIVE) 06/25/18 23:33 Urine Urobilinogen Normal (NORMAL) 06/25/18 23:33 Ur Leukocyte Esterase 3+ (NEGATIVE) 06/25/18 23:33 Urine RBC 3-5 /HPF (NONE SEEN) 06/25/18 23:33 Urine WBC 5-10 /HPF (NONE SEEN) 06/25/18 23:33 Ur Squamous Epith Cells Numerous /HPF (NEGATIVE) 06/25/18 23:33 Urine Bacteria 1+ /HPF (NEGATIVE) 06/25/18 23:33 Ur Culture Indicated? 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
[2018-06-27] MEDS: PERCOCET TAB 5/325 MG PO PRN ×2 (00:49→09:51)
[2018-06-27] MEDS: NS 1000 ML 1,000 ML IV SCH (03:05)
[2018-06-27] MEDS: ATARAX TAB 25 MG PO PRN ×2 (04:20→09:51)
[2018-06-27] MEDS: INDOCIN CAP 25 MG PO SCH (05:12)
[2018-06-27 06:45] LABS: BASOPHILS # (AUTO) 0.1 X10^3/uL (0.0-0.1); BASOPHILS % (AUTO) 1.2 % (0.2-1.0); EOSINOPHILS # (AUTO) 0.3 x10^3/uL (0.0-0.2); EOSINOPHILS % (AUTO) 7.8 % (0.9-2.9); HEMATOCRIT 31.2 % (36.0-47.0); HEMOGLOBIN 10.7 g/dL (12.0-16.0); LYMPHOCYTES # (AUTO) 1.1 X10^3/uL (1.3-2.9); LYMPHOCYTES % (AUTO) 26.3 % (21.0-51.0); MEAN CORPUSCULAR HEMOGLOBIN 32.6 pg (27.0-34.0); MEAN CORPUSCULAR HGB CONC 34.3 g/dL (33.0-35.0); MONOCYTES # (AUTO) 0.3 x10^3/uL (0.3-0.8); MONOCYTES % (AUTO) 6.5 % (0.0-13.0); NEUTROPHILS # (AUTO) 2.5 x10^3/uL (2.2-4.8); NEUTROPHILS % (AUTO) 58.2 % (42.0-75.0); PLATELET COUNT 139 X10^3/uL (150.0-450.0); RED BLOOD COUNT 3.29 X10^6/uL (3.5-5.4); RED CELL DISTRIBUTION WIDTH 14.7 % (11.6-16.5); WHITE BLOOD COUNT 4.4 X10^3/uL (3.6-10.0)
[2018-06-27 07:13] LABS: ALANINE AMINOTRANSFERASE 20 Units/L (12-78); ALBUMIN 2.2 g/dL (3.4-5.0); ALKALINE PHOSPHATASE 123 Units/L (46-116); ASPARTATE AMINO TRANSFERASE 26 Units/L (15-37); BLOOD UREA NITROGEN 13 mg/dL (7-18); CALCIUM 7.9 mg/dL (8.5-10.1); CHLORIDE 111 mmol/L (98-107); COR CA(FOR HYPOALB) 9.3 mg/dL (8.5-10.1); CREATININE 1.13 mg/dL (0.55-1.02); SODIUM 142 mmol/L (136-145); TOTAL PROTEIN 5.1 g/dL (6.4-8.2); eGFR NON BLACK RACES 50 (>60)
[2018-06-27] MEDS ORDERED: ROCEPHIN VIAL 1 GRAM 1 G in NS 100 ML IV + SPIKE MINIBAG* 100 ML IV SCH (09:00)
[2018-06-27 09:42] VITALS: BP 169/78
[2018-06-27] MEDS: COLCRYS TAB 0.6 MG PO SCH (09:48)
[2018-06-27] MEDS: BRILINTA PO SCH (09:48)
[2018-06-27] MEDS: EXELON PO SCH (09:49)
[2018-06-27] MEDS: LASIX PO SCH (09:50)
[2018-06-27] MEDS: PROzac PO SCH (09:50)
[2018-06-27] MEDS: FERROUS GLUCONATE PO SCH (09:50)
--- NOTE | 2018-08-06 23:05 | DR.CARTERD ---
- Discharge Summary for: Discharge Summary for Date of:: 06/27/18 - Admission Date Date of Admission: 06/25/18 - Admission Diagnoses Admission Diagnosis: (1) Syncopal episodes (2) Dehydration (3) Urinary tract infection - Discharge Date Discharge Date: 06/27/18 - Discharge Diagnoses Discharge Diagnosis: (1) Syncopal episodes (2) Dehydration (3) Klebsiella Pneumoniae Urinary tract infection - Hospital Course Hospital Course: Day one, Ms. Wong is a 73 year old patient of ours who presented to the emergency room via EMS with reports of a syncopal episode. Patient reported she was getting out of the car and next thing she knew she woke up on the ground. Patient reported she didnt know how long she was there. Patient stated she thought she got too hot. Patient noted with weakness on arrival to the hospital. She denied shortness of breath or chest pain. On arrival, vitals were 97.8, 78, 21, 98% 2L NC, 108/66. Labs were obtained. Abnormal lab values included the following: Hgb 11.5, Hct 34.1, Eos% 7.6, Baso% 1.2, Eos# 0.5, Potassium 3.4, Chloride 108, BUN 21, Creatinine 1.52, GFR af 43, GFR non 35, Glucose 104, Alk Phos 145, CKMB 6.3, Total Protein 6.0, Albumin 2.7, A/G Ratio 0.8. Urinalysis revealed: Cloudy, Protein 2+, Occult Blood 1+, Leuk Est 3+, RBC 3-5, WBC 5-10, Bacteria 1+, Culture Pending. EKG revealed: Sinus Rhythm. Rate= 78. Brain CT obtained and revealed: No definite evidence of an acute intracranial process. If clinical concern persists for acute stroke and it would alter patient management, consider MRI/MRA brain. Moderate microvascular white matter ischemic changes, with associated volume loss. Patient admitted to the hospital as observation for further evaluation and treatment. Patient placed on continuous case monitor and NIBP. She was started on normal saline at 125ml/hr. Day two, she was alert and oriented. She was noted with complaints of generalized weakness and mild suprapubic pain. Vitals were: 97.5-69-18-98%-157/ 70. Abnormal labs: RBC 3.29, HGB 10.8, HCT 31.3, CHLORIDE 112, CREATININE 1.25, CALCIUM 7.9, ALK PHOS 126, TOTAL PROTEIN 5.2, ALBUMIN 2.3, CK-MB 5.9, 5.0. Ekg' s wnl. We continued IV fluids and IV antibiotics. Day three, Urine culture revealed Klebsiella Pneumoniae. Patient reported she was feeling better and denied dizziness or near syncope. Patient denied shortness of breath or chest pain. Vital signs stable. Labs wnl. We planned for discharge. Instructions for medications and follow up were discussed with patient and family, both voiced understanding. Patient discharged home in stable condition with family. Labs: Microbiology 06/25/18 23:33 Urine,Catheterized Urine Culture - Final Klebsiella Pneumoniae - Discharge Medications Discharge Medications: Prescriptions: - Discharge Disposition Discharge Disposition: Patient is to follow up in our office in one week.
== END 2018-06-27 11:52 | disposition home health service (06) ==
LOC: ER 19:03 → ICU 19:03
PROVIDERS: ADMIT Internal Medicine; ATTEND Internal Medicine
DX: I25.10 Atherosclerotic heart disease of native coronary artery without angina pectoris; I10 Essential (primary) hypertension; R26.89 Other abnormalities of gait and mobility; R94.4 Abnormal results of kidney function studies; F41.8 Other specified anxiety disorders; N30.00 Acute cystitis without hematuria; J44.9 Chronic obstructive pulmonary disease, unspecified; R53.1 Weakness; B96.1 Klebsiella pneumoniae [K. pneumoniae] as the cause of diseases classified elsewhere; R94.31 Abnormal electrocardiogram [ECG] [EKG]; E86.0 Dehydration; R55 Syncope and collapse; E78.2 Mixed hyperlipidemia
CPT/HCPCS: 36415; 36591; 70450; 80053; 81001; 82550; 82553; 83735; 84484; 85025; 87086; 87088; 87186; 93005; 96365; 96367; 97112; 97162; 97167; 97535; 99284; A4222; G0378; J0696; J7030; J7050; J8499

== ENCOUNTER 2019-06-07 00:47 | Observation (INO) ==
--- NOTE | 2019-06-07 01:39 | DR.SOBA ---
HPI - Time Seen Time seen: 01:39 - Primary Care Physician Primary Care Physician: SERGIO? UNK - Complaints Chief Complaint Doctors Comments: Patient is complaining of SOB and xiphoid chest pain for the past 24 hours getting progressively worst. States she has been having a fullness in the center of her chest yesterday and today with problems breathing and wheezing. state she has had five by-pass and 18 stents over the last ten years. States she do not have a local doctor and Dr. Booth was the last doctor she went to months ago. She denies tobacco or alcohol usage. States she has been out her inhalers for a while but she is using her home oxygen but she still was having problems catching her breath. States she is suppose to be taking medicines for her heart but she ran out and has been trying to make it. States her feet and legs has been swelling and she has been having sores on her feet. States some of her problems is that she worry about her grand son that is in the hospital in [place] and they tell him he has to take care of himself or he is not going to be here long and he will not take care of himself. Chief Complaint:: PATIENT STATES SOB ALL NIGHT WITHOUT RELIEF. Self Treatment fo Chief Complaint: N/A - Reviewed Nurses Notes Reviewed: Yes - Source History Provided: Patient - Mode of Arrival Mode of Arrival: Ambulatory - Timing Onset of Chief Complaint: 06/06/19 - Duration Duration: Days - Context Onset:: At Rest PE Risk Factors:: None History of:: None Currently on:: Neither Prehospital Care:: O2 - Modifying Factors Worsens:: Exertion Improves:: Nothing - Associated Signs and Symptoms Associated Signs and Symptoms: Wheeze, Cough, Chest Pain, Leg Swelling. denies: None, Fever, Nasal Congestion, Sore Throat, Hemoptysis, Calf Pain, Anxiety, Numbness, Perioral Numbness, Hands Numbness, Feet Numbness - If Chest Pain Quality: Pressure like, Heavy Location: Substernal - If Cough Cough: None PMH - PMH Past Medical History: Yes Past Medical History: Angina, Hypertension, Dyslipidemia, Depression, Anxiety, COPD, Arthritis, CHF Past Surgical History: Yes Surgical History: Angioplasty/Stents, CABG/Valve Surgery, Cholecystectomy, Hysterectomy - Family History History of Family Medical Conditions: Yes Family Medical History: Diabetes Mellitus, Cancer, [place], Coronary Artery Disease, Heart Failure, Sudden Cardiac , Hypertension - Social History Does patient currently use any type of tobacco product: No Have you used tobacco products in the last 12 months: No Type of Tobacco Use: None Does any household member use tobacco: No Alcohol Use: None Do you use any recreational Drugs:: No Lives With: Family Lives Where: Home - infectious screening In the last 2 months have you had wt loss of >10#?: NO Have you had fever, night sweats or hemotysis?: No Have you traveled outside the country in the last 6 months?: No Isolation: Standard ROS - Review of Systems Constitutional: No Symptoms Reported Eyes: No Symptoms Reported ENTM: No Symptoms Reported Respiratoy: No Symptoms Reported, Non-Productive Cough, Short of Breath, Wheezing Cardiovascular: No Symptoms Reported, Chest Pain, Edema. negative: See HPI, Palpitations, Syncope, Cyanosis, Skin Mottling, Other Gastrointestinal/Abdominal: No Symptoms Reported. negative: See HPI, Abdominal Pain, Constipation, Diarrhea, Nausea, Vomiting, Food Intolerance, Other Genitourinary: No Symptoms Reported. negative: See HPI, Discharge, Dysuria, Frequency, Hematuria, Pain, Bleeding, Other Neurological: No Symptoms Reported, Anxiety, Emotional Problems, Weakness, Problems Walking Musculoskeletal: No Symptoms Reported Integumentary: No Symptoms Reported, Lesions, Wound (feet with ulderation dorsal foot) Hematologic/Lymphatic: No Symptoms Reported. negative: See HPI, Anemia, Blood Clots, Easy Bleeding, Easy Bruising, Swollen Glands, Lymphadenopathy, Other Endocrine: No Symptoms Reported Psychiatric: No Symptoms Reported. negative: See HPI, Anxiety, Depression, Hallucinations, Excessive crying, Suicidal, Other PE - General Limitations: No Limitations General Appearance: Alert, In Distress (slight) - Head Head Exam: Normal Inspection, Atraumatic, Normocephalic - Eyes Eye exam: Normal Appearance, PERRL, EOMI. negative: Scleral Icterus, Conjunctival Injection, Nystagmus, Miosis, Mydrasis, Periorbital Swelling, Periorbital Tenderness, Other - ENT ENT Exam: Normal Exam, Normal Oropharynx, Normal External Ear Exam, Mucous Membranes Moist, TM's Normal Bilaterally - Neck Neck Exam: Normal Inspection, Full ROM, Trachea Midline. negative: Tenderness, Meningismus, Lymphadenopathy, Thyromegaly, Other - Chest Chest Inspection: Normal Inspection, Symmetric Chest Wall Rise. negative: Tenderness, Rash, Abscess, Other - Respiratory Respiratory Exam: Normal Lung Sounds Bilat, Prolonged Expiratory Phase Respiratory Exam: Bilateral Wheezing, Bilateral Decreased Breath Sounds, Right Rales, Lower Rales - Cardiovascular Cardiovascular Exam: Regular Rate, Normal Rhythm, Normal Heart Sounds - Abdominal Exam Abdominal Exam: Normal Inspection, Normal Bowel Sounds, Soft. negative: Distention, Tenderness, Guarding, Rebound, Rigidity, Dimnished Bowel Sounds, Hyperactive Bowel Sounds, Hypoactive Bowel Sounds, Organomegaly, Trauma, Incision, Ascites, Mass, Bruit, Pulsatile Mass, Hernia, Other Abdominal Tenderness: negative: RUQ, RLQ, LUQ, LLQ, Epigastrium, Suprapubic, Diffuse, Mild, Moderate, Severe, Other - Extremities Extremities Exam: Normal Inspection, Full ROM, Normal Capillary Refill, Edema. negative: Tenderness, Joint Swelling, Calf Tenderness, Other - Back Back Exam: Normal Inspection, Full ROM, Tenderness. negative: (R) CVA Tenderness, (L) CVA Tenderness, Muscle Spasm, Paraspinal Tenderness, Vertebral Tenderness, Rashes, (R) Sciatic Notch Tenderness, (L) Sciatic Notch Tendern, (R) Straight Leg Raise, (L) Straight Leg Raise, Other - Neurologic Neurological Exam: Alert, Oriented X3, CN II-XII Intact, Normal Gait, Reflexes Normal - Psychiatric Psychiatric Exam: Normal Affect, Normal Mood. negative: Depressed, Agitated, An xious, Flat Affect, Manic, Homicidal Ideation, Suicidal Ideation, Other - Skin Skin Exam: Warm, Dry, Intact, Normal Color. negative: Rash (right foot with ulceration dorsal foot) - Vital Signs Vitals: Temperature 96.0 F Pulse Rate 91 Respiratory Rate 20 Blood Pressure [Left Arm] 168/74 Blood Pressure [Right Arm] 124/64 Blood Pressure 136/91 O2 Sat by Pulse Oximetry 98 Course - Reevaluation 1st: Improved - Consultation Called: 04:44 Call Returned: 04:44 (Dr. Coleman to admit) - Education/Counseling Education/Counseling: Patient, Family, Education Educated On: Treatment, Diagnosis, Needs for Follow Up ROR - Labs Reviewed Laboratory Results Reviewed?: Yes (All labs and x-ray results reviewed and discussed with patient) Result Diagrams: 06/07/19 02:15 06/07/19 02:15 - XRAY XRAY Interpreted by: Self (CXR: bilateral hilar densities; cardiomegaly; increa sed marking left lower lung) - EKG Rate: 92 [place]: Normal Rhythm: NSR Block: None Hypertrophy: None ST: Lat, Ischemia (possible old lateral infarct), Nonsp - Labs Reviewed Laboratory: WBC 9.5 X10^3/uL (3.6-10.0) 06/07/19 02:15 RBC 3.50 X10^6/uL (3.5-5.4) 06/07/19 02:15 Hgb 11.3 g/dL (12.0-16.0) L 06/07/19 02:15 Hct 33.9 % (36.0-47.0) L 06/07/19 02:15 MCV 97.0 fL (80.0-100.0) 06/07/19 02:15 MCH 32.2 pg (27.0-34.0) 06/07/19 02:15 MCHC 33.2 g/dL (33.0-35.0) 06/07/19 02:15 RDW 14.8 % (11.6-16.5) 06/07/19 02:15 Plt Count 199 X10^3/uL (150.0-450.0) 06/07/19 02:15 MPV 7.9 fL (7.4-11.0) 06/07/19 02:15 Neut % (Auto) 72.7 % (42.0-75.0) 06/07/19 02:15 Lymph % (Auto) 17.7 % (21.0-51.0) L 06/07/19 02:15 [place] % (Auto) 4.5 % (0.0-13.0) 06/07/19 02:15 Eos % (Auto) 4.1 % (0.9-2.9) H 06/07/19 02:15 Baso % (Auto) 1.0 % (0.2-1.0) 06/07/19 02:15 Neut # (Auto) 6.9 x10^3/uL (2.2-4.8) H 06/07/19 02:15 Lymph # (Auto) 1.7 X10^3/uL (1.3-2.9) 06/07/19 02:15 [place] # (Auto) 0.4 x10^3/uL (0.3-0.8) 06/07/19 02:15 Eos # (Auto) 0.4 x10^3/uL (0.0-0.2) H 06/07/19 02:15 Baso # (Auto) 0.1 X10^3/uL (0.0-0.1) 06/07/19 02:15 Absolute Nucleated RBC 0.0 /100WBC 06/07/19 02:15 INR Target Range - 06/07/19 02:15 INR 1.05 (0.8-1.3) 06/07/19 02:15 APTT 44.1 SECONDS (22.9-36.5) H 06/07/19 02:15 PTT Comment - 06/07/19 02:15 D-Dimer 592 ng/mL (0-400) H* 06/07/19 02:15 Sodium 141 mmol/L (136-145) 06/07/19 02:15 Corrected Sodium TNP 06/07/19 02:15 Potassium 3.9 mmol/L (3.5-5.1) 06/07/19 02:15 Chloride 107 mmol/L (98-107) 06/07/19 02:15 Carbon Dioxide 24.2 mmol/L (21-32) 06/07/19 02:15 BUN 35 mg/dL (7-18) H 06/07/19 02:15 Creatinine 1.41 mg/dL (0.55-1.02) H 06/07/19 02:15 Est GFR (MDRD) Af Amer 47 (>60) L 06/07/19 02:15 Est GFR (MDRD) Non-Af 39 (>60) L 06/07/19 02:15 Glucose 105 mg/dL (65-99) H 06/07/19 02:15 Calcium 8.0 mg/dL (8.5-10.1) L 06/07/19 02:15 Corrected Calcium 8.7 mg/dL (8.5-10.1) 06/07/19 02:15 Magnesium 2.1 mg/dL (1.7-2.9) 06/07/19 02:15 Total Bilirubin 0.20 mg/dL (0.2-1.0) 06/07/19 02:15 AST 20 Units/L (15-37) 06/07/19 02:15 ALT 20 Units/L (12-78) 06/07/19 02:15 Alkaline Phosphatase 92 Units/L (46-116) 06/07/19 02:15 Creatine Kinase 99 Units/L (26-192) 06/07/19 02:15 CK-MB (CK-2) 7.4 ng/mL (0-4.0) H* 06/07/19 02:15 CK/CKMB % Calc 7.5 % (<4) 06/07/19 02:15 Troponin I 0.04 ng/mL (0-1.5) 06/07/19 02:15 B-Natriuretic Peptide 969 pg/mL (0-79) H* 06/07/19 02:15 Total Protein 7.1 g/dL (6.4-8.2) 06/07/19 02:15 Albumin 3.1 g/dL (3.4-5.0) L 06/07/19 02:15 Globulin 4.0 g/dL (2.5-4.5) 06/07/19 02:15 Albumin/Globulin Ratio 0.8 Ratio (1.1-2.1) L 06/07/19 02:15 Opioid - Opioid Risk Tool Total: 0 Total Score Risk Category: Low Risk - Diagnosis Discharge Problem: COPD exacerbation, Chest pain, rule out acute myocardial infarction Dyspnea Qualifiers: Dyspnea type: shortness of breath Qualified Code(s): R06.02 - Shortness of breath; R06.00 - Dyspnea, unspecified; R06.01 - Orthopnea Chronic kidney disease (CKD) Qualifiers: Chronic kidney disease stage: stage 3 (moderate) Qualified Code(s): N18.3 - Chronic kidney disease, stage 3 (moderate) CHF (congestive heart failure) Qualifiers: Heart failure type: unspecified - Discharge Plan Disposition: ADMITTED INPATIENT Condition: Stable - Follow ups/Referrals Follow ups/Referrals: JULISSA COLEMAN [Primary Care Provider] - 3 days - Instructions
[2019-06-07] MEDS ORDERED: ASPIRIN PO ONE (01:49)
[2019-06-07] MEDS ORDERED: DUONEB 0.5 MG/3 MG NEB ONE (01:50)
[2019-06-07] MEDS ORDERED: SOLU-Medrol 125 MG VIAL IVP ONE (01:50)
[2019-06-07] MEDS ORDERED: ASPIRIN ONE (01:57)
[2019-06-07] MEDS ORDERED: SOLU-Medrol 125 MG VIAL ONE (01:57)
[2019-06-07] MEDS ORDERED: DUONEB 0.5 MG/3 MG ONE (02:06)
[2019-06-07] MEDS: NS 1000 ML 1,000 ML IV SCH ×2 (02:24→15:38)
[2019-06-07 02:27] LABS: BASOPHILS # (AUTO) 0.1 X10^3/uL (0.0-0.1); EOSINOPHILS # (AUTO) 0.4 x10^3/uL (0.0-0.2); EOSINOPHILS % (AUTO) 4.1 % (0.9-2.9); HEMATOCRIT 33.9 % (36.0-47.0); HEMOGLOBIN 11.3 g/dL (12.0-16.0); LYMPHOCYTES # (AUTO) 1.7 X10^3/uL (1.3-2.9); LYMPHOCYTES % (AUTO) 17.7 % (21.0-51.0); MEAN CORPUSCULAR HEMOGLOBIN 32.2 pg (27.0-34.0); MEAN CORPUSCULAR HGB CONC 33.2 g/dL (33.0-35.0); MEAN PLATELET VOLUME 7.9 fL (7.4-11.0); MONOCYTES # (AUTO) 0.4 x10^3/uL (0.3-0.8); MONOCYTES % (AUTO) 4.5 % (0.0-13.0); NEUTROPHILS # (AUTO) 6.9 x10^3/uL (2.2-4.8); NEUTROPHILS % (AUTO) 72.7 % (42.0-75.0); PLATELET COUNT 199 X10^3/uL (150.0-450.0); RED CELL DISTRIBUTION WIDTH 14.8 % (11.6-16.5); WHITE BLOOD COUNT 9.5 X10^3/uL (3.6-10.0)
[2019-06-07 02:43] LABS: BLOOD UREA NITROGEN 35 mg/dL (7-18); CARBON DIOXIDE 24.2 mmol/L (21-32); CHLORIDE 107 mmol/L (98-107); CREATININE 1.41 mg/dL (0.55-1.02); SODIUM 141 mmol/L (136-145); TROPONIN I 0.04 ng/mL (0-1.5); eGFR NON BLACK RACES 39 (>60)
[2019-06-07 03:06] LABS: ALANINE AMINOTRANSFERASE 20 Units/L (12-78); ALBUMIN 3.1 g/dL (3.4-5.0); ALKALINE PHOSPHATASE 92 Units/L (46-116); ASPARTATE AMINO TRANSFERASE 20 Units/L (15-37); CKMB % 7.5 % (<4); COR CA(FOR HYPOALB) 8.7 mg/dL (8.5-10.1); CREATINE KINASE 99 Units/L (26-192); MAGNESIUM 2.1 mg/dL (1.7-2.9); TOTAL PROTEIN 7.1 g/dL (6.4-8.2)
[2019-06-07 03:19] LABS: CREATINE KINASE MB 7.4 ng/mL (0-4.0)
[2019-06-07] MEDS ORDERED: ROCEPHIN VIAL 1 GRAM IVP ONE (04:10)
[2019-06-07] MEDS ORDERED: LASIX IVP ONE ×2 (04:11→04:15)
[2019-06-07] MEDS ORDERED: ROCEPHIN VIAL 1 GRAM ONE (04:15)
[2019-06-07] MEDS ORDERED: MOTRIN TAB 600 MG PO PRN (04:52)
[2019-06-07] MEDS ORDERED: ZOFRAN TAB 4 MG PO PRN (04:52)
--- NOTE | 2019-06-07 05:27 | RAD ---
Examination: Portable AP chest History: Chest pain SOB Comparison 04/22/2018 Findings: Mild stable cardiomegaly with sternal wires. The manubrial surgical wires are fractured but not displaced. There is a diffuse interstitial pulmonary prominence which is unchanged. A right IJ injection port is present. Impression: No interval change or acute findings. Reported By:
[2019-06-07 05:47] LABS: CHOL/HDL RATIO 3.1 (0.0-5.0)
[2019-06-07] MEDS ORDERED: ZOSYN VIAL 3.375 GRAMS 3.375 G in NS 100 ML IV + SPIKE MINIBAG* 100 ML IV SCH (06:00)
[2019-06-07 06:06] LABS: CKMB % 8.9 % (<4); CREATINE KINASE MB 9.3 ng/mL (0-4.0); TROPONIN I 0.06 ng/mL (0-1.5)
[2019-06-07] MEDS: DUONEB 0.5 MG/3 MG NEB SCH ×4 (08:39→20:30)
[2019-06-07] MEDS: LOVENOX INJ 80 MG SYR SC SCH ×2 (10:01→20:49)
[2019-06-07] MEDS: ROCEPHIN VIAL 1 GRAM IVP SCH (10:02)
--- NOTE | 2019-06-07 11:27 | DR.H&P ---
H&P - History & Physical for Day of: H&P Date: 06/07/19 - Chief Complaint Chief Complaint: SOB, CHEST PRESSURE - History of Present Illness History of Present Illness: 74 WF ER ADMISSION WITH CO SOB and xiphoid chest pain for the past 24 hours getting progressively worst. States she has been having a fullness in the center of her chest yesterday and today with problems breathing and wheezing. PT HAS PMH OF CAD, COPD, CHF, HTN, OA. PT NON COMPLIANT WITH MEDICATION REGIMEN. PT IS BOOY A PT OF DR RASHAWN FORD, HOWEVER HAS NOT RTO IN >3MOS. PT HAD CXR IN ER, EKGS. PT ADMITTED FOR EVALUATION AND TREATMENT OF ACUTE ILLNESS - Past Medical History Past Medical History: Angina, Anxiety, Arthritis, CHF, COPD, Coronary Artery Disease, Depression, Dyslipidemia, Hypertension Additional Medical History: Cataracts, Bronchitis, Pneumonia, Hiatal Hernia, Urinary Tract Infections, Back Pain, Previous Blood Transfusion, Skin Cancer, Vaginal Cancer - Past Surgical History Surgical History: Angioplasty/Stents, CABG/Valve Surgery, Cholecystectomy, Hysterectomy Additional Surgical History: Renal Stents, Lung Surgery, Vaginal Cancer Removed - Family History Family Medical History: Diabetes Mellitus, Cancer, [place], Coronary Artery Disease, Heart Failure, Sudden Cardiac , Hypertension - Social History Does patient currently use any type of tobacco product: No Have you used tobacco products in the last 12 months: No Type of Tobacco Use: None Does any household member use tobacco: No Alcohol Use: None - Medications Home Medications: No Known Drug Allergies Allergy (Verified 06/07/19 01:10) CONTINUE taking the following medications meloxicam [Mobic] 15 mg PO QDAY 06/07/19 [History] - Review of Systems Constitutional: Weakness Eyes: No Symptoms Reported ENT: No Symptoms Reported Respiratory: Shortness of Breath, SOB with Excertion, Wheezing Cardiovascular: Chest Pain Gastrointestinal: No Symptoms Reported Genitourinary: No Symptoms Reported Musculoskeletal: Back Pain, Leg Pain Skin: Rash Neurological: Weakness - Physical Exam Vital Signs: Temperature 98.1 F Pulse Rate [Left] 88 Pulse Rate 97 Respiratory Rate 20 Blood Pressure [Left Arm] 160/85 Blood Pressure [Right Arm] 164/89 Blood Pressure 136/91 O2 Sat by Pulse Oximetry 97 Oriented: Normal Eyes: Normal Ear: Normal Nose: Normal Throat: Normal Respiratory: Wheezes Throughout, RLL Diminished, LLL Diminished Cardiovascular: Normal, Edema : Normal Auscultation: Bowel Sounds: Normal Palpation: Normal Tenderness: Normal Skin: Decreased Turg[place], Rash Musculoskeletal: Right, Left, Knee, Back:Lumbar, Tender Psychiatric: Anxiety Affect: Anxious Speech Pattern: Clear, Appropriate - Assessment/Plan (1) Chest pain, rule out acute myocardial infarction Status: Acute Plan: ADMIT, SERIAL CE AND EKG. CHEST XRAY ON ADMISSION, VERIFY HOME MEDICATION. RESP CONSULT, DUO NEBS, SUPPLEMENTAL O2. BP AND LIPID CONTROL, CONTINUOUS CARDIAC MONITORING, STRICT I & OS. OBTAIN LAST CATH REPORT FROM [facility] (2) COPD exacerbation Status: Acute (3) Dermatitis Status: Acute (4) Hyperlipidemia Status: Chronic (5) Rheumatoid arthritis Status: Chronic (6) CHF (congestive heart failure) Qualifiers: Heart failure type: unspecified Status: Chronic - Allergies Allergies/Adverse Reactions: Allergies Allergy/AdvReac Type Severity Reaction Status Date / Time No Known Drug Allergies Allergy Verified 06/07/19 01:10
[2019-06-07 11:40] LABS: CKMB % 7.1 % (<4); TROPONIN I 0.03 ng/mL (0-1.5)
[2019-06-07 11:46] LABS: CREATINE KINASE MB 6.8 ng/mL (0-4.0)
[2019-06-07 12:10] VITALS: BMI 26.7
[2019-06-07] MEDS: ASPIRIN EC 81 MG PO SCH (13:56)
[2019-06-07] MEDS: NORCO 5/325 MG TAB PO PRN ×2 (13:56→21:33)
[2019-06-07] MEDS: PLAVIX PO SCH (13:56)
[2019-06-07] MEDS: PROTONIX INJ 40 MG VIAL IVP SCH (13:57)
[2019-06-07 15:13] LABS: FREE T4 (FREE THYROXINE) 0.66 ng/dL (0.76-1.46); TSH (3RD GENERATION) 4.16 uIU/mL (0.358-3.74); URIC ACID 9.4 mg/dL (2.6-6.0)
[2019-06-07 17:57] LABS: TROPONIN I 0.04 ng/mL (0-1.5)
[2019-06-07 18:03] LABS: CREATINE KINASE MB 4.8 ng/mL (0-4.0)
[2019-06-07] MEDS ORDERED: CRESTOR TAB 10 MG PO SCH (21:00)
[2019-06-07 23:58] LABS: CKMB % 7.3 % (<4); TROPONIN I 0.09 ng/mL (0-1.5)
[2019-06-08 00:04] LABS: CREATINE KINASE MB 4.6 ng/mL (0-4.0)
[2019-06-08] MEDS: DUONEB 0.5 MG/3 MG NEB SCH ×5 (00:38→16:44)
[2019-06-08] MEDS: NS 1000 ML 1,000 ML IV SCH (05:05)
[2019-06-08 06:15] LABS: BASOPHILS # (AUTO) 0.1 X10^3/uL (0.0-0.1); BASOPHILS % (AUTO) 1.1 % (0.2-1.0); EOSINOPHILS % (AUTO) 0.4 % (0.9-2.9); HEMATOCRIT 30.8 % (36.0-47.0); HEMOGLOBIN 10.4 g/dL (12.0-16.0); LYMPHOCYTES # (AUTO) 1.2 X10^3/uL (1.3-2.9); LYMPHOCYTES % (AUTO) 14.7 % (21.0-51.0); MEAN CORPUSCULAR HEMOGLOBIN 32.8 pg (27.0-34.0); MEAN CORPUSCULAR HGB CONC 33.6 g/dL (33.0-35.0); MEAN CORPUSCULAR VOLUME 97.7 fL (80.0-100.0); MEAN PLATELET VOLUME 8.1 fL (7.4-11.0); MONOCYTES # (AUTO) 0.4 x10^3/uL (0.3-0.8); MONOCYTES % (AUTO) 4.6 % (0.0-13.0); NEUTROPHILS # (AUTO) 6.6 x10^3/uL (2.2-4.8); NEUTROPHILS % (AUTO) 79.2 % (42.0-75.0); PLATELET COUNT 148 X10^3/uL (150.0-450.0); RED BLOOD COUNT 3.16 X10^6/uL (3.5-5.4); RED CELL DISTRIBUTION WIDTH 14.9 % (11.6-16.5); WHITE BLOOD COUNT 8.3 X10^3/uL (3.6-10.0)
--- NOTE | 2019-06-08 06:52 | RAD ---
Two-view chest Clinical indication: Chest pain Comparison: 06/07/2019 Findings: Low lung volumes are observed. The heart is enlarged. Postoperative changes of coronary bypass surgery and right chest port placement are evident. Trace bilateral pleural effusions are suspected. Minimal dependent atelectasis also suspected within the lower lobe associated with the pleural effusion. Interstitial edema pattern has improved in the interim. Impression: Cardiomegaly with improving pulmonary edema pattern. Trace residual bilateral pleural effusions with associated atelectasis left lung base. Reported By:
[2019-06-08 07:01] LABS: BLOOD UREA NITROGEN 40 mg/dL (7-18); CALCIUM 7.8 mg/dL (8.5-10.1); CARBON DIOXIDE 24.7 mmol/L (21-32); CHLORIDE 107 mmol/L (98-107); CKMB % 7.1 % (<4); CREATINE KINASE 61 Units/L (26-192); CREATININE 1.69 mg/dL (0.55-1.02); SODIUM 142 mmol/L (136-145); eGFR NON BLACK RACES 31 (>60)
[2019-06-08 07:17] LABS: CREATINE KINASE MB 4.3 ng/mL (0-4.0)
[2019-06-08] MEDS ORDERED: LASIX IVP SCH (09:00)
[2019-06-08] MEDS: ASPIRIN EC 81 MG PO SCH (09:41)
[2019-06-08] MEDS: PLAVIX PO SCH (09:42)
[2019-06-08] MEDS: ROCEPHIN VIAL 1 GRAM IVP SCH (09:42)
[2019-06-08] MEDS: LOVENOX INJ 80 MG SYR SC SCH (09:42)
[2019-06-08] MEDS: PROTONIX INJ 40 MG VIAL IVP SCH (09:42)
[2019-06-08] MEDS: SOLU-Medrol 40 MG VIAL IVP SCH ×2 (09:52→17:09)
[2019-06-08 11:39] LABS: CKMB % 7.4 % (<4); TROPONIN I 0.08 ng/mL (0-1.5)
[2019-06-08 11:47] LABS: CREATINE KINASE MB 4.6 ng/mL (0-4.0)
[2019-06-08 15:55] LABS: BILIRUBIN,URINE NEGATIVE (NEGATIVE); BLOOD/HEMOGLOBIN,URINE 1+ (NEGATIVE); GLUCOSE, URINE NEGATIVE (NEGATIVE); KETONES,URINE NEGATIVE (NEGATIVE); LEUKOCYTE ESTERASE ,URINE 1+ (NEGATIVE); NITRITES,URINE NEGATIVE (NEGATIVE); PROTEIN,URINE NEGATIVE (NEGATIVE); UROBILINOGEN,URINE NORMAL (NORMAL)
[2019-06-08 15:57] LABS: APPEARANCE,URINE CLEAR (CLEAR); COLOR,URINE YELLOW (YELLOW)
[2019-06-08 16:02] LABS: BACTERIA,URINE NEGATIVE /HPF (NEGATIVE); RBC,URINE NONE SEEN /HPF (NONE SEEN); SQUAMOUS EPITHELIAL CELL,UR FEW /HPF (NEGATIVE)
[2019-06-08 16:03] LABS: AMORPHOUS SEDIMENT,UR TRACE /HPF (NEGATIVE)
[2019-06-08 16:23] VITALS: BP 115/54
[2019-06-08] MEDS: NORCO 5/325 MG TAB PO PRN (17:14)
[2019-06-08] MEDS ORDERED: LOVENOX INJ 80 MG SYR ONE (21:00)
[2019-06-08] MEDS ORDERED: CRESTOR TAB 10 MG PO ONE (21:00)
[2019-06-08] MEDS ORDERED: MOTRIN TAB 600 MG PO ONE (21:00)
[2019-06-08] MEDS ORDERED: NORCO 5/325 MG TAB ONE (21:00)
[2019-06-09] MEDS ORDERED: SOLU-Medrol 40 MG VIAL IVP ONE ×2 (02:00→09:00)
[2019-06-09] MEDS ORDERED: DUONEB 0.5 MG/3 MG NEB ONE ×3 (05:00→12:06)
[2019-06-09] MEDS ORDERED: NS 1000 ML IV ONE (06:00)
[2019-06-09] MEDS ORDERED: MOTRIN TAB 600 MG PO ONE (06:00)
[2019-06-09] MEDS ORDERED: ROCEPHIN VIAL 1 GRAM IVP ONE (09:00)
[2019-06-09] MEDS ORDERED: LASIX IVP ONE (09:00)
[2019-06-09] MEDS ORDERED: ASPIRIN EC 81 MG PO ONE (09:00)
[2019-06-09] MEDS ORDERED: PLAVIX PO ONE (09:00)
[2019-06-09] MEDS ORDERED: NYSTATIN POWDER TOP ONE (09:00)
[2019-06-09] MEDS ORDERED: PROTONIX INJ 40 MG VIAL IVP ONE (09:00)
[2019-06-09] MEDS ORDERED: LOVENOX INJ 60 MG SYR SC ONE (09:00)
[2019-06-09] MEDS ORDERED: NORCO 5/325 MG TAB PO ONE (09:00)
[2019-06-16 09:04] LABS: CREATINE KINASE MB 4.6 ng/mL (0-4.0); TROPONIN I 0.06 ng/mL (0-1.5)
[2019-06-16 10:35] LABS: CALCIUM 7.8 mg/dL (8.5-10.1); COR CA(FOR HYPOALB) 8.6 mg/dL (8.5-10.1); CREATININE 1.46 mg/dL (0.55-1.02); TOTAL PROTEIN 6.9 g/dL (6.4-8.2)
[2019-06-16 10:36] LABS: CKMB % 6.5 % (<4); TROPONIN I 0.08 ng/mL (0-1.5)
[2019-06-16 10:37] LABS: HEMOGLOBIN 10.7 g/dL (12.0-16.0); RED BLOOD COUNT 3.21 X10^6/uL (3.5-5.4); WHITE BLOOD COUNT 9.7 X10^3/uL (3.6-10.0)
[2019-06-16 10:38] LABS: BASOPHILS % (AUTO) 0 % (0.2-1.0); HEMATOCRIT 31.7 % (36.0-47.0); LYMPHOCYTES # (AUTO) 0.4 X10^3/uL (1.3-2.9); LYMPHOCYTES % (AUTO) 4.5 % (21.0-51.0); MEAN CORPUSCULAR HEMOGLOBIN 33.2 pg (27.0-34.0); MEAN CORPUSCULAR HGB CONC 33.6 g/dL (33.0-35.0); MEAN CORPUSCULAR VOLUME 98.6 fL (80.0-100.0); MEAN PLATELET VOLUME 8.2 fL (7.4-11.0); MONOCYTES # (AUTO) 0.1 x10^3/uL (0.3-0.8); MONOCYTES % (AUTO) 0.8 % (0.0-13.0); NEUTROPHILS # (AUTO) 9.2 x10^3/uL (2.2-4.8); NEUTROPHILS % (AUTO) 94.7 % (42.0-75.0); PLATELET COUNT 158 X10^3/uL (150.0-450.0); RED CELL DISTRIBUTION WIDTH 15.1 % (11.6-16.5)
[2019-06-16 10:39] LABS: PLATELET MORPHOLOGY COMMENT NORMAL (NORMAL)
== END 2019-06-09 14:50 | disposition home or self-care (01) ==
LOC: ER 00:49 → MED/SURG 00:49
PROVIDERS: ADMIT Internal Medicine; ATTEND Internal Medicine
DX: J44.1 Chronic obstructive pulmonary disease with (acute) exacerbation; Z79.01 Long term (current) use of anticoagulants; I11.0 Hypertensive heart disease with heart failure; R06.02 Shortness of breath; R94.31 Abnormal electrocardiogram [ECG] [EKG]; I25.10 Atherosclerotic heart disease of native coronary artery without angina pectoris; I50.9 Heart failure, unspecified; L20.89 Other atopic dermatitis; F32.89 Other specified depressive episodes; R07.89 Other chest pain; E78.2 Mixed hyperlipidemia
CPT/HCPCS: 36415; 36591; 71010; 71020; 71045; 71046; 80048; 80053; 80061; 81001; 82550; 82553; 83735; 83880; 84439; 84443; 84484; 84550; 85025; 85378; 85610; 85730; 93005; 94640; 94760; 96365; 96367; 96374; 96375; 99218; 99284; A4216; A4222; C9113; G0378; J0696; J1650; J1940; J2920; J2930; J7030; J7620

== ENCOUNTER 2019-12-21 02:23 | Inpatient (IN) ==
[2019-12-21 02:43] VITALS: BMI 24.3
[2019-12-21] MEDS ORDERED: DUONEB 0.5 MG/3 MG (3 mL) NEB ONE ×4 (02:54→03:36)
[2019-12-21] MEDS ORDERED: SOLU-Medrol 125 MG VIAL IVP ONE (02:55)
[2019-12-21] MEDS ORDERED: SOLU-Medrol 125 MG VIAL ONE (03:01)
--- NOTE | 2019-12-21 03:03 | DR.SOBA ---
HPI Time Seen Time Seen by Provider: 12/21/19 02:48 Primary Care Physician Primary Care Physician: SERGIO HPI Comment HPI Comment: Pt. states wheezing /sob started this evening. Denies CP or fever Complaints Chief Complaint:: PATIENT STATES SHE HAS BEEN SOB FOR THE LAST LITTLE WHILE AND "JUST COULDNT GET IT BACK" ALSO COMPLAINTS OF RASH TO FEET LEGS AND BACK BUT IT HAS BEEN THERE FOR A WHILE, PT NOTED TO HAVE A BLACK EYE TO LEFT EYE BUT DOESNT RECALL HOW IT GOT THERE , PT NOTED TO HAVE SOB JUST TALKING IN TRIAGE WITH AUDIBLE WHEEZING,. Self Treatment fo Chief Complaint: N/A Reviewed Nurses Notes Reviewed: Yes Source History Provided: Patient Mode of Arrival Mode of Arrival: Ambulatory Timing Onset of Chief Complaint: 12/21/19 Context Onset:: At Rest PE Risk Factors:: None Prehospital Care:: None Modifying Factors Worsens:: Exertion Improves:: Nothing Associated Signs and Symptoms Associated Signs and Symptoms: Wheeze and Cough; denies Nasal Congestion, Sore Throat, Hemoptysis, Chest Pain, Leg Swelling, Calf Pain, Anxiety, Numbness and Feet Numbness If Cough Cough: Nonproductive PMH PMH Past Medical History: Yes Past Medical History: Angina, Anxiety, Arthritis, CHF, COPD, Coronary Artery Disease, Depression, Dyslipidemia and Hypertension Past Surgical History: Yes Surgical History: Angioplasty/Stents, CABG/Valve Surgery, Cholecystectomy and Hysterectomy Past Surgical History Comment: 6 BYPASS Family History History of Family Medical Conditions: Yes Family Medical History: Diabetes Mellitus, Cancer, [place], Coronary Artery Disease, Heart Failure, Sudden Cardiac and Hypertension Social History Does patient currently use any type of tobacco product: No Have you used tobacco products in the last 12 months: No Type of Tobacco Use: None Does any household member use tobacco: No Alcohol Use: None Do you use any recreational Drugs:: No Lives With: Family Lives Where: Home infectious screening In the last 2 months have you had wt loss of >10#?: NO Have you had fever, night sweats or hemotysis?: No Have you traveled outside the country in the last 6 months?: No Isolation: Standard ROS Review of Systems Constitutional: No Symptoms Reported Eyes: No Symptoms Reported ENTM: No Symptoms Reported Respiratoy: Non-Productive Cough and Wheezing Cardiovascular: See HPI (orthopnea and dyspnea on excertion) Gastrointestinal/Abdominal: No Symptoms Reported Genitourinary: No Symptoms Reported Neurological: No Symptoms Reported Musculoskeletal: No Symptoms Reported Integumentary: Rash (puritic) Hematologic/Lymphatic: No Symptoms Reported Endocrine: No Symptoms Reported Psychiatric: No Symptoms Reported PE Vital Signs Vitals: Temperature 96.0 F Pulse Rate 86 Respiratory Rate 24 Blood Pressure [Left Arm] 161/83 Blood Pressure 184/111 O2 Sat by Pulse Oximetry 96 General Limitations: No Limitations General Appearance: Alert and In Distress; negative Appears Intoxicated and Lethargic Head Head Exam: Normal Inspection Eyes Eye exam: Normal Appearance ENT ENT Exam: Normal Exam Neck Neck Exam: Normal Inspection Chest Chest Inspection: Normal Inspection; negative Tenderness Respiratory Respiratory Exam: Prolonged Expiratory Phase; negative Accessory Muscle Use Respiratory Exam: Bilateral: Wheezing (exp and insp) Cardiovascular Cardiovascular Exam: Tachycardia Abdominal Exam Abdominal Exam: Normal Inspection and Soft; negative Normal Bowel Sounds and Di stention Extremities Extremities Exam: negative Full ROM, Tenderness, Normal Capillary Refill, Edema and Joint Swelling Back Back Exam: Normal Inspection Neurologic Neurological Exam: Alert, Oriented X3, CN II-XII Intact and Motor Sensory Deficit Psychiatric Psychiatric Exam: Normal Affect Skin Skin Exam: Warm, Dry and Rash (scaboid rash to trunk and lower extremities) ROR Labs Reviewed Laboratory Results Reviewed?: Yes Result Diagrams: 12/21/19 03:30 12/21/19 03:30 Laboratory: WBC 11.0 X10^3/uL (3.6-10.0) H 12/21/19 03:30 RBC 4.02 X10^6/uL (3.5-5.4) 12/21/19 03:30 Hgb 12.4 g/dL (12.0-16.0) 12/21/19 03:30 Hct 38.2 % (36.0-47.0) 12/21/19 03:30 MCV 95.0 fL (80.0-100.0) 12/21/19 03:30 MCH 30.7 pg (27.0-34.0) 12/21/19 03:30 MCHC 32.3 g/dL (33.0-35.0) L 12/21/19 03:30 RDW 15.7 % (11.6-16.5) 12/21/19 03:30 Plt Count 246 X10^3/uL (150.0-450.0) 12/21/19 03:30 MPV 7.8 fL (7.4-11.0) 12/21/19 03:30 Neut % (Auto) 89.2 % (42.0-75.0) H 12/21/19 03:30 Lymph % (Auto) 9.6 % (21.0-51.0) L 12/21/19 03:30 [place] % (Auto) 1.0 % (0.0-13.0) 12/21/19 03:30 Eos % (Auto) 0.0 % (0.9-2.9) L 12/21/19 03:30 Baso % (Auto) 0.2 % (0.2-1.0) 12/21/19 03:30 Neut # (Auto) 9.8 x10^3/uL (2.2-4.8) H 12/21/19 03:30 Lymph # (Auto) 1.1 X10^3/uL (1.3-2.9) L 12/21/19 03:30 [place] # (Auto) 0.1 x10^3/uL (0.3-0.8) L 12/21/19 03:30 Eos # (Auto) 0.0 x10^3/uL (0.0-0.2) 12/21/19 03:30 Baso # (Auto) 0.0 X10^3/uL (0.0-0.1) 12/21/19 03:30 Absolute Nucleated RBC 0.0 /100WBC 12/21/19 03:30 PT 13.1 SECONDS (11.8-14.3) 12/21/19 03:30 INR Target Range - 12/21/19 03:30 INR 1.03 (0.8-1.3) 12/21/19 03:30 APTT 27.5 SECONDS (22.9-36.5) 12/21/19 03:30 PTT Comment - 12/21/19 03:30 D-Dimer 925 ng/mL (0-400) H* 12/21/19 03:30 Sodium 139 mmol/L (136-145) 12/21/19 03:30 Corrected Sodium 141 mmol/L (136-145) 12/21/19 03:30 Potassium 4.9 mmol/L (3.5-5.1) 12/21/19 03:30 Chloride 105 mmol/L (98-107) 12/21/19 03:30 Carbon Dioxide 24.9 mmol/L (21-32) 12/21/19 03:30 BUN 30 mg/dL (7-18) H 12/21/19 03:30 Creatinine 1.60 mg/dL (0.55-1.02) H 12/21/19 03:30 Est GFR (MDRD) Af Amer 40 (>60) L 12/21/19 03:30 Est GFR (MDRD) Non-Af 33 (>60) L 12/21/19 03:30 Glucose 168 mg/dL (65-99) H 12/21/19 03:30 Calcium 8.6 mg/dL (8.5-10.1) 12/21/19 03:30 Corrected Calcium TNP 12/21/19 03:30 Total Bilirubin 0.20 mg/dL (0.2-1.0) 12/21/19 03:30 AST 36 Units/L (15-37) 12/21/19 03:30 ALT 24 Units/L (12-78) 12/21/19 03:30 Alkaline Phosphatase 111 Units/L (46-116) 12/21/19 03:30 Creatine Kinase 97 Units/L (26-192) 12/21/19 03:30 CK-MB (CK-2) 5.4 ng/mL (0-4.0) H* 12/21/19 03:30 CK/CKMB % Calc 5.6 % (<4) 12/21/19 03:30 Troponin I < 0.02 ng/mL (0-1.5) 12/21/19 03:30 Total Protein 7.8 g/dL (6.4-8.2) 12/21/19 03:30 Albumin 3.5 g/dL (3.4-5.0) 12/21/19 03:30 Globulin 4.3 g/dL (2.5-4.5) 12/21/19 03:30 Albumin/Globulin Ratio 0.8 Ratio (1.1-2.1) L 12/21/19 03:30 Other Results Comments: STUDY: FRONTAL AND LATERAL VIEW CHEST COMPARISON: None HISTORY: sob FINDINGS: No focal consolidation is seen. Right IJ chemotherapy port is noted with tip projecting over the proximal SVC. Midline sternotomy wires are noted. Elevation the right hemidiaphragm is present. The heart size is enlarged The mediastinum is unremarkable. There is no evidence of pleural effusion or gross pneumothorax. Trachea is midline. On the lateral view, the retrosternal and retrocardiac spaces are clear. IMPRESSION: Cardiomegaly is noted with findings suggesting mild degree of pulmonary edema. Electronically signed by: Dale Corley (Dec 21, 2019 05:04:31) EKG Rate: 101 [place]: Normal Rhythm: ST Block: None Hypertrophy: LAE ST: Old and Lat Opioid Opioid Risk Tool Age (Kieran box if 16-45): No Total: 0 Total Score Risk Category: Low Risk Copyright: Carlos PEARSON predicting aberrant behaviors Procedures Procedure Comments Procedures: Critical care time 62 min Diagnosis Discharge Problem: Pulmonary edema, CHF (congestive heart failure), COPD (chronic obstructive pulmonary disease), Chronic kidney disease (CKD), Cardiac asthma, Scabies inf estation
[2019-12-21 03:43] LABS: BASOPHILS % (AUTO) 0.2 % (0.2-1.0); HEMATOCRIT 38.2 % (36.0-47.0); HEMOGLOBIN 12.4 g/dL (12.0-16.0); LYMPHOCYTES # (AUTO) 1.1 X10^3/uL (1.3-2.9); LYMPHOCYTES % (AUTO) 9.6 % (21.0-51.0); MEAN CORPUSCULAR HEMOGLOBIN 30.7 pg (27.0-34.0); MEAN CORPUSCULAR HGB CONC 32.3 g/dL (33.0-35.0); MEAN PLATELET VOLUME 7.8 fL (7.4-11.0); MONOCYTES # (AUTO) 0.1 x10^3/uL (0.3-0.8); NEUTROPHILS # (AUTO) 9.8 x10^3/uL (2.2-4.8); NEUTROPHILS % (AUTO) 89.2 % (42.0-75.0); PLATELET COUNT 246 X10^3/uL (150.0-450.0); RED BLOOD COUNT 4.02 X10^6/uL (3.5-5.4); RED CELL DISTRIBUTION WIDTH 15.7 % (11.6-16.5)
[2019-12-21 03:57] LABS: BLOOD UREA NITROGEN 30 mg/dL (7-18); CALCIUM 8.6 mg/dL (8.5-10.1); CARBON DIOXIDE 24.9 mmol/L (21-32); CHLORIDE 105 mmol/L (98-107); COR NA(FOR HYPERGLY) 141 mmol/L (136-145); SODIUM 139 mmol/L (136-145); TROPONIN I < 0.02 ng/mL (0-1.5); eGFR NON BLACK RACES 33 (>60)
[2019-12-21 04:20] LABS: ALANINE AMINOTRANSFERASE 24 Units/L (12-78); ALBUMIN 3.5 g/dL (3.4-5.0); ALKALINE PHOSPHATASE 111 Units/L (46-116); ASPARTATE AMINO TRANSFERASE 36 Units/L (15-37); CKMB % 5.6 % (<4); CREATINE KINASE 97 Units/L (26-192); TOTAL PROTEIN 7.8 g/dL (6.4-8.2)
[2019-12-21 04:26] LABS: CREATINE KINASE MB 5.4 ng/mL (0-4.0)
[2019-12-21] MEDS ORDERED: LASIX IVP ONE ×2 (04:53→05:00)
[2019-12-21] MEDS ORDERED: NITROSTAT SL ONE (04:54)
[2019-12-21] MEDS ORDERED: NITROSTAT ONE ×5 (05:00→19:48)
--- NOTE | 2019-12-21 05:05 | RAD ---
STUDY: FRONTAL AND LATERAL VIEW CHESTCOMPARISON: NoneHISTORY: sobFINDINGS:No focal consolidation is seen. Right IJ chemotherapy port is noted with tip projecting over the proximal SVC. Midline sternotomy wires are noted. Elevation the right hemidiaphragm is present.The heart size is enlargedThe mediastinum is unremarkable.There is no evidence of pleural effusion or gross pneumothorax.Trachea is midline.On the lateral view, the retrosternal and retrocardiac spaces are clear.IMPRESSION:Cardiomegaly is noted with findings suggesting mild degree of pulmonary edema.Electronically signed by: Dale Corley (Dec 21, 2019 05:04:31)
[2019-12-21] MEDS: HEPARIN SODIUM IN D5W 25,000 UNITS/500 ML BAG IV PRN (05:25)
[2019-12-21] MEDS ORDERED: HEPARIN SODIUM INJ 5000 UNITS ONE ×2 (05:33→17:50)
[2019-12-21] MEDS ORDERED: HEPARIN SODIUM INJ 5000 UNITS IVP ONE ×2 (05:49→18:03)
[2019-12-21] MEDS ORDERED: ELIMITE TOPICAL CREAM TOP SCH (07:00)
[2019-12-21] MEDS ORDERED: CYMBALTA PO SCH (09:00)
[2019-12-21] MEDS ORDERED: LEXAPRO PO SCH (09:00)
[2019-12-21] MEDS ORDERED: LASIX IVP SCH ×2 (09:00→17:00)
[2019-12-21] MEDS: SOLU-Medrol 125 MG VIAL IVP SCH ×3 (11:15→21:48)
[2019-12-21] MEDS: VISTARIL PO PRN ×2 (11:16→21:30)
[2019-12-21] MEDS: HumuLIN R SC PRN ×2 (11:31→17:45)
--- NOTE | 2019-12-21 12:30 | DR.H&P ---
H&P History & Physical for Day of: H&P Date: 12/21/19 Chief Complaint Chief Complaint: SOB, leg edema Allergies Allergies Allergy/AdvReac Type Severity Reaction Status Date / Time No Known Drug Allergies Allergy Verified 12/21/19 02:43 History of Present Illness History of Present Illness: Ms. Wong is a 74y/o female with a hx of CABG, CHF presented with worsening SOB. Patient reports her breathing has been worsening for the last few days and yesterday it got really bad so she decided to come to the ED. She denies any recent changes in her medications. She does not take Lasix regularly, just as needed but it's been a while. ED work-up: CXR: suggestive of pulmonary edema D-dimer elevated: 925 Patient received IV Lasix and was started on IV heparin drip. Past Medical History Past Medical History: Angina, Anxiety, Arthritis, CHF, COPD, Coronary Artery Disease, Depression, Dyslipidemia and Hypertension Additional Medical History: Cataracts, Bronchitis, Pneumonia, Hiatal Hernia, Urinary Tract Infections, Back Pain, Previous Blood Transfusion, Skin Cancer, Vaginal Cancer Past Surgical History Surgical History: Angioplasty/Stents, CABG/Valve Surgery, Cholecystectomy and Hysterectomy Additional Surgical History: Renal Stents, Lung Surgery, Vaginal Cancer Removed Family History Family Medical History: Diabetes Mellitus, Cancer, [place], Coronary Artery Disease, Heart Failure, Sudden Cardiac and Hypertension Social History Does patient currently use any type of tobacco product: No Have you used tobacco products in the last 12 months: No Type of Tobacco Use: None Does any household member use tobacco: No Alcohol Use: None Medications Home Medications: No Known Drug Allergies Allergy (Verified 12/21/19 02:43) CONTINUE taking the following medications duloxetine 30 mg PO DAILY 12/21/19 [History] escitalopram oxalate 10 mg PO DAILY 12/21/19 [History] gabapentin 100 mg PO TID 12/21/19 [History] hydroxyzine pamoate 25 mg PO PRN PRN 12/21/19 [History] prednisone 20 mg PO BID 12/21/19 [History] prednisone 20 mg PO BID 12/21/19 [History] triamcinolone acetonide 1 applic TOPICAL PRN PRN 12/21/19 [History] Labs Result Diagrams: 12/21/19 03:30 12/21/19 03:30 Labs: Laboratory WBC 11.0 X10^3/uL (3.6-10.0) H 12/21/19 03:30 RBC 4.02 X10^6/uL (3.5-5.4) 12/21/19 03:30 Hgb 12.4 g/dL (12.0-16.0) 12/21/19 03:30 Hct 38.2 % (36.0-47.0) 12/21/19 03:30 MCV 95.0 fL (80.0-100.0) 12/21/19 03:30 MCH 30.7 pg (27.0-34.0) 12/21/19 03:30 MCHC 32.3 g/dL (33.0-35.0) L 12/21/19 03:30 RDW 15.7 % (11.6-16.5) 12/21/19 03:30 Plt Count 246 X10^3/uL (150.0-450.0) 12/21/19 03:30 MPV 7.8 fL (7.4-11.0) 12/21/19 03:30 Neut % (Auto) 89.2 % (42.0-75.0) H 12/21/19 03:30 Lymph % (Auto) 9.6 % (21.0-51.0) L 12/21/19 03:30 [place] % (Auto) 1.0 % (0.0-13.0) 12/21/19 03:30 Eos % (Auto) 0.0 % (0.9-2.9) L 12/21/19 03:30 Baso % (Auto) 0.2 % (0.2-1.0) 12/21/19 03:30 Neut # (Auto) 9.8 x10^3/uL (2.2-4.8) H 12/21/19 03:30 Lymph # (Auto) 1.1 X10^3/uL (1.3-2.9) L 12/21/19 03:30 [place] # (Auto) 0.1 x10^3/uL (0.3-0.8) L 12/21/19 03:30 Eos # (Auto) 0.0 x10^3/uL (0.0-0.2) 12/21/19 03:30 Baso # (Auto) 0.0 X10^3/uL (0.0-0.1) 12/21/19 03:30 Absolute Nucleated RBC 0.0 /100WBC 12/21/19 03:30 PT 13.1 SECONDS (11.8-14.3) 12/21/19 03:30 INR Target Range - 12/21/19 03:30 INR 1.03 (0.8-1.3) 12/21/19 03:30 APTT 64.3 SECONDS (22.9-36.5) H 12/21/19 09:34 PTT Comment - 12/21/19 09:34 D-Dimer 925 ng/mL (0-400) H* 12/21/19 03:30 Sodium 139 mmol/L (136-145) 12/21/19 03:30 Corrected Sodium 141 mmol/L (136-145) 12/21/19 03:30 Potassium 4.9 mmol/L (3.5-5.1) 12/21/19 03:30 Chloride 105 mmol/L (98-107) 12/21/19 03:30 Carbon Dioxide 24.9 mmol/L (21-32) 12/21/19 03:30 BUN 30 mg/dL (7-18) H 12/21/19 03:30 Creatinine 1.60 mg/dL (0.55-1.02) H 12/21/19 03:30 Est GFR (MDRD) Af Amer 40 (>60) L 12/21/19 03:30 Est GFR (MDRD) Non-Af 33 (>60) L 12/21/19 03:30 Glucose 168 mg/dL (65-99) H 12/21/19 03:30 POC Glucose (mg/dL) 187 mg/dL (65-99) H 12/21/19 11:25 Calcium 8.6 mg/dL (8.5-10.1) 12/21/19 03:30 Corrected Calcium TNP 12/21/19 03:30 Total Bilirubin 0.20 mg/dL (0.2-1.0) 12/21/19 03:30 AST 36 Units/L (15-37) 12/21/19 03:30 ALT 24 Units/L (12-78) 12/21/19 03:30 Alkaline Phosphatase 111 Units/L (46-116) 12/21/19 03:30 Creatine Kinase 97 Units/L (26-192) 12/21/19 03:30 CK-MB (CK-2) 5.4 ng/mL (0-4.0) H* 12/21/19 03:30 CK/CKMB % Calc 5.6 % (<4) 12/21/19 03:30 Troponin I < 0.02 ng/mL (0-1.5) 12/21/19 03:30 Total Protein 7.8 g/dL (6.4-8.2) 12/21/19 03:30 Albumin 3.5 g/dL (3.4-5.0) 12/21/19 03:30 Globulin 4.3 g/dL (2.5-4.5) 12/21/19 03:30 Albumin/Globulin Ratio 0.8 Ratio (1.1-2.1) L 12/21/19 03:30 Review of Systems Constitutional: Chills and Weakness Eyes: No Symptoms Reported ENT: No Symptoms Reported Respiratory: Shortness of Breath, SOB with Excertion and Wheezing Cardiovascular: Orthopnea and Edema Gastrointestinal: No Symptoms Reported Genitourinary: No Symptoms Reported Musculoskeletal: No Symptoms Reported Skin: No Symptoms Reported Neurological: No Symptoms Reported Physical Exam Vital Signs: Temperature 98.3 F Pulse Rate [Left Brachial] 82 Pulse Rate 86 Respiratory Rate 18 Blood Pressure [Left Arm] 160/75 Blood Pressure 184/111 O2 Sat by Pulse Oximetry 100 Oriented: Normal Throat: Normal Respiratory: Rales Throughout Cardiovascular: Normal and Edema Auscultation: Bowel Sounds: Normal Palpation: Normal Tenderness: Normal Skin: Maculopapular (diffuse rash all over the body, has been chronic , multiple sizes and scabs ) Musculoskeletal: Normal Mood Description: Calm Affect: Normal Speech Pattern: Clear and Appropriate Assessment/Plan (1) Elevated d-dimer: Status: Acute Plan: D-dimer elevated 925, could be 2/2 to CKD or PE Unable to do CTA due to CKD, will follow labs in the AM, if Cr remains above 1.3 then will order VQ scan to rule out PE. Continue heparin drip (2) Pulmonary edema: Qualifiers: Chronicity: acute Qualified Code(s): J81.0 - Acute pulmonary edema Status: Acute Plan: Fluid overload state, continue strict I/Os Continue IV Lasix Echo tomorrow (3) COPD (chronic obstructive pulmonary disease): Status: Chronic Plan: Continue oxygen as needed, duonebs prn (4) Chronic kidney disease (CKD): Status: Acute Plan: Cr: 1.6, baseline around 1.4-1.5 Monitor AM labs (5) Essential hypertension: Status: Chronic (6) Hyperlipidemia: Status: Chronic (7) Dermatitis: Status: Acute Plan: continue triamcinolone and hydroxyzine (8) CAD (coronary artery disease): Status: Acute Plan: hx of CABG and multiple stents not on asa, statin, acei or bb - will start asa and statin, hold acei due to acute on chronic CKD and hold BB due to acute CHF exacberation Review H&P Reviewed: Yes Patient was examined?: Yes
[2019-12-21] MEDS ORDERED: ATIVAN INJ 2 MG VIAL IVP PRN (13:19)
[2019-12-21] MEDS: LIPITOR TAB 20 MG PO SCH (14:32)
[2019-12-21] MEDS: NEURONTIN CAP 100 MG PO SCH ×2 (14:34→21:48)
[2019-12-21] MEDS: DUONEB 0.5 MG/3 MG (3 mL) NEB SCH ×2 (18:08)
[2019-12-21] MEDS ORDERED: ELIMITE TOPICAL CREAM TOP NR (21:00)
[2019-12-22] MEDS: DUONEB 0.5 MG/3 MG (3 mL) NEB SCH ×4 (00:19→17:24)
[2019-12-22] MEDS ORDERED: HEPARIN SODIUM INJ 5000 UNITS IVP ONE ×2 (01:27→20:53)
[2019-12-22] MEDS ORDERED: HEPARIN SODIUM INJ 5000 UNITS ONE ×2 (01:29→20:57)
[2019-12-22] MEDS ORDERED: ELIMITE TOPICAL CREAM TOP SCH (04:00)
[2019-12-22] MEDS: SOLU-Medrol 125 MG VIAL IVP SCH ×3 (05:32→21:10)
[2019-12-22] MEDS: NEURONTIN CAP 100 MG PO SCH ×3 (05:32→21:10)
[2019-12-22] MEDS: NITROSTAT SL PRN ×2 (06:20→13:35)
[2019-12-22 08:23] LABS: BASOPHILS % (AUTO) 0 % (0.2-1.0); HEMOGLOBIN 11.4 g/dL (12.0-16.0); LYMPHOCYTES # (AUTO) 0.5 X10^3/uL (1.3-2.9); LYMPHOCYTES % (AUTO) 5.1 % (21.0-51.0); MEAN CORPUSCULAR HEMOGLOBIN 30.8 pg (27.0-34.0); MEAN CORPUSCULAR HGB CONC 32.4 g/dL (33.0-35.0); MEAN PLATELET VOLUME 7.9 fL (7.4-11.0); MONOCYTES # (AUTO) 0.1 x10^3/uL (0.3-0.8); MONOCYTES % (AUTO) 1.3 % (0.0-13.0); NEUTROPHILS # (AUTO) 9.5 x10^3/uL (2.2-4.8); NEUTROPHILS % (AUTO) 93.6 % (42.0-75.0); PLATELET COUNT 178 X10^3/uL (150.0-450.0); RED BLOOD COUNT 3.69 X10^6/uL (3.5-5.4); RED CELL DISTRIBUTION WIDTH 15.6 % (11.6-16.5); WHITE BLOOD COUNT 10.1 X10^3/uL (3.6-10.0)
[2019-12-22 08:37] LABS: CALCIUM 8.3 mg/dL (8.5-10.1); CARBON DIOXIDE 26.5 mmol/L (21-32); CREATININE 1.77 mg/dL (0.55-1.02); TROPONIN I 0.19 ng/mL (0-1.5)
[2019-12-22 08:40] LABS: PLATELET MORPHOLOGY COMMENT NORMAL (NORMAL)
[2019-12-22 09:12] LABS: ALBUMIN 3.1 g/dL (3.4-5.0); TOTAL PROTEIN 6.8 g/dL (6.4-8.2)
[2019-12-22 09:13] LABS: CREATINE KINASE MB 4.1 ng/mL (0-4.0)
[2019-12-22] MEDS: LIPITOR TAB 20 MG PO SCH (10:11)
[2019-12-22] MEDS: LASIX IVP SCH ×2 (10:11→20:26)
[2019-12-22] MEDS: ASPIRIN 81 MG CHEWTAB PO SCH (10:11)
[2019-12-22] MEDS: HumuLIN R SC PRN ×2 (11:48→20:29)
[2019-12-22] MEDS: HEPARIN SODIUM IN D5W 25,000 UNITS/500 ML BAG IV PRN (15:28)
[2019-12-22 19:10] LABS: CKMB % 6.2 % (<4); CREATINE KINASE MB 2.6 ng/mL (0-4.0); TROPONIN I 0.14 ng/mL (0-1.5)
[2019-12-22] MEDS: VISTARIL PO SCH (21:09)
[2019-12-22] MEDS ORDERED: TYLENOL 325 MG TAB PO PRN (21:39)
[2019-12-23] MEDS: DUONEB 0.5 MG/3 MG (3 mL) NEB SCH ×4 (00:40→18:00)
[2019-12-23 01:48] LABS: CKMB % 6.6 % (<4); CREATINE KINASE MB 2.7 ng/mL (0-4.0); TROPONIN I 0.19 ng/mL (0-1.5)
[2019-12-23] MEDS: SOLU-Medrol 125 MG VIAL IVP SCH ×2 (05:00→13:18)
[2019-12-23] MEDS: NEURONTIN CAP 100 MG PO SCH ×2 (05:00→13:18)
[2019-12-23] MEDS: VISTARIL PO SCH ×2 (05:00→13:18)
[2019-12-23 06:57] LABS: BASOPHILS % (AUTO) 0.2 % (0.2-1.0); HEMOGLOBIN 10.7 g/dL (12.0-16.0); LYMPHOCYTES # (AUTO) 0.5 X10^3/uL (1.3-2.9); LYMPHOCYTES % (AUTO) 5.4 % (21.0-51.0); MEAN CORPUSCULAR HEMOGLOBIN 31.6 pg (27.0-34.0); MEAN CORPUSCULAR HGB CONC 33.3 g/dL (33.0-35.0); MEAN CORPUSCULAR VOLUME 94.9 fL (80.0-100.0); MEAN PLATELET VOLUME 7.9 fL (7.4-11.0); MONOCYTES # (AUTO) 0.2 x10^3/uL (0.3-0.8); MONOCYTES % (AUTO) 1.9 % (0.0-13.0); NEUTROPHILS # (AUTO) 8.7 x10^3/uL (2.2-4.8); NEUTROPHILS % (AUTO) 92.5 % (42.0-75.0); PLATELET COUNT 142 X10^3/uL (150.0-450.0); RED BLOOD COUNT 3.38 X10^6/uL (3.5-5.4); RED CELL DISTRIBUTION WIDTH 15.6 % (11.6-16.5); WHITE BLOOD COUNT 9.4 X10^3/uL (3.6-10.0)
[2019-12-23 07:13] LABS: CKMB % 7.6 % (<4); CREATINE KINASE MB 2.9 ng/mL (0-4.0); TROPONIN I 0.2 ng/mL (0-1.5)
[2019-12-23 07:22] LABS: PLATELET MORPHOLOGY COMMENT NORMAL (NORMAL)
[2019-12-23] MEDS: LIPITOR TAB 20 MG PO SCH (09:04)
[2019-12-23] MEDS: LASIX IVP SCH (09:04)
[2019-12-23] MEDS: ASPIRIN 81 MG CHEWTAB PO SCH (09:04)
[2019-12-23 10:12] LABS: CKMB % 7.1 % (<4); TROPONIN I 0.17 ng/mL (0-1.5)
[2019-12-23] MEDS: HumuLIN R SC PRN ×2 (11:05→16:13)
[2019-12-23 16:16] LABS: CKMB % 6.4 % (<4); CREATINE KINASE MB 2.8 ng/mL (0-4.0); TROPONIN I 0.17 ng/mL (0-1.5)
[2019-12-23 17:09] VITALS: BP 144/66
== END 2019-12-23 18:40 | disposition home or self-care (01) | DRG 189 ==
LOC: ER 02:23 → ICU 05:26
PROVIDERS: ADMIT Internal Medicine; ATTEND Internal Medicine
DX: E78.49 Other hyperlipidemia; N18.9 Chronic kidney disease, unspecified; R06.02 Shortness of breath; J81.0 Acute pulmonary edema; I13.0 Hypertensive heart and chronic kidney disease with heart failure and stage 1 through stage 4 chronic kidney disease, or unspecified chronic kidney disease; L30.9 Dermatitis, unspecified; I25.118 Atherosclerotic heart disease of native coronary artery with other forms of angina pectoris; R26.89 Other abnormalities of gait and mobility; J44.9 Chronic obstructive pulmonary disease, unspecified; R94.31 Abnormal electrocardiogram [ECG] [EKG]; B86 Scabies
CPT/HCPCS: 36415; 71020; 71046; 80053; 82550; 82553; 84484; 85025; 85378; 85610; 85730; 93005; 93306; 94640; 96365; 96374; 96375; 97163; 97165; 99284; A4216; A4222; J1644; J1815; J1940; J2060; J2930; J3490; J7620; Q0177

== ENCOUNTER 2020-03-07 05:13 | Observation (INO) ==
--- NOTE | 2020-03-07 05:41 | DR.GENAD ---
HPI - HPI Comment HPI Comment: patient with left foot cellulitis x 1week. Had a history of same years ago. Denies fever or trauma. - COVID-19 Coronavirus risk:travel/contact w/high risk person: No Has patient experienced Coronavirus symptoms: No - Source History Provided: Patient, EMS - Mode of Arrival Mode of Arrival: Ambulatory - Timing Came on: Gradually - Duration Duration: Constant How lon Duration: Days - Severity Severity: Moderate - Modifying Factors Worsens:: unknown - Associated Signs and Symptoms Associated Signs and Symptoms: pain PMH - PMH Past Medical History: Angina, Coronary Artery Disease, Hypertension, Dyslipidemia, Depression, Anxiety, COPD, Arthritis, CHF Past Surgical History: Yes Surgical History: Angioplasty/Stents, CABG/Valve Surgery, Cholecystectomy, Hysterectomy - Family History Family Medical History: Diabetes Mellitus, Cancer, [place], Coronary Artery Disease, Heart Failure, Sudden Cardiac , Hypertension - Social History Do you use any recreational Drugs:: No - Travel Risk Coronavirus risk:travel/contact w/high risk person: No Has patient experienced Coronavirus symptoms: No ROS - Review of Systems Constitutional: No Symptoms Reported Eyes: No Symptoms Reported ENTM: No Symptoms Reported Respiratoy: No Symptoms Reported Cardiovascular: No Symptoms Reported Gastrointestinal/Abdominal: No Symptoms Reported Genitourinary: No Symptoms Reported Neurological: No Symptoms Reported Musculoskeletal: No Symptoms Reported Integumentary: Rash (left foot cellulitis) PE - General Limitations: No Limitations General Appearance: Alert, In No Apparent Distress - Head Head Exam: Normal Inspection - Eyes Eye exam: Normal Appearance, EOMI - ENT ENT Exam: Normal Exam, Normal Oropharynx External Ear Exam: Normal External Inspection Mouth Exam: Normal Inspection Throat Exam: Normal Inspection - Neck Neck Exam: Normal Inspection, Full ROM, Trachea Midline - Chest Chest Inspection: Normal Inspection - Respiratory Respiratory Exam: Normal Lung Sounds Bilat Respiratory Exam: Bilateral Clear to Auscultation - Cardiovascular Cardiovascular Exam: Regular Rate - Abdominal Exam Abdominal Exam: Normal Inspection, Normal Bowel Sounds, Soft - Extremities Extremities Exam: Full ROM, Tenderness (left foot) - Back Back Exam: Normal Inspection - Neurologic Neurological Exam: Alert, Oriented X3, CN II-XII Intact - Psychiatric Psychiatric Exam: Depressed - Skin Skin Exam: Intact, Erythema - Vital Signs Vitals: Temperature 99.0 F Pulse Rate [Left Brachial] 120 Pulse Rate 127 Respiratory Rate 22 Blood Pressure [Left Arm] 121/56 Blood Pressure 135/61 O2 Sat by Pulse Oximetry 95 Course - Treatment Treatment: 619: patient complaint of itching after getting keflex. benadryl 50mg IM orederd and decadron 4mg IM. ROR - Labs Reviewed Result Diagrams: 03/07/20 06:07 03/07/20 06:07 - Labs Reviewed Laboratory: WBC 8.3 X10^3/uL (3.6-10.0) 03/07/20 06:07 RBC 4.14 X10^6/uL (3.5-5.4) 03/07/20 06:07 Hgb 13.1 g/dL (12.0-16.0) 03/07/20 06:07 Hct 38.5 % (36.0-47.0) 03/07/20 06:07 MCV 92.8 fL (80.0-100.0) 03/07/20 06:07 MCH 31.7 pg (27.0-34.0) 03/07/20 06:07 MCHC 34.1 g/dL (33.0-35.0) 03/07/20 06:07 RDW 13.9 % (11.6-16.5) 03/07/20 06:07 Plt Count 189 X10^3/uL (150.0-450.0) 03/07/20 06:07 MPV 7.5 fL (7.4-11.0) 03/07/20 06:07 Neut % (Auto) 69.7 % (42.0-75.0) 03/07/20 06:07 Lymph % (Auto) 17.5 % (21.0-51.0) L 03/07/20 06:07 [place] % (Auto) 6.6 % (0.0-13.0) 03/07/20 06:07 Eos % (Auto) 5.0 % (0.9-2.9) H 03/07/20 06:07 Baso % (Auto) 1.2 % (0.2-1.0) H 03/07/20 06:07 Neut # (Auto) 5.8 x10^3/uL (2.2-4.8) H 03/07/20 06:07 Lymph # (Auto) 1.5 X10^3/uL (1.3-2.9) 03/07/20 06:07 [place] # (Auto) 0.6 x10^3/uL (0.3-0.8) 03/07/20 06:07 Eos # (Auto) 0.4 x10^3/uL (0.0-0.2) H 03/07/20 06:07 Baso # (Auto) 0.1 X10^3/uL (0.0-0.1) 03/07/20 06:07 Absolute Nucleated RBC 0.0 /100WBC 03/07/20 06:07 Sodium 142 mmol/L (136-145) 03/07/20 06:07 Corrected Sodium TNP 03/07/20 06:07 Potassium 3.6 mmol/L (3.5-5.1) 03/07/20 06:07 Chloride 106 mmol/L (98-107) 03/07/20 06:07 Carbon Dioxide 27.1 mmol/L (21-32) 03/07/20 06:07 BUN 26 mg/dL (7-18) H 03/07/20 06:07 Creatinine 1.38 mg/dL (0.55-1.02) H 03/07/20 06:07 Est GFR (MDRD) Af Amer 48 (>60) L 03/07/20 06:07 Est GFR (MDRD) Non-Af 40 (>60) L 03/07/20 06:07 Glucose 108 mg/dL (65-99) H 03/07/20 06:07 Calcium 9.0 mg/dL (8.5-10.1) 03/07/20 06:07 Opioid - Opioid Risk Tool Age (Kieran box if 16-45): No History of Preadolescent Sexual Abuse: No Total: 0 Total Score Risk Category: Low Risk - Diagnosis Discharge Problem: Hypertension Qualifiers: Hypertension type: essential hypertension Qualified Code(s): I10 - Essential (primary) hypertension Cellulitis Qualifiers: Site of cellulitis: other site Qualified Code(s): L03.818 - Cellulitis of other sites - Discharge Plan Condition: Stable Prescriptions: clindamycin HCl 300 mg PO TID 10 Days #30 cap - Follow ups/Referrals Follow ups/Referrals: JULISSA ALVARADO [Primary Care Provider] - 3 days - Instructions
[2020-03-07 05:48] VITALS: BMI 27.8
[2020-03-07] MEDS ORDERED: KEFLEX CAP 500 MG PO ONE ×2 (05:56→06:00)
[2020-03-07] MEDS ORDERED: CATAPRES TAB 0.2 MG PO ONE (05:57)
[2020-03-07] MEDS ORDERED: CATAPRES TAB 0.1 MG ONE (06:00)
[2020-03-07 06:25] LABS: BLOOD UREA NITROGEN 26 mg/dL (7-18); CARBON DIOXIDE 27.1 mmol/L (21-32); CHLORIDE 106 mmol/L (98-107); CREATININE 1.38 mg/dL (0.55-1.02); SODIUM 142 mmol/L (136-145); eGFR NON BLACK RACES 40 (>60)
[2020-03-07 06:27] LABS: BASOPHILS # (AUTO) 0.1 X10^3/uL (0.0-0.1); BASOPHILS % (AUTO) 1.2 % (0.2-1.0); EOSINOPHILS # (AUTO) 0.4 x10^3/uL (0.0-0.2); HEMATOCRIT 38.5 % (36.0-47.0); HEMOGLOBIN 13.1 g/dL (12.0-16.0); LYMPHOCYTES # (AUTO) 1.5 X10^3/uL (1.3-2.9); LYMPHOCYTES % (AUTO) 17.5 % (21.0-51.0); MEAN CORPUSCULAR HEMOGLOBIN 31.7 pg (27.0-34.0); MEAN CORPUSCULAR HGB CONC 34.1 g/dL (33.0-35.0); MEAN CORPUSCULAR VOLUME 92.8 fL (80.0-100.0); MEAN PLATELET VOLUME 7.5 fL (7.4-11.0); MONOCYTES # (AUTO) 0.6 x10^3/uL (0.3-0.8); MONOCYTES % (AUTO) 6.6 % (0.0-13.0); NEUTROPHILS # (AUTO) 5.8 x10^3/uL (2.2-4.8); NEUTROPHILS % (AUTO) 69.7 % (42.0-75.0); PLATELET COUNT 189 X10^3/uL (150.0-450.0); RED BLOOD COUNT 4.14 X10^6/uL (3.5-5.4); RED CELL DISTRIBUTION WIDTH 13.9 % (11.6-16.5); WHITE BLOOD COUNT 8.3 X10^3/uL (3.6-10.0)
[2020-03-07] MEDS ORDERED: BENADRYL INJ 50 MG VIAL ONE (06:30)
[2020-03-07] MEDS ORDERED: BENADRYL INJ 50 MG VIAL IM ONE (06:30)
[2020-03-07] MEDS ORDERED: CATAPRES TAB 0.1 MG PO ONE (06:32)
[2020-03-07] MEDS ORDERED: DECADRON INJ IM ONE (06:40)
[2020-03-07] MEDS ORDERED: DECADRON INJ ONE (06:41)
[2020-03-07] MEDS ORDERED: ZOFRAN TAB 4 MG PO ONE (07:03)
[2020-03-07] MEDS ORDERED: ZOFRAN TAB 4 MG ONE (07:06)
--- NOTE | 2020-03-07 08:51 | CT ---
HISTORYams, edema, skin wheepingSTUDYBRAIN W/O CONCOMPARISONCT head dated June 25, 2018.TECHNIQUEMultiple axial images of the head without contrast. Dose reduction techniques including Automated Exposure Control (AEC) and adjustment of mA and kV were utilized.FINDINGSAge related cortical atrophy and chronic small vessel ischemic changes. [No acute intraparenchymal hemorrhage or mass can be identified.] [No extra-axial fluid collections are seen.] [No alteration in the attenuation of the brain parenchyma can be identified to suggest acute or subacute ischemic change.] [The ventricular system is symmetric and nondilated.] [The extracranial structures are grossly unremarkable.]IMPRESSIONNo acute intracranial pathology. If clinically concerned for acute ischemia/infarction, MRI of the brain is more sensitive.Electronically signed by: JULISSA HARO (Mar 07, 2020 08:49:40)
--- NOTE | 2020-03-07 09:04 | RAD ---
HISTORYams,leg edema, skin wheeping, no breathing complaintsSTUDYCHEST, 1 VIEWCOMPARISONChest x-ray dated December 21, 2019.FINDINGSThe trachea is midline. Stable appearance of a right chest Port-A-Cath. The cardiac silhouette is unchanged. Postsurgical changes status post median sternotomy. The lungs are clear without focal infiltrate, pneumothorax, or effusion. The bony thorax is unremarkable.IMPRESSIONNo acute cardiopulmonary disease.Electronically signed by: JULISSA HARO (Mar 07, 2020 09:03:22)
[2020-03-07 09:25] LABS: CKMB % 3.8 % (<4); TROPONIN I 0.04 ng/mL (0-1.5)
[2020-03-07 09:33] LABS: CREATINE KINASE MB 4.9 ng/mL (0-4.0)
[2020-03-07 09:35] LABS: BILIRUBIN,URINE NEGATIVE (NEGATIVE); BLOOD/HEMOGLOBIN,URINE 1+ (NEGATIVE); GLUCOSE, URINE NEGATIVE (NEGATIVE); KETONES,URINE NEGATIVE (NEGATIVE); LEUKOCYTE ESTERASE ,URINE 3+ (NEGATIVE); NITRITES,URINE NEGATIVE (NEGATIVE); PROTEIN,URINE 2+ (NEGATIVE); UROBILINOGEN,URINE NORMAL (NORMAL)
[2020-03-07] MEDS ORDERED: NEURONTIN CAP 100 MG PO ONE (09:39)
[2020-03-07 09:46] LABS: APPEARANCE,URINE CLEAR (CLEAR); COLOR,URINE YELLOW (YELLOW)
[2020-03-07 09:47] LABS: BACTERIA,URINE TRACE /HPF (NEGATIVE); RBC,URINE 0-2 /HPF (0-3); SQUAMOUS EPITHELIAL CELL,UR FEW /HPF (NEGATIVE)
[2020-03-07] MEDS ORDERED: ROCEPHIN VIAL 1 GRAM 1 G in NS 100 ML IV + SPIKE MINIBAG* 100 ML IV ONE (09:52)
--- NOTE | 2020-03-07 09:58 | DR.GENAD ---
HPI Time Seen Time Seen by Provider: 03/07/20 05:27 PCP Primary Care Physician: CHRISTIANO HPI Comment HPI Comment: H&P PER DR. BARBER. Complaint/Symptoms Chief Complaint:: EMS CALLED TO PATIENT'S HOME BY DAUGHTER (WHOM IS OUT OF TOWN) FOR AMS; PER EMS, PATIENT'S DAUGHTER CALLED HER MOM AND NOTICED SOME CONFUSION WITH CONVERSATION. ONCE EMS ARRIVED, CELLULITIS NOTED TO LEFT LOWER LEG/FOOT; PATIENT STATES HER FOOT HURTS BUT UNABLE TO GIVE A PAIN NUMBER COVID-19 Coronavirus risk:travel/contact w/high risk person: No Has patient experienced Coronavirus symptoms: No Source History Provided: Patient and EMS Mode of Arrival Mode of Arrival: Ambulatory Timing Onset of Chief Complaint: 03/07/20 Came on: Gradually Duration Duration: Constant How lon Duration: Days Severity Severity: Moderate Modifying Factors Worsens:: unknown Associated Signs and Symptoms Associated Signs and Symptoms: pain PMH PMH Past Medical History: Yes Past Medical History: Anxiety, CHF, COPD, Coronary Artery Disease, Dyslipidemia, Gout, Hypertension and Hypothyroidism Past Medical History Comment: PNA CKD PULMONARY EDEMA RLS Past Surgical History: No Surgical History: Angioplasty/Stents, CABG/Valve Surgery, Cholecystectomy and Hysterectomy Family History History of Family Medical Conditions: No Family Medical History: Diabetes Mellitus, Cancer, [place], Coronary Artery Disease, Heart Failure, Sudden Cardiac and Hypertension Social History Alcohol Use: None Do you use any recreational Drugs:: No Lives With: Family Lives Where: Home Travel Risk Coronavirus risk:travel/contact w/high risk person: No Has patient experienced Coronavirus symptoms: No Infectious screening In the last 2 months have you had wt loss of >10#?: NO Have you had fever, night sweats or hemotysis?: No Have you traveled outside the country in the last 6 months?: No Isolation: Standard PE Vital Signs Vitals: Temperature 99.0 F Pulse Rate [Left Brachial] 98 Pulse Rate 79 Respiratory Rate 17 Blood Pressure [Left Arm] 110/62 Blood Pressure 162/81 O2 Sat by Pulse Oximetry 79 COURSE Treatment Treatment: SEE ORDERS. PATIENT SIGN OUT TO DR. FINN 08:RADHA. Consultation Consultation Comments: DISCUUSSED PATIENT WITH DR. ALVARADO. HE WILL ADMIT PATIENT. Education/Counseling Education/Counseling: Patient and Family Educated On: Diagnosis ROR Labs Reviewed Laboratory Results Reviewed?: Yes Result Diagrams: 03/07/20 06:07 03/07/20 06:07 Laboratory: WBC 8.3 X10^3/uL (3.6-10.0) 03/07/20 06:07 RBC 4.14 X10^6/uL (3.5-5.4) 03/07/20 06:07 Hgb 13.1 g/dL (12.0-16.0) 03/07/20 06:07 Hct 38.5 % (36.0-47.0) 03/07/20 06:07 MCV 92.8 fL (80.0-100.0) 03/07/20 06:07 MCH 31.7 pg (27.0-34.0) 03/07/20 06:07 MCHC 34.1 g/dL (33.0-35.0) 03/07/20 06:07 RDW 13.9 % (11.6-16.5) 03/07/20 06:07 Plt Count 189 X10^3/uL (150.0-450.0) 03/07/20 06:07 MPV 7.5 fL (7.4-11.0) 03/07/20 06:07 Neut % (Auto) 69.7 % (42.0-75.0) 03/07/20 06:07 Lymph % (Auto) 17.5 % (21.0-51.0) L 03/07/20 06:07 [place] % (Auto) 6.6 % (0.0-13.0) 03/07/20 06:07 Eos % (Auto) 5.0 % (0.9-2.9) H 03/07/20 06:07 Baso % (Auto) 1.2 % (0.2-1.0) H 03/07/20 06:07 Neut # (Auto) 5.8 x10^3/uL (2.2-4.8) H 03/07/20 06:07 Lymph # (Auto) 1.5 X10^3/uL (1.3-2.9) 03/07/20 06:07 [place] # (Auto) 0.6 x10^3/uL (0.3-0.8) 03/07/20 06:07 Eos # (Auto) 0.4 x10^3/uL (0.0-0.2) H 03/07/20 06:07 Baso # (Auto) 0.1 X10^3/uL (0.0-0.1) 03/07/20 06:07 Absolute Nucleated RBC 0.0 /100WBC 03/07/20 06:07 Sodium 142 mmol/L (136-145) 03/07/20 06:07 Corrected Sodium TNP 03/07/20 06:07 Potassium 3.6 mmol/L (3.5-5.1) 03/07/20 06:07 Chloride 106 mmol/L (98-107) 03/07/20 06:07 Carbon Dioxide 27.1 mmol/L (21-32) 03/07/20 06:07 BUN 26 mg/dL (7-18) H 03/07/20 06:07 Creatinine 1.38 mg/dL (0.55-1.02) H 03/07/20 06:07 Est GFR (MDRD) Af Amer 48 (>60) L 03/07/20 06:07 Est GFR (MDRD) Non-Af 40 (>60) L 03/07/20 06:07 Glucose 108 mg/dL (65-99) H 03/07/20 06:07 Calcium 9.0 mg/dL (8.5-10.1) 03/07/20 06:07 Creatine Kinase 130 Units/L (26-192) 03/07/20 06:07 CK-MB (CK-2) 4.9 ng/mL (0-4.0) H* 03/07/20 06:07 CK/CKMB % Calc 3.8 % (<4) 03/07/20 06:07 Troponin I 0.04 ng/mL (0-1.5) 03/07/20 06:07 Specimen Type Catherized urine 03/07/20 08:58 Urine Color Yellow (YELLOW) 03/07/20 08:58 Urine Appearance Clear (CLEAR) 03/07/20 08:58 Urine pH 5.0 (5.0 - 8.0) 03/07/20 08:58 Ur Specific [place] 1.015 (1.000-1.030) 03/07/20 08:58 Urine Protein 2+ (NEGATIVE) 03/07/20 08:58 Urine Glucose (UA) Negative (NEGATIVE) 03/07/20 08:58 Urine Ketones Negative (NEGATIVE) 03/07/20 08:58 Urine Occult Blood 1+ (NEGATIVE) 03/07/20 08:58 Urine Nitrite Negative (NEGATIVE) 03/07/20 08:58 Urine Bilirubin Negative (NEGATIVE) 03/07/20 08:58 Urine Urobilinogen Normal (NORMAL) 03/07/20 08:58 Ur Leukocyte Esterase 3+ (NEGATIVE) 03/07/20 08:58 Urine RBC 0-2 /HPF (0-3) 03/07/20 08:58 Urine WBC Tntc /HPF (0-5) A 03/07/20 08:58 Ur Squamous Epith Cells Few /HPF (NEGATIVE) 03/07/20 08:58 Urine Bacteria Trace /HPF (NEGATIVE) 03/07/20 08:58 Ur Culture Indicated? Yes/culture set up 03/07/20 08:58 XRAY XRAY Interpreted by: Radiologist (REPORTS NOTED AND DISCUSSED WITH PATIENT AND FAMILY.) and Self EKG Rate: 82 [place]: Normal Rhythm: NSR Block: 1 and IVCD Hypertrophy: None ST: Normal Opioid Opioid Risk Tool Age (Kieran box if 16-45): No History of Preadolescent Sexual Abuse: No Total: 0 Total Score Risk Category: Low Risk Copyright: [facility] predicting aberrant behaviors Diagnosis Discharge Problem: Abnormal cardiac enzyme level Hypertension Qualifiers: Hypertension type: essential hypertension Qualified Code(s): I10 - Essential (primary) hypertension Cellulitis Qualifiers: Site of cellulitis: other site Qualified Code(s): L03.818 - Cellulitis of other sites AMS (altered mental status) Qualifiers: Altered mental status type: transient alteration of awareness Qualified Code(s): R40.4 - Transient alteration of awareness UTI (urinary tract infection) Qualifiers: Urinary tract infection type: site unspecified Hematuria presence: without hematuria Qualified Code(s): N39.0 - Urinary tract infection, site not specified Instructions Forms: Excuse From Work Precautions for COVID19 Patient Portal Social Distancing
[2020-03-07] MEDS ORDERED: NS 100 ML IV 100 ML IV ONE (10:21)
[2020-03-07] MEDS ORDERED: NS 250 ML IV 250 ML IV ONE (10:22)
[2020-03-07] MEDS ORDERED: ROCEPHIN VIAL 1 GRAM ONE (10:22)
--- NOTE | 2020-03-07 10:47 | DR.H&P ---
H&P - History & Physical for Day of: H&P Date: 03/07/20 - Chief Complaint Chief Complaint: CONFUSION, REDNESS AND SWELLING WITH DRAINAGE TO LEF, WEAKNESS - History of Present Illness History of Present Illness: EMS CALLED TO PATIENT'S HOME BY DAUGHTER (WHOM IS OUT OF TOWN) FOR AMS; PER EMS, PATIENT'S DAUGHTER CALLED HER MOM AND NOTICED SOME CONFUSION WITH CONVERSATION. ONCE EMS ARRIVED, CELLULITIS NOTED TO LEFT LOWER LEG/FOOT; PATIENT STATES HER FOOT HURTS BUT UNABLE TO GIVE A PAIN NUMBER - Past Medical History Past Medical History: Coronary Artery Disease, Hypertension, Dyslipidemia, Anxiety, Hypothyroidism, COPD, Gout, CHF Additional Medical History: Cataracts, Bronchitis, Pneumonia, Hiatal Hernia, Urinary Tract Infections, Back Pain, Previous Blood Transfusion, Skin Cancer, Vaginal Cancer - Past Surgical History Surgical History: Angioplasty/Stents, CABG/Valve Surgery, Cholecystectomy, Hysterectomy Additional Surgical History: Renal Stents, Lung Surgery, Vaginal Cancer Removed - Family History Family Medical History: Diabetes Mellitus, Cancer, [place], Coronary Artery Disease, Heart Failure, Sudden Cardiac , Hypertension - Social History Alcohol Use: None - Medications Home Medications: No Known Drug Allergies Allergy (Verified 12/21/19 02:43) New Prescriptions clindamycin HCl 300 mg PO TID 10 Days #30 cap 03/07/20 [Rx] - Review of Systems Constitutional: Weakness Eyes: No Symptoms Reported ENT: No Symptoms Reported Respiratory: No Symptoms Reported Cardiovascular: Chest Pain, Edema Gastrointestinal: No Symptoms Reported Genitourinary: No Symptoms Reported Musculoskeletal: Leg Pain Skin: Wound Neurological: Weakness - Physical Exam Vital Signs: Temperature 99.0 F Pulse Rate [Left Brachial] 98 Pulse Rate 79 Respiratory Rate 17 Blood Pressure [Left Arm] 110/62 Blood Pressure 159/77 O2 Sat by Pulse Oximetry 79 Oriented: Normal Eyes: Normal Ear: Normal Nose: Normal Throat: Normal Respiratory: RLL Diminished, LLL Diminished Cardiovascular: Normal, Edema : Normal Auscultation: Bowel Sounds: Normal Palpation: Normal Tenderness: Normal Skin: Decreased Turgur, Wound (LLE) Musculoskeletal: Left, Leg, Back:Lumbar, Swelling, Tender Psychiatric: Anxiety Affect: Anxious Speech Pattern: Clear, Appropriate - Assessment/Plan (1) Left leg cellulitis Status: Acute Plan: ADMIT, IV HYDRATION, CARDIAC MONITORING. ADMISSION LABS CBC CMP UA BLOOD AND WOUND CULTURES. VERIFY HOME MEDICATION, IV ATBX THERAPY. CT HEAD ON ADMISSION,C XR ON ADMISSION (2) AMS (altered mental status) Qualifiers: Altered mental status type: transient alteration of awareness Qualified Code(s): R40.4 - Transient alteration of awareness Status: Acute (3) Hypertension Qualifiers: Hypertension type: essential hypertension Qualified Code(s): I10 - Essential (primary) hypertension Status: Acute (4) CAD (coronary artery disease) Status: Acute (5) Cardiac asthma Status: Acute - Allergies Allergies/Adverse Reactions: Allergies Allergy/AdvReac Type Severity Reaction Status Date / Time No Known Drug Allergies Allergy Verified 12/21/19 02:43
[2020-03-07] MEDS ORDERED: NS 1000 ML 1,000 ML IV SCH (14:46)
[2020-03-07 17:16] LABS: CKMB % 2.7 % (<4); TROPONIN I 0.03 ng/mL (0-1.5)
[2020-03-07 17:21] LABS: CREATINE KINASE MB 4.6 ng/mL (0-4.0)
[2020-03-07] MEDS: TEFLARO 400 MG in NS 50 ML IV 50 ML IV SCH (20:24)
[2020-03-07] MEDS ORDERED: TEFLARO IV SCH (21:00)
[2020-03-07] MEDS ORDERED: NS IV SCH (21:00)
[2020-03-07 22:23] LABS: CKMB % 2.5 % (<4); CREATINE KINASE MB 3.2 ng/mL (0-4.0); TROPONIN I 0.03 ng/mL (0-1.5)
[2020-03-08 06:27] LABS: BASOPHILS % (AUTO) 0.5 % (0.2-1.0); EOSINOPHILS # (AUTO) 0.2 x10^3/uL (0.0-0.2); EOSINOPHILS % (AUTO) 2.8 % (0.9-2.9); HEMATOCRIT 32.8 % (36.0-47.0); HEMOGLOBIN 11.1 g/dL (12.0-16.0); LYMPHOCYTES # (AUTO) 1.3 X10^3/uL (1.3-2.9); LYMPHOCYTES % (AUTO) 17.1 % (21.0-51.0); MEAN CORPUSCULAR HEMOGLOBIN 31.4 pg (27.0-34.0); MEAN CORPUSCULAR VOLUME 92.6 fL (80.0-100.0); MEAN PLATELET VOLUME 7.6 fL (7.4-11.0); MONOCYTES # (AUTO) 0.5 x10^3/uL (0.3-0.8); MONOCYTES % (AUTO) 6.4 % (0.0-13.0); NEUTROPHILS # (AUTO) 5.7 x10^3/uL (2.2-4.8); NEUTROPHILS % (AUTO) 73.2 % (42.0-75.0); PLATELET COUNT 169 X10^3/uL (150.0-450.0); RED BLOOD COUNT 3.54 X10^6/uL (3.5-5.4); RED CELL DISTRIBUTION WIDTH 13.6 % (11.6-16.5); WHITE BLOOD COUNT 7.8 X10^3/uL (3.6-10.0)
[2020-03-08 06:36] LABS: ALANINE AMINOTRANSFERASE 13 Units/L (12-78); ALBUMIN 2.6 g/dL (3.4-5.0); ALKALINE PHOSPHATASE 70 Units/L (46-116); ASPARTATE AMINO TRANSFERASE 20 Units/L (15-37); BLOOD UREA NITROGEN 26 mg/dL (7-18); CALCIUM 8.1 mg/dL (8.5-10.1); CARBON DIOXIDE 26.8 mmol/L (21-32); CHLORIDE 108 mmol/L (98-107); COR CA(FOR HYPOALB) 9.2 mg/dL (8.5-10.1); CREATININE 1.43 mg/dL (0.55-1.02); MAGNESIUM 2.3 mg/dL (1.7-2.9); SODIUM 142 mmol/L (136-145); TOTAL PROTEIN 5.8 g/dL (6.4-8.2); eGFR NON BLACK RACES 38 (>60)
[2020-03-08] MEDS: TEFLARO 400 MG in NS 50 ML IV 50 ML IV SCH (09:11)
[2020-03-08] MEDS ORDERED: LOVENOX INJ 30 MG SYR SC SCH (11:00)
[2020-03-08] MEDS ORDERED: LOVENOX INJ 40 MG SYR SC SCH (11:00)
[2020-03-08 12:59] VITALS: BP 143/71
== END 2020-03-08 15:05 | disposition home health service (06) ==
LOC: OBS 05:13 → ER 05:13 → OBS 13:56
PROVIDERS: ADMIT Internal Medicine; ATTEND Internal Medicine
DX: I10 Essential (primary) hypertension; R40.4 Transient alteration of awareness; Z79.899 Other long term (current) drug therapy; I25.10 Atherosclerotic heart disease of native coronary artery without angina pectoris; N39.0 Urinary tract infection, site not specified; L03.116 Cellulitis of left lower limb; J44.9 Chronic obstructive pulmonary disease, unspecified; R94.31 Abnormal electrocardiogram [ECG] [EKG]; R23.8 Other skin changes; R60.0 Localized edema

== ENCOUNTER 2020-04-10 08:43 | Observation (INO) ==
--- NOTE | 2020-04-10 08:48 | DR.AMS ---
HPI Time Seen Time Seen by Provider: 04/10/20 08:47 HPI Comment HPI Comment: 74 yo f w/ prev hx of CAD, dementia presents w/ AMS x 1 day. Increasing agitation t/o the night last night. Wondered out of house. Had unwitnessed fall striking left face. No recent f/c, urinary sx's, cough, SOB, n/v/d. Reviewed Nurses Notes Reviewed: Yes Source History Provided: Patient and Family Member Mode of Arrival Mode of Arrival: EMS Timing Symptoms: Worsening Duration Duration: Since Onset How lon Duration: Days Quality Quality: Change in Behavior and Confusion Severity Severity: Moderate Context Recent: Trauma; denies Fever, Cough, Urinary Symptoms, Nausea, Vomiting, Rash, Medication Change and Drug Use History Of: Dementia; denies CVA, On Insulin and Immunosuppresion Associated Signs and Symptoms Associated Signs and Symptoms: Slurred Speech and Change in Behavior PMH PMH Past Medical History: Anxiety, CHF, COPD, Coronary Artery Disease, Dyslipidemia, Gout, Hypertension and Hypothyroidism Past Surgical History: No Surgical History: Angioplasty/Stents, CABG/Valve Surgery, Cholecystectomy and Hysterectomy Family History Family Medical History: Diabetes Mellitus, Cancer, [place], Coronary Artery Disease, Heart Failure, Sudden Cardiac and Hypertension Social History Does patient currently use any type of tobacco product: No Alcohol Use: None Do you use any recreational Drugs:: No Lives With: Family ROS Review of Systems Constitutional: No Symptoms Reported Eyes: No Symptoms Reported ENTM: No Symptoms Reported Respiratoy: No Symptoms Reported Cardiovascular: No Symptoms Reported Gastrointestinal/Abdominal: No Symptoms Reported Genitourinary: No Symptoms Reported Neurological: Headache Musculoskeletal: negative Joint Pain and Joint Swelling Integumentary: No Symptoms Reported Hematologic/Lymphatic: No Symptoms Reported Endocrine: No Symptoms Reported Psychiatric: No Symptoms Reported All Other Systems: Reviewed and Negative Unable to Obtain Due To: Altered mental status and Dementia PE Vitals Vital Signs: Temp Pulse Resp BP BP Pulse Ox 04/10/20 09:35 73 24 98 04/10/20 09:32 137/70 04/10/20 08:50 97.9 F 70 20 129/72 98 03/08/20 12:00 143/71 General Limitations: Altered Mental Status General Appearance: Alert and Other (a/o x 3, mildly confused, aggitated) Head Head Exam: Normal Inspection Head Exam Physical: Other (diffuse left periorbital eccymosis, remainder of scalp atraumatic ) Eyes Eye exam: Normal Appearance, PERRL and EOMI ENT ENT Exam: Normal Exam External Ear Exam: Normal External Inspection Nose Exam: Normal Nose Exam Mouth Exam: Normal Inspection Throat Exam: Normal Inspection Neck Neck Exam: Normal Inspection, Full ROM and Trachea Midline; negative Tenderness, Meningismus and Lymphadenopathy Chest Chest Inspection: Normal Inspection Respiratory Respiratory Exam: Normal Lung Sounds Bilat Cardiovascular Cardiovascular Exam: Regular Rate and Normal Rhythm Abdominal Exam Abdominal Exam: Normal Inspection, Normal Bowel Sounds and Soft Extremities Extremities Exam: Normal Inspection Back Back Exam: Normal Inspection Neurological Neurological Exam: Alert and Oriented X3; negative Motor Sensory Deficit Patient Oriented To: Person, Place and Time Speech: Fluid Speech Cranial Nerve Exam: EOM Function (II, III, IV, ): Normal and Facial Palsy (VII): Normal Motor Strength - LUE: 5/5 Motor Strength - RUE: 5/5 Motor Strength - LLE: 5/5 Motor Strength - RLE: 5/5 Psychological Psychiatric Exam: Agitated and Anxious Skin Skin Exam: Warm, Dry, Intact and Normal Color Other Exam Other Exam: extremities atraumatic, full arom of all major joints, no joint swelling, hips non tender MDM Additional Information Obtained Additional Information Obtained From: Family and Upsetter Helper Differential Diagnosis Metabolic: Delirium tr., DKA, Hypoglycemia and Hyponatremia Structural: C-spine Injury and Closed Head Injury Toxicologic: Medication Toxicity Infectious: Sepsis COURSE Treatment Treatment: CT head/ c spine negative. Plain films of elbow/ hips negative. No obvious orthopedic or intracranial injury. Patient is a/o x 3 but agitated/ demented. Mild elevation of cre but does not meet criteria for uti. CXR w/o s/o pna. UA negative for uti-. Will admit to obs. Requires placement for advancement of her dementia. UDS did demonstrate presence of benzodiazapenes which may be contributing to delirium. ROR Labs Reviewed Result Diagrams: 04/10/20 09:00 04/10/20 09:00 Laboratory: WBC 7.1 X10^3/uL (3.6-10.0) 04/10/20 09:00 RBC 3.81 X10^6/uL (3.5-5.4) 04/10/20 09:00 Hgb 12.0 g/dL (12.0-16.0) 04/10/20 09:00 Hct 35.7 % (36.0-47.0) L 04/10/20 09:00 MCV 93.8 fL (80.0-100.0) 04/10/20 09:00 MCH 31.4 pg (27.0-34.0) 04/10/20 09:00 MCHC 33.5 g/dL (33.0-35.0) 04/10/20 09:00 RDW 13.9 % (11.6-16.5) 04/10/20 09:00 Plt Count 173 X10^3/uL (150.0-450.0) 04/10/20 09:00 MPV 8.0 fL (7.4-11.0) 04/10/20 09:00 Neut % (Auto) 68.0 % (42.0-75.0) 04/10/20 09:00 Lymph % (Auto) 16.9 % (21.0-51.0) L 04/10/20 09:00 [place] % (Auto) 8.0 % (0.0-13.0) 04/10/20 09:00 Eos % (Auto) 6.0 % (0.9-2.9) H 04/10/20 09:00 Baso % (Auto) 1.1 % (0.2-1.0) H 04/10/20 09:00 Neut # (Auto) 4.8 x10^3/uL (2.2-4.8) 04/10/20 09:00 Lymph # (Auto) 1.2 X10^3/uL (1.3-2.9) L 04/10/20 09:00 [place] # (Auto) 0.6 x10^3/uL (0.3-0.8) 04/10/20 09:00 Eos # (Auto) 0.4 x10^3/uL (0.0-0.2) H 04/10/20 09:00 Baso # (Auto) 0.1 X10^3/uL (0.0-0.1) 04/10/20 09:00 Absolute Nucleated RBC 0.0 /100WBC 04/10/20 09:00 Sodium 141 mmol/L (136-145) 04/10/20 09:00 Corrected Sodium TNP 04/10/20 09:00 Potassium 3.6 mmol/L (3.5-5.1) 04/10/20 09:00 Chloride 105 mmol/L (98-107) 04/10/20 09:00 Carbon Dioxide 25.8 mmol/L (21-32) 04/10/20 09:00 BUN 21 mg/dL (7-18) H 04/10/20 09:00 Creatinine 1.72 mg/dL (0.55-1.02) H 04/10/20 09:00 Est GFR (MDRD) Af Amer 37 (>60) L 04/10/20 09:00 Est GFR (MDRD) Non-Af 31 (>60) L 04/10/20 09:00 Glucose 94 mg/dL (65-99) 04/10/20 09:00 Calcium 8.2 mg/dL (8.5-10.1) L 04/10/20 09:00 Corrected Calcium 9.0 mg/dL (8.5-10.1) 04/10/20 09:00 Total Bilirubin 0.30 mg/dL (0.2-1.0) 04/10/20 09:00 AST 20 Units/L (15-37) 04/10/20 09:00 ALT 13 Units/L (12-78) 04/10/20 09:00 Alkaline Phosphatase 98 Units/L (46-116) 04/10/20 09:00 Total Protein 6.5 g/dL (6.4-8.2) 04/10/20 09:00 Albumin 3.0 g/dL (3.4-5.0) L 04/10/20 09:00 Globulin 3.5 g/dL (2.5-4.5) 04/10/20 09:00 Albumin/Globulin Ratio 0.9 Ratio (1.1-2.1) L 04/10/20 09:00 Specimen Type Catherized urine 04/10/20: Urine Color Yellow (YELLOW) 04/10/20: Urine Appearance Clear (CLEAR) 04/10/20: Urine pH 5.0 (5.0 - 8.0) 04/10/20: Ur Specific [place] 1.015 (1.000-1.030) 04/10/20:25 Urine Protein 1+ (NEGATIVE) 04/10/20 09:25 Urine Glucose (UA) Negative (NEGATIVE) 04/10/20 09:25 Urine Ketones Negative (NEGATIVE) 04/10/20 09:25 Urine Occult Blood Negative (NEGATIVE) 04/10/20 09:25 Urine Nitrite Negative (NEGATIVE) 04/10/20 09:25 Urine Bilirubin Negative (NEGATIVE) 04/10/20 09:25 Urine Urobilinogen Normal (NORMAL) 04/10/20 09:25 Ur Leukocyte Esterase Negative (NEGATIVE) 04/10/20 09:25 Urine RBC 0-2 /HPF (0-3) 04/10/20 09:25 Urine WBC 0-2 /HPF (0-5) 04/10/20 09:25 Ur Squamous Epith Cells Moderate /HPF (NEGATIVE) 04/10/20 09:25 Urine Bacteria Trace /HPF (NEGATIVE) 04/10/20 09:25 Ur Culture Indicated? No/not indicated 04/10/20 09:25 Urine Opiates Screen Negative (NEG=<300) 04/10/20 09:25 Urine Methadone Screen Negative (NEG=<300) 04/10/20 09:25 Ur Barbiturates Screen Negative (NEG=<200) 04/10/20 09:25 Ur Phencyclidine Scrn Negative (NEG=<25) 04/10/20 09:25 Ur Amphetamines Screen Negative (NEG=<1000) 04/10/20 09:25 U Benzodiazepines Scrn Positive (NEG=<200) A 04/10/20 09:25 Urine Cocaine Screen Negative (NEG=<300) 04/10/20 09:25 U Marijuana (THC) Screen Negative (NEG=<50) 04/10/20 09:25 EKG [place]: Normal Rhythm: NSR Block: None Hypertrophy: None ST: Normal Opioid Opioid Risk Tool Age (Kieran box if 16-45): No History of Preadolescent Sexual Abuse: No Total: 0 Total Score Risk Category: Low Risk Copyright: [facility] predicting aberrant behaviors Diagnosis Discharge Problem: AMS (altered mental status) Qualifiers: Altered mental status type: delirium Qualified Code(s): R41.0 - Disorientation, unspecified Fall Qualifiers: Encounter type: initial encounter Qualified Code(s): W19.XXXA - Unspecified fall, initial encounter
[2020-04-10 09:26] LABS: BASOPHILS # (AUTO) 0.1 X10^3/uL (0.0-0.1); BASOPHILS % (AUTO) 1.1 % (0.2-1.0); EOSINOPHILS # (AUTO) 0.4 x10^3/uL (0.0-0.2); HEMATOCRIT 35.7 % (36.0-47.0); LYMPHOCYTES # (AUTO) 1.2 X10^3/uL (1.3-2.9); LYMPHOCYTES % (AUTO) 16.9 % (21.0-51.0); MEAN CORPUSCULAR HEMOGLOBIN 31.4 pg (27.0-34.0); MEAN CORPUSCULAR HGB CONC 33.5 g/dL (33.0-35.0); MEAN CORPUSCULAR VOLUME 93.8 fL (80.0-100.0); MONOCYTES # (AUTO) 0.6 x10^3/uL (0.3-0.8); NEUTROPHILS # (AUTO) 4.8 x10^3/uL (2.2-4.8); PLATELET COUNT 173 X10^3/uL (150.0-450.0); RED BLOOD COUNT 3.81 X10^6/uL (3.5-5.4); RED CELL DISTRIBUTION WIDTH 13.9 % (11.6-16.5); WHITE BLOOD COUNT 7.1 X10^3/uL (3.6-10.0)
[2020-04-10 09:31] LABS: ALANINE AMINOTRANSFERASE 13 Units/L (12-78); ALKALINE PHOSPHATASE 98 Units/L (46-116); ASPARTATE AMINO TRANSFERASE 20 Units/L (15-37); BLOOD UREA NITROGEN 21 mg/dL (7-18); CALCIUM 8.2 mg/dL (8.5-10.1); CARBON DIOXIDE 25.8 mmol/L (21-32); CHLORIDE 105 mmol/L (98-107); CREATININE 1.72 mg/dL (0.55-1.02); SODIUM 141 mmol/L (136-145); TOTAL PROTEIN 6.5 g/dL (6.4-8.2); eGFR NON BLACK RACES 31 (>60)
--- NOTE | 2020-04-10 09:37 | RAD ---
HISTORYAMSSTUDYPortable AP [id number]/19/2020FINDINGSUpper normal heart size with sternal wires. The manubrial wires are broken but not displaced. The lungs are essentially clear. Stable position of right IJ injection port terminating in the SVC.IMPRESSIONNo change or acute chest abnormality demonstrated.Electronically signed by: LUL CENTENO (April 10, 2020 09:33:03)
--- NOTE | 2020-04-10 09:38 | CT ---
HISTORYAltered mental statusSTUDYCT of the brain without contrastCOMPARISONApril 2019Noncontrast CT of the head is performed in the axial plane from the base of the skull through the vertex.FINDINGSNo acute intracranial hemorrhage or extra-axial fluid collection is identified. There is no mass effect shift or cerebral edema pattern observed. Moderate cortical volume loss is evident. There is commensurate dilation of the lateral ventricles. Patchy subcortical and periventricular white matter hypoattenuation is consistent with chronic microangiopathic ischemic change. There is a chronic lacunar infarct associated with the left cerebellum. Hypoattenuation of the central julissa is also likely related to chronic small vessel ischemia. Atherosclerotic calcifications of the cavernous ICA segments and bilateral vertebral arteries are observed. The imaged paranasal sinuses and the mastoid air cells are predominantly clear. A trace dependent right mastoid effusion is observed incidentally. The calvarium is intact.IMPRESSIONNo acute intracranial abnormalities. Chronic age related involutional changes and microangiopathic ischemic changes as discussed aboveElectronically signed by: MIGUEL MADDOX (April 10, 2020 09:37:13)
[2020-04-10 09:40] LABS: BILIRUBIN,URINE NEGATIVE (NEGATIVE); BLOOD/HEMOGLOBIN,URINE NEGATIVE (NEGATIVE); GLUCOSE, URINE NEGATIVE (NEGATIVE); KETONES,URINE NEGATIVE (NEGATIVE); LEUKOCYTE ESTERASE ,URINE NEGATIVE (NEGATIVE); NITRITES,URINE NEGATIVE (NEGATIVE); PROTEIN,URINE 1+ (NEGATIVE); UROBILINOGEN,URINE NORMAL (NORMAL)
--- NOTE | 2020-04-10 09:46 | CT ---
HISTORYFall with neck painSTUDYCT cervical spine without contrastCOMPARISONNoneNoncontrast CT cervical spine performed in the axial plane and reconstructed with multiplanar imaging techniques.Radiation dose reduction was achieved through individualized adjustment of kVP and/or mA, through adaptive statistical iterative reconstruction, and/or through automated tube current modulation.FINDINGSThe included lung apices are clear. Atherosclerotic calcifications are associated heavily with the wall of the thoracic aorta, origin of the left subclavian artery, left common carotid right brachiocephalic and subclavian artery segments. Atherosclerotic calcifications are also present within the bilateral carotid bulbs. A stent is suspected within the left subclavian artery origin. A right-sided central venous catheter is in place. Postsurgical changes of median sternotomy are observed.The cranial cervical alignment is preserved. The occipital condyles are intact. Degenerative findings consist of multilevel cervical spondylosis, facet hypertrophy and uncovertebral hypertrophy contributing to varying degrees of multilevel bilateral neural foraminal compromise. There is straightening of the normal lordotic curve. Minimal grade 1 anterolisthesis of C4 on 5 is observed. Otherwise the cervical column is anatomically aligned. There are no perched or dislocated facet joints. No acute fractures are demonstrated.Please refer to separate CT head report for complete details of the separately acquired imaging procedure.IMPRESSIONNo acute cervical spine fracture or posttraumatic subluxation.Other chronic degenerative findings as detailed above contributing to multilevel neural foraminal compromiseDiffuse atherosclerotic changes and postsurgical cardiovascular findings as described above.Electronically signed by: MIGUEL MADDOX (April 10, 2020 09:43:51)
[2020-04-10 09:49] LABS: APPEARANCE,URINE CLEAR (CLEAR); COLOR,URINE YELLOW (YELLOW)
[2020-04-10 09:50] LABS: BACTERIA,URINE TRACE /HPF (NEGATIVE); RBC,URINE 0-2 /HPF (0-3); SQUAMOUS EPITHELIAL CELL,UR MODERATE /HPF (NEGATIVE)
--- NOTE | 2020-04-10 10:26 | RAD ---
HISTORYFellSTUDYBilateral hips, three [id number]/29/2018FINDINGSNo definite fracture or dislocation. The femoral heads are in normal position. There is mild narrowing of the joint spaces. No bone destruction or periarticular calcification identified.IMPRESSIONMild bilateral hip osteoarthrosis. No acute injury identified.Electronically signed by: LUL CENTENO (April 10, 2020 10:25:23)
--- NOTE | 2020-04-10 10:27 | RAD ---
HISTORYFellSTUDYRight elbow three viewsCOMPARISONNoneFINDINGSNo definite fracture or dislocation or evidence for synovial distension. Joint spaces are normal.IMPRESSIONNo injury identified.Electronically signed by: LUL CENTENO (April 10, 2020 10:26:29)
[2020-04-10 11:38] VITALS: BMI 28.6
--- NOTE | 2020-04-10 12:16 | DR.H&P ---
H&P History & Physical for Day of: H&P Date: 04/10/20 Chief Complaint Chief Complaint: Altered mental status Allergies Allergies Allergy/AdvReac Type Severity Reaction Status Date / Time No Known Drug Allergies Allergy Verified 12/21/19 02:43 History of Present Illness History of Present Illness: Pt is a 74 yo f pmhx CAD, Dementia admitted for altered mental status after having increased agitation and confusion, found to be wandering outside the house. She also had an unwitnessed fall striking left face. Initial labs/imaging: Wbc 7.1, Hgb 12, Plt 173, Na 141, K 3.6, Cr 1.72, Gluc 94, UA now c/w infection. UDS +Benzodiazepines. Imaging did not identify any fractures. CT head and neck negative for acute findings. Will start patient on IVF NS@80ml/h. Resume home medications. Hold nephrotoxic agents. Continue other home medications. Will continue to monitor and follow up labs in the morning. Past Medical History Past Medical History: Anxiety, CHF, COPD, Coronary Artery Disease, Dementia, Dyslipidemia, Gout, Hypertension and Hypothyroidism Additional Medical History: Cataracts, Bronchitis, Pneumonia, Hiatal Hernia, Urinary Tract Infections, Back Pain, Previous Blood Transfusion, Skin Cancer, Vaginal Cancer Past Surgical History Surgical History: Angioplasty/Stents, CABG/Valve Surgery, Cholecystectomy and Hysterectomy Additional Surgical History: Renal Stents, Lung Surgery, Vaginal Cancer Removed Family History Family Medical History: Diabetes Mellitus, Cancer, [place], Coronary Artery Disease, Heart Failure, Sudden Cardiac and Hypertension Social History Does patient currently use any type of tobacco product: No Have you used tobacco products in the last 12 months: No Type of Tobacco Use: None Does any household member use tobacco: No Alcohol Use: None Drug Use: Prescription Drugs Medications Home Medications: No Known Drug Allergies Allergy (Verified 12/21/19 02:43) CONTINUE taking the following medications escitalopram oxalate [Lexapro] 10 mg PO DAILY 04/10/20 [History] Labs Result Diagrams: 04/10/20 09:00 04/10/20 09:00 Labs: Laboratory WBC 7.1 X10^3/uL (3.6-10.0) 04/10/20 09:00 RBC 3.81 X10^6/uL (3.5-5.4) 04/10/20 09:00 Hgb 12.0 g/dL (12.0-16.0) 04/10/20 09:00 Hct 35.7 % (36.0-47.0) L 04/10/20 09:00 MCV 93.8 fL (80.0-100.0) 04/10/20 09:00 MCH 31.4 pg (27.0-34.0) 04/10/20 09:00 MCHC 33.5 g/dL (33.0-35.0) 04/10/20 09:00 RDW 13.9 % (11.6-16.5) 04/10/20 09:00 Plt Count 173 X10^3/uL (150.0-450.0) 04/10/20 09:00 MPV 8.0 fL (7.4-11.0) 04/10/20 09:00 Neut % (Auto) 68.0 % (42.0-75.0) 04/10/20 09:00 Lymph % (Auto) 16.9 % (21.0-51.0) L 04/10/20 09:00 [place] % (Auto) 8.0 % (0.0-13.0) 04/10/20 09:00 Eos % (Auto) 6.0 % (0.9-2.9) H 04/10/20 09:00 Baso % (Auto) 1.1 % (0.2-1.0) H 04/10/20 09:00 Neut # (Auto) 4.8 x10^3/uL (2.2-4.8) 04/10/20 09:00 Lymph # (Auto) 1.2 X10^3/uL (1.3-2.9) L 04/10/20 09:00 [place] # (Auto) 0.6 x10^3/uL (0.3-0.8) 04/10/20 09:00 Eos # (Auto) 0.4 x10^3/uL (0.0-0.2) H 04/10/20 09:00 Baso # (Auto) 0.1 X10^3/uL (0.0-0.1) 04/10/20 09:00 Absolute Nucleated RBC 0.0 /100WBC 04/10/20 09:00 Sodium 141 mmol/L (136-145) 05/23/20 09:00 Corrected Sodium TNP 04/10/20 09:00 Potassium 3.6 mmol/L (3.5-5.1) 04/10/20 09:00 Chloride 105 mmol/L (98-107) 04/10/20 09:00 Carbon Dioxide 25.8 mmol/L (21-32) 04/10/20 09:00 BUN 21 mg/dL (7-18) H 04/10/20 09:00 Creatinine 1.72 mg/dL (0.55-1.02) H 04/10/20 09:00 Est GFR (MDRD) Af Amer 37 (>60) L 04/10/20 09:00 Est GFR (MDRD) Non-Af 31 (>60) L 04/10/20 09:00 Glucose 94 mg/dL (65-99) 04/10/20 09:00 Calcium 8.2 mg/dL (8.5-10.1) L 04/10/20 09:00 Corrected Calcium 9.0 mg/dL (8.5-10.1) 04/10/20 09:00 Total Bilirubin 0.30 mg/dL (0.2-1.0) 04/10/20 09:00 AST 20 Units/L (15-37) 04/10/20 09:00 ALT 13 Units/L (12-78) 04/10/20 09:00 Alkaline Phosphatase 98 Units/L (46-116) 04/10/20 09:00 Total Protein 6.5 g/dL (6.4-8.2) 04/10/20 09:00 Albumin 3.0 g/dL (3.4-5.0) L 04/10/20 09:00 Globulin 3.5 g/dL (2.5-4.5) 04/10/20 09:00 Albumin/Globulin Ratio 0.9 Ratio (1.1-2.1) L 04/10/20 09:00 Specimen Type Catherized urine 04/10/20:25 Urine Color Yellow (YELLOW) 04/10/20: Urine Appearance Clear (CLEAR) 04/10/20: Urine pH 5.0 (5.0 - 8.0) 04/10/20: Ur Specific [place] 1.015 (1.000-1.030) 05/23/20 09:25 Urine Protein 1+ (NEGATIVE) 04/10/20 09:25 Urine Glucose (UA) Negative (NEGATIVE) 04/10/20 09:25 Urine Ketones Negative (NEGATIVE) 04/10/20 09:25 Urine Occult Blood Negative (NEGATIVE) 04/10/20 09:25 Urine Nitrite Negative (NEGATIVE) 04/10/20 09:25 Urine Bilirubin Negative (NEGATIVE) 04/10/20 09:25 Urine Urobilinogen Normal (NORMAL) 04/10/20 09:25 Ur Leukocyte Esterase Negative (NEGATIVE) 04/10/20 09:25 Urine RBC 0-2 /HPF (0-3) 04/10/20 09:25 Urine WBC 0-2 /HPF (0-5) 04/10/20 09:25 Ur Squamous Epith Cells Moderate /HPF (NEGATIVE) 04/10/20 09:25 Urine Bacteria Trace /HPF (NEGATIVE) 04/10/20 09:25 Ur Culture Indicated? No/not indicated 04/10/20 09:25 Urine Opiates Screen Negative (NEG=<300) 04/10/20 09:25 Urine Methadone Screen Negative (NEG=<300) 04/10/20 09:25 Ur Barbiturates Screen Negative (NEG=<200) 04/10/20 09:25 Ur Phencyclidine Scrn Negative (NEG=<25) 04/10/20 09:25 Ur Amphetamines Screen Negative (NEG=<1000) 04/10/20 09:25 U Benzodiazepines Scrn Positive (NEG=<200) A 04/10/20 09:25 Urine Cocaine Screen Negative (NEG=<300) 04/10/20 09:25 U Marijuana (THC) Screen Negative (NEG=<50) 04/10/20 09:25 Review of Systems Constitutional: No Symptoms Reported Eyes: No Symptoms Reported ENT: No Symptoms Reported Respiratory: No Symptoms Reported Cardiovascular: No Symptoms Reported Genitourinary: No Symptoms Reported Musculoskeletal: No Symptoms Reported Skin: No Symptoms Reported Neurological: No Symptoms Reported Physical Exam Vital Signs: Temperature 97.6 F Pulse Rate [Right Brachial] 63 Pulse Rate 63 Respiratory Rate 18 Blood Pressure [Right Arm] 174/81 Blood Pressure [Left Arm] 143/71 Blood Pressure 180/83 O2 Sat by Pulse Oximetry 97 Oriented: Normal Eyes: Normal Ear: Normal Nose: Normal Throat: Normal Respiratory: Clear Throughout Cardiovascular: Normal : Normal Auscultation: Bowel Sounds: Normal Palpation: Normal Tenderness: Normal Skin: Ecchymosis (Left eye , R elbow ) Musculoskeletal: Normal Psychiatric: Normal Mood Description: Calm Speech Pattern: Clear Assessment/Plan (1) Acute on chronic renal failure: Status: Acute Plan: IVF, continue to monitor renal function hold nephrotoxic agents (2) AMS (altered mental status): Qualifiers: Altered mental status type: transient alteration of awareness Qualified Code(s): R40.4 - Transient alteration of awareness Status: Acute (3) Hypertension: Qualifiers: Hypertension type: essential hypertension Qualified Code(s): I10 - Essential (primary) hypertension Status: Acute Plan: resume home meds (4) Fall: Qualifiers: Encounter type: initial encounter Qualified Code(s): W19.XXXA - Unspecified fall, initial encounter Status: Acute Plan: ruled out fractures by imaging (5) Dehydration: Status: Resolved Plan: IVF (6) Hyperlipidemia: Status: Chronic Plan: continue home meds (7) Generalized anxiety disorder: Status: Chronic Plan: continue home medications trazodone and lexapro (8) Hypothyroidism: Status: Chronic Plan: continue synthroid Review H&P Reviewed: Yes Patient was examined?: Yes
[2020-04-10] MEDS ORDERED: LEXAPRO ONE (13:29)
[2020-04-10] MEDS: LEXAPRO PO SCH (13:32)
[2020-04-10] MEDS: NS 1000 ML 1,000 ML IV SCH (13:32)
[2020-04-10] MEDS: LOPRESSOR TAB 25 MG PO SCH ×2 (13:32→21:16)
[2020-04-10] MEDS ORDERED: ATARAX TAB 25 MG PO ONE (15:18)
[2020-04-10] MEDS: ATARAX TAB 25 MG PO PRN (15:29)
[2020-04-10] MEDS: CRESTOR TAB 10 MG PO SCH (21:15)
[2020-04-10] MEDS: DESYREL PO SCH (21:16)
[2020-04-11] MEDS: NS 1000 ML 1,000 ML IV SCH ×3 (01:43→15:29)
[2020-04-11 06:28] LABS: ALANINE AMINOTRANSFERASE 12 Units/L (12-78); ALBUMIN 2.8 g/dL (3.4-5.0); ALKALINE PHOSPHATASE 95 Units/L (46-116); ASPARTATE AMINO TRANSFERASE 19 Units/L (15-37); BLOOD UREA NITROGEN 18 mg/dL (7-18); CALCIUM 8.1 mg/dL (8.5-10.1); CARBON DIOXIDE 27.6 mmol/L (21-32); CHLORIDE 109 mmol/L (98-107); COR CA(FOR HYPOALB) 9.1 mg/dL (8.5-10.1); CREATININE 1.51 mg/dL (0.55-1.02); SODIUM 144 mmol/L (136-145); TOTAL PROTEIN 6.2 g/dL (6.4-8.2); eGFR NON BLACK RACES 36 (>60)
[2020-04-11] MEDS ORDERED: LEXAPRO ONE (07:48)
[2020-04-11] MEDS: ATARAX TAB 25 MG PO PRN (07:56)
[2020-04-11] MEDS: PLAVIX PO SCH (08:04)
[2020-04-11] MEDS: LOPRESSOR TAB 25 MG PO SCH ×2 (08:04→20:30)
[2020-04-11] MEDS: PROTONIX TAB 40 MG PO SCH (08:05)
[2020-04-11] MEDS: LEXAPRO PO SCH (08:05)
[2020-04-11] MEDS: SYNTHROID 50 mcg TAB PO SCH (08:05)
--- NOTE | 2020-04-11 10:38 | PCM.PROG ---
Progress Note Progress Note for Day of Date of Exam: 04/11/20 Subjective Subjective: Pt is a 74 yo f pmhx CAD, Dementia admitted for altered mental status after having increased agitation and confusion. She is alert this morning and voices no concerns. Initial labs/imaging: Wbc 7.1, Hgb 12, Plt 173, Na 144, K 3.6, Cr 1.51, Gluc 100. She is on IVF NS@80ml/h. Home medications were resumed. Hold nephrotoxic agents. Pt family requesting placement. Continue to monitor and follow up labs in the morning. Past Medical Family Social History Past Med/Fam/Surg Hx: No changes since H&P Allergies: Allergies No Known Drug Allergies Allergy (Verified 12/21/19 02:43) Review of Systems ROS: No change since H&P Vital Signs and I&O's Vital Signs: Temperature 98.3 F Pulse Rate [Right Brachial] 82 Pulse Rate 63 Respiratory Rate 18 Blood Pressure [Right Arm] 126/66 Blood Pressure [Left Arm] 120/56 Blood Pressure 180/83 O2 Sat by Pulse Oximetry 100 Intake and Output: Intake & Output 04/08/20 04/09/20 04/10/20 04/11/20 23:59 23:59 23:59 23:59 Intake Total 720 / 720 840 / 840 Output Total 600 / 600 300 / 300 Balance 120 / 120 540 / 540 Physical Exam Oriented: Normal Eyes: Normal Ear: Normal Nose: Normal Throat: Normal Respiratory: Normal Cardiovascular: Normal : Normal Auscultation: Bowel Sounds: Normal Tenderness: Normal Skin: Ecchymosis (Left eye , R elbow ) Musculoskeletal: Normal Psychiatric: Normal Mood Description: Calm Speech Pattern: Clear and Appropriate Laboratory and Diagnostics Result Diagrams: 04/10/20 09:00 04/11/20 04:15 Labs: Laboratory WBC 7.1 X10^3/uL (3.6-10.0) 04/10/20 09:00 RBC 3.81 X10^6/uL (3.5-5.4) 04/10/20 09:00 Hgb 12.0 g/dL (12.0-16.0) 04/10/20 09:00 Hct 35.7 % (36.0-47.0) L 04/10/20 09:00 MCV 93.8 fL (80.0-100.0) 04/10/20 09:00 MCH 31.4 pg (27.0-34.0) 04/10/20 09:00 MCHC 33.5 g/dL (33.0-35.0) 04/10/20 09:00 RDW 13.9 % (11.6-16.5) 04/10/20 09:00 Plt Count 173 X10^3/uL (150.0-450.0) 04/10/20 09:00 MPV 8.0 fL (7.4-11.0) 04/10/20 09:00 Neut % (Auto) 68.0 % (42.0-75.0) 04/10/20 09:00 Lymph % (Auto) 16.9 % (21.0-51.0) L 04/10/20 09:00 [place] % (Auto) 8.0 % (0.0-13.0) 04/10/20 09:00 Eos % (Auto) 6.0 % (0.9-2.9) H 04/10/20 09:00 Baso % (Auto) 1.1 % (0.2-1.0) H 04/10/20 09:00 Neut # (Auto) 4.8 x10^3/uL (2.2-4.8) 04/10/20 09:00 Lymph # (Auto) 1.2 X10^3/uL (1.3-2.9) L 04/10/20 09:00 [place] # (Auto) 0.6 x10^3/uL (0.3-0.8) 04/10/20 09:00 Eos # (Auto) 0.4 x10^3/uL (0.0-0.2) H 04/10/20 09:00 Baso # (Auto) 0.1 X10^3/uL (0.0-0.1) 04/10/20 09:00 Absolute Nucleated RBC 0.0 /100WBC 04/10/20 09:00 Sodium 144 mmol/L (136-145) 04/11/20 04:15 Corrected Sodium TNP 04/11/20 04:15 Potassium 3.6 mmol/L (3.5-5.1) 04/11/20 04:15 Chloride 109 mmol/L (98-107) H 04/11/20 04:15 Carbon Dioxide 27.6 mmol/L (21-32) 04/11/20 04:15 BUN 18 mg/dL (7-18) 04/11/20 04:15 Creatinine 1.51 mg/dL (0.55-1.02) H 04/11/20 04:15 Est GFR (MDRD) Af Amer 43 (>60) L 04/11/20 04:15 Est GFR (MDRD) Non-Af 36 (>60) L 04/11/20 04:15 Glucose 100 mg/dL (65-99) H 04/11/20 04:15 Calcium 8.1 mg/dL (8.5-10.1) L 04/11/20 04:15 Corrected Calcium 9.1 mg/dL (8.5-10.1) 04/11/20 04:15 Magnesium 2.0 mg/dL (1.7-2.9) 04/11/20 04:15 Total Bilirubin 0.30 mg/dL (0.2-1.0) 04/11/20 04:15 AST 19 Units/L (15-37) 04/11/20 04:15 ALT 12 Units/L (12-78) 04/11/20 04:15 Alkaline Phosphatase 95 Units/L (46-116) 04/11/20 04:15 Total Protein 6.2 g/dL (6.4-8.2) L 04/11/20 04:15 Albumin 2.8 g/dL (3.4-5.0) L 04/11/20 04:15 Globulin 3.4 g/dL (2.5-4.5) 04/11/20 04:15 Albumin/Globulin Ratio 0.8 Ratio (1.1-2.1) L 04/11/20 04:15 Specimen Type Catherized urine 04/10/20 09:25 Urine Color Yellow (YELLOW) 04/10/20 09:25 Urine Appearance Clear (CLEAR) 04/10/20 09:25 Urine pH 5.0 (5.0 - 8.0) 04/10/20 09:25 Ur Specific [place] 1.015 (1.000-1.030) 04/10/20 09:25 Urine Protein 1+ (NEGATIVE) 04/10/20 09:25 Urine Glucose (UA) Negative (NEGATIVE) 04/10/20 09:25 Urine Ketones Negative (NEGATIVE) 04/10/20 09:25 Urine Occult Blood Negative (NEGATIVE) 04/10/20 09:25 Urine Nitrite Negative (NEGATIVE) 04/10/20 09:25 Urine Bilirubin Negative (NEGATIVE) 04/10/20 09:25 Urine Urobilinogen Normal (NORMAL) 04/10/20 09:25 Ur Leukocyte Esterase Negative (NEGATIVE) 04/10/20 09:25 Urine RBC 0-2 /HPF (0-3) 04/10/20 09:25 Urine WBC 0-2 /HPF (0-5) 04/10/20 09:25 Ur Squamous Epith Cells Moderate /HPF (NEGATIVE) 04/10/20 09:25 Urine Bacteria Trace /HPF (NEGATIVE) 04/10/20 09:25 Ur Culture Indicated? No/not indicated 04/10/20 09:25 Urine Opiates Screen Negative (NEG=<300) 04/10/20 09:25 Urine Methadone Screen Negative (NEG=<300) 04/10/20 09:25 Ur Barbiturates Screen Negative (NEG=<200) 04/10/20 09:25 Ur Phencyclidine Scrn Negative (NEG=<25) 04/10/20 09:25 Ur Amphetamines Screen Negative (NEG=<1000) 04/10/20 09:25 U Benzodiazepines Scrn Positive (NEG=<200) A 04/10/20 09:25 Urine Cocaine Screen Negative (NEG=<300) 04/10/20 09:25 U Marijuana (THC) Screen Negative (NEG=<50) 04/10/20 09:25 Plan (1) Acute on chronic renal failure: Status: Acute Plan: IVF, continue to monitor renal function hold nephrotoxic agents (2) AMS (altered mental status): Status: Acute Qualifiers: Altered mental status type: transient alteration of awareness Qualified Code(s): R40.4 - Transient alteration of awareness (3) Hypertension: Status: Acute Qualifiers: Hypertension type: essential hypertension Qualified Code(s): I10 - Essential (primary) hypertension Plan: resume home meds (4) Fall: Status: Acute Qualifiers: Encounter type: initial encounter Qualified Code(s): W19.XXXA - Unspecified fall, initial encounter Plan: ruled out fractures by imaging (5) Dehydration: Status: Resolved Plan: IVF (6) Hyperlipidemia: Status: Chronic Plan: continue home meds (7) Generalized anxiety disorder: Status: Chronic Plan: continue home medications trazodone and lexapro (8) Hypothyroidism: Status: Chronic Plan: continue synthroid
[2020-04-11] MEDS ORDERED: VISTARIL PO ONE (13:31)
[2020-04-11] MEDS ORDERED: HALDOL INJ IM ONE (13:56)
[2020-04-11] MEDS ORDERED: DUONEB 0.5 MG/3 MG (3 mL) NEB PRN (16:54)
[2020-04-11] MEDS: CRESTOR TAB 10 MG PO SCH (20:29)
[2020-04-11] MEDS: DESYREL PO SCH (20:30)
[2020-04-11] MEDS: VISTARIL PO PRN (23:44)
[2020-04-11] MEDS: TYLENOL 500 MG TAB EXTRA STRENGTH PO PRN (23:44)
[2020-04-12] MEDS: NS 1000 ML 1,000 ML IV SCH ×4 (03:28→20:25)
[2020-04-12 05:21] LABS: BASOPHILS # (AUTO) 0.1 X10^3/uL (0.0-0.1); EOSINOPHILS # (AUTO) 0.3 x10^3/uL (0.0-0.2); EOSINOPHILS % (AUTO) 3.4 % (0.9-2.9); HEMOGLOBIN 10.9 g/dL (12.0-16.0); LYMPHOCYTES # (AUTO) 1.2 X10^3/uL (1.3-2.9); LYMPHOCYTES % (AUTO) 15.5 % (21.0-51.0); MEAN CORPUSCULAR HEMOGLOBIN 31.2 pg (27.0-34.0); MEAN CORPUSCULAR HGB CONC 33.1 g/dL (33.0-35.0); MEAN CORPUSCULAR VOLUME 94.3 fL (80.0-100.0); MEAN PLATELET VOLUME 8.5 fL (7.4-11.0); MONOCYTES # (AUTO) 0.5 x10^3/uL (0.3-0.8); NEUTROPHILS # (AUTO) 5.7 x10^3/uL (2.2-4.8); NEUTROPHILS % (AUTO) 74.1 % (42.0-75.0); PLATELET COUNT 155 X10^3/uL (150.0-450.0); RED CELL DISTRIBUTION WIDTH 13.7 % (11.6-16.5); WHITE BLOOD COUNT 7.6 X10^3/uL (3.6-10.0)
[2020-04-12 05:37] LABS: ALANINE AMINOTRANSFERASE 12 Units/L (12-78); ALBUMIN 2.6 g/dL (3.4-5.0); ALKALINE PHOSPHATASE 89 Units/L (46-116); ASPARTATE AMINO TRANSFERASE 16 Units/L (15-37); BLOOD UREA NITROGEN 16 mg/dL (7-18); CALCIUM 8.1 mg/dL (8.5-10.1); CARBON DIOXIDE 28.5 mmol/L (21-32); CHLORIDE 109 mmol/L (98-107); COR CA(FOR HYPOALB) 9.2 mg/dL (8.5-10.1); CREATININE 1.37 mg/dL (0.55-1.02); SODIUM 143 mmol/L (136-145); TOTAL PROTEIN 5.8 g/dL (6.4-8.2); eGFR NON BLACK RACES 40 (>60)
[2020-04-12] MEDS ORDERED: LEXAPRO ONE (08:26)
[2020-04-12] MEDS: LEXAPRO PO SCH (08:41)
[2020-04-12] MEDS: SYNTHROID 50 mcg TAB PO SCH (08:42)
[2020-04-12] MEDS: PROTONIX TAB 40 MG PO SCH (08:42)
[2020-04-12] MEDS: ATARAX TAB 25 MG PO PRN ×2 (08:42→20:17)
[2020-04-12] MEDS: LOPRESSOR TAB 25 MG PO SCH ×2 (08:42→20:18)
[2020-04-12] MEDS: PLAVIX PO SCH (08:42)
[2020-04-12] MEDS: VISTARIL PO PRN ×2 (08:43→20:16)
[2020-04-12] MEDS ORDERED: SEROquel TAB 25 mg PO ONE (09:24)
[2020-04-12] MEDS: SEROquel TAB 25 mg PO SCH ×2 (09:28→18:08)
--- NOTE | 2020-04-12 09:32 | PCM.PROG ---
Progress Note Progress Note for Day of Date of Exam: 04/12/20 Subjective Subjective: Pt is a 74 yo f pmhx CAD, Dementia admitted for altered mental status after having increased agitation and confusion. Pt is alert this morning, sitting up in bed about to work with physical therapy. Labs/imaging: Wbc 7.6, Hgb 10.9, Plt 155, Na 143, K 4.1, Cr 1.37, Gluc 105. She is on IVF NS@80ml/h. Home medications were resumed. Hold nephrotoxic agents. Yesterday pt became agitated, uncooperative, and having delirium/hallucinations, see nursing note, requiring Haldol x 1 dose. Will start Seroquel today. Pt family requesting placement. Continue to monitor and follow up labs in the morning. Past Medical Family Social History Past Med/Fam/Surg Hx: No changes since H&P Allergies: Allergies No Known Drug Allergies Allergy (Verified 12/21/19 02:43) Review of Systems ROS: No change since H&P Vital Signs and I&O's Vital Signs: Temperature 98.2 F Pulse Rate [Right Brachial] 71 Pulse Rate 88 Respiratory Rate 20 Blood Pressure [Right Arm] 98/55 Blood Pressure [Left Arm] 147/77 Blood Pressure 180/83 O2 Sat by Pulse Oximetry 100 Intake and Output: Intake & Output 04/09/20 04/10/20 04/11/20 04/12/20 23:59 23:59 23:59 23:59 Intake Total 720 / 720 1800 / 1800 690 / 690 Output Total 600 / 600 900 / 900 225 / 225 Balance 120 / 120 900 / 900 465 / 465 Physical Exam Oriented: Normal Eyes: Normal Ear: Normal Nose: Normal Throat: Normal Respiratory: Normal Cardiovascular: Normal : Normal Auscultation: Bowel Sounds: Normal Tenderness: Normal Skin: Ecchymosis (Left eye , R elbow ) Musculoskeletal: Normal Psychiatric: Normal Mood Description: Calm Speech Pattern: Clear and Appropriate Laboratory and Diagnostics Result Diagrams: 04/12/20 04:15 04/12/20 04:15 Labs: Laboratory WBC 7.6 X10^3/uL (3.6-10.0) 04/12/20 04:15 RBC 3.50 X10^6/uL (3.5-5.4) 04/12/20 04:15 Hgb 10.9 g/dL (12.0-16.0) L 04/12/20 04:15 Hct 33.0 % (36.0-47.0) L 04/12/20 04:15 MCV 94.3 fL (80.0-100.0) 04/12/20 04:15 MCH 31.2 pg (27.0-34.0) 04/12/20 04:15 MCHC 33.1 g/dL (33.0-35.0) 04/12/20 04:15 RDW 13.7 % (11.6-16.5) 04/12/20 04:15 Plt Count 155 X10^3/uL (150.0-450.0) 04/12/20 04:15 MPV 8.5 fL (7.4-11.0) 04/12/20 04:15 Neut % (Auto) 74.1 % (42.0-75.0) 04/12/20 04:15 Lymph % (Auto) 15.5 % (21.0-51.0) L 04/12/20 04:15 [place] % (Auto) 6.0 % (0.0-13.0) 04/12/20 04:15 Eos % (Auto) 3.4 % (0.9-2.9) H 04/12/20 04:15 Baso % (Auto) 1.0 % (0.2-1.0) 04/12/20 04:15 Neut # (Auto) 5.7 x10^3/uL (2.2-4.8) H 04/12/20 04:15 Lymph # (Auto) 1.2 X10^3/uL (1.3-2.9) L 04/12/20 04:15 [place] # (Auto) 0.5 x10^3/uL (0.3-0.8) 04/12/20 04:15 Eos # (Auto) 0.3 x10^3/uL (0.0-0.2) H 04/12/20 04:15 Baso # (Auto) 0.1 X10^3/uL (0.0-0.1) 04/12/20 04:15 Absolute Nucleated RBC 0.0 /100WBC 04/12/20 04:15 Sodium 143 mmol/L (136-145) 04/12/20 04:15 Corrected Sodium TNP 04/12/20 04:15 Potassium 4.1 mmol/L (3.5-5.1) 04/12/20 04:15 Chloride 109 mmol/L (98-107) H 04/12/20 04:15 Carbon Dioxide 28.5 mmol/L (21-32) 04/12/20 04:15 BUN 16 mg/dL (7-18) 04/12/20 04:15 Creatinine 1.37 mg/dL (0.55-1.02) H 04/12/20 04:15 Est GFR (MDRD) Af Amer 48 (>60) L 04/12/20 04:15 Est GFR (MDRD) Non-Af 40 (>60) L 04/12/20 04:15 Glucose 105 mg/dL (65-99) H 04/12/20 04:15 Calcium 8.1 mg/dL (8.5-10.1) L 04/12/20 04:15 Corrected Calcium 9.2 mg/dL (8.5-10.1) 04/12/20 04:15 Magnesium 2.0 mg/dL (1.7-2.9) 04/11/20 04:15 Total Bilirubin 0.40 mg/dL (0.2-1.0) 04/12/20 04:15 AST 16 Units/L (15-37) 04/12/20 04:15 ALT 12 Units/L (12-78) 04/12/20 04:15 Alkaline Phosphatase 89 Units/L (46-116) 04/12/20 04:15 Total Protein 5.8 g/dL (6.4-8.2) L 04/12/20 04:15 Albumin 2.6 g/dL (3.4-5.0) L 04/12/20 04:15 Globulin 3.2 g/dL (2.5-4.5) 04/12/20 04:15 Albumin/Globulin Ratio 0.8 Ratio (1.1-2.1) L 04/12/20 04:15 Specimen Type Catherized urine 04/10/20 09:25 Urine Color Yellow (YELLOW) 04/10/20 09:25 Urine Appearance Clear (CLEAR) 04/10/20 09:25 Urine pH 5.0 (5.0 - 8.0) 04/10/20 09:25 Ur Specific [place] 1.015 (1.000-1.030) 04/10/20 09:25 Urine Protein 1+ (NEGATIVE) 04/10/20 09:25 Urine Glucose (UA) Negative (NEGATIVE) 04/10/20 09:25 Urine Ketones Negative (NEGATIVE) 04/10/20 09:25 Urine Occult Blood Negative (NEGATIVE) 04/10/20 09:25 Urine Nitrite Negative (NEGATIVE) 04/10/20 09:25 Urine Bilirubin Negative (NEGATIVE) 04/10/20 09:25 Urine Urobilinogen Normal (NORMAL) 04/10/20 09:25 Ur Leukocyte Esterase Negative (NEGATIVE) 04/10/20 09:25 Urine RBC 0-2 /HPF (0-3) 04/10/20 09:25 Urine WBC 0-2 /HPF (0-5) 04/10/20 09:25 Ur Squamous Epith Cells Moderate /HPF (NEGATIVE) 04/10/20 09:25 Urine Bacteria Trace /HPF (NEGATIVE) 04/10/20 09:25 Ur Culture Indicated? No/not indicated 04/10/20 09:25 Urine Opiates Screen Negative (NEG=<300) 04/10/20 09:25 Urine Methadone Screen Negative (NEG=<300) 04/10/20 09:25 Ur Barbiturates Screen Negative (NEG=<200) 04/10/20 09:25 Ur Phencyclidine Scrn Negative (NEG=<25) 04/10/20 09:25 Ur Amphetamines Screen Negative (NEG=<1000) 04/10/20 09:25 U Benzodiazepines Scrn Positive (NEG=<200) A 04/10/20 09:25 Urine Cocaine Screen Negative (NEG=<300) 04/10/20 09:25 U Marijuana (THC) Screen Negative (NEG=<50) 04/10/20 09:25 Plan (1) Acute on chronic renal failure: Status: Acute Plan: IVF, continue to monitor renal function Hold nephrotoxic agents (2) AMS (altered mental status): Status: Acute Qualifiers: Altered mental status type: transient alteration of awareness Qualified Code(s): R40.4 - Transient alteration of awareness (3) Hypertension: Status: Acute Qualifiers: Hypertension type: essential hypertension Qualified Code(s): I10 - Essential (primary) hypertension Plan: resume home meds (4) Fall: Status: Acute Qualifiers: Encounter type: initial encounter Qualified Code(s): W19.XXXA - Unspecified fall, initial encounter Plan: ruled out fractures by imaging (5) Dehydration: Status: Resolved Plan: IVF (6) Hyperlipidemia: Status: Chronic Plan: continue home meds (7) Generalized anxiety disorder: Status: Chronic Plan: continue home medications trazodone and lexapro (8) Hypothyroidism: Status: Chronic Plan: continue synthroid
[2020-04-12] MEDS ORDERED: LOVENOX INJ 40 MG SYR SC SCH ×2 (11:00→21:00)
[2020-04-12] MEDS: DUONEB 0.5 MG/3 MG (3 mL) NEB PRN ×2 (13:12→20:50)
[2020-04-12] MEDS ORDERED: HALDOL INJ IM ONE (14:01)
[2020-04-12] MEDS ORDERED: HALDOL INJ ONE (14:02)
[2020-04-12] MEDS: DESYREL PO SCH (20:16)
[2020-04-12] MEDS: CRESTOR TAB 10 MG PO SCH (20:16)
[2020-04-12] MEDS: TYLENOL 500 MG TAB EXTRA STRENGTH PO PRN (20:54)
[2020-04-13] MEDS: VISTARIL PO PRN ×2 (03:18→16:12)
[2020-04-13 06:27] LABS: BASOPHILS % (AUTO) 0.6 % (0.2-1.0); EOSINOPHILS # (AUTO) 0.3 x10^3/uL (0.0-0.2); EOSINOPHILS % (AUTO) 4.6 % (0.9-2.9); HEMATOCRIT 29.9 % (36.0-47.0); LYMPHOCYTES # (AUTO) 0.8 X10^3/uL (1.3-2.9); LYMPHOCYTES % (AUTO) 14.5 % (21.0-51.0); MEAN CORPUSCULAR HEMOGLOBIN 31.5 pg (27.0-34.0); MEAN CORPUSCULAR HGB CONC 33.4 g/dL (33.0-35.0); MEAN CORPUSCULAR VOLUME 94.2 fL (80.0-100.0); MEAN PLATELET VOLUME 8.2 fL (7.4-11.0); MONOCYTES # (AUTO) 0.3 x10^3/uL (0.3-0.8); MONOCYTES % (AUTO) 6.1 % (0.0-13.0); NEUTROPHILS # (AUTO) 4.1 x10^3/uL (2.2-4.8); NEUTROPHILS % (AUTO) 74.2 % (42.0-75.0); PLATELET COUNT 131 X10^3/uL (150.0-450.0); RED BLOOD COUNT 3.18 X10^6/uL (3.5-5.4); RED CELL DISTRIBUTION WIDTH 14.1 % (11.6-16.5); WHITE BLOOD COUNT 5.5 X10^3/uL (3.6-10.0)
[2020-04-13] MEDS: NS 1000 ML 1,000 ML IV SCH ×2 (06:33→12:29)
[2020-04-13 06:35] LABS: ALANINE AMINOTRANSFERASE 10 Units/L (12-78); ALBUMIN 2.3 g/dL (3.4-5.0); ALKALINE PHOSPHATASE 85 Units/L (46-116); ASPARTATE AMINO TRANSFERASE 14 Units/L (15-37); BLOOD UREA NITROGEN 15 mg/dL (7-18); CALCIUM 7.8 mg/dL (8.5-10.1); CARBON DIOXIDE 26.1 mmol/L (21-32); CHLORIDE 109 mmol/L (98-107); COR CA(FOR HYPOALB) 9.2 mg/dL (8.5-10.1); CREATININE 1.22 mg/dL (0.55-1.02); SODIUM 142 mmol/L (136-145); TOTAL PROTEIN 5.6 g/dL (6.4-8.2); eGFR NON BLACK RACES 46 (>60)
[2020-04-13] MEDS ORDERED: LEXAPRO ONE (09:15)
[2020-04-13] MEDS: SYNTHROID 50 mcg TAB PO SCH (09:18)
[2020-04-13] MEDS: PLAVIX PO SCH (09:19)
[2020-04-13] MEDS: SEROquel TAB 25 mg PO SCH (09:19)
[2020-04-13] MEDS: PROTONIX TAB 40 MG PO SCH (09:19)
[2020-04-13] MEDS: LEXAPRO PO SCH (09:20)
[2020-04-13] MEDS: LOPRESSOR TAB 25 MG PO SCH (09:20)
--- NOTE | 2020-04-13 13:55 | RAD ---
HISTORYAMS, CHFSTUDYAP chestCOMPARISONMay 2019FINDINGSThere is mild elevation of the right hemidiaphragm. The lungs are grossly clear. The heart size is normal status post sternotomy. There is a Port-A-Cath via the right internal jugular vein with the tip in the upper SVC, unchanged. There are multiple right upper quadrant abdominal surgical clips likely from prior cholecystectomy.IMPRESSIONNo evidence for acute cardiopulmonary diseaseElectronically signed by: JIM CORTES (April 13, 2020 13:54:16)
[2020-04-13 15:40] VITALS: BP 136/64
== END 2020-04-13 17:36 ==
LOC: ER 08:45 → MED/SURG 08:45
PROVIDERS: ADMIT Family Medicine; ATTEND Internal Medicine
DX: L30.8 Other specified dermatitis; E78.2 Mixed hyperlipidemia; M25.521 Pain in right elbow; S00.83XA Contusion of other part of head, initial encounter; E03.8 Other specified hypothyroidism; E86.0 Dehydration; R40.4 Transient alteration of awareness; Z79.01 Long term (current) use of anticoagulants; N17.8 Other acute kidney failure; Z91.83 Wandering in diseases classified elsewhere; F01.51 Vascular dementia, unspecified severity, with behavioral disturbance; M54.2 Cervicalgia; W18.39XA Other fall on same level, initial encounter; I50.9 Heart failure, unspecified; R94.31 Abnormal electrocardiogram [ECG] [EKG]; N18.9 Chronic kidney disease, unspecified; Z11.59 Encounter for screening for other viral diseases; I25.10 Atherosclerotic heart disease of native coronary artery without angina pectoris; I13.0 Hypertensive heart and chronic kidney disease with heart failure and stage 1 through stage 4 chronic kidney disease, or unspecified chronic kidney disease; M16.0 Bilateral primary osteoarthritis of hip
CPT/HCPCS: 36415; 51702; 70450; 71010; 71045; 72125; 73070; 73521; 80053; 80307; 81001; 83735; 85025; 87635; 93005; 94640; 94760; 96360; 96361; 96365; 96372; 97167; 97530; 97535; 99284; A4216; G0378; J1630; J1642; J1650; J7030; J7620; Q0177

== ENCOUNTER 2020-09-24 22:06 | Inpatient (IN) ==
--- NOTE | 2020-09-24 22:24 | DR.EXTPAIN ---
HPI Time seen Time Seen by Provider: 09/24/20 22:21 HPI Comment HPI Comment: Sent by [place] d/t elevated temp and problem with port line x a day; pt is nonverbal; no n/v/d. PMH PMH Past Medical History: Anxiety, CHF, COPD, Coronary Artery Disease, Dementia, Dyslipidemia, Gout, Hypertension and Hypothyroidism Past Surgical History: Yes Surgical History: Angioplasty/Stents, CABG/Valve Surgery, Cholecystectomy and Hysterectomy Family History Family Medical History: Diabetes Mellitus, Cancer, [place], Coronary Artery Disease, Heart Failure, Sudden Cardiac and Hypertension Social History Do you use any recreational Drugs:: No ROS Review of Systems Unable to Obtain Due To: Dementia PE Vital Signs Vitals: Temperature 97.8 F Pulse Rate 110 Respiratory Rate 20 Blood Pressure [Right Arm] 105/58 Blood Pressure [Left Arm] 136/64 Blood Pressure 99/53 O2 Sat by Pulse Oximetry 97 Head Head Exam: Normal Inspection Neck Neck Exam: Normal Inspection and Trachea Midline Chest Chest Inspection: Normal Inspection, Symmetric Chest Wall Rise and Other (port nontender, no streaking over site; cannula in rt neck just under skin w/o tenderness or crepitus) Respiratory Respiratory Exam: Normal Lung Sounds Bilat Cardiovascular Cardiovascular Exam: Regular Rate and Normal Rhythm Abdominal Exam Abdominal Exam: Normal Inspection, Normal Bowel Sounds, Soft and Tenderness (epigastric) Extremities Extremities Exam: Normal Inspection Skin Skin Exam: Warm, Dry, Intact and Normal Color COURSE Reevaluation 1st: Unchanged ROR Labs Reviewed Laboratory Results Reviewed?: Yes Result Diagrams: 09/24/20 22:55 09/24/20 22:55 Laboratory: WBC 19.4 X10^3/uL (3.6-10.0) H 09/24/20 22:55 RBC 3.79 X10^6/uL (3.5-5.4) 09/24/20 22:55 Hgb 11.5 g/dL (12.0-16.0) L 09/24/20 22:55 Hct 34.9 % (36.0-47.0) L 09/24/20 22:55 MCV 92.2 fL (80.0-100.0) 09/24/20 22:55 MCH 30.3 pg (27.0-34.0) 09/24/20 22:55 MCHC 32.9 g/dL (33.0-35.0) L 09/24/20 22:55 RDW 15.0 % (11.6-16.5) 09/24/20 22:55 Plt Count 228 X10^3/uL (150.0-450.0) 09/24/20 22:55 MPV 7.4 fL (7.4-11.0) 09/24/20 22:55 Neut % (Auto) 87.6 % (42.0-75.0) H 09/24/20 22:55 Lymph % (Auto) 6.7 % (21.0-51.0) L 09/24/20 22:55 [place] % (Auto) 4.7 % (0.0-13.0) 09/24/20 22:55 Eos % (Auto) 0.3 % (0.9-2.9) L 09/24/20 22:55 Baso % (Auto) 0.7 % (0.2-1.0) 09/24/20 22:55 Neut # (Auto) 17.0 x10^3/uL (2.2-4.8) H 09/24/20 22:55 Lymph # (Auto) 1.3 X10^3/uL (1.3-2.9) 09/24/20 22:55 [place] # (Auto) 0.9 x10^3/uL (0.3-0.8) H 09/24/20 22:55 Eos # (Auto) 0.1 x10^3/uL (0.0-0.2) 09/24/20 22:55 Baso # (Auto) 0.1 X10^3/uL (0.0-0.1) 09/24/20 22:55 Absolute Nucleated RBC 0.0 /100WBC 09/24/20 22:55 Sodium 138 mmol/L (136-145) 09/24/20 22:55 Corrected Sodium 138 mmol/L (136-145) 09/24/20 22:55 Potassium 4.3 mmol/L (3.5-5.1) 09/24/20 22:55 Chloride 99 mmol/L (98-107) 09/24/20 22:55 Carbon Dioxide 31.0 mmol/L (21-32) 09/24/20 22:55 BUN 38 mg/dL (7-18) H 09/24/20 22:55 Creatinine 1.62 mg/dL (0.55-1.02) H 09/24/20 22:55 Est GFR (MDRD) Af Amer 40 (>60) L 09/24/20 22:55 Est GFR (MDRD) Non-Af 33 (>60) L 09/24/20 22:55 Glucose 113 mg/dL (65-99) H 09/24/20 22:55 Calcium 8.9 mg/dL (8.5-10.1) 09/24/20 22:55 Corrected Calcium 10.7 mg/dL (8.5-10.1) H 09/24/20 22:55 Total Bilirubin 0.30 mg/dL (0.2-1.0) 09/24/20 22:55 AST 27 Units/L (15-37) 09/24/20 22:55 ALT 20 Units/L (12-78) 09/24/20 22:55 Alkaline Phosphatase 119 Units/L (46-116) H 09/24/20 22:55 Total Protein 7.2 g/dL (6.4-8.2) 09/24/20 22:55 Albumin 1.8 g/dL (3.4-5.0) L 09/24/20 22:55 Globulin 5.4 g/dL (2.5-4.5) H 09/24/20 22:55 Albumin/Globulin Ratio 0.3 Ratio (1.1-2.1) L 09/24/20 22:55 Specimen Type Catherized urine 09/25/20 00:00 Urine Color Yellow (YELLOW) 09/25/20 00:00 Urine Appearance Cloudy (CLEAR) 09/25/20 00:00 Urine pH 6.0 (5.0 - 8.0) 09/25/20 00:00 Ur Specific [place] 1.005 (1.000-1.030) 09/25/20 00:00 Urine Protein 3+ (NEGATIVE) 09/25/20 00:00 Urine Glucose (UA) Negative (NEGATIVE) 09/25/20 00:00 Urine Ketones 1+ (NEGATIVE) 09/25/20 00:00 Urine Occult Blood 4+ (NEGATIVE) 09/25/20 00:00 Urine Nitrite Negative (NEGATIVE) 09/25/20 00:00 Urine Bilirubin Negative (NEGATIVE) 09/25/20 00:00 Urine Urobilinogen 1+ (NORMAL) 09/25/20 00:00 Ur Leukocyte Esterase 3+ (NEGATIVE) 09/25/20 00:00 Urine RBC 10-20 /HPF (0-3) A 09/25/20 00:00 Urine WBC Tntc /HPF (0-5) A 09/25/20 00:00 Ur Squamous Epith Cells Rare /HPF (NEGATIVE) 09/25/20 00:00 Urine Bacteria 2+ /HPF (NEGATIVE) 09/25/20 00:00 Ur Culture Indicated? Yes/culture set up 09/25/20 00:00 XRAY XRAY Interpreted by: Radiologist X-ray Results: kub: 1. Abundant fecal material is seen within up to 11 cm dilated rectum and up to 8.2 cm dilated large bowel loops in keeping with severe constipation (and possible obstipation) in the appropriate clinical setting. Clinical correlation is advised. Opioid Opioid Risk Tool Age (Kieran box if 16-45): No History of Preadolescent Sexual Abuse: No Total: 0 Total Score Risk Category: Low Risk Copyright: Carlos PEARSON predicting aberrant behaviors Diagnosis Discharge Problem: Cystitis, Acute hypotension Sepsis Qualifiers: Sepsis type: sepsis due to unspecified organism Sepsis acute organ dysfunction status: with acute organ dysfunction Severe sepsis acute organ dysfunction type: unspecified Severe sepsis shock status: without septic shock Qualified Code(s): A41.9 - Sepsis, unspecified organism Constipation Qualifiers: Constipation type: unspecified constipation type Qualified Code(s): K59.00 - Constipation, unspecified Abdominal pain Qualifiers: Abdominal location: epigastric Qualified Code(s): R10.13 - Epigastric pain Instructions Instructions: Urinary Tract Infection, Adult Forms: Precautions for COVID19 Patient Portal Social Distancing
[2020-09-24] MEDS ORDERED: NS 1000 ML 1,000 ML IV ONE (22:34)
[2020-09-24 22:39] VITALS: BMI 22.3
[2020-09-24] MEDS ORDERED: NS 1000 ML 1,000 ML ONE (22:40)
--- NOTE | 2020-09-24 22:52 | RAD ---
EXAM: ABDOMEN X-RAY (or KUB)HISTORY: Abdominal pain/tenderness.TECHNIQUE: Supine viewCOMPARISON: None.FINDINGS:Abundant fecal material is seen within up to 11 cm dilated rectum and up to 8.2 cm dilated large bowel loops in keeping with severe constipation (and possible obstipation) in the appropriate clinical setting. Clinical correlation is advised.No gross organomegaly, discernible free intraperitoneal air, or suspicious calcifications seen. There is severe aortoiliac atherosclerosis.T multilevel DDD is seen in the lumbar spine. There is mild lumbar dextroscoliosis. He visualized bony structures are otherwise within normal limits. Surgical clips are seen in the right upper quadrant in keeping with a prior cholecystectomy.IMPRESSION:1. Abundant fecal material is seen within up to 11 cm dilated rectum and up to 8.2 cm dilated large bowel loops in keeping with severe constipation (and possible obstipation) in the appropriate clinical setting. Clinical correlation is advised.Electronically signed by: Ancelmo Salazar (Sep 24, 2020 22:51:04)
[2020-09-24 23:08] LABS: BASOPHILS # (AUTO) 0.1 X10^3/uL (0.0-0.1); BASOPHILS % (AUTO) 0.7 % (0.2-1.0); EOSINOPHILS # (AUTO) 0.1 x10^3/uL (0.0-0.2); EOSINOPHILS % (AUTO) 0.3 % (0.9-2.9); HEMATOCRIT 34.9 % (36.0-47.0); HEMOGLOBIN 11.5 g/dL (12.0-16.0); LYMPHOCYTES # (AUTO) 1.3 X10^3/uL (1.3-2.9); LYMPHOCYTES % (AUTO) 6.7 % (21.0-51.0); MEAN CORPUSCULAR HEMOGLOBIN 30.3 pg (27.0-34.0); MEAN CORPUSCULAR HGB CONC 32.9 g/dL (33.0-35.0); MEAN CORPUSCULAR VOLUME 92.2 fL (80.0-100.0); MEAN PLATELET VOLUME 7.4 fL (7.4-11.0); MONOCYTES # (AUTO) 0.9 x10^3/uL (0.3-0.8); MONOCYTES % (AUTO) 4.7 % (0.0-13.0); NEUTROPHILS % (AUTO) 87.6 % (42.0-75.0); PLATELET COUNT 228 X10^3/uL (150.0-450.0); RED BLOOD COUNT 3.79 X10^6/uL (3.5-5.4); WHITE BLOOD COUNT 19.4 X10^3/uL (3.6-10.0)
[2020-09-24 23:17] LABS: ALBUMIN 1.8 g/dL (3.4-5.0); CALCIUM 8.9 mg/dL (8.5-10.1); COR CA(FOR HYPOALB) 10.7 mg/dL (8.5-10.1); CREATININE 1.62 mg/dL (0.55-1.02); TOTAL PROTEIN 7.2 g/dL (6.4-8.2)
[2020-09-25 00:28] LABS: BILIRUBIN,URINE NEGATIVE (NEGATIVE); BLOOD/HEMOGLOBIN,URINE 4+ (NEGATIVE); GLUCOSE, URINE NEGATIVE (NEGATIVE); KETONES,URINE 1+ (NEGATIVE); LEUKOCYTE ESTERASE ,URINE 3+ (NEGATIVE); NITRITES,URINE NEGATIVE (NEGATIVE); PROTEIN,URINE 3+ (NEGATIVE); UROBILINOGEN,URINE 1+ (NORMAL)
[2020-09-25 00:34] LABS: APPEARANCE,URINE CLOUDY (CLEAR); BACTERIA,URINE 2+ /HPF (NEGATIVE); COLOR,URINE YELLOW (YELLOW); SQUAMOUS EPITHELIAL CELL,UR RARE /HPF (NEGATIVE)
[2020-09-25] MEDS ORDERED: ROCEPHIN VIAL 1 GRAM 1 G in NS 100 ML IV + SPIKE MINIBAG* 100 ML IV ONE (00:55)
[2020-09-25] MEDS ORDERED: ROCEPHIN VIAL 1 GRAM ONE (01:00)
[2020-09-25] MEDS ORDERED: NS 100 ML IV + SPIKE MINIBAG* 100 ML IV ONE (01:00)
[2020-09-25] MEDS ORDERED: TYLENOL 500 MG TAB EXTRA STRENGTH PO PRN (01:33)
[2020-09-25] MEDS ORDERED: ROCEPHIN VIAL 1 GRAM 1 G in NS 100 ML IV + SPIKE MINIBAG* 100 ML IV SCH (01:35)
[2020-09-25] MEDS ORDERED: NS 1000 ML 1,000 ML ONE (01:44)
[2020-09-25] MEDS: NS 1000 ML 1,000 ML IV SCH ×3 (01:50→18:31)
[2020-09-25 05:33] LABS: BASOPHILS # (AUTO) 0.1 X10^3/uL (0.0-0.1); BASOPHILS % (AUTO) 0.6 % (0.2-1.0); EOSINOPHILS % (AUTO) 0.4 % (0.9-2.9); HEMATOCRIT 30.4 % (36.0-47.0); HEMOGLOBIN 9.8 g/dL (12.0-16.0); LYMPHOCYTES # (AUTO) 1.3 X10^3/uL (1.3-2.9); LYMPHOCYTES % (AUTO) 10.7 % (21.0-51.0); MEAN CORPUSCULAR HGB CONC 32.3 g/dL (33.0-35.0); MEAN CORPUSCULAR VOLUME 92.6 fL (80.0-100.0); MEAN PLATELET VOLUME 7.6 fL (7.4-11.0); MONOCYTES # (AUTO) 0.6 x10^3/uL (0.3-0.8); MONOCYTES % (AUTO) 5.3 % (0.0-13.0); PLATELET COUNT 165 X10^3/uL (150.0-450.0); RED BLOOD COUNT 3.28 X10^6/uL (3.5-5.4)
[2020-09-25 05:42] LABS: ALANINE AMINOTRANSFERASE 14 Units/L (12-78); ALBUMIN 1.4 g/dL (3.4-5.0); ALKALINE PHOSPHATASE 97 Units/L (46-116); ASPARTATE AMINO TRANSFERASE 19 Units/L (15-37); BLOOD UREA NITROGEN 36 mg/dL (7-18); CARBON DIOXIDE 29.9 mmol/L (21-32); CHLORIDE 106 mmol/L (98-107); COR CA(FOR HYPOALB) 10.1 mg/dL (8.5-10.1); CREATININE 1.45 mg/dL (0.55-1.02); SODIUM 142 mmol/L (136-145); TOTAL PROTEIN 5.8 g/dL (6.4-8.2); eGFR NON BLACK RACES 37 (>60)
--- NOTE | 2020-09-25 09:56 | DR.H&P ---
H&P History & Physical for Day of: H&P Date: 09/25/20 Chief Complaint Chief Complaint: fever and chills Allergies Allergies Allergy/AdvReac Type Severity Reaction Status Date / Time No Known Drug Allergies Allergy Verified 12/21/19 02:43 History of Present Illness History of Present Illness: Pt is a 75 yo f admitted from [place] after having fever and chills. Pt having symptoms of lower abdominal pain and dysuria. Labs/imaging: Wbc 19.4>12, Hgb 9.8, Plt 165, Na 142, K 4.0, Cr 1.45, Gluc 92. UA:+Leukocytes, -Nitrite, Wbc TNTC, UrineCx/BloodCx pending. CXR: negative, KUB: severe constipation. Pt was started on IVF, antibiotics: Rocephin. Will restart home medications. Pt having constipation seen on imaging, will give soap suds enema and start colace. Continue to monitor and follow up labs/imaging in the morning. Past Medical History Past Medical History: Anxiety, CHF, COPD, Coronary Artery Disease, Dementia, Dyslipidemia, Gout, Hypertension and Hypothyroidism Additional Medical History: Cataracts, Bronchitis, Pneumonia, Hiatal Hernia, Urinary Tract Infections, Back Pain, Previous Blood Transfusion, Skin Cancer, Vaginal Cancer Past Surgical History Surgical History: Angioplasty/Stents, CABG/Valve Surgery, Cholecystectomy and Hysterectomy Additional Surgical History: Renal Stents, Lung Surgery, Vaginal Cancer Removed Family History Family Medical History: Diabetes Mellitus, Cancer, [place], Coronary Artery Disease, Heart Failure, Sudden Cardiac and Hypertension Social History Does patient currently use any type of tobacco product: No Have you used tobacco products in the last 12 months: No Type of Tobacco Use: None Does any household member use tobacco: No Alcohol Use: None Drug Use: None Medications Home Medications: No Known Drug Allergies Allergy (Verified 12/21/19 02:43) CONTINUE taking the following medications donepezil 10 mg PO HS 09/24/20 [History] duloxetine 60 mg PO DAILY 09/24/20 [History] divalproex 250 mg PO BID 09/25/20 [History] food supplemt, lactose-reduced [Ensure Enlive] 1 ea PO BID 09/25/20 [History] levothyroxine 75 mcg PO DAILY 09/25/20 [History] mirtazapine 30 mg PO HS 09/25/20 [History] Labs Result Diagrams: 09/25/20 04:30 09/25/20 04:30 Labs: Laboratory WBC 12.0 X10^3/uL (3.6-10.0) H 09/25/20 04:30 RBC 3.28 X10^6/uL (3.5-5.4) L 09/25/20 04:30 Hgb 9.8 g/dL (12.0-16.0) L 09/25/20 04:30 Hct 30.4 % (36.0-47.0) L 09/25/20 04:30 MCV 92.6 fL (80.0-100.0) 09/25/20 04:30 MCH 30.0 pg (27.0-34.0) 09/25/20 04:30 MCHC 32.3 g/dL (33.0-35.0) L 09/25/20 04:30 RDW 15.0 % (11.6-16.5) 09/25/20 04:30 Plt Count 165 X10^3/uL (150.0-450.0) 09/25/20 04:30 MPV 7.6 fL (7.4-11.0) 09/25/20 04:30 Neut % (Auto) 83.0 % (42.0-75.0) H 09/25/20 04:30 Lymph % (Auto) 10.7 % (21.0-51.0) L 09/25/20 04:30 [place] % (Auto) 5.3 % (0.0-13.0) 09/25/20 04:30 Eos % (Auto) 0.4 % (0.9-2.9) L 09/25/20 04:30 Baso % (Auto) 0.6 % (0.2-1.0) 09/25/20 04:30 Neut # (Auto) 10.0 x10^3/uL (2.2-4.8) H 09/25/20 04:30 Lymph # (Auto) 1.3 X10^3/uL (1.3-2.9) 09/25/20 04:30 [place] # (Auto) 0.6 x10^3/uL (0.3-0.8) 09/25/20 04:30 Eos # (Auto) 0.0 x10^3/uL (0.0-0.2) 09/25/20 04:30 Baso # (Auto) 0.1 X10^3/uL (0.0-0.1) 09/25/20 04:30 Absolute Nucleated RBC 0.0 /100WBC 09/25/20 04:30 Sodium 142 mmol/L (136-145) 09/25/20 04:30 Corrected Sodium TNP 09/25/20 04:30 Potassium 4.0 mmol/L (3.5-5.1) 09/25/20 04:30 Chloride 106 mmol/L (98-107) 09/25/20 04:30 Carbon Dioxide 29.9 mmol/L (21-32) 09/25/20 04:30 BUN 36 mg/dL (7-18) H 09/25/20 04:30 Creatinine 1.45 mg/dL (0.55-1.02) H 09/25/20 04:30 Est GFR (MDRD) Af Amer 45 (>60) L 09/25/20 04:30 Est GFR (MDRD) Non-Af 37 (>60) L 09/25/20 04:30 Glucose 92 mg/dL (65-99) 09/25/20 04:30 Calcium 8.0 mg/dL (8.5-10.1) L 09/25/20 04:30 Corrected Calcium 10.1 mg/dL (8.5-10.1) 09/25/20 04:30 Total Bilirubin 0.20 mg/dL (0.2-1.0) 09/25/20 04:30 AST 19 Units/L (15-37) 09/25/20 04:30 ALT 14 Units/L (12-78) 09/25/20 04:30 Alkaline Phosphatase 97 Units/L (46-116) 09/25/20 04:30 Total Protein 5.8 g/dL (6.4-8.2) L 09/25/20 04:30 Albumin 1.4 g/dL (3.4-5.0) L 09/25/20 04:30 Globulin 4.4 g/dL (2.5-4.5) 09/25/20 04:30 Albumin/Globulin Ratio 0.3 Ratio (1.1-2.1) L 09/25/20 04:30 Specimen Type Catherized urine 09/25/20 00:00 Urine Color Yellow (YELLOW) 09/25/20 00:00 Urine Appearance Cloudy (CLEAR) 09/25/20 00:00 Urine pH 6.0 (5.0 - 8.0) 09/25/20 00:00 Ur Specific [place] 1.005 (1.000-1.030) 09/25/20 00:00 Urine Protein 3+ (NEGATIVE) 09/25/20 00:00 Urine Glucose (UA) Negative (NEGATIVE) 09/25/20 00:00 Urine Ketones 1+ (NEGATIVE) 09/25/20 00:00 Urine Occult Blood 4+ (NEGATIVE) 09/25/20 00:00 Urine Nitrite Negative (NEGATIVE) 09/25/20 00:00 Urine Bilirubin Negative (NEGATIVE) 09/25/20 00:00 Urine Urobilinogen 1+ (NORMAL) 09/25/20 00:00 Ur Leukocyte Esterase 3+ (NEGATIVE) 09/25/20 00:00 Urine RBC 10-20 /HPF (0-3) A 09/25/20 00:00 Urine WBC Tntc /HPF (0-5) A 09/25/20 00:00 Ur Squamous Epith Cells Rare /HPF (NEGATIVE) 09/25/20 00:00 Urine Bacteria 2+ /HPF (NEGATIVE) 09/25/20 00:00 Ur Culture Indicated? Yes/culture set up 09/25/20 00:00 SARS-CoV-2 (PCR) Negative (NEGATIVE) 09/25/20 01:46 Review of Systems Constitutional: Fever and Chills Eyes: No Symptoms Reported ENT: No Symptoms Reported Respiratory: No Symptoms Reported Cardiovascular: No Symptoms Reported Gastrointestinal: Abdominal Pain and Constipation; denies Nausea, Vomiting and Diarrhea Genitourinary: Dysuria Musculoskeletal: No Symptoms Reported Skin: No Symptoms Reported Neurological: No Symptoms Reported Physical Exam Vital Signs: Temperature 96.4 F Pulse Rate [Radial] 91 Pulse Rate 89 Respiratory Rate 18 Blood Pressure [Right Arm] 110/54 Blood Pressure [Left Arm] 110/55 Blood Pressure 100/56 O2 Sat by Pulse Oximetry 100 Oriented: Other Eyes: Normal Ear: Normal Nose: Normal Throat: Normal Respiratory: Clear Throughout Cardiovascular: Normal : Dysuria Auscultation: Bowel Sounds: Normal Palpation: Normal Tenderness: Suprapubic and Mild Skin: Normal Musculoskeletal: Normal Mood Description: Calm Affect: Normal Assessment/Plan (1) Sepsis: Qualifiers: Sepsis acute organ dysfunction status: with acute organ dysfunction Sepsis type: sepsis due to unspecified organism Severe sepsis acute organ dysfunction type: unspecified Severe sepsis shock status: without septic shock Qualified Code(s): A41.9 - Sepsis, unspecified organism; R65.20 - Severe sepsis without septic shock Status: Acute Plan: Continue antibiotics. Likely source urine. Awaiting Urine and Blood cultures pending. (2) Cystitis: Status: Acute (3) Constipation: Qualifiers: Constipation type: unspecified constipation type Qualified Code(s): K59.00 - Constipation, unspecified Status: Acute Review H&P Reviewed: Yes Patient was examined?: Yes
[2020-09-25] MEDS: PHARMACY CONSULT LTC MEDICATIONS XX SCH (10:18)
[2020-09-25] MEDS: DEPAKOTE SPRINKLE PO SCH ×2 (11:28→21:27)
[2020-09-25] MEDS: PLAVIX PO SCH (11:28)
[2020-09-25] MEDS: SYNTHROID 75 mcg TAB PO SCH (11:29)
[2020-09-25] MEDS ORDERED: DULCOLAX SUPPOSITORY 10 MG ONE (13:43)
[2020-09-25] MEDS: DULCOLAX SUPPOSITORY 10 MG RECTAL ONE ×2 (13:44→13:54)
[2020-09-25] MEDS: ARICEPT TAB 5 MG PO SCH (21:25)
[2020-09-25] MEDS: COLACE CAP 100 MG PO SCH (21:26)
[2020-09-25] MEDS: DESYREL PO SCH (21:27)
[2020-09-25] MEDS: CRESTOR TAB 10 MG PO SCH (21:27)
[2020-09-25] MEDS: DULCOLAX TAB EC 5 MG PO SCH (21:28)
[2020-09-25] MEDS: [UNRECOGNIZED DRUG - OTHER] PO SCH (21:28)
[2020-09-25] MEDS: ZYLOPRIM PO SCH (21:29)
[2020-09-25] MEDS: REMERON PO SCH (21:29)
[2020-09-26] MEDS ORDERED: ROCEPHIN VIAL 1 GRAM 1 G in NS 100 ML IV + SPIKE MINIBAG* 100 ML IV SCH (01:00)
[2020-09-26 05:23] LABS: BASOPHILS % (AUTO) 0.7 % (0.2-1.0); EOSINOPHILS # (AUTO) 0.2 x10^3/uL (0.0-0.2); EOSINOPHILS % (AUTO) 2.3 % (0.9-2.9); LYMPHOCYTES # (AUTO) 1.1 X10^3/uL (1.3-2.9); LYMPHOCYTES % (AUTO) 15.4 % (21.0-51.0); MEAN CORPUSCULAR HEMOGLOBIN 30.5 pg (27.0-34.0); MEAN CORPUSCULAR HGB CONC 32.4 g/dL (33.0-35.0); MEAN CORPUSCULAR VOLUME 94.1 fL (80.0-100.0); MEAN PLATELET VOLUME 7.9 fL (7.4-11.0); MONOCYTES # (AUTO) 0.4 x10^3/uL (0.3-0.8); MONOCYTES % (AUTO) 5.4 % (0.0-13.0); NEUTROPHILS # (AUTO) 5.5 x10^3/uL (2.2-4.8); NEUTROPHILS % (AUTO) 76.2 % (42.0-75.0); PLATELET COUNT 157 X10^3/uL (150.0-450.0); RED BLOOD COUNT 3.29 X10^6/uL (3.5-5.4); RED CELL DISTRIBUTION WIDTH 14.8 % (11.6-16.5); WHITE BLOOD COUNT 7.2 X10^3/uL (3.6-10.0)
[2020-09-26 05:42] LABS: ALANINE AMINOTRANSFERASE 15 Units/L (12-78); ALBUMIN 1.4 g/dL (3.4-5.0); ALKALINE PHOSPHATASE 100 Units/L (46-116); ASPARTATE AMINO TRANSFERASE 28 Units/L (15-37); BLOOD UREA NITROGEN 26 mg/dL (7-18); CARBON DIOXIDE 27.5 mmol/L (21-32); CHLORIDE 110 mmol/L (98-107); COR CA(FOR HYPOALB) 10.1 mg/dL (8.5-10.1); CREATININE 1.03 mg/dL (0.55-1.02); SODIUM 144 mmol/L (136-145); TOTAL PROTEIN 5.9 g/dL (6.4-8.2); eGFR NON BLACK RACES 55 (>60)
[2020-09-26] MEDS: NS 1000 ML 1,000 ML IV SCH ×3 (07:27→17:19)
[2020-09-26] MEDS: PHARMACY CONSULT LTC MEDICATIONS XX SCH (07:28)
[2020-09-26] MEDS ORDERED: CYMBALTA PO ONE (07:48)
[2020-09-26] MEDS ORDERED: ROCEPHIN 1 GRAM IV PREMIX 1 G/50 ML IV.SOLN. IV ONE (07:49)
[2020-09-26] MEDS ORDERED: PROTONIX TAB 40 MG PO ONE (07:49)
[2020-09-26] MEDS ORDERED: LASIX ONE (07:49)
[2020-09-26] MEDS: ZYLOPRIM PO SCH ×2 (08:46→21:52)
[2020-09-26] MEDS: ROCEPHIN VIAL 1 GRAM 1 G in NS 100 ML IV + SPIKE MINIBAG* 100 ML IV SCH (08:46)
[2020-09-26] MEDS: SYNTHROID 75 mcg TAB PO SCH (08:46)
[2020-09-26] MEDS: PROTONIX TAB 40 MG PO SCH (08:47)
[2020-09-26] MEDS: PLAVIX PO SCH (08:47)
[2020-09-26] MEDS: LASIX PO SCH (08:48)
[2020-09-26] MEDS: CYMBALTA PO SCH (08:48)
[2020-09-26] MEDS: [UNRECOGNIZED DRUG - OTHER] PO SCH ×2 (08:48→21:51)
[2020-09-26] MEDS: DEPAKOTE SPRINKLE PO SCH ×2 (08:49→21:50)
[2020-09-26] MEDS: COLACE CAP 100 MG PO SCH ×2 (08:49→21:49)
--- NOTE | 2020-09-26 10:10 | PCM.PROG ---
Progress Note Progress Note for Day of Date of Exam: 09/26/20 Subjective Subjective: Pt is a 75 yo f admitted from [facility] admitted for sepsis d/t cystitis. This morning patient is alert, sitting up in bed. No acute events overnight. Labs/imaging: Wbc 12>7.2, Hgb 10, Plt 157, Na 144, K 3.5, Cr 1.03, Gluc 64. UrineCx/BloodCx pending. Pt has responded well to treatment. She is currently on IVF, antibiotics: Rocephin. She was given soap suds enema yesterday for constipation and started on colace. Continue home medications, monitor and follow up labs/imaging in the morning. Past Medical Family Social History Past Med/Fam/Surg Hx: No changes since H&P Allergies: Allergies No Known Drug Allergies Allergy (Verified 12/21/19 02:43) Review of Systems ROS: No change since H&P Vital Signs and I&O's Vital Signs: Temperature 97.5 F Pulse Rate [Left Brachial] 67 Pulse Rate [Radial] 89 Pulse Rate 89 Respiratory Rate 18 Blood Pressure [Right Arm] 110/54 Blood Pressure [Left Arm] 125/58 Blood Pressure 100/56 O2 Sat by Pulse Oximetry 96 Intake and Output: Intake & Output 09/23/20 09/24/20 09/25/20 09/26/20 23:59 23:59 23:59 23:59 Intake Total 1548 / 1548 985 / 985 Output Total 1150 / 1150 300 / 300 Balance 398 / 398 685 / 685 Physical Exam Oriented: Other Eyes: Normal Ear: Normal Nose: Normal Throat: Normal Respiratory: Normal Cardiovascular: Normal : Dysuria Auscultation: Bowel Sounds: Normal Tenderness: Suprapubic and Mild Skin: Normal Musculoskeletal: Normal Mood Description: Calm Affect: Normal Laboratory and Diagnostics Result Diagrams: 09/26/20 04:32 09/26/20 04:32 Labs: 09/25/20 00:00 Urine,Catheterized Urine Culture - Preliminary 09/24/20 22:55 Blood Blood Culture - Preliminary 09/24/20 22:48 Blood Blood Culture - Preliminary Laboratory WBC 7.2 X10^3/uL (3.6-10.0) 09/26/20 04:32 RBC 3.29 X10^6/uL (3.5-5.4) L 09/26/20 04:32 Hgb 10.0 g/dL (12.0-16.0) L 09/26/20 04:32 Hct 31.0 % (36.0-47.0) L 09/26/20 04:32 MCV 94.1 fL (80.0-100.0) 09/26/20 04:32 MCH 30.5 pg (27.0-34.0) 09/26/20 04:32 MCHC 32.4 g/dL (33.0-35.0) L 09/26/20 04:32 RDW 14.8 % (11.6-16.5) 09/26/20 04:32 Plt Count 157 X10^3/uL (150.0-450.0) 09/26/20 04:32 MPV 7.9 fL (7.4-11.0) 09/26/20 04:32 Neut % (Auto) 76.2 % (42.0-75.0) H 09/26/20 04:32 Lymph % (Auto) 15.4 % (21.0-51.0) L 09/26/20 04:32 [place] % (Auto) 5.4 % (0.0-13.0) 09/26/20 04:32 Eos % (Auto) 2.3 % (0.9-2.9) 09/26/20 04:32 Baso % (Auto) 0.7 % (0.2-1.0) 09/26/20 04:32 Neut # (Auto) 5.5 x10^3/uL (2.2-4.8) H 09/26/20 04:32 Lymph # (Auto) 1.1 X10^3/uL (1.3-2.9) L 09/26/20 04:32 [place] # (Auto) 0.4 x10^3/uL (0.3-0.8) 09/26/20 04:32 Eos # (Auto) 0.2 x10^3/uL (0.0-0.2) 09/26/20 04:32 Baso # (Auto) 0.0 X10^3/uL (0.0-0.1) 09/26/20 04:32 Absolute Nucleated RBC 0.0 /100WBC 09/26/20 04:32 Sodium 144 mmol/L (136-145) 09/26/20 04:32 Corrected Sodium TNP 09/26/20 04:32 Potassium 3.5 mmol/L (3.5-5.1) 09/26/20 04:32 Chloride 110 mmol/L (98-107) H 09/26/20 04:32 Carbon Dioxide 27.5 mmol/L (21-32) 09/26/20 04:32 BUN 26 mg/dL (7-18) H 09/26/20 04:32 Creatinine 1.03 mg/dL (0.55-1.02) H 09/26/20 04:32 Est GFR (MDRD) Af Amer > 60 (>60) 09/26/20 04:32 Est GFR (MDRD) Non-Af 55 (>60) L 09/26/20 04:32 Glucose 64 mg/dL (65-99) L 09/26/20 04:32 Calcium 8.0 mg/dL (8.5-10.1) L 09/26/20 04:32 Corrected Calcium 10.1 mg/dL (8.5-10.1) 09/26/20 04:32 Total Bilirubin 0.20 mg/dL (0.2-1.0) 09/26/20 04:32 AST 28 Units/L (15-37) 09/26/20 04:32 ALT 15 Units/L (12-78) 09/26/20 04:32 Alkaline Phosphatase 100 Units/L (46-116) 09/26/20 04:32 Total Protein 5.9 g/dL (6.4-8.2) L 09/26/20 04:32 Albumin 1.4 g/dL (3.4-5.0) L 09/26/20 04:32 Globulin 4.5 g/dL (2.5-4.5) 09/26/20 04:32 Albumin/Globulin Ratio 0.3 Ratio (1.1-2.1) L 09/26/20 04:32 Specimen Type Catherized urine 09/25/20 00:00 Urine Color Yellow (YELLOW) 09/25/20 00:00 Urine Appearance Cloudy (CLEAR) 09/25/20 00:00 Urine pH 6.0 (5.0 - 8.0) 09/25/20 00:00 Ur Specific [place] 1.005 (1.000-1.030) 09/25/20 00:00 Urine Protein 3+ (NEGATIVE) 09/25/20 00:00 Urine Glucose (UA) Negative (NEGATIVE) 09/25/20 00:00 Urine Ketones 1+ (NEGATIVE) 09/25/20 00:00 Urine Occult Blood 4+ (NEGATIVE) 09/25/20 00:00 Urine Nitrite Negative (NEGATIVE) 09/25/20 00:00 Urine Bilirubin Negative (NEGATIVE) 09/25/20 00:00 Urine Urobilinogen 1+ (NORMAL) 09/25/20 00:00 Ur Leukocyte Esterase 3+ (NEGATIVE) 09/25/20 00:00 Urine RBC 10-20 /HPF (0-3) A 09/25/20 00:00 Urine WBC Tntc /HPF (0-5) A 09/25/20 00:00 Ur Squamous Epith Cells Rare /HPF (NEGATIVE) 09/25/20 00:00 Urine Bacteria 2+ /HPF (NEGATIVE) 09/25/20 00:00 Ur Culture Indicated? Yes/culture set up 09/25/20 00:00 SARS-CoV-2 (PCR) Negative (NEGATIVE) 09/25/20 01:46 Plan (1) Sepsis: Status: Acute Qualifiers: Sepsis acute organ dysfunction status: with acute organ dysfunction Sepsis type: sepsis due to unspecified organism Severe sepsis acute organ dysfunction type: unspecified Severe sepsis shock status: without septic shock Qualified Code(s): A41.9 - Sepsis, unspecified organism; R65.20 - Severe sepsis without septic shock Plan: Continue antibiotics. Likely source urine. Awaiting Urine and Blood cultures pending. (2) Cystitis: Status: Acute (3) Constipation: Status: Acute Qualifiers: Constipation type: unspecified constipation type Qualified Code(s): K59.00 - Constipation, unspecified
[2020-09-26] MEDS: ARICEPT TAB 5 MG PO SCH (21:48)
[2020-09-26] MEDS: CRESTOR TAB 10 MG PO SCH (21:49)
[2020-09-26] MEDS: DESYREL PO SCH (21:50)
[2020-09-26] MEDS: REMERON PO SCH (21:51)
[2020-09-26] MEDS: DULCOLAX TAB EC 5 MG PO SCH (21:51)
[2020-09-27] MEDS: NS 1000 ML 1,000 ML IV SCH ×4 (03:02→23:50)
[2020-09-27 05:43] LABS: BASOPHILS # (AUTO) 0.1 X10^3/uL (0.0-0.1); BASOPHILS % (AUTO) 0.8 % (0.2-1.0); EOSINOPHILS # (AUTO) 0.2 x10^3/uL (0.0-0.2); EOSINOPHILS % (AUTO) 2.3 % (0.9-2.9); HEMATOCRIT 32.8 % (36.0-47.0); HEMOGLOBIN 10.7 g/dL (12.0-16.0); LYMPHOCYTES # (AUTO) 1.6 X10^3/uL (1.3-2.9); LYMPHOCYTES % (AUTO) 17.2 % (21.0-51.0); MEAN CORPUSCULAR HEMOGLOBIN 30.7 pg (27.0-34.0); MEAN CORPUSCULAR HGB CONC 32.6 g/dL (33.0-35.0); MEAN PLATELET VOLUME 7.7 fL (7.4-11.0); MONOCYTES # (AUTO) 0.6 x10^3/uL (0.3-0.8); MONOCYTES % (AUTO) 6.4 % (0.0-13.0); NEUTROPHILS # (AUTO) 6.9 x10^3/uL (2.2-4.8); NEUTROPHILS % (AUTO) 73.3 % (42.0-75.0); PLATELET COUNT 201 X10^3/uL (150.0-450.0); RED BLOOD COUNT 3.49 X10^6/uL (3.5-5.4); WHITE BLOOD COUNT 9.4 X10^3/uL (3.6-10.0)
[2020-09-27 05:45] LABS: ALANINE AMINOTRANSFERASE 17 Units/L (12-78); ALBUMIN 1.4 g/dL (3.4-5.0); ALKALINE PHOSPHATASE 103 Units/L (46-116); ASPARTATE AMINO TRANSFERASE 23 Units/L (15-37); BLOOD UREA NITROGEN 16 mg/dL (7-18); CALCIUM 8.1 mg/dL (8.5-10.1); CARBON DIOXIDE 26.6 mmol/L (21-32); CHLORIDE 112 mmol/L (98-107); COR CA(FOR HYPOALB) 10.2 mg/dL (8.5-10.1); CREATININE 0.93 mg/dL (0.55-1.02); SODIUM 146 mmol/L (136-145); eGFR NON BLACK RACES > 60 (>60)
[2020-09-27] MEDS: COLACE CAP 100 MG PO SCH ×3 (09:50→21:30)
[2020-09-27] MEDS: CYMBALTA PO SCH ×2 (09:53→10:23)
[2020-09-27] MEDS: DEPAKOTE SPRINKLE PO SCH ×3 (09:53→21:32)
[2020-09-27] MEDS: SYNTHROID 75 mcg TAB PO SCH ×2 (09:54→10:22)
[2020-09-27] MEDS: LASIX PO SCH ×2 (09:54→10:23)
[2020-09-27] MEDS: PROTONIX TAB 40 MG PO SCH ×2 (09:54→10:22)
[2020-09-27] MEDS: ZYLOPRIM PO SCH ×3 (09:54→21:32)
[2020-09-27] MEDS: PLAVIX PO SCH ×2 (09:55→10:24)
[2020-09-27] MEDS: ROCEPHIN VIAL 1 GRAM 1 G in NS 100 ML IV + SPIKE MINIBAG* 100 ML IV SCH (10:15)
[2020-09-27] MEDS: [UNRECOGNIZED DRUG - OTHER] PO SCH ×2 (10:23→22:00)
[2020-09-27] MEDS: LOVENOX INJ 40 MG SYR SC SCH (15:50)
[2020-09-27] MEDS: DESYREL PO SCH (21:30)
[2020-09-27] MEDS: ARICEPT TAB 5 MG PO SCH (21:30)
[2020-09-27] MEDS: CRESTOR TAB 10 MG PO SCH (21:30)
[2020-09-27] MEDS: COREG TAB 3.125 MG PO SCH (21:30)
[2020-09-27] MEDS: DULCOLAX TAB EC 5 MG PO SCH (21:31)
[2020-09-27] MEDS: REMERON PO SCH (21:31)
[2020-09-28] MEDS ORDERED: MILK OF MAGNESIA ONE (03:21)
[2020-09-28] MEDS: MILK OF MAGNESIA PO SCH ×3 (03:30→21:12)
[2020-09-28] MEDS: NS 1000 ML 1,000 ML IV SCH ×3 (04:41→19:25)
--- NOTE | 2020-09-28 04:49 | RAD ---
HISTORYCOPDSTUDYCHEST, 1 [id number]/06/2020FINDINGSThe trachea is midline. The cardiac silhouette is enlarged.. Mild bilateral central pulmonary vascular congestion. Low lung volume with patchy bibasilar atelectasis versus infiltrates. Small right pleural effusion. Right chest wall MediPort unchanged in position. Postsurgical changes of the mediastinum and right upper quadrant again seen.. The bony thorax is stable.IMPRESSIONCardiomegaly and central pulmonary vascular congestion.Low lung volume with mild bibasilar atelectasis/infiltrates.Small right pleural effusion.Electronically signed by: Beverly Rico (Sep 28, 2020 04:47:33)
[2020-09-28 05:59] LABS: ALANINE AMINOTRANSFERASE 15 Units/L (12-78); ALBUMIN 1.3 g/dL (3.4-5.0); ALKALINE PHOSPHATASE 110 Units/L (46-116); ASPARTATE AMINO TRANSFERASE 25 Units/L (15-37); BLOOD UREA NITROGEN 14 mg/dL (7-18); CALCIUM 7.7 mg/dL (8.5-10.1); CARBON DIOXIDE 23.6 mmol/L (21-32); CHLORIDE 114 mmol/L (98-107); COR CA(FOR HYPOALB) 9.9 mg/dL (8.5-10.1); CREATININE 1.09 mg/dL (0.55-1.02); SODIUM 148 mmol/L (136-145); TOTAL PROTEIN 5.3 g/dL (6.4-8.2); eGFR NON BLACK RACES 52 (>60)
[2020-09-28 06:06] LABS: BASOPHILS # (AUTO) 0.1 X10^3/uL (0.0-0.1); BASOPHILS % (AUTO) 0.4 % (0.2-1.0); EOSINOPHILS % (AUTO) 0.1 % (0.9-2.9); HEMATOCRIT 27.9 % (36.0-47.0); HEMOGLOBIN 9.1 g/dL (12.0-16.0); LYMPHOCYTES # (AUTO) 1.1 X10^3/uL (1.3-2.9); LYMPHOCYTES % (AUTO) 5.7 % (21.0-51.0); MEAN CORPUSCULAR HEMOGLOBIN 30.3 pg (27.0-34.0); MEAN CORPUSCULAR HGB CONC 32.5 g/dL (33.0-35.0); MEAN CORPUSCULAR VOLUME 93.5 fL (80.0-100.0); MEAN PLATELET VOLUME 7.5 fL (7.4-11.0); MONOCYTES # (AUTO) 0.7 x10^3/uL (0.3-0.8); MONOCYTES % (AUTO) 3.6 % (0.0-13.0); NEUTROPHILS # (AUTO) 16.8 x10^3/uL (2.2-4.8); NEUTROPHILS % (AUTO) 90.2 % (42.0-75.0); PLATELET COUNT 168 X10^3/uL (150.0-450.0); RED BLOOD COUNT 2.99 X10^6/uL (3.5-5.4); RED CELL DISTRIBUTION WIDTH 14.9 % (11.6-16.5); WHITE BLOOD COUNT 18.6 X10^3/uL (3.6-10.0)
[2020-09-28 06:42] LABS: BAND NEUTROPHILS % 7 % (0-10); PLATELET MORPHOLOGY COMMENT NORMAL (NORMAL)
[2020-09-28] MEDS ORDERED: POTASSIUM CHL 40 MEQ/NS 0.45% 500 ML IV PRN (08:20)
[2020-09-28] MEDS ORDERED: POTASSIUM CHL 60 MEQ/NS 0.45% 500 ML IV PRN (08:20)
[2020-09-28] MEDS ORDERED: MICRO K EXTEN CAP 10 MEQ PO PRN (08:20)
[2020-09-28] MEDS ORDERED: POTASSIUM CHLORIDE LIQ 20 MEQ UDC PO PRN (08:20)
[2020-09-28] MEDS ORDERED: KLOR-CON PO PRN (08:20)
[2020-09-28] MEDS: COLACE CAP 100 MG PO SCH ×2 (09:56→21:10)
[2020-09-28] MEDS: COREG TAB 3.125 MG PO SCH ×2 (09:57→21:13)
[2020-09-28] MEDS: LASIX PO SCH (09:57)
[2020-09-28] MEDS: DEPAKOTE SPRINKLE PO SCH ×2 (09:57→21:13)
[2020-09-28] MEDS: CYMBALTA PO SCH (09:57)
[2020-09-28] MEDS: PROTONIX TAB 40 MG PO SCH (09:58)
[2020-09-28] MEDS: ZYLOPRIM PO SCH ×2 (09:58→21:10)
[2020-09-28] MEDS: [UNRECOGNIZED DRUG - OTHER] PO SCH ×2 (09:58→22:43)
[2020-09-28] MEDS: PLAVIX PO SCH (09:58)
[2020-09-28] MEDS: SYNTHROID 75 mcg TAB PO SCH (09:59)
[2020-09-28] MEDS: LOVENOX INJ 40 MG SYR SC SCH (09:59)
[2020-09-28] MEDS: ROCEPHIN VIAL 1 GRAM 1 G in NS 100 ML IV + SPIKE MINIBAG* 100 ML IV SCH (11:32)
[2020-09-28] MEDS: ARICEPT TAB 5 MG PO SCH (21:09)
[2020-09-28] MEDS: REMERON PO SCH (21:10)
[2020-09-28] MEDS: DULCOLAX TAB EC 5 MG PO SCH (21:11)
[2020-09-28] MEDS: DESYREL PO SCH (21:12)
[2020-09-28] MEDS: CRESTOR TAB 10 MG PO SCH (21:13)
[2020-09-28] MEDS ORDERED: BUTT CREAM (COMPOUND) ONE (22:34)
[2020-09-28] MEDS: BUTT CREAM (COMPOUND) TOP PRN ×2 (22:35→22:43)
[2020-09-29] MEDS: NS 1000 ML 1,000 ML IV SCH ×3 (02:07→21:34)
[2020-09-29 06:39] LABS: BASOPHILS # (AUTO) 0.1 X10^3/uL (0.0-0.1); BASOPHILS % (AUTO) 0.6 % (0.2-1.0); EOSINOPHILS # (AUTO) 0.2 x10^3/uL (0.0-0.2); EOSINOPHILS % (AUTO) 1.3 % (0.9-2.9); HEMOGLOBIN 8.7 g/dL (12.0-16.0); LYMPHOCYTES # (AUTO) 1.6 X10^3/uL (1.3-2.9); LYMPHOCYTES % (AUTO) 12.3 % (21.0-51.0); MEAN CORPUSCULAR HEMOGLOBIN 30.1 pg (27.0-34.0); MEAN CORPUSCULAR HGB CONC 32.3 g/dL (33.0-35.0); MEAN CORPUSCULAR VOLUME 93.3 fL (80.0-100.0); MEAN PLATELET VOLUME 7.2 fL (7.4-11.0); MONOCYTES # (AUTO) 0.5 x10^3/uL (0.3-0.8); MONOCYTES % (AUTO) 3.5 % (0.0-13.0); NEUTROPHILS # (AUTO) 10.6 x10^3/uL (2.2-4.8); NEUTROPHILS % (AUTO) 82.3 % (42.0-75.0); PLATELET COUNT 151 X10^3/uL (150.0-450.0); RED CELL DISTRIBUTION WIDTH 15.1 % (11.6-16.5); WHITE BLOOD COUNT 12.8 X10^3/uL (3.6-10.0)
[2020-09-29 07:08] LABS: ALANINE AMINOTRANSFERASE 8 Units/L (12-78); ALBUMIN 1.1 g/dL (3.4-5.0); ALKALINE PHOSPHATASE 96 Units/L (46-116); ASPARTATE AMINO TRANSFERASE 20 Units/L (15-37); BLOOD UREA NITROGEN 19 mg/dL (7-18); CALCIUM 7.6 mg/dL (8.5-10.1); CARBON DIOXIDE 27.1 mmol/L (21-32); CHLORIDE 113 mmol/L (98-107); COR CA(FOR HYPOALB) 9.9 mg/dL (8.5-10.1); CREATININE 1.01 mg/dL (0.55-1.02); SODIUM 147 mmol/L (136-145); TOTAL PROTEIN 4.8 g/dL (6.4-8.2); eGFR NON BLACK RACES 56 (>60)
[2020-09-29] MEDS: [UNRECOGNIZED DRUG - OTHER] PO SCH ×2 (09:25→21:37)
[2020-09-29] MEDS: CYMBALTA PO SCH (09:25)
[2020-09-29] MEDS: COREG TAB 3.125 MG PO SCH ×2 (09:25→21:36)
[2020-09-29] MEDS: LASIX PO SCH (09:25)
[2020-09-29] MEDS: COLACE CAP 100 MG PO SCH ×2 (09:25→21:37)
[2020-09-29] MEDS: DEPAKOTE SPRINKLE PO SCH ×2 (09:25→21:35)
[2020-09-29] MEDS: LOVENOX INJ 40 MG SYR SC SCH (09:25)
[2020-09-29] MEDS: PROTONIX TAB 40 MG PO SCH (09:26)
[2020-09-29] MEDS: PLAVIX PO SCH (09:26)
[2020-09-29] MEDS: MILK OF MAGNESIA PO SCH ×2 (09:26→21:37)
[2020-09-29] MEDS: ZYLOPRIM PO SCH ×2 (09:27→21:37)
[2020-09-29] MEDS: ROCEPHIN VIAL 1 GRAM 1 G in NS 100 ML IV + SPIKE MINIBAG* 100 ML IV SCH (09:30)
[2020-09-29] MEDS: SYNTHROID 75 mcg TAB PO SCH (09:30)
--- NOTE | 2020-09-29 11:01 | RAD ---
HISTORYAbdominal pain, [id number]/06/2020FINDINGSThe abdominal gas pattern is nonspecific and nonobstr uctive. There has been a significant decrease in the stool burden when compared to the prior examinat ion. Moderate residual stool remains in the rectum. No abnormal masses or significant abnormal calcif ications are present. Regional skeleton is intact.IMPRESSIONSignificant decrease in the overall stool burden when compared with the prior examination.Electronically signed by: ASIM LITTLEJOHN (Sep 29 0 10:59:44)
[2020-09-29] MEDS: ARICEPT TAB 5 MG PO SCH (21:34)
[2020-09-29] MEDS: DESYREL PO SCH (21:35)
[2020-09-29] MEDS: CRESTOR TAB 10 MG PO SCH (21:36)
[2020-09-29] MEDS: REMERON PO SCH (21:36)
[2020-09-29] MEDS: DULCOLAX TAB EC 5 MG PO SCH (21:37)
[2020-09-30] MEDS: NS 1000 ML 1,000 ML IV SCH ×3 (02:53→18:09)
[2020-09-30 06:27] LABS: BASOPHILS # (AUTO) 0.1 X10^3/uL (0.0-0.1); BASOPHILS % (AUTO) 0.9 % (0.2-1.0); EOSINOPHILS # (AUTO) 0.3 x10^3/uL (0.0-0.2); EOSINOPHILS % (AUTO) 2.1 % (0.9-2.9); HEMATOCRIT 29.6 % (36.0-47.0); HEMOGLOBIN 9.3 g/dL (12.0-16.0); LYMPHOCYTES # (AUTO) 2.1 X10^3/uL (1.3-2.9); LYMPHOCYTES % (AUTO) 17.5 % (21.0-51.0); MEAN CORPUSCULAR HEMOGLOBIN 29.8 pg (27.0-34.0); MEAN CORPUSCULAR HGB CONC 31.5 g/dL (33.0-35.0); MEAN CORPUSCULAR VOLUME 94.6 fL (80.0-100.0); MEAN PLATELET VOLUME 7.6 fL (7.4-11.0); MONOCYTES # (AUTO) 0.3 x10^3/uL (0.3-0.8); MONOCYTES % (AUTO) 2.8 % (0.0-13.0); NEUTROPHILS # (AUTO) 9.1 x10^3/uL (2.2-4.8); NEUTROPHILS % (AUTO) 76.7 % (42.0-75.0); PLATELET COUNT 160 X10^3/uL (150.0-450.0); RED BLOOD COUNT 3.12 X10^6/uL (3.5-5.4); RED CELL DISTRIBUTION WIDTH 15.1 % (11.6-16.5)
[2020-09-30 06:28] LABS: ALANINE AMINOTRANSFERASE 9 Units/L (12-78); ALBUMIN 1.2 g/dL (3.4-5.0); ALKALINE PHOSPHATASE 93 Units/L (46-116); ASPARTATE AMINO TRANSFERASE 26 Units/L (15-37); BLOOD UREA NITROGEN 20 mg/dL (7-18); CALCIUM 7.8 mg/dL (8.5-10.1); CARBON DIOXIDE 26.9 mmol/L (21-32); CHLORIDE 114 mmol/L (98-107); CREATININE 1.08 mg/dL (0.55-1.02); SODIUM 148 mmol/L (136-145); TOTAL PROTEIN 5.1 g/dL (6.4-8.2); eGFR NON BLACK RACES 52 (>60)
[2020-09-30 07:02] LABS: PLATELET MORPHOLOGY COMMENT NORMAL (NORMAL); WHITE BLOOD COUNT 12.6 X10^3/uL (3.6-10.0)
[2020-09-30] MEDS: COREG TAB 3.125 MG PO SCH ×2 (09:59→22:04)
[2020-09-30] MEDS: CYMBALTA PO SCH (09:59)
[2020-09-30] MEDS: [UNRECOGNIZED DRUG - OTHER] PO SCH ×2 (09:59→22:00)
[2020-09-30] MEDS: COLACE CAP 100 MG PO SCH ×2 (09:59→22:01)
[2020-09-30] MEDS: PROTONIX TAB 40 MG PO SCH (10:00)
[2020-09-30] MEDS: DEPAKOTE SPRINKLE PO SCH ×2 (10:00→22:01)
[2020-09-30] MEDS: ROCEPHIN VIAL 1 GRAM 1 G in NS 100 ML IV + SPIKE MINIBAG* 100 ML IV SCH (10:00)
[2020-09-30] MEDS: SYNTHROID 75 mcg TAB PO SCH (10:00)
[2020-09-30] MEDS: ZYLOPRIM PO SCH ×2 (10:00→22:00)
[2020-09-30] MEDS: PLAVIX PO SCH (10:01)
[2020-09-30] MEDS: LASIX PO SCH (10:01)
[2020-09-30] MEDS: MILK OF MAGNESIA PO SCH ×2 (10:05→22:15)
[2020-09-30] MEDS: LOVENOX INJ 40 MG SYR SC SCH (10:05)
--- NOTE | 2020-09-30 12:35 | RAD ---
HISTORYABD PAIN constipation.STUDYKUBCOMPARISONKUB from yesterdayFINDINGSThere is less stool in the colon than previously. Today there is not an atypically large amount of stool in the colon.Gas is present in nondilated bowel. No bowel obstruction or free air.Surgical clips are present in the right upper abdomen, probably from a cholecystectomy.Degenerative changes in the spine. Mild scoliosis is stable. Possible injection granulomata seen in the left gluteal region.IMPRESSION1. No bowel obstruction or free air2. Reduced amount of stool burdenElectronically signed by: Song Hope (Sep 30, 2020 12:33:47)
[2020-09-30] MEDS: LEVAQUIN PREMIX IV 500 MG 500 MG/100 ML BAG IV SCH (18:09)
[2020-09-30] MEDS: DULCOLAX TAB EC 5 MG PO SCH (22:00)
[2020-09-30] MEDS: DESYREL PO SCH (22:00)
[2020-09-30] MEDS: CRESTOR TAB 10 MG PO SCH (22:00)
[2020-09-30] MEDS: ARICEPT TAB 5 MG PO SCH (22:01)
[2020-09-30] MEDS: REMERON PO SCH (22:02)
[2020-09-30] MEDS: K-RIDER 10 MEQ/NS 100 ML 10 MEQ/100 ML BAG IV PRN ×2 (22:08→23:52)
[2020-10-01 02:31] LABS: CRYPTOSPORIDIUM PARVUM ANTIGEN NEGATIVE (NEGATIVE); GIARDIA LAMBLIA ANTIGEN NEGATIVE (NEGATIVE)
[2020-10-01] MEDS: NS 1000 ML 1,000 ML IV SCH (02:44)
[2020-10-01 07:08] LABS: BASOPHILS # (AUTO) 0.1 X10^3/uL (0.0-0.1); BASOPHILS % (AUTO) 1.2 % (0.2-1.0); EOSINOPHILS # (AUTO) 0.2 x10^3/uL (0.0-0.2); EOSINOPHILS % (AUTO) 1.8 % (0.9-2.9); HEMATOCRIT 34.9 % (36.0-47.0); HEMOGLOBIN 11.3 g/dL (12.0-16.0); LYMPHOCYTES # (AUTO) 1.9 X10^3/uL (1.3-2.9); LYMPHOCYTES % (AUTO) 15.9 % (21.0-51.0); MEAN CORPUSCULAR HEMOGLOBIN 29.9 pg (27.0-34.0); MEAN CORPUSCULAR HGB CONC 32.3 g/dL (33.0-35.0); MEAN CORPUSCULAR VOLUME 92.6 fL (80.0-100.0); MONOCYTES # (AUTO) 0.3 x10^3/uL (0.3-0.8); MONOCYTES % (AUTO) 2.7 % (0.0-13.0); NEUTROPHILS # (AUTO) 9.6 x10^3/uL (2.2-4.8); NEUTROPHILS % (AUTO) 78.4 % (42.0-75.0); PLATELET COUNT 200 X10^3/uL (150.0-450.0); RED BLOOD COUNT 3.77 X10^6/uL (3.5-5.4); WHITE BLOOD COUNT 12.2 X10^3/uL (3.6-10.0)
[2020-10-01 07:36] LABS: ALANINE AMINOTRANSFERASE 14 Units/L (12-78); ALBUMIN 1.4 g/dL (3.4-5.0); ALKALINE PHOSPHATASE 104 Units/L (46-116); ASPARTATE AMINO TRANSFERASE 29 Units/L (15-37); BLOOD UREA NITROGEN 15 mg/dL (7-18); CALCIUM 8.1 mg/dL (8.5-10.1); CARBON DIOXIDE 26.1 mmol/L (21-32); CHLORIDE 110 mmol/L (98-107); COR CA(FOR HYPOALB) 10.2 mg/dL (8.5-10.1); SODIUM 146 mmol/L (136-145); eGFR NON BLACK RACES 51 (>60)
[2020-10-01] MEDS: DEPAKOTE SPRINKLE PO SCH ×2 (09:55→20:30)
[2020-10-01] MEDS: COLACE CAP 100 MG PO SCH ×2 (09:55→20:29)
[2020-10-01] MEDS: PLAVIX PO SCH (09:56)
[2020-10-01] MEDS: CYMBALTA PO SCH (09:56)
[2020-10-01] MEDS: LOVENOX INJ 40 MG SYR SC SCH (09:56)
[2020-10-01] MEDS: COREG TAB 3.125 MG PO SCH ×2 (09:56→20:29)
[2020-10-01] MEDS: D5W 1000 ML IV 1,000 ML IV SCH (09:57)
[2020-10-01] MEDS: ZYLOPRIM PO SCH ×2 (09:57→20:31)
[2020-10-01] MEDS: LASIX PO SCH (09:57)
[2020-10-01] MEDS: [UNRECOGNIZED DRUG - OTHER] PO SCH ×2 (09:57→20:30)
[2020-10-01] MEDS: MILK OF MAGNESIA PO SCH ×2 (09:58→20:31)
[2020-10-01] MEDS: LEVAQUIN PREMIX IV 500 MG 500 MG/100 ML BAG IV SCH (09:58)
[2020-10-01] MEDS: SYNTHROID 75 mcg TAB PO SCH (09:59)
[2020-10-01] MEDS: ROCEPHIN VIAL 1 GRAM 1 G in NS 100 ML IV + SPIKE MINIBAG* 100 ML IV SCH (09:59)
[2020-10-01] MEDS: PROTONIX TAB 40 MG PO SCH (09:59)
[2020-10-01] MEDS: ZITHROMAX INJ 500 MG VIAL 500 MG in NS 250 ML IV 250 ML IV SCH (11:36)
[2020-10-01] MEDS: K-DUR TAB 20 MEQ PO PRN (15:34)
[2020-10-01] MEDS: ARICEPT TAB 5 MG PO SCH (20:29)
[2020-10-01] MEDS: CRESTOR TAB 10 MG PO SCH (20:30)
[2020-10-01] MEDS: DESYREL PO SCH (20:30)
[2020-10-01] MEDS: DULCOLAX TAB EC 5 MG PO SCH (20:30)
[2020-10-01] MEDS: REMERON PO SCH (20:31)
[2020-10-02 06:04] LABS: BASOPHILS # (AUTO) 0.1 X10^3/uL (0.0-0.1); BASOPHILS % (AUTO) 1.3 % (0.2-1.0); EOSINOPHILS # (AUTO) 0.2 x10^3/uL (0.0-0.2); EOSINOPHILS % (AUTO) 3.5 % (0.9-2.9); HEMATOCRIT 27.6 % (36.0-47.0); HEMOGLOBIN 9.1 g/dL (12.0-16.0); LYMPHOCYTES # (AUTO) 1.7 X10^3/uL (1.3-2.9); LYMPHOCYTES % (AUTO) 24.6 % (21.0-51.0); MEAN CORPUSCULAR HEMOGLOBIN 30.4 pg (27.0-34.0); MEAN CORPUSCULAR HGB CONC 32.8 g/dL (33.0-35.0); MEAN CORPUSCULAR VOLUME 92.7 fL (80.0-100.0); MEAN PLATELET VOLUME 7.4 fL (7.4-11.0); MONOCYTES # (AUTO) 0.3 x10^3/uL (0.3-0.8); MONOCYTES % (AUTO) 3.9 % (0.0-13.0); NEUTROPHILS # (AUTO) 4.6 x10^3/uL (2.2-4.8); NEUTROPHILS % (AUTO) 66.7 % (42.0-75.0); PLATELET COUNT 149 X10^3/uL (150.0-450.0); RED BLOOD COUNT 2.98 X10^6/uL (3.5-5.4); RED CELL DISTRIBUTION WIDTH 14.6 % (11.6-16.5); WHITE BLOOD COUNT 6.9 X10^3/uL (3.6-10.0)
[2020-10-02 06:22] LABS: ALANINE AMINOTRANSFERASE 15 Units/L (12-78); ALBUMIN 1.3 g/dL (3.4-5.0); ALKALINE PHOSPHATASE 80 Units/L (46-116); ASPARTATE AMINO TRANSFERASE 27 Units/L (15-37); BLOOD UREA NITROGEN 11 mg/dL (7-18); CALCIUM 7.4 mg/dL (8.5-10.1); CARBON DIOXIDE 28.6 mmol/L (21-32); CHLORIDE 112 mmol/L (98-107); COR CA(FOR HYPOALB) 9.6 mg/dL (8.5-10.1); MAGNESIUM 1.8 mg/dL (1.7-2.9); SODIUM 146 mmol/L (136-145); eGFR NON BLACK RACES > 60 (>60)
[2020-10-02] MEDS ORDERED: HEMOCYTE-PLUS ONE (07:43)
[2020-10-02] MEDS: COREG TAB 3.125 MG PO SCH ×2 (08:58→21:00)
[2020-10-02] MEDS: COLACE CAP 100 MG PO SCH ×2 (08:58→20:59)
[2020-10-02] MEDS: CYMBALTA PO SCH (08:59)
[2020-10-02] MEDS: HEMOCYTE-PLUS PO SCH (08:59)
[2020-10-02] MEDS: DEPAKOTE SPRINKLE PO SCH ×2 (09:00→20:57)
[2020-10-02] MEDS: LEVAQUIN PREMIX IV 500 MG 500 MG/100 ML BAG IV SCH (09:00)
[2020-10-02] MEDS: LASIX PO SCH (09:00)
[2020-10-02] MEDS: LOVENOX INJ 40 MG SYR SC SCH (09:00)
[2020-10-02] MEDS: [UNRECOGNIZED DRUG - OTHER] PO SCH ×2 (09:00→21:05)
[2020-10-02] MEDS: PLAVIX PO SCH (09:01)
[2020-10-02] MEDS: MILK OF MAGNESIA PO SCH ×2 (09:01→21:07)
[2020-10-02] MEDS: SYNTHROID 75 mcg TAB PO SCH (09:02)
[2020-10-02] MEDS: ZITHROMAX INJ 500 MG VIAL 500 MG in NS 250 ML IV 250 ML IV SCH (09:02)
[2020-10-02] MEDS: ZYLOPRIM PO SCH ×2 (09:02→21:00)
[2020-10-02] MEDS: PROTONIX TAB 40 MG PO SCH (09:02)
[2020-10-02] MEDS: D5W 1000 ML IV 1,000 ML IV SCH (10:29)
[2020-10-02] MEDS: MAGNESIUM SULFATE 1 GRAM/100 mL PREMIX 1 GM/100 ML BAG IV PRN ×2 (14:08→17:21)
[2020-10-02] MEDS: DULCOLAX TAB EC 5 MG PO SCH (20:58)
[2020-10-02] MEDS: ARICEPT TAB 5 MG PO SCH (20:58)
[2020-10-02] MEDS: CRESTOR TAB 10 MG PO SCH (20:59)
[2020-10-02] MEDS: DESYREL PO SCH (21:00)
[2020-10-02] MEDS: REMERON PO SCH (21:00)
[2020-10-03] MEDS: D5W 1000 ML IV 1,000 ML IV SCH ×2 (05:19→09:10)
[2020-10-03 05:46] LABS: BASOPHILS # (AUTO) 0.1 X10^3/uL (0.0-0.1); BASOPHILS % (AUTO) 1.1 % (0.2-1.0); EOSINOPHILS # (AUTO) 0.2 x10^3/uL (0.0-0.2); EOSINOPHILS % (AUTO) 4.4 % (0.9-2.9); HEMATOCRIT 26.9 % (36.0-47.0); HEMOGLOBIN 8.8 g/dL (12.0-16.0); LYMPHOCYTES # (AUTO) 1.2 X10^3/uL (1.3-2.9); LYMPHOCYTES % (AUTO) 21.9 % (21.0-51.0); MEAN CORPUSCULAR HEMOGLOBIN 30.5 pg (27.0-34.0); MEAN CORPUSCULAR HGB CONC 32.7 g/dL (33.0-35.0); MEAN CORPUSCULAR VOLUME 93.2 fL (80.0-100.0); MONOCYTES # (AUTO) 0.3 x10^3/uL (0.3-0.8); MONOCYTES % (AUTO) 5.5 % (0.0-13.0); NEUTROPHILS # (AUTO) 3.6 x10^3/uL (2.2-4.8); NEUTROPHILS % (AUTO) 67.1 % (42.0-75.0); PLATELET COUNT 136 X10^3/uL (150.0-450.0); RED BLOOD COUNT 2.88 X10^6/uL (3.5-5.4); RED CELL DISTRIBUTION WIDTH 14.7 % (11.6-16.5); WHITE BLOOD COUNT 5.4 X10^3/uL (3.6-10.0)
[2020-10-03 05:57] LABS: ALANINE AMINOTRANSFERASE 17 Units/L (12-78); ALBUMIN 1.3 g/dL (3.4-5.0); ALKALINE PHOSPHATASE 78 Units/L (46-116); ASPARTATE AMINO TRANSFERASE 26 Units/L (15-37); BLOOD UREA NITROGEN 7 mg/dL (7-18); CALCIUM 7.5 mg/dL (8.5-10.1); CARBON DIOXIDE 28.9 mmol/L (21-32); CHLORIDE 111 mmol/L (98-107); COR CA(FOR HYPOALB) 9.7 mg/dL (8.5-10.1); CREATININE 0.78 mg/dL (0.55-1.02); MAGNESIUM 2.2 mg/dL (1.7-2.9); SODIUM 144 mmol/L (136-145); TOTAL PROTEIN 4.9 g/dL (6.4-8.2); eGFR NON BLACK RACES > 60 (>60)
--- NOTE | 2020-10-03 06:04 | RAD ---
HISTORYCOPDSTUDYPortable AP [id number]/10/2020FINDINGSPersistent cardiomegaly and central pulmonary vascular prominence. P leural-parenchymal opacity has increased at the right base, obscuring the diaphragm. Minimal left bas al atelectasis. No change in position of right IJ injection port.IMPRESSIONIncreasing airspace diseas e at right base with increasing right pleural effusion. No change otherwise since prior similar.Elect ronically signed by: LUL CENTENO (Oct 03, 2020 06:02:45)
[2020-10-03] MEDS: COLACE CAP 100 MG PO SCH ×2 (09:05→20:16)
[2020-10-03] MEDS: COREG TAB 3.125 MG PO SCH ×2 (09:07→20:10)
[2020-10-03] MEDS: DEPAKOTE SPRINKLE PO SCH ×2 (09:08→20:10)
[2020-10-03] MEDS: CYMBALTA PO SCH (09:08)
[2020-10-03] MEDS: [UNRECOGNIZED DRUG - OTHER] PO SCH ×2 (09:09→20:54)
[2020-10-03] MEDS: ZITHROMAX INJ 500 MG VIAL 500 MG in NS 250 ML IV 250 ML IV SCH (09:09)
[2020-10-03] MEDS: HEMOCYTE-PLUS PO SCH (09:10)
[2020-10-03] MEDS: LASIX PO SCH (09:11)
[2020-10-03] MEDS: LEVAQUIN PREMIX IV 500 MG 500 MG/100 ML BAG IV SCH (09:12)
[2020-10-03] MEDS: LOVENOX INJ 40 MG SYR SC SCH (09:12)
[2020-10-03] MEDS: MILK OF MAGNESIA PO SCH ×2 (09:13→20:54)
[2020-10-03] MEDS: PLAVIX PO SCH (09:13)
[2020-10-03] MEDS: PROTONIX TAB 40 MG PO SCH (09:13)
[2020-10-03] MEDS: ZYLOPRIM PO SCH ×2 (09:14→20:16)
[2020-10-03] MEDS: SYNTHROID 75 mcg TAB PO SCH (09:14)
[2020-10-03] MEDS: K-DUR TAB 20 MEQ PO PRN (09:17)
[2020-10-03] MEDS: LASIX IVP SCH ×3 (11:37→16:41)
[2020-10-03] MEDS: KLOR-CON PO SCH (11:38)
[2020-10-03] MEDS: ARICEPT TAB 5 MG PO SCH (20:13)
[2020-10-03] MEDS: DULCOLAX TAB EC 5 MG PO SCH (20:13)
[2020-10-03] MEDS: REMERON PO SCH (20:14)
[2020-10-03] MEDS: CRESTOR TAB 10 MG PO SCH (20:15)
[2020-10-03] MEDS: DESYREL PO SCH (20:24)
--- NOTE | 2020-10-04 05:56 | RAD ---
HISTORYCOPDSTUDYChest AP [id number]/15/2020FINDINGSThere is a port present on the right. The patient is status post median sternotomy and CABG. The heart is mildly enlarged. No congestive heart failure is noted. Right basilar lung infiltrate is unchanged. A small right pleural effusion is likely present. There is min imal subsegmental atelectasis in the left lung base. Left upper lung field is clear. The lungs are ge nerally mildly hypoinflated. Bony thorax is unremarkable.IMPRESSIONNo change right perihilar and righ t basilar lung infiltrate with a small right pleural effusionNo change hypo inflationNo change cardio megaly without congestive heart failureNo change subsegmental atelectasis retrocardiac area left lowe r lobeElectronically signed by: ASIM LITTLEJOHN (Oct 04, 2020 05:54:29)
[2020-10-04 06:13] LABS: BASOPHILS # (AUTO) 0.1 X10^3/uL (0.0-0.1); BASOPHILS % (AUTO) 1.1 % (0.2-1.0); EOSINOPHILS # (AUTO) 0.3 x10^3/uL (0.0-0.2); EOSINOPHILS % (AUTO) 4.5 % (0.9-2.9); HEMATOCRIT 27.3 % (36.0-47.0); HEMOGLOBIN 9.2 g/dL (12.0-16.0); LYMPHOCYTES # (AUTO) 1.6 X10^3/uL (1.3-2.9); LYMPHOCYTES % (AUTO) 26.1 % (21.0-51.0); MEAN CORPUSCULAR HEMOGLOBIN 30.9 pg (27.0-34.0); MEAN CORPUSCULAR HGB CONC 33.5 g/dL (33.0-35.0); MEAN CORPUSCULAR VOLUME 92.2 fL (80.0-100.0); MEAN PLATELET VOLUME 7.1 fL (7.4-11.0); MONOCYTES # (AUTO) 0.3 x10^3/uL (0.3-0.8); MONOCYTES % (AUTO) 5.6 % (0.0-13.0); NEUTROPHILS # (AUTO) 3.7 x10^3/uL (2.2-4.8); NEUTROPHILS % (AUTO) 62.7 % (42.0-75.0); PLATELET COUNT 128 X10^3/uL (150.0-450.0); RED BLOOD COUNT 2.96 X10^6/uL (3.5-5.4); RED CELL DISTRIBUTION WIDTH 14.8 % (11.6-16.5); WHITE BLOOD COUNT 5.9 X10^3/uL (3.6-10.0)
[2020-10-04 06:38] LABS: ALANINE AMINOTRANSFERASE 23 Units/L (12-78); ALBUMIN 1.4 g/dL (3.4-5.0); ALKALINE PHOSPHATASE 82 Units/L (46-116); ASPARTATE AMINO TRANSFERASE 44 Units/L (15-37); BLOOD UREA NITROGEN 7 mg/dL (7-18); CALCIUM 7.9 mg/dL (8.5-10.1); CHLORIDE 110 mmol/L (98-107); SODIUM 144 mmol/L (136-145); eGFR NON BLACK RACES > 60 (>60)
[2020-10-04] MEDS: KLOR-CON PO SCH (10:00)
[2020-10-04] MEDS: ZYLOPRIM PO SCH (10:00)
[2020-10-04] MEDS: PLAVIX PO SCH (10:00)
[2020-10-04] MEDS: [UNRECOGNIZED DRUG - OTHER] PO SCH (10:00)
[2020-10-04] MEDS: HEMOCYTE-PLUS PO SCH (10:00)
[2020-10-04] MEDS: LASIX PO SCH (10:00)
[2020-10-04] MEDS: DEPAKOTE SPRINKLE PO SCH (10:00)
[2020-10-04] MEDS: SYNTHROID 75 mcg TAB PO SCH (10:00)
[2020-10-04] MEDS: COREG TAB 3.125 MG PO SCH (10:00)
[2020-10-04] MEDS: CYMBALTA PO SCH (10:00)
[2020-10-04] MEDS: LEVAQUIN PREMIX IV 500 MG 500 MG/100 ML BAG IV SCH (10:00)
[2020-10-04] MEDS: COLACE CAP 100 MG PO SCH (10:00)
[2020-10-04] MEDS: D5W 1000 ML IV 1,000 ML IV SCH (11:21)
[2020-10-04] MEDS: LOVENOX INJ 40 MG SYR SC SCH (11:25)
[2020-10-04] MEDS: MILK OF MAGNESIA PO SCH (11:26)
[2020-10-04] MEDS: PROTONIX TAB 40 MG PO SCH (11:28)
[2020-10-04] MEDS: ZITHROMAX INJ 500 MG VIAL 500 MG in NS 250 ML IV 250 ML IV SCH (11:53)
[2020-10-04 13:26] VITALS: BP 106/53
== END 2020-10-04 16:45 | DRG 872 ==
LOC: ER 22:07 → MED/SURG 22:07
PROVIDERS: ADMIT Internal Medicine; ATTEND Internal Medicine
DX: N18.9 Chronic kidney disease, unspecified; R10.13 Epigastric pain; Z20.828 Contact with and (suspected) exposure to other viral communicable diseases; K59.00 Constipation, unspecified; D50.8 Other iron deficiency anemias; E78.2 Mixed hyperlipidemia; R65.20 Severe sepsis without septic shock; M62.81 Muscle weakness (generalized); E86.0 Dehydration; A04.72 Enterocolitis due to Clostridium difficile, not specified as recurrent; E03.8 Other specified hypothyroidism; I25.10 Atherosclerotic heart disease of native coronary artery without angina pectoris; R94.4 Abnormal results of kidney function studies; A41.89 Other specified sepsis; N17.8 Other acute kidney failure; J44.9 Chronic obstructive pulmonary disease, unspecified; A41.1 Sepsis due to other specified staphylococcus; F03.90 Unspecified dementia, unspecified severity, without behavioral disturbance, psychotic disturbance, mood disturbance, and anxiety; I12.9 Hypertensive chronic kidney disease with stage 1 through stage 4 chronic kidney disease, or unspecified chronic kidney disease; N30.90 Cystitis, unspecified without hematuria; R94.31 Abnormal electrocardiogram [ECG] [EKG]

== ENCOUNTER 2021-03-11 20:16 | Observation (INO) ==
--- NOTE | 2021-03-11 20:19 | DR.AMS ---
HPI Time Seen Time Seen by Provider: 03/11/21 20:19 HPI Comment HPI Comment: 75 yo f w/ prev hx of vascular dementia, htn, cad presents w/ ams x 30 mints. Noted to be increasingly lethargic by snf staff. Normally a/o x 0-1 at baseline. Also c/o diffuse chest pain. No recent f/c, SOB, n/v. Limited hx due to ams. Source History Provided: Assisted Mode of Arrival Mode of Arrival: Stretcher Timing Came On: Suddenly Duration Duration: Since Onset How lon Duration: Minutes Quality Quality: Decreased Alertness and Confusion Severity Severity: Moderate Associated Signs and Symptoms Associated Signs and Symptoms: Generalized Weakness, Chest Pain, Slurred Speech and Decreased LOC; denies Unresponsiveness PMH PMH Past Medical History: Anxiety, CHF, COPD, Coronary Artery Disease, Dementia, Dyslipidemia, Gout, Hypertension and Hypothyroidism Past Surgical History: Yes Surgical History: Angioplasty/Stents, CABG/Valve Surgery, Cholecystectomy and Hysterectomy Family History Family Medical History: Diabetes Mellitus, Cancer, [place], Coronary Artery Disease, Heart Failure, Sudden Cardiac and Hypertension Social History Do you use any recreational Drugs:: No ROS Review of Systems Unable to Obtain Due To: Altered mental status PE Vitals Vital Signs: Temp Pulse Resp BP BP Pulse Ox 03/11/21 20:17 36.7 C 65 20 136/60 95 11/05/20 16:10 135/83 10/04/20 12:00 106/53 General Limitations: Altered Mental Status General Appearance: Alert, Lethargic and Other (a/o x 1. Awakens to loud vocal stimuli ); negative Obtunded Head Head Exam: Normal Inspection Eyes Eye exam: Normal Appearance ENT ENT Exam: Normal Exam External Ear Exam: Normal External Inspection Nose Exam: Normal Nose Exam Mouth Exam: Normal Inspection Throat Exam: Normal Inspection Neck Neck Exam: Normal Inspection Chest Chest Inspection: Normal Inspection Respiratory Respiratory Exam: Normal Lung Sounds Bilat Cardiovascular Cardiovascular Exam: Regular Rate and Normal Rhythm Abdominal Exam Abdominal Exam: Normal Inspection, Normal Bowel Sounds and Soft Extremities Extremities Exam: Normal Inspection Back Back Exam: Normal Inspection Neurological Neurological Exam: Alert and Oriented X3 Psychological Psychiatric Exam: Other (a/o x 0, limited eval due to ams ) Skin Skin Exam: Warm, Dry, Intact and Normal Color Other Exam Other Exam: neuro exam: lethargic. Awakens to loud voice. Mildly slurred speech. a/o x 3. Moves all 4 extremities w/o gross focal deficit. Mild left sided facial droop. MDM Additional Information Obtained Additional Information Obtained From: Old Records Differential Diagnosis Metabolic: Delirium tr., Hypernatremia, Hypoglycemia and Hyponatremia Structural: Closed Head Injury, CVA and Mass Lesion Toxicologic: Drug Overdose Infectious: Sepsis and UTI COURSE Treatment Treatment: 2119: 75 yo f w/ pmh vascular dementia presented from snf w/ ams. Noted new facial droop on left side of mouth. Uncooperative w/ neuro exam, a/o x 1. NIH SS 3. Non contrast ct of head negative for acute stroke but with evidence of chronic ischemic changes/ atherosclerosis. Had extensive risk/ benefit discussion with daughter by phone. After discussion daughter has decided not to give TPA due to concerns of her baseline functional status as well as concerns regarding ICH. 2233: CTA w/o acute thrombus. UA c/w uti. Rocephin ordered. Neuro exam stable. D/w Dr Rodriguez whom agrees to admit. ROR Labs Reviewed Laboratory Results Reviewed?: Yes Result Diagrams: 03/11/21 20:47 03/11/21 20:47 Laboratory: WBC 7.5 X10^3/uL (3.6-10.0) 03/11/21 20:47 RBC 3.39 X10^6/uL (3.5-5.4) L 03/11/21 20:47 Hgb 10.9 g/dL (12.0-16.0) L 03/11/21 20:47 Hct 32.8 % (36.0-47.0) L 03/11/21 20:47 MCV 97.0 fL (80.0-100.0) 03/11/21 20:47 MCH 32.2 pg (27.0-34.0) 03/11/21 20:47 MCHC 33.2 g/dL (33.0-35.0) 03/11/21 20:47 RDW 14.9 % (11.6-16.5) 03/11/21 20:47 Plt Count 187 X10^3/uL (150.0-450.0) 03/11/21 20:47 MPV 7.5 fL (7.4-11.0) 03/11/21 20:47 Neut % (Auto) 60.0 % (42.0-75.0) 03/11/21 20:47 Lymph % (Auto) 27.7 % (21.0-51.0) 03/11/21 20:47 [place] % (Auto) 7.0 % (0.0-13.0) 03/11/21 20:47 Eos % (Auto) 4.4 % (0.9-2.9) H 03/11/21 20:47 Baso % (Auto) 0.9 % (0.2-1.0) 03/11/21 20:47 Neut # (Auto) 4.5 x10^3/uL (2.2-4.8) 03/11/21 20:47 Lymph # (Auto) 2.1 X10^3/uL (1.3-2.9) 03/11/21 20:47 [place] # (Auto) 0.5 x10^3/uL (0.3-0.8) 03/11/21 20:47 Eos # (Auto) 0.3 x10^3/uL (0.0-0.2) H 03/11/21 20:47 Baso # (Auto) 0.1 X10^3/uL (0.0-0.1) 03/11/21 20:47 Absolute Nucleated RBC 0.0 /100WBC 03/11/21 20:47 Sodium 141 mmol/L (136-145) 03/11/21 20:47 Corrected Sodium TNP 03/11/21 20:47 Potassium 4.6 mmol/L (3.5-5.1) 03/11/21 20:47 Chloride 104 mmol/L (98-107) 03/11/21 20:47 Carbon Dioxide 29.2 mmol/L (21-32) 03/11/21 20:47 BUN 43 mg/dL (7-18) H 03/11/21 20:47 Creatinine 1.06 mg/dL (0.55-1.02) H 03/11/21 20:47 Est GFR (MDRD) Af Amer > 60 (>60) 03/11/21 20:47 Est GFR (MDRD) Non-Af 53 (>60) L 03/11/21 20:47 Glucose 82 mg/dL (65-99) 03/11/21 20:47 POC Glucose (mg/dL) 75 mg/dL (65-99) 03/11/21 20:56 Calcium 8.4 mg/dL (8.5-10.1) L 03/11/21 20:47 Troponin I < 0.02 ng/mL (0-1.5) 03/11/21 20:47 Specimen Type Catherized urine 03/11/21 21:58 Urine Color Yellow (YELLOW) 03/11/21 21:58 Urine Appearance Turbid (CLEAR) 03/11/21 21:58 Urine pH 5.0 (5.0 - 8.0) 03/11/21 21:58 Ur Specific [place] 1.010 (1.000-1.030) 03/11/21 21:58 Urine Protein 1+ (NEGATIVE) 03/11/21 21:58 Urine Glucose (UA) Negative (NEGATIVE) 03/11/21 21:58 Urine Ketones Negative (NEGATIVE) 03/11/21 21:58 Urine Occult Blood 1+ (NEGATIVE) 03/11/21 21:58 Urine Nitrite Negative (NEGATIVE) 03/11/21 21:58 Urine Bilirubin Negative (NEGATIVE) 03/11/21 21:58 Urine Urobilinogen Normal (NORMAL) 03/11/21 21:58 Ur Leukocyte Esterase 3+ (NEGATIVE) 03/11/21 21:58 Urine RBC 3-5 /HPF (0-3) A 03/11/21 21:58 Urine WBC Tntc /HPF (0-5) A 03/11/21 21:58 Ur Squamous Epith Cells Rare /HPF (NEGATIVE) 03/11/21 21:58 Urine Bacteria 1+ /HPF (NEGATIVE) 03/11/21 21:58 Other Casts Many /LPF (NEGATIVE) 03/11/21 21:58 Ur Culture Indicated? Yes/culture set up 03/11/21 21:58 SARS CoV-2 RNA Rapid LUCIUS Negative (NEGATIVE) 03/11/21 21:58 XRAY XRAY Interpreted by: Radiologist X-ray Results: ct head: chronic ischemic changes, no acute stroke cta head/ neck: chronic atherosclerosis, no acute thrombus EKG Rate: 66 [place]: Normal Rhythm: NSR Block: IVCD Hypertrophy: None ST: Nonsp Opioid Opioid Risk Tool Age (Kieran box if 16-45): No History of Preadolescent Sexual Abuse: No Total: 0 Total Score Risk Category: Low Risk Copyright: Carlos PEARSON predicting aberrant behaviors Diagnosis Discharge Problem: Acute CVA (cerebrovascular accident) AMS (altered mental status) Qualifiers: Altered mental status type: disorientation Qualified Code(s): R41.0 - Disorientation, unspecified UTI (urinary tract infection) Qualifiers: Urinary tract infection type: acute cystitis Hematuria presence: without hematuria Qualified Code(s): N30.00 - Acute cystitis without hematuria Instructions Forms: Patient Portal Social Distancing
[2021-03-11] MEDS ORDERED: ASPIRIN PR ONE (20:47)
[2021-03-11] MEDS ORDERED: ASPIRIN 81 MG CHEWTAB ONE (20:50)
[2021-03-11 20:57] LABS: BASOPHILS # (AUTO) 0.1 X10^3/uL (0.0-0.1); BASOPHILS % (AUTO) 0.9 % (0.2-1.0); EOSINOPHILS # (AUTO) 0.3 x10^3/uL (0.0-0.2); EOSINOPHILS % (AUTO) 4.4 % (0.9-2.9); HEMATOCRIT 32.8 % (36.0-47.0); HEMOGLOBIN 10.9 g/dL (12.0-16.0); LYMPHOCYTES # (AUTO) 2.1 X10^3/uL (1.3-2.9); LYMPHOCYTES % (AUTO) 27.7 % (21.0-51.0); MEAN CORPUSCULAR HEMOGLOBIN 32.2 pg (27.0-34.0); MEAN CORPUSCULAR HGB CONC 33.2 g/dL (33.0-35.0); MEAN PLATELET VOLUME 7.5 fL (7.4-11.0); MONOCYTES # (AUTO) 0.5 x10^3/uL (0.3-0.8); NEUTROPHILS # (AUTO) 4.5 x10^3/uL (2.2-4.8); PLATELET COUNT 187 X10^3/uL (150.0-450.0); RED BLOOD COUNT 3.39 X10^6/uL (3.5-5.4); RED CELL DISTRIBUTION WIDTH 14.9 % (11.6-16.5); WHITE BLOOD COUNT 7.5 X10^3/uL (3.6-10.0)
[2021-03-11] MEDS ORDERED: NS 100 ML IV 100 ML IV ONE (21:03)
--- NOTE | 2021-03-11 21:04 | CT ---
EXAM: HEAD CT WITHOUT INTRAVENOUS CONTRASTHISTORY: Altered mental status. Confusion. Lethargic.TECHNIQUE: Spiral axial CT images are obtained through the brain without the administration of intravenous contrast. Additional sagittal and coronal images are reformatted.DOSIMETRY: Total DLP 1931.6 mGycm; CTDI 70.7 mGyCOMPARISON: Head CT dated the 2019.FINDINGS:There are patchy parenchymal lucencies seen throughout the white matter tracts of the centrum semiovale, consistent with chronic sequela of atherosclerotic microvascular ischemic disease. Please note that small or subtle acute infarction can be obscured in this radiologic setting. Consider followup MRI with diffusion weighted imaging if clinically warranted. There is no gross acute territorial infarction seen. There is severe atherosclerotic disease of the carotid siphons and distal vertebral arteries.There is severe diffuse cerebral cortical atrophy, in keeping with the patient's advanced age. There is no intra-axial or extra-axial hemorrhage seen. No intra-axial or extra-axial mass lesions are noted. There is no hydrocephalus. There is no midline shift or other mass effect seen. The calvarium is intact. The partially imaged paranasal sinuses, middle ear cavities and mastoid air cells are clear.IMPRESSION:1. Extensive chronic microvascular ischemic disease throughout the centrum semiovale.2. No gross acute infarction seen; however, small or subtle acute infarctions can be obscured in this radiologic setting. Consider followup MRI with diffusion weighted imaging if clinically warranted.3. Severe atherosclerotic disease of the carotid siphons and distal vertebral arteries. Consider follow-up MRA as clinically warranted.4. Severe diffuse cerebral cortical atrophy in keeping with the patient's advanced age.5. No significant interval change seen.Electronically signed by: Ancelmo Salazar (Mar 11, 2021 21:02:35)
[2021-03-11 21:09] LABS: BLOOD UREA NITROGEN 43 mg/dL (7-18); CALCIUM 8.4 mg/dL (8.5-10.1); CARBON DIOXIDE 29.2 mmol/L (21-32); CHLORIDE 104 mmol/L (98-107); CREATININE 1.06 mg/dL (0.55-1.02); SODIUM 141 mmol/L (136-145); TROPONIN I < 0.02 ng/mL (0-1.5); eGFR NON BLACK RACES 53 (>60)
--- NOTE | 2021-03-11 21:13 | RAD ---
PROCEDURE: Chest X-ray 1 View .HISTORY: Increasing confusion and lethargy.TECHNIQUE: AP view .COMPARISON: 11/22/2020.TECHNICAL QUALITY: Poor inspiratory effort.FINDINGS:Right internal jugular Port-A-Cath in place with the tip projected over the mid superior vena cava.Normal size heart.Mediastinum and hilar regions show no masses or lymphadenopathy. Tortuous aorta.Normal central vascularity .Blunted right lateral costophrenic angle may represent small effusion that is appeared since previous study. No pulmonary consolidation, mass, or pneumothorax.No acute bony abnormality. Previous sternotomy.IMPRESSION:1. Possible small right pleural effusion.2. No other significant abnormality identified.Electronically signed by: Mckay Malone (Mar 11, 2021 21:11:32)
[2021-03-11 22:13] LABS: BILIRUBIN,URINE NEGATIVE (NEGATIVE); BLOOD/HEMOGLOBIN,URINE 1+ (NEGATIVE); GLUCOSE, URINE NEGATIVE (NEGATIVE); KETONES,URINE NEGATIVE (NEGATIVE); LEUKOCYTE ESTERASE ,URINE 3+ (NEGATIVE); NITRITES,URINE NEGATIVE (NEGATIVE); PROTEIN,URINE 1+ (NEGATIVE); UROBILINOGEN,URINE NORMAL (NORMAL)
[2021-03-11 22:25] LABS: APPEARANCE,URINE TURBID (CLEAR); COLOR,URINE YELLOW (YELLOW)
--- NOTE | 2021-03-11 22:25 | CT ---
PROCEDURE: CTA Head .HISTORY: Increase confusion and lethargy. Rule out stroke.TECHNIQUE: Axial images were performed through the head with the administration of IV contrast with multiplanar reformations . 3D and MIPS reconstructions were performed and reviewed. Dose reduction techniques including Automated Exposure Control (AEC) and adjustment of mA and kV were utilized .COMPARISON: None .TECHNICAL QUALITY: Satisfactory .FINDINGS:[id number]-vb-[id number] atherosclerosis right carotid siphon without significant narrowing. Right anterior and middle cerebral arteries show normal enhancement and no narrowing or occlusion.Left carotid siphon shows [id number] atherosclerosis without significant narrowing. Left anterior and middle cerebral arteries show normal enhancement with no narrowing or occlusion.Mild atherosclerosis involving both intracranial vertebral arteries without significant narrowing. Basilar artery is unremarkable. Normal enhancement of bilateral posterior cerebral arteries with no significant abnormality.No aneurysm or arterial venous malformation.Dural sinuses show normal enhancement with no clot.No abnormal enhancement of the brain.IMPRESSION:1. Atherosclerosis involving anterior and posterior circulation at the skullbase without significant narrowing.2. No other significant vascular abnormality.Electronically signed by: Mckay Malone (Mar 11, 2021 22:22:36)
[2021-03-11 22:26] LABS: BACTERIA,URINE 1+ /HPF (NEGATIVE); OTHER CASTS, URINE MANY /LPF (NEGATIVE); SQUAMOUS EPITHELIAL CELL,UR RARE /HPF (NEGATIVE)
[2021-03-11] MEDS ORDERED: ROCEPHIN 1 GRAM IV PREMIX 1 G/50 ML IV.SOLN. IV SCH (22:28)
[2021-03-11] MEDS ORDERED: ASPIRIN 81 MG CHEWTAB PO ONE (22:41)
[2021-03-11] MEDS ORDERED: NS 1000 ML 1,000 ML ONE (22:55)
[2021-03-11] MEDS ORDERED: ROCEPHIN 1 GRAM IV PREMIX 1 G/50 ML IV.SOLN. IV ONE (22:56)
[2021-03-11] MEDS: NS 1000 ML 1,000 ML IV SCH (23:01)
[2021-03-12] MEDS ORDERED: ROCEPHIN 1 GRAM IV PREMIX 1 G/50 ML IV.SOLN. IV SCH (02:00)
[2021-03-12] MEDS ORDERED: PHARMACY CONSULT LTC MEDICATIONS XX SCH (02:00)
[2021-03-12] MEDS: ASPIRIN PO SCH (09:55)
[2021-03-12] MEDS: NS 1000 ML 1,000 ML IV SCH (13:38)
[2021-03-12] MEDS ORDERED: BUTT CREAM (COMPOUND) ONE (17:02)
[2021-03-12] MEDS: BUTT CREAM (COMPOUND) TOP PRN (17:15)
[2021-03-12] MEDS: ROCEPHIN 1 GRAM IV PREMIX 1 G/50 ML IV.SOLN. IV SCH (20:10)
[2021-03-12 22:23] VITALS: BMI 25.5
[2021-03-13] MEDS: NS 1000 ML 1,000 ML IV SCH ×2 (02:15→14:05)
[2021-03-13 05:59] LABS: BASOPHILS % (AUTO) 0.7 % (0.2-1.0); EOSINOPHILS # (AUTO) 0.3 x10^3/uL (0.0-0.2); EOSINOPHILS % (AUTO) 3.6 % (0.9-2.9); HEMATOCRIT 29.9 % (36.0-47.0); HEMOGLOBIN 9.8 g/dL (12.0-16.0); LYMPHOCYTES # (AUTO) 1.6 X10^3/uL (1.3-2.9); LYMPHOCYTES % (AUTO) 22.8 % (21.0-51.0); MEAN CORPUSCULAR HEMOGLOBIN 32.1 pg (27.0-34.0); MEAN CORPUSCULAR HGB CONC 32.8 g/dL (33.0-35.0); MEAN CORPUSCULAR VOLUME 97.9 fL (80.0-100.0); MEAN PLATELET VOLUME 7.5 fL (7.4-11.0); MONOCYTES # (AUTO) 0.4 x10^3/uL (0.3-0.8); MONOCYTES % (AUTO) 5.7 % (0.0-13.0); NEUTROPHILS # (AUTO) 4.7 x10^3/uL (2.2-4.8); NEUTROPHILS % (AUTO) 67.2 % (42.0-75.0); PLATELET COUNT 173 X10^3/uL (150.0-450.0); RED BLOOD COUNT 3.05 X10^6/uL (3.5-5.4); RED CELL DISTRIBUTION WIDTH 14.8 % (11.6-16.5); WHITE BLOOD COUNT 6.9 X10^3/uL (3.6-10.0)
[2021-03-13 06:10] LABS: ALBUMIN 2.2 g/dL (3.4-5.0); CALCIUM 8.1 mg/dL (8.5-10.1); CARBON DIOXIDE 25.2 mmol/L (21-32); COR CA(FOR HYPOALB) 9.5 mg/dL (8.5-10.1); CREATININE 1.15 mg/dL (0.55-1.02); TOTAL PROTEIN 5.9 g/dL (6.4-8.2)
[2021-03-13] MEDS: ASPIRIN PO SCH (09:21)
[2021-03-13] MEDS: ATIVAN TAB 1 MG PO SCH ×2 (11:09→20:43)
[2021-03-13] MEDS: PLAVIX PO SCH (11:10)
[2021-03-13] MEDS: COREG TAB 3.125 MG PO SCH ×2 (11:10→20:42)
[2021-03-13] MEDS: CYMBALTA PO SCH (11:11)
[2021-03-13] MEDS: SYNTHROID 75 mcg TAB PO SCH (11:11)
[2021-03-13] MEDS: DEPAKOTE SPRINKLE PO SCH ×2 (11:12→20:42)
[2021-03-13] MEDS: PROTONIX TAB 40 MG PO SCH (11:12)
[2021-03-13] MEDS: LASIX PO SCH (11:12)
[2021-03-13] MEDS: ZYLOPRIM PO SCH (11:12)
[2021-03-13] MEDS: BUTT CREAM (COMPOUND) TOP PRN (12:20)
[2021-03-13] MEDS: ROCEPHIN 1 GRAM IV PREMIX 1 G/50 ML IV.SOLN. IV SCH (20:42)
[2021-03-13] MEDS: DESYREL PO SCH (20:43)
[2021-03-13] MEDS ORDERED: CRESTOR TAB 10 MG PO SCH (21:00)
[2021-03-13] MEDS ORDERED: REMERON PO SCH (21:00)
[2021-03-13] MEDS ORDERED: ARICEPT TAB 10 MG PO SCH (21:00)
[2021-03-14] MEDS: NS 1000 ML 1,000 ML IV SCH (03:00)
[2021-03-14] MEDS: SYNTHROID 75 mcg TAB PO SCH (05:46)
[2021-03-14 06:27] LABS: ALANINE AMINOTRANSFERASE 31 Units/L (12-78); ALBUMIN 2.4 g/dL (3.4-5.0); ALKALINE PHOSPHATASE 68 Units/L (46-116); ASPARTATE AMINO TRANSFERASE 31 Units/L (15-37); BLOOD UREA NITROGEN 22 mg/dL (7-18); CALCIUM 8.3 mg/dL (8.5-10.1); CARBON DIOXIDE 25.2 mmol/L (21-32); CHLORIDE 107 mmol/L (98-107); COR CA(FOR HYPOALB) 9.6 mg/dL (8.5-10.1); CREATININE 0.87 mg/dL (0.55-1.02); SODIUM 143 mmol/L (136-145); TOTAL PROTEIN 6.5 g/dL (6.4-8.2); eGFR NON BLACK RACES > 60 (>60)
[2021-03-14 06:32] LABS: BASOPHILS # (AUTO) 0.1 X10^3/uL (0.0-0.1); BASOPHILS % (AUTO) 0.8 % (0.2-1.0); EOSINOPHILS # (AUTO) 0.3 x10^3/uL (0.0-0.2); EOSINOPHILS % (AUTO) 3.9 % (0.9-2.9); HEMOGLOBIN 10.7 g/dL (12.0-16.0); LYMPHOCYTES # (AUTO) 1.6 X10^3/uL (1.3-2.9); LYMPHOCYTES % (AUTO) 22.9 % (21.0-51.0); MEAN CORPUSCULAR HEMOGLOBIN 31.6 pg (27.0-34.0); MEAN CORPUSCULAR HGB CONC 32.4 g/dL (33.0-35.0); MEAN CORPUSCULAR VOLUME 97.3 fL (80.0-100.0); MEAN PLATELET VOLUME 7.7 fL (7.4-11.0); MONOCYTES # (AUTO) 0.5 x10^3/uL (0.3-0.8); MONOCYTES % (AUTO) 7.7 % (0.0-13.0); NEUTROPHILS # (AUTO) 4.4 x10^3/uL (2.2-4.8); NEUTROPHILS % (AUTO) 64.7 % (42.0-75.0); PLATELET COUNT 152 X10^3/uL (150.0-450.0); RED CELL DISTRIBUTION WIDTH 14.2 % (11.6-16.5); WHITE BLOOD COUNT 6.8 X10^3/uL (3.6-10.0)
[2021-03-14 07:08] LABS: PLATELET MORPHOLOGY COMMENT NORMAL (NORMAL)
[2021-03-14] MEDS: DEPAKOTE SPRINKLE PO SCH (08:51)
[2021-03-14] MEDS: LASIX PO SCH (08:51)
[2021-03-14] MEDS: DESYREL PO SCH (08:51)
[2021-03-14] MEDS: ATIVAN TAB 1 MG PO SCH (08:51)
[2021-03-14] MEDS: PROTONIX TAB 40 MG PO SCH (08:51)
[2021-03-14] MEDS: PLAVIX PO SCH (08:51)
[2021-03-14] MEDS: CYMBALTA PO SCH (08:51)
[2021-03-14] MEDS: ZYLOPRIM PO SCH (08:51)
[2021-03-14] MEDS: COREG TAB 3.125 MG PO SCH (08:51)
[2021-03-14] MEDS: ASPIRIN PO SCH (08:51)
[2021-03-14] MEDS ORDERED: ZINC SULFATE PO SCH (09:00)
[2021-03-14] MEDS ORDERED: INVANZ INJ 1 GM VIAL 1 GM in NS 100 ML IV + SPIKE MINIBAG* 100 ML IV NR (13:00)
[2021-03-14 16:19] VITALS: BP 121/56
[2021-03-14] MEDS ORDERED: SNACK - Diabetic Appropriate PO SCH (20:00)
== END 2021-03-14 16:45 ==
LOC: ER 20:17 → INTOOBSV 23:01 → MED/SURG 23:01
PROVIDERS: ADMIT Internal Medicine; ATTEND Internal Medicine
DX: E03.8 Other specified hypothyroidism; I25.10 Atherosclerotic heart disease of native coronary artery without angina pectoris; F01.50 Vascular dementia, unspecified severity, without behavioral disturbance, psychotic disturbance, mood disturbance, and anxiety; M19.90 Unspecified osteoarthritis, unspecified site; N30.00 Acute cystitis without hematuria; R94.31 Abnormal electrocardiogram [ECG] [EKG]; I10 Essential (primary) hypertension; E86.0 Dehydration; Z20.822 Contact with and (suspected) exposure to COVID-19; R07.89 Other chest pain; B96.29 Other Escherichia coli [E. coli] as the cause of diseases classified elsewhere; F41.8 Other specified anxiety disorders; J44.9 Chronic obstructive pulmonary disease, unspecified; R41.0 Disorientation, unspecified

== ENCOUNTER 2022-04-18 17:13 | Observation (INO) ==
--- NOTE | 2022-04-18 17:27 | DR.H&P ---
H&P - History & Physical for Day of: H&P Date: 04/18/22 - Chief Complaint Chief Complaint: AMS - History of Present Illness History of Present Illness: PT IS 76 WF RESIDENT OF [facility], DIRECT ADMIT WITH FAILED OUPTPT UTI, DEHYDRATION AND NH STAFF REPORTING AMS. PT HAD OUTPT UA AND UC REVEALING >100K ECOLI, PT WAS ON AMOXIL. NH STAFF REPORTS PT NOT RESPONDING, NOT EATING, VERY LETHARGIC FOR OVER 24 HRS. PT HAS PMH OF CAD, HTN, PSORIASIS, JIGNA, VASCULAR DEMENTIA. - Past Medical History Past Medical History: Coronary Artery Disease, Hypertension, Dyslipidemia, Dementia, Anxiety, Hypothyroidism, COPD, Gout, CHF Additional Medical History: Cataracts, Bronchitis, Pneumonia, Hiatal Hernia, Urinary Tract Infections, Back Pain, Previous Blood Transfusion, Skin Cancer, Vaginal Cancer - Past Surgical History Surgical History: Angioplasty/Stents, CABG/Valve Surgery, Cholecystectomy, Hysterectomy Additional Surgical History: Renal Stents, Lung Surgery, Vaginal Cancer Removed - Family History Family Medical History: Diabetes Mellitus, Cancer, [place], Coronary Artery Disease, Heart Failure, Sudden Cardiac , Hypertension - Social History Does patient currently use any type of tobacco product: No Have you used tobacco products in the last 12 months: No Type of Tobacco Use: None Does any household member use tobacco: No Alcohol Use: None Drug Use: None Risks, benefits, and alternatives of opioids discussed: No - Medications Home Medications: No Known Drug Allergies Allergy (Verified 12/21/19 02:43) - Review of Systems Constitutional: Chills, Weakness Eyes: No Symptoms Reported Respiratory: Wheezing Cardiovascular: No Symptoms Reported Gastrointestinal: Other (ANOREXIA PER NH STAFF) Genitourinary: Incontinence Musculoskeletal: No Symptoms Reported Skin: Rash Neurological: Weakness, Confusion - Physical Exam Vital Signs: Blood Pressure [Right Arm] 128/57 Oriented: negative: Time, Person Eyes: Normal Ear: Normal Nose: Normal Throat: Dry Respiratory: Wheezes Throughout Cardiovascular: Normal : Normal Auscultation: Bowel Sounds: Normal, Other (FEEDING TUBE PRESENT) Tenderness: Normal Skin: Decreased [place] Musculoskeletal: Motor Deficit, Sensory Deficit Affect: Flat Speech Pattern: Aphasic - Assessment/Plan (1) AMS (altered mental status) Qualifiers: Altered mental status type: transient alteration of awareness Qualified Code(s): R40.4 - Transient alteration of awareness Status: Acute Plan: ADMIT, CT HEAD ON ADMISSION RO CVA. VERIFY HOME MEDICATION PER TWIN ERENDIRA MAR, G TUBE FEEDINGS. IV HYDRATION, STRICT I&OS, BC AND LACTIC ACID ON ADMISSION. IV MEROPENEM, CARIDAC MONTORING, BP CONTROL. ADMISSION LABS INCLUDING CE (2) Acute on chronic renal failure Status: Acute (3) CAD (coronary artery disease) Status: Acute (4) Hypertension Qualifiers: Hypertension type: essential hypertension Qualified Code(s): I10 - Essential (primary) hypertension Status: Acute (5) Generalized anxiety disorder Status: Chronic (6) Hypothyroidism Status: Chronic - Allergies Allergies/Adverse Reactions: Allergies Allergy/AdvReac Type Severity Reaction Status Date / Time No Known Drug Allergies Allergy Verified 12/21/19 02:43
[2022-04-18] MEDS ORDERED: ATIVAN TAB 1 MG PO PRN (20:27)
[2022-04-18 20:34] LABS: BASOPHILS # (AUTO) 0.1 X10^3/uL (0.0-0.1); BASOPHILS % (AUTO) 0.9 % (0.2-1.0); EOSINOPHILS # (AUTO) 0.1 x10^3/uL (0.0-0.2); EOSINOPHILS % (AUTO) 1.2 % (0.9-2.9); HEMATOCRIT 34.9 % (36.0-47.0); HEMOGLOBIN 11.7 g/dL (12.0-16.0); MEAN CORPUSCULAR HEMOGLOBIN 31.6 pg (27.0-34.0); MEAN CORPUSCULAR HGB CONC 33.4 g/dL (33.0-35.0); MEAN CORPUSCULAR VOLUME 94.7 fL (80.0-100.0); MEAN PLATELET VOLUME 7.5 fL (7.4-11.0); MONOCYTES # (AUTO) 0.7 x10^3/uL (0.3-0.8); MONOCYTES % (AUTO) 6.7 % (0.0-13.0); NEUTROPHILS # (AUTO) 8.1 x10^3/uL (2.2-4.8); NEUTROPHILS % (AUTO) 73.2 % (42.0-75.0); RED BLOOD COUNT 3.68 X10^6/uL (3.5-5.4); RED CELL DISTRIBUTION WIDTH 14.6 % (11.6-16.5)
[2022-04-18 21:00] LABS: PLATELET MORPHOLOGY COMMENT NORMAL (NORMAL); WHITE BLOOD COUNT 11.9 X10^3/uL (3.6-10.0)
[2022-04-18 21:08] LABS: ALANINE AMINOTRANSFERASE < 6 Units/L (12-78); ALKALINE PHOSPHATASE 86 Units/L (46-116); ASPARTATE AMINO TRANSFERASE 19 Units/L (15-37); BLOOD UREA NITROGEN 20 mg/dL (7-18); CALCIUM 8.5 mg/dL (8.5-10.1); CARBON DIOXIDE 30.7 mmol/L (21-32); CHLORIDE 99 mmol/L (98-107); CKMB % 5.6 % (<4); COR CA(FOR HYPOALB) 10.1 mg/dL (8.5-10.1); CREATINE KINASE 18 Units/L (26-192); CREATINE KINASE MB < 1.0 ng/mL (0-4.0); CREATININE 0.96 mg/dL (0.55-1.02); SODIUM 136 mmol/L (136-145); TOTAL PROTEIN 7.4 g/dL (6.4-8.2); eGFR NON BLACK RACES 60 (>60)
[2022-04-18] MEDS: NS 1,000 ML IV 1,000 ML IV SCH (23:20)
[2022-04-18] MEDS: MERREM VIAL 500 MG in NS 100 ML IV 100 ML IV SCH (23:20)
[2022-04-18] MEDS: ARICEPT TAB 10 MG PO SCH (23:20)
[2022-04-18] MEDS: DESYREL PO SCH (23:21)
[2022-04-18] MEDS: CRESTOR TAB 10 MG PO SCH (23:21)
[2022-04-18] MEDS: REMERON PO SCH (23:21)
[2022-04-18] MEDS: MELATONIN PO SCH (23:21)
[2022-04-18] MEDS: COREG TAB 3.125 MG PO SCH (23:21)
--- NOTE | 2022-04-18 23:32 | CT ---
HISTORYAMSSTUDYBRAIN W/O CONCOMPARISONApril 2020 CT brain.TECHNIQUECT scan of the brain was obtained from skull base to vertex without contrast. Dose reduction techniques were utilized.Contrast: NoneFINDINGSThere is diffuse cerebral and cerebellar volume loss. There is moderate hypodensity in the hemispheric white matter. While these are nonspecific findings, this most likely represents microvascular ischemic disease changes. There is no evidence of intracranial hemorrhage or mass-effect. No extra-axial fluid collections are identified.There are extensive atherosclerotic changes noted of the cavernous carotid arteries and distal vertebral arteries.Skull base and calvarium are intact. Paranasal sinuses are clear.IMPRESSIONNo evidence of acute intracranial pathology. Diffuse generalized cerebral and cerebellar atrophy. Moderate microvascular ischemic disease changes.Electronically signed by: Jenna Padilla (April 18, 2022 23:29:27)
--- NOTE | 2022-04-18 23:35 | RAD ---
HISTORYSOB; AMSSTUDYCHEST, 1 VIEWCOMPARISONAugust 2020.TECHNIQUEA single frontal view of the chest was obtained.FINDINGSThere is a MediPort catheter with its tip overlying the expected location of the superior vena cava. The patient is s/p remote median sternotomy for coronary artery bypass grafting.There are multiple EKG leads and wires seen overlying the patient. The heart is normal in size. There is no focal infiltrate. There is a small right pleural effusion seen is blunting of the right costophrenic angle. Minimal dependent subsegmental atelectasis of the right lung base is seen. There is no pneumothorax. The osseous structures are intact.IMPRESSION1. MediPort catheter in situ and status post median sternotomy.2. Small right pleural effusion and probable dependent subsegmental atelectasis of the right lung base.Electronically signed by: Jenna Padilla (April 18, 2022 23:32:14)
[2022-04-18 23:54] VITALS: BMI 23.6
[2022-04-19 04:45] LABS: LACTIC ACID 0.5 mmol/L (0.4-2.0)
[2022-04-19 04:47] LABS: BASOPHILS # (AUTO) 0.1 X10^3/uL (0.0-0.1); BASOPHILS % (AUTO) 0.7 % (0.2-1.0); EOSINOPHILS # (AUTO) 0.1 x10^3/uL (0.0-0.2); EOSINOPHILS % (AUTO) 1.4 % (0.9-2.9); HEMATOCRIT 33.2 % (36.0-47.0); LYMPHOCYTES # (AUTO) 1.8 X10^3/uL (1.3-2.9); LYMPHOCYTES % (AUTO) 20.9 % (21.0-51.0); MEAN CORPUSCULAR HEMOGLOBIN 31.4 pg (27.0-34.0); MEAN CORPUSCULAR HGB CONC 33.1 g/dL (33.0-35.0); MEAN PLATELET VOLUME 7.4 fL (7.4-11.0); MONOCYTES # (AUTO) 0.6 x10^3/uL (0.3-0.8); NEUTROPHILS # (AUTO) 6.1 x10^3/uL (2.2-4.8); RED BLOOD COUNT 3.49 X10^6/uL (3.5-5.4); RED CELL DISTRIBUTION WIDTH 14.4 % (11.6-16.5); WHITE BLOOD COUNT 8.7 X10^3/uL (3.6-10.0)
[2022-04-19] MEDS ORDERED: STERILE WATER IRRIGATION IR ONE (05:00)
[2022-04-19 05:09] LABS: ALANINE AMINOTRANSFERASE < 6 Units/L (12-78); ALBUMIN 1.7 g/dL (3.4-5.0); ALKALINE PHOSPHATASE 76 Units/L (46-116); ASPARTATE AMINO TRANSFERASE 15 Units/L (15-37); BLOOD UREA NITROGEN 19 mg/dL (7-18); CALCIUM 8.1 mg/dL (8.5-10.1); CHLORIDE 102 mmol/L (98-107); COR CA(FOR HYPOALB) 9.9 mg/dL (8.5-10.1); CREATININE 0.98 mg/dL (0.55-1.02); SODIUM 136 mmol/L (136-145); TOTAL PROTEIN 6.5 g/dL (6.4-8.2); eGFR NON BLACK RACES 58 (>60)
[2022-04-19 05:42] LABS: BILIRUBIN,URINE NEGATIVE (NEGATIVE); BLOOD/HEMOGLOBIN,URINE 1+ (NEGATIVE); GLUCOSE, URINE NEGATIVE (NEGATIVE); KETONES,URINE 1+ (NEGATIVE); LEUKOCYTE ESTERASE ,URINE 1+ (NEGATIVE); NITRITES,URINE NEGATIVE (NEGATIVE); PROTEIN,URINE 2+ (NEGATIVE); UROBILINOGEN,URINE 2+ (NORMAL)
[2022-04-19 05:55] LABS: APPEARANCE,URINE SLIGHTLY HAZY (CLEAR); COLOR,URINE YELLOW (YELLOW)
[2022-04-19 05:56] LABS: BACTERIA,URINE TRACE /HPF (NEGATIVE); RENAL EPITHELIAL CELLS,URINE RARE /HPF (NEGATIVE); SQUAMOUS EPITHELIAL CELL,UR MANY /HPF (NEGATIVE)
[2022-04-19] MEDS: SYNTHROID 75 mcg TAB PO SCH (06:29)
[2022-04-19] MEDS: ZINC SULFATE PO SCH (08:47)
[2022-04-19] MEDS: CYMBALTA PO SCH (08:47)
[2022-04-19] MEDS: ZYLOPRIM PO SCH (08:47)
[2022-04-19] MEDS: LASIX PO SCH (08:48)
[2022-04-19] MEDS: DESYREL PO SCH ×2 (08:49→20:37)
[2022-04-19] MEDS: DEPAKOTE SPRINKLE PO SCH ×3 (08:49→20:37)
[2022-04-19] MEDS: PROTONIX TAB 40 MG PO SCH (08:50)
[2022-04-19] MEDS: COREG TAB 3.125 MG PO SCH ×2 (08:50→20:37)
[2022-04-19] MEDS: MERREM VIAL 500 MG in NS 100 ML IV 100 ML IV SCH ×2 (08:55→20:28)
[2022-04-19] MEDS: PLAVIX PO SCH (09:07)
[2022-04-19] MEDS: NS 1,000 ML IV 1,000 ML IV SCH ×2 (09:07→22:10)
[2022-04-19] MEDS: LOVENOX INJ 40 MG SYR SC SCH (09:41)
[2022-04-19] MEDS: MELATONIN PO SCH (20:37)
[2022-04-19] MEDS: REMERON PO SCH (20:37)
[2022-04-19] MEDS: ARICEPT TAB 10 MG PO SCH (20:37)
[2022-04-19] MEDS: CRESTOR TAB 10 MG PO SCH (20:37)
[2022-04-20 05:09] LABS: BASOPHILS # (AUTO) 0.1 X10^3/uL (0.0-0.1); BASOPHILS % (AUTO) 0.8 % (0.2-1.0); EOSINOPHILS # (AUTO) 0.2 x10^3/uL (0.0-0.2); EOSINOPHILS % (AUTO) 3.5 % (0.9-2.9); HEMATOCRIT 28.8 % (36.0-47.0); HEMOGLOBIN 9.6 g/dL (12.0-16.0); LYMPHOCYTES # (AUTO) 1.9 X10^3/uL (1.3-2.9); LYMPHOCYTES % (AUTO) 28.7 % (21.0-51.0); MEAN CORPUSCULAR HEMOGLOBIN 31.5 pg (27.0-34.0); MEAN CORPUSCULAR HGB CONC 33.3 g/dL (33.0-35.0); MEAN CORPUSCULAR VOLUME 94.4 fL (80.0-100.0); MEAN PLATELET VOLUME 7.7 fL (7.4-11.0); MONOCYTES # (AUTO) 0.5 x10^3/uL (0.3-0.8); MONOCYTES % (AUTO) 7.7 % (0.0-13.0); NEUTROPHILS % (AUTO) 59.3 % (42.0-75.0); RED BLOOD COUNT 3.06 X10^6/uL (3.5-5.4); RED CELL DISTRIBUTION WIDTH 14.7 % (11.6-16.5); WHITE BLOOD COUNT 6.7 X10^3/uL (3.6-10.0)
[2022-04-20 05:21] LABS: ALANINE AMINOTRANSFERASE 9 Units/L (12-78); ALBUMIN 1.5 g/dL (3.4-5.0); ALKALINE PHOSPHATASE 68 Units/L (46-116); ASPARTATE AMINO TRANSFERASE 20 Units/L (15-37); BLOOD UREA NITROGEN 19 mg/dL (7-18); CALCIUM 7.5 mg/dL (8.5-10.1); CARBON DIOXIDE 28.1 mmol/L (21-32); CHLORIDE 105 mmol/L (98-107); COR CA(FOR HYPOALB) 9.5 mg/dL (8.5-10.1); CREATININE 0.91 mg/dL (0.55-1.02); SODIUM 136 mmol/L (136-145); TOTAL PROTEIN 5.6 g/dL (6.4-8.2); eGFR NON BLACK RACES > 60 (>60)
[2022-04-20] MEDS: SYNTHROID 75 mcg TAB PO SCH (05:29)
[2022-04-20] MEDS: MERREM VIAL 500 MG in NS 100 ML IV 100 ML IV SCH (08:54)
[2022-04-20] MEDS: DEPAKOTE SPRINKLE PO SCH (08:59)
[2022-04-20] MEDS: CYMBALTA PO SCH (08:59)
[2022-04-20] MEDS: COREG TAB 3.125 MG PO SCH (08:59)
[2022-04-20] MEDS: LASIX PO SCH (09:00)
[2022-04-20] MEDS: PROTONIX TAB 40 MG PO SCH (09:00)
[2022-04-20] MEDS: DESYREL PO SCH (09:00)
[2022-04-20] MEDS: ZYLOPRIM PO SCH (09:02)
[2022-04-20] MEDS: PLAVIX PO SCH (09:02)
[2022-04-20] MEDS: ZINC SULFATE PO SCH (09:02)
[2022-04-20] MEDS: LOVENOX INJ 40 MG SYR SC SCH (09:02)
[2022-04-20] MEDS: NS 1,000 ML IV 1,000 ML IV SCH (11:04)
[2022-04-20 11:49] VITALS: BP 117/53
== END 2022-04-20 14:55 ==
LOC: MED/SURG
PROVIDERS: ADMIT Internal Medicine; ATTEND Internal Medicine